=== PATIENT | female | born 1965 | race American Indian/Alaskan Native ===

== ENCOUNTER 2016-08-15 06:13 | Day surgery (SDC) | payer OTHER ==
[2016-08-15] MEDS ORDERED: Midazolam 1 MG/ML 2 ML SDV ONE (06:14)
[2016-08-15] MEDS ORDERED: fentaNYL 100 MCG/2 ML SDV ONE (06:14)
[2016-08-15] MEDS ORDERED: Dextrose 5%-0.45% NaCl 1,000 ML IV SCH (07:00)
[2016-08-15] MEDS ORDERED: fentaNYL 100 MCG/2 ML SDV IV ONE ×3 (07:35→15:06)
[2016-08-15] MEDS ORDERED: Midazolam 1 MG/ML 2 ML SDV IV ONE ×6 (07:37→15:06)
[2016-08-15 09:57] VITALS: BP 117/82
--- NOTE | 2016-08-15 10:02 | OR ---
DATE: 08/15/2016 PROCEDURE: Total colonoscopy. INSTRUMENT USED: PCF-H180AL Olympus video colonoscope. PREMEDICATIONS: Fentanyl 100 mcg intravenous, Versed 4 mg intravenous. Nasal 2 L O2 cannula. The procedure was done under pulse oximetry, BP recording, and cardiac technician. INDICATION: The patient with rectal bleeding, Hemoccult-positive stools. Colonoscopic examination is done for detection of any polypoid lesions and removal, endoscopic hemostasis therapy if needed. DESCRIPTION OF PROCEDURE: Initial rectal exam was unremarkable. Rigid anoscopy was normal. The colonoscope was passed with ease. Diverticula were noted in the distal left colon. The examination was compromised in a few areas due to the presence of large amount of fecal material that had to be aspirated. The scope was passed with ease up to the ileocecal area, photographs were taken of the normal- appearing cecum, identified by landmarks of appendiceal orifice and double- bulged ileocecal folds. No bleeding was noted from any of the visualized areas at the commencement of the examination. No stricture. No vascular ectasia. No large isolated ulcerations seen. No evidence of diffuse inflammatory bowel disease in the form of friability, contact bleeding, or ulcerations. No polyp or tumor mass identified. Probing the proximal sides of folds and flexures, using adequate distention and clearing of the stool material, withdrawal of the scope was made, cecum to rectum time over 6 minutes. No bleeding was noted from any of the visualized areas at the completion of examination. IMPRESSION: Diverticulosis. The patient tolerated the procedure well. [facility] /[id number]
--- NOTE | 2016-08-15 11:04 | LETTER ---
08/15/2016 Senait Scott [facility] [address] [place] [address] RE: STEVEN JUNG : 1965 Dear Sonia. . Steven Jung had colonoscopy examination done this morning and she tolerated the procedure well. I herewith send a copy of the endoscopy note and photographs for your review. The colonoscopy examination was negative for any bleeding area. She has had episodes of vomiting unexplained. She is scheduled for EGD on 08/18/2016. Thank you. Sincerely, [facility] /[id number]
== END 2016-08-15 10:00 | disposition home or self-care (01) ==
LOC: DL.ENDO 06:13
PROVIDERS: ATTEND Internal Medicine Gastroenterology
DX: K57.30 Diverticulosis of large intestine without perforation or abscess without bleeding (principal); I10 Essential (primary) hypertension; E11.9 Type 2 diabetes mellitus without complications; E66.9 Obesity, unspecified; G47.30 Sleep apnea, unspecified; Z90.49 Acquired absence of other specified parts of digestive tract; Z98.890 Other specified postprocedural states; Z91.040 Latex allergy status; Z91.018 Allergy to other foods; F11.20 Opioid dependence, uncomplicated; Z79.82 Long term (current) use of aspirin; Z79.4 Long term (current) use of insulin; Z79.899 Other long term (current) drug therapy; F32.9 Major depressive disorder, single episode, unspecified
CPT/HCPCS: 45378; J2250; J3010; J7042

== ENCOUNTER 2016-08-18 05:33 | Day surgery (SDC) | payer OTHER ==
[2016-08-18] MEDS ORDERED: Sodium Chloride 0.9% 10 ML Syringe FLUSH PRN (06:00)
[2016-08-18] MEDS ORDERED: Dextrose 5%-0.45% NaCl 1,000 ML IV SCH (06:00)
[2016-08-18] MEDS ORDERED: Midazolam 1 MG/ML 2 ML SDV ONE (06:11)
[2016-08-18] MEDS ORDERED: fentaNYL 100 MCG/2 ML SDV ONE (06:11)
[2016-08-18] MEDS ORDERED: fentaNYL 100 MCG/2 ML SDV IV ONE ×3 (06:24→14:30)
[2016-08-18] MEDS ORDERED: Midazolam 1 MG/ML 2 ML SDV IV ONE ×4 (06:25→14:30)
[2016-08-18 09:00] VITALS: BP 131/85
--- NOTE | 2016-08-18 10:10 | OR ---
DATE: 08/18/2016 PROCEDURE: Esophagogastroduodenoscopy and multiple pinch biopsies. INSTRUMENT USED: GIF-H180 Olympus video panendoscope. PREMEDICATIONS: No oral topical anesthesia used. Fentanyl 100 mcg intravenous, Versed 2 mg intravenous. Nasal 2 L O2 cannula. The procedure was done under pulse oximetry, BP recording, and property assessment monitor. INDICATION: The patient with episodes of vomiting, unexplained, and had previous gastric bypass surgery. Esophagogastroduodenoscopy is performed for detection of any active erosive lesions, Pérez esophagus and/or malignancy also under consideration, H. pylori status to be determined, endoscopic hemostasis therapy if needed. DESCRIPTION OF PROCEDURE: The scope was passed with ease. Adequate visualization of the esophagus was made from proximal to distal areas. No upper esophageal lesions identified. No distal esophageal stricture. No uphill or downhill esophageal varices. No Katie-Godinez tear. No evidence of erosive esophagitis by Codington criteria. No esophageal polyp or tumor mass identified. Small gastric stump visualized showed no ulcer, polyp, tumor mass, or vascular ectasia. Gastric fundus examination by retroflexion showed no polypoid lesions. Surgical site showed no bleeding areas. Visualized loops of the bowel, afferent and efferent loops, unremarkable. Multiple pinch biopsies were taken from the distal and proximal gastric mucosa and sent for PyloriTek test for H. pylori; if negative in an hour, the tissue is to be sent for histopathology. No bleeding was noted from any of the visualized areas at the completion of examination. Photographs were taken of the surgical site, gastric fundus, as well as distal esophagus. IMPRESSION: Status post gastric bypass surgery. The patient tolerated the procedure well. [facility] /[id number]
--- NOTE | 2016-08-18 11:49 | LETTER ---
08/18/2016 Senait Scott NP [facility] [address] [place] [address] RE: STEVEN JUNG : 1965 Dear Ms. Scott: Ms. Steven Jung had esophagogastroduodenoscopy done this morning and she tolerated the procedure well. I herewith send a copy of the endoscopy note and photographs for your review. She is put on omeprazole 10 mg p.o. daily, response to be noted. Thank you. Sincerely, [facility] /[id number]
== END 2016-08-18 08:50 | disposition home or self-care (01) ==
LOC: DL.ENDO 05:33
PROVIDERS: ATTEND Internal Medicine Gastroenterology
DX: R11.10 Vomiting, unspecified (principal); I10 Essential (primary) hypertension; E11.9 Type 2 diabetes mellitus without complications; E66.9 Obesity, unspecified; G47.30 Sleep apnea, unspecified; Z90.49 Acquired absence of other specified parts of digestive tract; Z98.890 Other specified postprocedural states; Z79.82 Long term (current) use of aspirin; Z91.040 Latex allergy status; Z91.018 Allergy to other foods; Z79.4 Long term (current) use of insulin; Z79.899 Other long term (current) drug therapy; Z98.84 Bariatric surgery status
CPT/HCPCS: 43239; 87077; J2250; J3010; J7042

== ENCOUNTER 2016-12-27 00:21 | Emergency (ER) | payer OTHER ==
[2016-12-27] MEDS ORDERED: methylPREDNISolone Sodium Succinate 125 MG/2 ML SDV IM ONE (01:08)
[2016-12-27] MEDS ORDERED: Ondansetron 4 MG/2 ML SDV IV ONE (01:08)
[2016-12-27] MEDS ORDERED: HYDROmorphone 1 MG/ML Syringe IVPUSH ONE (01:08)
[2016-12-27] MEDS ORDERED: methylPREDNISolone Sodium Succinate 125 MG/2 ML SDV IVPUSH ONE (01:16)
[2016-12-27 01:30] LABS: CHLORIDE,CL 100 mmol/L (101-111); SODIUM,NA 137 mmol/L (135-145)
--- NOTE | 2016-12-27 01:47 | EDM.PDOC ---
ED HPI GENERAL MEDICAL PROBLEM - General Chief Complaint: General Stated Complaint: FLU Time Seen by Provider: 12/27/16 00:30 Source of Information: Reports: Patient History Limitations: Reports: No Limitations - History of Present Illness INITIAL COMMENTS - FREE TEXT/NARRATIVE: ED with c/o general body aches worse in smaller joints but hips and elbows ache also. Chronic back pain. Emesis x 1 at noon, no nausea at present. Temp tonight. Hx RA. Not on any medications to treat. Onset: Today Location: Reports: Generalized Quality: Reports: Ache Severity: Moderate Associated Symptoms: Reports: Fever/Chills, Nausea/Vomiting. Denies: Loss of Appetite, Shortness of Breath Back Pain Score (Numeric/FACES): 8 - Related Data Allergies Allergy/AdvReac Type Severity Reaction Status Date / Time latex Allergy Rash Uncoded 12/27/16 00:33 onions Allergy Hives Uncoded 12/27/16 00:33 spider bites Allergy Numbness Uncoded 12/27/16 00:33 Home Meds: Home Meds Folic Acid 1 mg PO DAILY 06/01/13 [History] Insulin Detemir [Levemir] 40 units SQ BEDTIME 06/01/13 [History] Lisinopril [Lisinopril] 5 mg PO DAILY 06/01/13 [History] metFORMIN HCl [Metformin HCl] 500 mg PO BID 06/01/13 [History] Aspirin [Halfprin] 81 mg PO DAILY 02/14/14 [History] Calcium Carbonate [Calci-Chew] 500 mg PO BID 02/14/14 [History] Acetaminophen/oxyCODONE [Percocet 325-5 MG] 1 tab PO TID 09/04/15 [History] Cyclobenzaprine [Flexeril] 5 mg PO BID 09/04/15 [History] Morphine Sulfate [Ms Contin] 30 mg PO BID 09/04/15 [History] Gabapentin [Neurontin] 300 mg PO BID 12/27/16 [History] Gabapentin [Neurontin] 600 mg PO DAILY 12/27/16 [History] Past Medical History HEENT History: Reports: Impaired Vision Other HEENT History: wears glasses, droopy L) eye lid, had reconstrucion surg Cardiovascular History: Reports: Heart Murmur Respiratory History: Reports: None Gastrointestinal History: Reports: None Genitourinary History: Reports: None CHRONIC SPECIALIST History: Reports: None, , 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 SEVERE L4-5 LUMBAR SPINAL STENOSIS. 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 T12-L1 THROUGH L5- S1 DEGENERATIVE DISC. 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 GI Surgical History: Reports: Appendectomy, Bariatric Procedure, Colonoscopy Female Surgical History: Reports: Section Neurological Surgical History: Reports: Lumbar Spine, Other (See Below) Other Neurological Surgeries/Procedures: brace on spine Musculoskeletal Surgical History: Reports: Knee Replacement, Other (See Below) Social & Family History - Family History Family Medical History: Noncontributory Cardiac: Reports: NM Endocrine/Metabolic: Reports: Diabetes, Type I Oncologic: Reports: Ovarian, Prostate - Tobacco Use Smoking Status *Q: Former Smoker Years of Tobacco use: 10 Packs/Tins Daily: 1 Used Tobacco, but Quit: Yes Month Tobacco Last Used: august Second Hand Smoke Exposure: No - Caffeine Use Caffeine Use: Reports: None - Alcohol Use Days Per Week of Alcohol Use: 0 - Recreational Drug Use Recreational Drug Use: No ED ROS GENERAL - Review of Systems Review Of Systems: See Below Constitutional: Reports: Fever HEENT: Reports: No Symptoms Respiratory: Reports: No Symptoms Cardiovascular: Reports: No Symptoms Endocrine: Reports: No Symptoms GI/Abdominal: Reports: Vomiting (x1) Musculoskeletal: Reports: Joint Pain (generalized body, greater in small joints. ) Skin: Reports: No Symptoms Neurological: Reports: No Symptoms Psychiatric: Reports: No Symptoms ED EXAM, GENERAL - Physical Exam Exam: See Below Exam Limited By: No Limitations General Appearance: Alert, Mild Distress Eye Exam: Bilateral Eye: EOMI Ears: Normal External Exam, Normal TMs Nose: Normal Inspection Throat/Mouth: Normal Inspection Head: Atraumatic, Normocephalic Neck: Normal Inspection, Lymphadenopathy (L), Lymphadenopathy (R). No: Tender Midline Respiratory/Chest: No Respiratory Distress, Lungs Clear, Normal Breath Sounds Cardiovascular: Normal Peripheral Pulses, Regular Rate, Rhythm GI/Abdominal: Normal Bowel Sounds, Soft Back Exam: Normal Inspection, Full Range of Motion Extremities: Normal Inspection, Normal Range of Motion, Increased Warmth (MIP"s) . No: Joint Swelling, Redness Neurological: Alert, Oriented, Normal Cognition, No Motor/Sensory Deficits Psychiatric: Normal Affect, Normal Mood Skin Exam: Warm, Dry, Intact, Normal Color, No Rash Course - Vital Signs Last Recorded V/S: Last Vital Signs Temp 99 F 12/27/16 01:23 Pulse 110 H 12/27/16 01:23 Resp 18 12/27/16 01:23 BP 86/45 L 12/27/16 01:23 Pulse Ox 90 L 12/27/16 01:23 - Orders/Labs/Meds Orders: Active Orders 24 hr Category Date Time Status CULTURE BLOOD [BC] Stat Lab 12/27/16 01:00 Received CULTURE STREP A CONFIRMATION [] Stat Lab 12/27/16 00:56 Results STREP SCRN A RAPID W CULT CONF [] Stat Lab 12/27/16 01:29 Ordered Labs: Laboratory Tests 12/27/16 12/27/16 12/27/16 Range/Units 00:55 01:00 01:00 WBC 14.0 H (5.0-10.0) 10^3/uL RBC 4.66 (4.2-5.4) 10^6/uL Hgb 12.9 (12.0-16.0) g/dL Hct 39.6 (37.0-47.0) % MCV 85.0 (80-100) fL MCH 27.7 (27.0-34.0) pg MCHC 32.6 L (33.0-35.0) g/dL Plt Count 301 (150-450) 10^3/uL Neut % (Auto) 69.5 (42.2-75.2) % Lymph % (Auto) 20.5 (20.5-50.1) % [place] % (Auto) 6.9 (2-8) % Eos % (Auto) 3.0 (1.0-3.0) % Baso % (Auto) 0.1 (0.0-1.0) % Sodium 137 (135-145) mmol/L Potassium 4.2 (3.6-5.0) mmol/L Chloride 100 L (101-111) mmol/L Carbon Dioxide 26.0 (21.0-31.0) mmol/L Anion Gap 15.2 BUN 12 (7-18) mg/dL Creatinine 0.6 (0.6-1.3) mg/dL Est Cr Clr Drug Dosing 115.93 mL/min Estimated GFR (MDRD) > 60 BUN/Creatinine Ratio 20.00 Glucose 206 H (74-105) mg/dL Lactic Acid (0.5-2.2) mmol/L Calcium 9.4 (8.4-10.2) mg/dl Total Bilirubin 0.3 (0.2-1.0) mg/dL AST 18 (10-42) IU/L ALT 25 (10-60) IU/L Alkaline Phosphatase 91 (42-121) IU/L C-Reactive Protein (0.0-1.3) mg/dL Total Protein 7.7 (6.7-8.2) g/dl Albumin 4.1 (3.2-5.5) g/dl Globulin 3.6 Albumin/Globulin Ratio 1.14 Urine Color Yellow (YELLOW) Urine Appearance Clear (CLEAR) Urine pH 5.5 (5.0-9.0) Ur Specific [place] 1.010 (1.005-1.030) Urine Protein Negative (NEGATIVE) Urine Glucose (UA) Negative (NEGATIVE) Urine Ketones Negative (NEGATIVE) Urine Occult Blood Negative (NEGATIVE) Urine Nitrite Negative (NEGATIVE) Urine Bilirubin Negative (NEGATIVE) Urine Urobilinogen 0.2 (0.2-1.0) mg/dL Ur Leukocyte Esterase Trace H (NEGATIVE) Urine RBC 0-5 /HPF Urine WBC 0-5 (0-5/HPF) /HPF Ur Epithelial Cells Few /HPF Urine Bacteria Few (0-FEW/HPF) /HPF 12/27/16 12/27/16 Range/Units 01:00 01:00 WBC (5.0-10.0) 10^3/uL RBC (4.2-5.4) 10^6/uL Hgb (12.0-16.0) g/dL Hct (37.0-47.0) % MCV (80-100) fL MCH (27.0-34.0) pg MCHC (33.0-35.0) g/dL Plt Count (150-450) 10^3/uL Neut % (Auto) (42.2-75.2) % Lymph % (Auto) (20.5-50.1) % [place] % (Auto) (2-8) % Eos % (Auto) (1.0-3.0) % Baso % (Auto) (0.0-1.0) % Sodium (135-145) mmol/L Potassium (3.6-5.0) mmol/L Chloride (101-111) mmol/L Carbon Dioxide (21.0-31.0) mmol/L Anion Gap BUN (7-18) mg/dL Creatinine (0.6-1.3) mg/dL Est Cr Clr Drug Dosing mL/min Estimated GFR (MDRD) BUN/Creatinine Ratio Glucose (74-105) mg/dL Lactic Acid 1.0 (0.5-2.2) mmol/L Calcium (8.4-10.2) mg/dl Total Bilirubin (0.2-1.0) mg/dL AST (10-42) IU/L ALT (10-60) IU/L Alkaline Phosphatase (42-121) IU/L C-Reactive Protein 3.9 H (0.0-1.3) mg/dL Total Protein (6.7-8.2) g/dl Albumin (3.2-5.5) g/dl Globulin Albumin/Globulin Ratio Urine Color (YELLOW) Urine Appearance (CLEAR) Urine pH (5.0-9.0) Ur Specific [place] (1.005-1.030) Urine Protein (NEGATIVE) Urine Glucose (UA) (NEGATIVE) Urine Ketones (NEGATIVE) Urine Occult Blood (NEGATIVE) Urine Nitrite (NEGATIVE) Urine Bilirubin (NEGATIVE) Urine Urobilinogen (0.2-1.0) mg/dL Ur Leukocyte Esterase (NEGATIVE) Urine RBC /HPF Urine WBC (0-5/HPF) /HPF Ur Epithelial Cells /HPF Urine Bacteria (0-FEW/HPF) /HPF Meds: Medications Discontinued Medications Generic Name Dose Route Start Last Admin Trade Name Ry PRN Reason Stop Dose Admin Hydromorphone HCl 1 mg 12/27/16 01:08 12/27/16 01:20 Dilaudid IVPUSH 12/27/16 01:09 1 mg ONETIME ONE Administration Methylprednisolone Sodium Succinate 125 mg 12/27/16 01:08 12/27/16 01:19 Solu-Medrol IM 12/27/16 01:09 Not Given ONETIME ONE Methylprednisolone Sodium Succinate 125 mg 12/27/16 01:16 12/27/16 01:19 Solu-Medrol IVPUSH 12/27/16 01:17 125 mg ONETIME ONE Administration Ondansetron HCl 4 mg 12/27/16 01:08 12/27/16 01:18 Zofran IV 12/27/16 01:09 4 mg ONETIME ONE Administration Departure - Departure Time of Disposition: 02:00 Disposition: Home, Self-Care 01 Condition: Fair Clinical Impression: Personal history of rheumatoid arthritis Joint pain Qualifiers: Joint pain location: unspecified Qualified Code(s): M25.50 - Pain in unspecified joint - Discharge Information Instructions: Arthritis, [id number] Forms: ED Department Discharge Additional Instructions: Prednisone 10mg two x 5 days, one x 5 days then 1/2 daily for 5 days recheck in clinic in one week , sooner if symptoms worsening - My Orders Last 24 Hours: My Active Orders 12/27/16 00:56 CULTURE STREP A CONFIRMATION [] Stat 12/27/16 01:00 CULTURE BLOOD [BC] Stat 12/27/16 01:29 STREP SCRN A RAPID W CULT CONF [] Stat - Assessment/Plan Last 24 Hours: My Active Orders 12/27/16 00:56 CULTURE STREP A CONFIRMATION [] Stat 12/27/16 01:00 CULTURE BLOOD [BC] Stat 12/27/16 01:29 STREP SCRN A RAPID W CULT CONF [] Stat
[2016-12-27 02:06] VITALS: BP 89/53
== END 2016-12-27 02:11 | disposition home or self-care (01) ==
LOC: DL.ED 00:21
DX: M06.9 Rheumatoid arthritis, unspecified (principal); H54.7 Unspecified visual loss; E11.40 Type 2 diabetes mellitus with diabetic neuropathy, unspecified; Z90.49 Acquired absence of other specified parts of digestive tract; Z98.84 Bariatric surgery status; Z91.018 Allergy to other foods; Z79.899 Other long term (current) drug therapy; Z91.040 Latex allergy status
CPT/HCPCS: 36415; 80053; 81001; 83605; 85025; 86140; 87040; 87081; 87430; 96374; 96375; 99283; J1170; J2405; J2930

== ENCOUNTER 2017-01-28 14:21 | Emergency (ER) | payer OTHER ==
[2017-01-28 15:19] VITALS: BP 133/81
[2017-01-28] MEDS ORDERED: Fluorescein 1 MG Ophth Strip EYELF ONE (15:20)
[2017-01-28] MEDS ORDERED: Tetracaine HCl/PF 0.5% 4 ML Bottle EYELF ONE (15:20)
--- NOTE | 2017-01-28 15:29 | EDM.PDOC ---
ED HPI GENERAL MEDICAL PROBLEM - General Chief Complaint: Eye Problems Stated Complaint: SOMETHING IN EYE Time Seen by Provider: 01/28/17 15:24 Source of Information: Reports: Patient History Limitations: Reports: No Limitations - History of Present Illness INITIAL COMMENTS - FREE TEXT/NARRATIVE: 51 yo female presents with left eye pain since last night, woke her in the night with pain. States that she feels like something is in the eye. Denies itching. Eye is red upon assessment. Contact lens is removed prior to arrival. c/o photophobia occasionally. No other complaints. no visual deficits Onset Date: 01/27/17 Duration: Getting Worse Location: Reports: Face Quality: Reports: Ache, Burning Severity: Mild Improves with: Reports: None Worsens with: Reports: None Left Eye Pain Score (Numeric/FACES): 4 - Related Data Allergies Allergy/AdvReac Type Severity Reaction Status Date / Time latex Allergy Rash Uncoded 01/28/17 15:11 onions Allergy Hives Uncoded 01/28/17 15:11 spider bites Allergy Numbness Uncoded 01/28/17 15:11 Home Meds: Home Meds Folic Acid 1 mg PO DAILY 06/01/13 [History] Insulin Detemir [Levemir] 45 units SQ BEDTIME 06/01/13 [History] Lisinopril [Lisinopril] 5 mg PO DAILY 06/01/13 [History] metFORMIN HCl [Metformin HCl] 1,000 mg PO BID 06/01/13 [History] Aspirin [Halfprin] 81 mg PO DAILY 02/14/14 [History] Calcium Carbonate [Calci-Chew] 600 mg PO DAILY 02/14/14 [History] Cyclobenzaprine [Flexeril] 10 mg PO TID 09/04/15 [History] Morphine Sulfate [Ms Contin] 37.5 mg PO BID 09/04/15 [History] Gabapentin [Neurontin] 300 mg PO BID 12/27/16 [History] Gabapentin [Neurontin] 600 mg PO BEDTIME 12/27/16 [History] atorvaSTATin [Lipitor] 20 mg PO BEDTIME 01/28/17 [History] Past Medical History HEENT History: Reports: Impaired Vision Other HEENT History: wears glasses, droopy L) eye lid, had reconstrucion surg Cardiovascular History: Reports: Heart Murmur Respiratory History: Reports: None Gastrointestinal History: Reports: None Genitourinary History: Reports: None FIXTURE DESIGNER History: Reports: None, , 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 SEVERE L4-5 LUMBAR SPINAL STENOSIS. 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 T12-L1 THROUGH L5- S1 DEGENERATIVE DISC. 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 GI Surgical History: Reports: Appendectomy, Bariatric Procedure, Colonoscopy Female Surgical History: Reports: Section Neurological Surgical History: Reports: Lumbar Spine, Other (See Below) Other Neurological Surgeries/Procedures: brace on spine Musculoskeletal Surgical History: Reports: Knee Replacement, Other (See Below) Social & Family History - Family History Family Medical History: Noncontributory Cardiac: Reports: [place] Endocrine/Metabolic: Reports: Diabetes, Type I Oncologic: Reports: Ovarian, Prostate - Tobacco Use Smoking Status *Q: Former Smoker Years of Tobacco use: 10 Packs/Tins Daily: 1 Used Tobacco, but Quit: Yes Month Tobacco Last Used: unknown Second Hand Smoke Exposure: No - Caffeine Use Caffeine Use: Reports: None - Alcohol Use Days Per Week of Alcohol Use: 0 - Recreational Drug Use Recreational Drug Use: No ED ROS GENERAL - Review of Systems Review Of Systems: ROS reveals no pertinent complaints other than HPI. ED EXAM GENERAL W FULL EYE - Physical Exam Exam: See Below Exam Limited By: No Limitations General Appearance: Alert, WD/WN, No Apparent Distress Eye Exam: Left Eye: Abnormal Pupil (small cloudy round area to inferior pupil), Conjunctival Injection, Bilateral Eye: EOMI, Normal Fundi, PERRL Visual Acuity (R) 20/: 20 Visual Acuity (L) 20/: 25 With Correction: No Eyelids: Left: Other (left eyelashes curled onto conjunctiva), Bilateral: Normal Appearance Conjunctiva & Sclera: Left: Injected Cornea Exam: Left: Cloudy Cornea, Examined with Flourescein Extraocular Movements: Bilateral: Intact Pupils: Normal Accommodation Pupillary Size: Bilateral: 4 mm Pupillary Reaction: Bilateral: Brisk Anterior Chamber: Bilateral: Normal Appearance Respiratory/Chest: No Respiratory Distress, Lungs Clear, Normal Breath Sounds, No Accessory Muscle Use, Chest Non-Tender Cardiovascular: Normal Peripheral Pulses, Regular Rate, Rhythm, No Edema, No Gallop, No JVD, No Murmur, No Rub Neurological: Alert, Oriented, CN II-XII Intact, Normal Cognition, Normal Gait, Normal Reflexes, No Motor/Sensory Deficits ED EYE w/ Add Procedure - Eye Procedure Alcaine Drops Administered: Yes Eye FB Removal: no Removal w/ Cotton Swab, no Removal w/ Needle, no Other Progress: Flourescin drops with positive indicators for corneal abrasion. Course - Vital Signs Last Recorded V/S: Last Vital Signs Temp 98.3 F 01/28/17 15:14 Pulse 75 01/28/17 15:14 Resp 20 01/28/17 15:14 BP 133/81 01/28/17 15:14 Pulse Ox 97 01/28/17 15:14 - Orders/Labs/Meds Meds: Medications Discontinued Medications Generic Name Dose Route Start Last Admin Trade Name Navjotq PRN Reason Stop Dose Admin Ciprofloxacin 2 ml 01/28/17 15:48 Ciloxan 0.3% Ophth Soln EYELF 01/28/17 15:49 ONETIME ONE Fluorescein Sodium 1 mg 01/28/17 15:20 01/28/17 15:25 Ful-Beth EYELF 01/28/17 15:21 1 mg ONETIME ONE Administration Tetracaine HCl 0.5 ml 01/28/17 15:20 01/28/17 15:24 Tetracaine 0.5% Steri-Unit Doris EYELF 01/28/17 15:21 1 drop ASDIRECTED ONE Administration Departure - Departure Time of Disposition: 15:37 Disposition: Home, Self-Care 01 Condition: Good Clinical Impression: Corneal abrasion Qualifiers: Encounter type: initial encounter Laterality: left Qualified Code(s): S05.02XA - Injury of conjunctiva and corneal abrasion without foreign body, left eye, initial encounter - Discharge Information Instructions: Corneal Abrasion Forms: ED Department Discharge Additional Instructions: Make sure to call your ophthamalogist on monday for follow up. Take the drops as prescribed. return for any worsening symptoms.
[2017-01-28] MEDS ORDERED: Ciprofloxacin 0.3% Ophth Soln 2.5 ML Bottle EYELF ONE (15:48)
== END 2017-01-28 16:00 | disposition home or self-care (01) ==
LOC: DL.ED 14:21
DX: S05.02XA Injury of conjunctiva and corneal abrasion without foreign body, left eye, initial encounter (principal); E11.9 Type 2 diabetes mellitus without complications; Z98.84 Bariatric surgery status; Z90.49 Acquired absence of other specified parts of digestive tract; Z98.890 Other specified postprocedural states; Z96.659 Presence of unspecified artificial knee joint; Z87.891 Personal history of nicotine dependence; Z79.4 Long term (current) use of insulin; Z79.82 Long term (current) use of aspirin; Z79.899 Other long term (current) drug therapy; Z91.018 Allergy to other foods; Z91.040 Latex allergy status; X58.XXXA Exposure to other specified factors, initial encounter
CPT/HCPCS: 99283; A9270

== ENCOUNTER 2017-02-13 20:49 | Emergency (ER) | payer OTHER ==
[2017-02-13] MEDS ORDERED: Ibuprofen 600 MG Tab PO ONE (20:50)
[2017-02-13 21:29] VITALS: BP 113/79
[2017-02-13 23:40] LABS: CHLORIDE,CL 101 mmol/L (101-111); SODIUM,NA 140 mmol/L (135-145)
[2017-02-13] MEDS ORDERED: Ibuprofen 600 MG Tab ONE (23:53)
== END 2017-02-14 00:11 | disposition home or self-care (01) ==
LOC: DL.ED 20:49
DX: R25.2 Cramp and spasm (principal)
CPT/HCPCS: 36415; 80053; 85025; 86140; 99283; A9270

== ENCOUNTER 2017-04-16 12:08 | Emergency (ER) | payer OTHER ==
[2017-04-16 12:18] VITALS: BP 114/78
[2017-04-16] MEDS ORDERED: Ketorolac 30 MG/ML SDV IM ONE (13:06)
--- NOTE | 2017-04-16 13:10 | EDM.PDOC ---
Scribed by Pilar Quiñonez 04/16/17 0252 for Verena Vila NP ED HPI GENERAL MEDICAL PROBLEM - General Chief Complaint: Back Pain or Injury Stated Complaint: [id number] BACK PAIN Time Seen by Provider: 04/16/17 12:25 Source of Information: Reports: Patient, RN, RN Notes Reviewed History Limitations: Reports: No Limitations - History of Present Illness INITIAL COMMENTS - FREE TEXT/NARRATIVE: Patient presents with right anterior left leg pain. She has a history of chronic low back pain. She has had 2 back surgeries in 2014 and 2015. She has a brace in spine and more hardware. She had fever and chills last night. No airway symptoms. No nausea, vomiting,diarrhea, chest pain or shortness of breath. Location: Reports: Back Quality: Reports: Ache Severity: Severe Improves with: Reports: None Worsens with: Reports: None Associated Symptoms: Reports: No Other Symptoms Lower Back Pain Score (Numeric/FACES): 9 - Related Data Allergies Allergy/AdvReac Type Severity Reaction Status Date / Time latex Allergy Rash Uncoded 04/16/17 12:14 onions Allergy Hives Uncoded 04/16/17 12:14 spider bites Allergy Numbness Uncoded 04/16/17 12:14 Home Meds: Home Meds Folic Acid 1 mg PO DAILY 06/01/13 [History] Insulin Detemir [Levemir] 45 units SQ BEDTIME 06/01/13 [History] Lisinopril [Lisinopril] 5 mg PO DAILY 06/01/13 [History] metFORMIN HCl [Metformin HCl] 1,000 mg PO BID 06/01/13 [History] Aspirin [Halfprin] 81 mg PO DAILY 02/14/14 [History] Calcium Carbonate [Calci-Chew] 600 mg PO DAILY 02/14/14 [History] Cyclobenzaprine [Flexeril] 10 mg PO TID 09/04/15 [History] Morphine Sulfate [Ms Contin] 37.5 mg PO BID 09/04/15 [History] Gabapentin [Neurontin] 300 mg PO BID 12/27/16 [History] Gabapentin [Neurontin] 600 mg PO BEDTIME 12/27/16 [History] atorvaSTATin [Lipitor] 20 mg PO BEDTIME 01/28/17 [History] Past Medical History HEENT History: Reports: Impaired Vision Other HEENT History: wears glasses, droopy L) eye lid, had reconstrucion surg Cardiovascular History: Reports: Heart Murmur Respiratory History: Reports: None Gastrointestinal History: Reports: None Genitourinary History: Reports: None [employer] 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 SEVERE L4-5 LUMBAR SPINAL STENOSIS. 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 T12-L1 THROUGH L5- S1 DEGENERATIVE DISC. 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 GI Surgical History: Reports: Appendectomy, Bariatric Procedure, Colonoscopy Female Surgical History: Reports: Section, Oophorectomy, Tubal Ligation Other Neurological Surgeries/Procedures: brace on spine Musculoskeletal Surgical History: Reports: Knee Replacement, Other (See Below) Other Musculoskeletal Surgeries/Procedures:: bawck surgery x2 Social & Family History - Family History Family Medical History: Noncontributory Cardiac: Reports: [place] Endocrine/Metabolic: Reports: Diabetes, Type I Oncologic: Reports: Ovarian, Prostate - Tobacco Use Smoking Status *Q: Former Smoker Years of Tobacco use: 10 Packs/Tins Daily: 1 Used Tobacco, but Quit: Yes Month Tobacco Last Used: ? Second Hand Smoke Exposure: No - Caffeine Use Caffeine Use: Reports: Tea - Alcohol Use Days Per Week of Alcohol Use: 0 - Recreational Drug Use Recreational Drug Use: No ED ROS GENERAL - Review of Systems Review Of Systems: ROS reveals no pertinent complaints other than HPI. ED EXAM,LOWER BACK PAIN/INJURY - Physical Exam Exam: See Below Exam Limited By: No Limitations General Appearance: Alert, WD/WN, No Apparent Distress Eye Exam: Bilateral Eye: Normal Inspection Ears: Normal External Exam, Normal Canal, Hearing Grossly Normal, Normal TMs Nose: Normal Inspection, Normal Mucosa, No Blood Throat/Mouth: Normal Inspection, Normal Lips, Normal Teeth, Normal Gums, Normal Oropharynx, Normal Voice, No Airway Compromise Head: Atraumatic, Normocephalic Neck: Normal Inspection, Supple, Non-Tender, Full Range of Motion Respiratory/Chest: No Respiratory Distress, Lungs Clear, Normal Breath Sounds, No Accessory Muscle Use, Chest Non-Tender Cardiovascular: Normal Peripheral Pulses, Regular Rate, Rhythm, No Edema, No Gallop, No JVD, No Murmur, No Rub GI/Abdominal: Normal Bowel Sounds, Soft, Non-Tender, No Organomegaly, No Distention, No Abnormal Bruit, No Mass (Female) Exam: Deferred Rectal (Female) Exam: Deferred Back Exam: Other (back is very tender midline and paraspinal mid back decreased to coccyx.) Extremities: Normal Inspection, Normal Range of Motion, Non-Tender, No Pedal Edema, Normal Capillary Refill Neurological: Alert, Normal Mood/Affect, Normal Dorsiflexion, CN II-XII Intact, Normal Plantar Flexion, Normal Gait, Normal Reflexes, No Motor/Sensory Deficits , Oriented x 3 Psychiatric: Normal Affect, Normal Mood Skin Exam: Warm, Dry, Intact, Normal Color, No Rash Lymphatic: No Adenopathy Course - Vital Signs Last Recorded V/S: Last Vital Signs Temp 97.7 F 04/16/17 12:15 Pulse 100 04/16/17 12:15 Resp 20 04/16/17 12:15 BP 114/78 04/16/17 12:15 Pulse Ox 98 04/16/17 12:15 - Orders/Labs/Meds Orders: Active Orders 24 hr Category Date Time Status Orphenadrine [Norflex] Med 04/16/17 13:15 Ordered 60 mg IM Q12H Medication Orders Orphenadrine Citrate (Norflex) 60 mg IM Q12H ROCKY Labs: Laboratory Tests 04/16/17 Range/Units 12:45 Urine Color Yellow (YELLOW) Urine Appearance Slightly cloudy (CLEAR) Urine pH 6.5 (5.0-9.0) Ur Specific [place] 1.015 (1.005-1.030) Urine Protein Negative (NEGATIVE) Urine Glucose (UA) 500 H (NEGATIVE) Urine Ketones Negative (NEGATIVE) Urine Occult Blood Negative (NEGATIVE) Urine Nitrite Negative (NEGATIVE) Urine Bilirubin Negative (NEGATIVE) Urine Urobilinogen 0.2 (0.2-1.0) mg/dL Ur Leukocyte Esterase Negative (NEGATIVE) Urine RBC 0-5 /HPF Urine WBC 0-5 (0-5/HPF) /HPF Ur Epithelial Cells Rare /HPF Amorphous Sediment Rare (0/HPF) /HPF Urine Bacteria Rare (0-FEW/HPF) /HPF Meds: Medications Generic Name Dose Route Start Last Admin Trade Name Freq PRN Reason Stop Dose Admin Orphenadrine Citrate 60 mg 04/16/17 13:15 Norflex IM Q12H ROCKY Discontinued Medications Generic Name Dose Route Start Last Admin Trade Name Freq PRN Reason Stop Dose Admin Ketorolac Tromethamine 60 mg 04/16/17 13:06 Toradol IM 04/16/17 13:07 ONETIME ONE Departure - Departure Time of Disposition: 13:08 Disposition: Home, Self-Care 01 Condition: Fair Clinical Impression: Chronic back pain Qualifiers: Back pain location: low back pain Back pain laterality: midline Sciatica presence: without sciatica Qualified Code(s): M54.5 - Low back pain; G89.29 - Other chronic pain; G89.29 - Other chronic pain - Discharge Information Instructions: Back Injury Prevention, [id number], Back Pain, Adult, Easy-to- Read Forms: ED Department Discharge Additional Instructions: Follow up with your primary care facility next week if no improvement with back pain. - My Orders Last 24 Hours: My Active Orders 04/16/17 13:15 Orphenadrine [Norflex] 60 mg IM Q12H - Assessment/Plan Last 24 Hours: My Active Orders 04/16/17 13:15 Orphenadrine [Norflex] 60 mg IM Q12H I have read and agree with the documentation that has been completed regarding this visit. By signing this record, I attest that the documentation was completed in my physical presence and is an accurate record of the encounter.
[2017-04-16] MEDS ORDERED: Ketorolac 30 MG/ML SDV ONE (13:15)
== END 2017-04-16 13:25 | disposition home or self-care (01) ==
LOC: DL.ED 12:08
DX: G89.29 Other chronic pain (principal); M54.5 Low back pain; Z79.4 Long term (current) use of insulin; Z79.84 Long term (current) use of oral hypoglycemic drugs; Z91.040 Latex allergy status; Z79.82 Long term (current) use of aspirin; Z79.899 Other long term (current) drug therapy; Z87.891 Personal history of nicotine dependence
CPT/HCPCS: 81001; 96372; 99283; J1885; J2360

== ENCOUNTER 2017-09-10 19:15 | Emergency (ER) | payer OTHER ==
[2017-09-10 20:03] VITALS: BP 108/78
--- NOTE | 2017-09-10 20:48 | EDM.PDOC ---
ED HPI GENERAL MEDICAL PROBLEM - General Chief Complaint: Upper Extremity Injury/Pain Stated Complaint: [id number] ELBOW IS HURT Time Seen by Provider: 09/10/17 21:28 Source of Information: Reports: Patient, RN, RN Notes Reviewed History Limitations: Reports: No Limitations - History of Present Illness INITIAL COMMENTS - FREE TEXT/NARRATIVE: Pt presents to the ER with c/o left elbow pain. She states she bumped the left elbow on 2-3 days ago and continues to have aching and pain in the elbow. Patient denies numbness or tingling, but increased weakness in the hand at times. Onset: Sudden Onset Date: 09/07/17 Left Elbow Pain Score (Numeric/FACES): 7 - Related Data Allergies Allergy/AdvReac Type Severity Reaction Status Date / Time latex Allergy Rash Uncoded 09/10/17 20:03 onions Allergy Hives Uncoded 09/10/17 20:03 spider bites Allergy Numbness Uncoded 09/10/17 20:03 Home Meds: Home Meds Folic Acid 1 mg PO DAILY 06/01/13 [History] Insulin Detemir [Levemir] 45 units SQ BEDTIME 06/01/13 [History] Lisinopril 5 mg PO DAILY 06/01/13 [History] metFORMIN HCl [Metformin HCl] 1,000 mg PO BID 06/01/13 [History] Aspirin [Halfprin] 81 mg PO DAILY 02/14/14 [History] Calcium Carbonate [Calci-Chew] 600 mg PO DAILY 02/14/14 [History] Cyclobenzaprine [Flexeril] 10 mg PO TID 09/04/15 [History] Morphine Sulfate [Ms Contin] 45 mg PO BID 09/04/15 [History] Gabapentin [Neurontin] 300 mg PO BID 12/27/16 [History] atorvaSTATin [Lipitor] 20 mg PO BEDTIME 01/28/17 [History] Saxagliptin [Onglyza] 2.5 mg PO DAILY 09/10/17 [History] Past Medical History HEENT History: Reports: Impaired Vision Other HEENT History: wears glasses, droopy L) eye lid, had reconstrucion surg Cardiovascular History: Reports: Heart Murmur Respiratory History: Reports: None Gastrointestinal History: Reports: None Genitourinary History: Reports: None [employer]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 SEVERE L4-5 LUMBAR SPINAL STENOSIS. 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 T12-L1 THROUGH L5- S1 DEGENERATIVE DISC. 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 GI Surgical History: Reports: Appendectomy, Bariatric Procedure, Colonoscopy Female Surgical History: Reports: Section, Oophorectomy, Tubal Ligation Other Neurological Surgeries/Procedures: brace on spine Musculoskeletal Surgical History: Reports: Knee Replacement, Other (See Below) Other Musculoskeletal Surgeries/Procedures:: bawck surgery x2 Social & Family History - Family History Family Medical History: Noncontributory Cardiac: Reports: [place] Endocrine/Metabolic: Reports: Diabetes, Type I Oncologic: Reports: Ovarian, Prostate - Tobacco Use Smoking Status *Q: Never Smoker Years of Tobacco use: 10 Packs/Tins Daily: 1 Used Tobacco, but Quit: Yes Month/Year Tobacco Last Used: ? Second Hand Smoke Exposure: No - Caffeine Use Caffeine Use: Reports: Tea - Alcohol Use Days Per Week of Alcohol Use: 0 - Recreational Drug Use Recreational Drug Use: No Review of Systems - Review of Systems Review Of Systems: ROS reveals no pertinent complaints other than HPI. ED EXAM, GENERAL - Physical Exam Exam: See Below Exam Limited By: No Limitations General Appearance: Alert, WD/WN, No Apparent Distress Eye Exam: Left Eye: Other (droopy eyelids, upper and lower, erythematous), Bilateral Eye: EOMI Ears: Normal External Exam, Hearing Grossly Normal Nose: Normal Inspection Throat/Mouth: Normal Inspection, Normal Voice, No Airway Compromise Head: Atraumatic, Normocephalic Neck: Normal Inspection, Supple, Non-Tender, Full Range of Motion Respiratory/Chest: No Respiratory Distress, Lungs Clear, Normal Breath Sounds, No Accessory Muscle Use, Chest Non-Tender Cardiovascular: Normal Peripheral Pulses, Regular Rate, Rhythm, No Edema, No Gallop, No JVD, No Murmur, No Rub Peripheral Pulses: 2+: Radial (L), Radial (R) GI/Abdominal: Normal Bowel Sounds, Soft, Non-Tender, No Organomegaly, No Distention, No Abnormal Bruit, No Mass (Female) Exam: Deferred Rectal (Female) Exam: Deferred Back Exam: Normal Inspection, Full Range of Motion Extremities: Normal Inspection, Normal Range of Motion, Non-Tender, No Pedal Edema, Normal Capillary Refill, Arm Pain (left elbow) Neurological: Alert, Oriented, CN II-XII Intact, Normal Cognition, Normal Gait, Normal Reflexes, No Motor/Sensory Deficits Psychiatric: Normal Affect, Normal Mood Skin Exam: Warm, Dry, Intact, Normal Color, No Rash Lymphatic: No Adenopathy Course - Vital Signs Last Recorded V/S: Last Vital Signs Temp 96.8 F 09/10/17 19:59 Pulse 110 H 09/10/17 19:59 Resp 18 09/10/17 19:59 BP 108/78 09/10/17 19:59 Pulse Ox 95 09/10/17 19:59 - Radiology Interpretation Free Text/Narrative:: Left elbow xray: IMPRESSION: Normal left elbow x-rays. Thank you for allowing us to participate in the care of your patient. Dictated and Authenticated by: Jose Chambers DO 09/10/2017 8:38 PM Central Time ([place] & [place]) See rad report Departure - Departure Time of Disposition: 21:31 Disposition: Home, Self-Care 01 Condition: Fair Clinical Impression: Contusion of elbow, left Qualifiers: Encounter type: initial encounter Qualified Code(s): S50.02XA - Contusion of left elbow, initial encounter - Discharge Information Instructions: Elbow Contusion, [id number] Referrals: Madelyn Valdes PA-C [Primary Care Provider] - Forms: ED Department Discharge Additional Instructions: Ice Passive range of motion exercises Tylenol and/or ibuprofen as directed for pain Follow up with your primary care facility
== END 2017-09-10 21:35 | disposition home or self-care (01) ==
LOC: DL.ED 19:15
DX: S50.02XA Contusion of left elbow, initial encounter (principal); E11.40 Type 2 diabetes mellitus with diabetic neuropathy, unspecified; Z91.040 Latex allergy status; Z91.018 Allergy to other foods; Z79.899 Other long term (current) drug therapy; Z79.4 Long term (current) use of insulin; Z79.82 Long term (current) use of aspirin; Z87.891 Personal history of nicotine dependence; W22.8XXA Striking against or struck by other objects, initial encounter
CPT/HCPCS: 73080-LT; 99283

== ENCOUNTER 2017-09-25 20:48 | Emergency (ER) | payer OTHER ==
[2017-09-25 21:20] VITALS: BP 124/69
== END 2017-09-25 22:20 | disposition left against medical advice (07) ==
LOC: DL.ED 20:48
DX: Z53.21 Procedure and treatment not carried out due to patient leaving prior to being seen by health care provider (principal)

== ENCOUNTER 2018-03-07 10:14 | Inpatient (IN) | payer OTHER ==
--- NOTE | 2018-03-07 10:26 | EDM.PDOC ---
ED HPI GENERAL MEDICAL PROBLEM - General Chief Complaint: General Stated Complaint: FLU Time Seen by Provider: 03/07/18 10:23 Source of Information: Reports: Patient, Old Records, RN, RN Notes Reviewed History Limitations: Reports: No Limitations - History of Present Illness INITIAL COMMENTS - FREE TEXT/NARRATIVE: Pt presents to ER from home by POV with c/o waking this morning with fever, chills, generalized body aches, cough, and shortness of breath. She felt well yesterday. Her was was treated for strep throat 2 weeks ago and she was exposed to him. She denies any other known sick contacts. Report decreased appetite, generalized weakness and malaise. Denies headache, stiff or painful neck, abdominal pain, N/V/D/C, or urinary symptoms. No Hx of asthma, COPD, CAD, CHF, or resp. failure. Onset: Today Duration: Constant, Getting Worse Location: Reports: Chest, Generalized Quality: Reports: Ache Severity: Moderate Improves with: Reports: None Worsens with: Reports: None Associated Symptoms: Reports: No Other Symptoms Bilateral Generalized Pain Score (Numeric/FACES): 10 - Related Data Allergies Allergy/AdvReac Type Severity Reaction Status Date / Time latex Allergy Rash Uncoded 03/07/18 13:04 onions Allergy Hives Uncoded 03/07/18 13:04 spider bites Allergy Numbness Uncoded 03/07/18 13:04 Home Meds: Home Meds Folic Acid 1 mg PO DAILY 06/01/13 [History] Insulin Detemir [Levemir] 42 units SQ BEDTIME 06/01/13 [History] Lisinopril 5 mg PO DAILY 06/01/13 [History] Aspirin [Halfprin] 81 mg PO DAILY 02/14/14 [History] Cyclobenzaprine [Flexeril] 10 mg PO TID 09/04/15 [History] Morphine Sulfate [Ms Contin] 30 mg PO BID 09/04/15 [History] atorvaSTATin [Lipitor] 20 mg PO BEDTIME 01/28/17 [History] Saxagliptin [Onglyza] 2.5 mg PO DAILY 09/10/17 [History] Ca Carbonate/Vitamin D3/Vit K [Calcium + D Soft Chewable Tab] 1 tab PO BID 03/07 [History] Carboxymethylcellulose Sodium [Refresh Plus 0.5%] 1 drop EYEBOTH Q2H 03/07/18 [ History] Gabapentin [Neurontin] 300 mg PO WITHBREAKFAST 03/07/18 [History] Gabapentin [Neurontin] 300 mg PO WITHLUNCH 03/07/18 [History] Gabapentin [Neurontin] 600 mg PO BEDTIME 03/07/18 [History] Morphine 15 mg PO TID 03/07/18 [History] metFORMIN HCl [Metformin HCl] 1,000 mg PO BID 03/07/18 [History] Past Medical History HEENT History: Reports: Impaired Vision Other HEENT History: wears glasses, droopy L) eye lid, had reconstrucion surg Cardiovascular History: Reports: Heart Murmur Respiratory History: Reports: None Gastrointestinal History: Reports: None Genitourinary History: Reports: None PRODUCTION SUPPORT SPECIALIST History: Reports: , Other (See Below) Other PRODUCTION SUPPORT SPECIALIST History: tubal Musculoskeletal History: Reports: Back Pain, Chronic Neurological History: Reports: Neuropathy, Diabetic Other Neuro History: 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 SEVERE L4-5 LUMBAR SPINAL STENOSIS. 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 T12-L1 THROUGH L5- S1 DEGENERATIVE DISC. 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 GI Surgical History: Reports: Appendectomy, Bariatric Procedure, Colonoscopy, Other (See Below) Other GI Surgeries/Procedures: gastric bypass Female Surgical History: Reports: Section, Oophorectomy, Tubal Ligation Other Neurological Surgeries/Procedures: brace on spine Musculoskeletal Surgical History: Reports: Knee Replacement, Other (See Below) Other Musculoskeletal Surgeries/Procedures:: back surgery x2 Social & Family History - Family History Family Medical History: Noncontributory Cardiac: Reports: [place] Endocrine/Metabolic: Reports: Diabetes, Type I Oncologic: Reports: Ovarian, Prostate - Caffeine Use Caffeine Use: Reports: Tea - Living Situation & Occupation Living situation: Reports: , with Family ED ROS GENERAL - Review of Systems Review Of Systems: ROS reveals no pertinent complaints other than HPI. ED EXAM, GENERAL - Physical Exam Exam: See Below Exam Limited By: No Limitations General Appearance: Alert, No Apparent Distress, Obese, Other (acutely ill but not toxic appearing) Eye Exam: Bilateral Eye: Normal Inspection Ears: Normal External Exam, Normal Canal, Hearing Grossly Normal, Normal TMs Nose: No Blood, Nasal Drainage (small amount of clear nasal drainage) Throat/Mouth: Normal Inspection, Normal Lips, Normal Teeth, Normal Gums, Normal Oropharynx, Normal Voice, No Airway Compromise Head: Atraumatic, Normocephalic Neck: Normal Inspection, Supple, Non-Tender, Full Range of Motion, Other (No nuchal rigidity). No: Lymphadenopathy (L), Lymphadenopathy (R) Respiratory/Chest: No Respiratory Distress, No Accessory Muscle Use, Chest Non- Tender, Decreased Breath Sounds, Crackles, Rhonchi (mild at B/L bases), Wheezing (mild scattered wheezes). No: Rales, Stridor Cardiovascular: Regular Rate, Rhythm, No Edema, Tachycardia GI/Abdominal: Normal Bowel Sounds, Soft, Non-Tender, No Distention, No Abnormal Bruit (Female) Exam: Deferred Rectal (Female) Exam: Deferred Back Exam: Normal Inspection, Full Range of Motion. No: CVA Tenderness (L), CVA Tenderness (R) Extremities: Normal Inspection, Normal Range of Motion, Non-Tender, Normal Capillary Refill, No Pedal Edema Neurological: Alert, Oriented, CN II-XII Intact, Normal Cognition, Normal Gait, No Motor/Sensory Deficits Psychiatric: Normal Affect, Normal Mood Skin Exam: Warm, Dry, Intact, Normal Color, No Rash Course - Vital Signs Last Recorded V/S: Last Vital Signs Temp 37.7 C 03/07/18 12:40 Pulse 121 H 03/07/18 12:40 Resp 20 03/07/18 12:40 BP 106/57 L 03/07/18 12:40 Pulse Ox 96 03/07/18 12:40 - Orders/Labs/Meds Orders: Active Orders 24 hr Category Date Time Status Peripheral IV Care [RC] . DIRECTED Care 03/07/18 10:44 Active RT Aerosol Therapy [RC] ASDIRECTED Care 03/07/18 10:54 Active CULTURE BLOOD [] Stat Lab 03/07/18 10:46 Received CULTURE BLOOD [] Stat Lab 03/07/18 10:54 Received CULTURE STREP A CONFIRMATION [] Stat Lab 03/07/18 10:52 Results STREP SCRN A RAPID W CULT CONF [] Stat Lab 03/07/18 10:52 Results Sodium Chloride 0.9% [Saline Flush] Med 03/07/18 10:44 Active 10 ml FLUSH ASDIRECTED PRN Blood Culture x2 Reflex Set [OM.PC] Stat Oth 03/07/18 10:43 Ordered Peripheral IV Insertion Adult [OM.PC] Stat Oth 03/07/18 10:42 Ordered Medication Orders Sodium Chloride (Saline Flush) 10 ml FLUSH ASDIRECTED PRN PRN Reason: Keep Vein Open Last Admin: 03/07/18 10:45 Dose: 10 ml Labs: Laboratory Tests 03/07/18 03/07/18 03/07/18 Range/Units 10:46 10:46 10:46 WBC 18.7 H (5.0-10.0) 10^3/uL RBC 4.44 (4.2-5.4) 10^6/uL Hgb 11.0 L D (12.0-16.0) g/dL Hct 35.3 L (37.0-47.0) % MCV 79.5 L D (80-100) fL MCH 24.8 L (27.0-34.0) pg MCHC 31.2 L (33.0-35.0) g/dL Plt Count 322 (150-450) 10^3/uL Neut % (Auto) 92.4 H (42.2-75.2) % Lymph % (Auto) 2.8 L (20.5-50.1) % Smyth % (Auto) 4.5 (2-8) % Eos % (Auto) 0.2 L (1.0-3.0) % Baso % (Auto) 0.1 (0.0-1.0) % Add Manual Diff Yes Neutrophils % (Manual) 72 (42-75) % Band Neutrophils % 20 % Lymphocytes % (Manual) 3 L (20-50) % Monocytes % (Manual) 4 (2-8) % Eosinophils % (Manual) 1 (1-3) % Sodium 135 (135-145) mmol/L Potassium 3.8 (3.6-5.0) mmol/L Chloride 100 L (101-111) mmol/L Carbon Dioxide 25.0 (21.0-31.0) mmol/L Anion Gap 13.8 BUN 12 (7-18) mg/dL Creatinine 0.6 (0.6-1.3) mg/dL Est Cr Clr Drug Dosing 114.62 mL/min Estimated GFR (MDRD) > 60 BUN/Creatinine Ratio 20.00 Glucose 218 H (74-105) mg/dL Lactic Acid 1.1 (0.5-2.2) mmol/L Calcium 8.5 (8.4-10.2) mg/dl Total Bilirubin 0.3 (0.2-1.0) mg/dL AST 19 (10-42) IU/L ALT 18 (10-60) IU/L Alkaline Phosphatase 89 (42-121) IU/L Total Protein 7.0 (6.7-8.2) g/dl Albumin 3.4 (3.2-5.5) g/dl Globulin 3.6 Albumin/Globulin Ratio 0.94 Urine Color (YELLOW) Urine Appearance (CLEAR) Urine pH (5.0-9.0) Ur Specific [place] (1.005-1.030) Urine Protein (NEGATIVE) Urine Glucose (UA) (NEGATIVE) Urine Ketones (NEGATIVE) Urine Occult Blood (NEGATIVE) Urine Nitrite (NEGATIVE) Urine Bilirubin (NEGATIVE) Urine Urobilinogen (0.2-1.0) mg/dL Ur Leukocyte Esterase (NEGATIVE) Urine RBC /HPF Urine WBC (0-5/HPF) /HPF Ur Epithelial Cells /HPF Amorphous Sediment (0/HPF) /HPF Urine Bacteria (0-FEW/HPF) /HPF Urine Mucus /LPF Ketones Negative 03/07/18 Range/Units 12:04 WBC (5.0-10.0) 10^3/uL RBC (4.2-5.4) 10^6/uL Hgb (12.0-16.0) g/dL Hct (37.0-47.0) % MCV (80-100) fL MCH (27.0-34.0) pg MCHC (33.0-35.0) g/dL Plt Count (150-450) 10^3/uL Neut % (Auto) (42.2-75.2) % Lymph % (Auto) (20.5-50.1) % Smyth % (Auto) (2-8) % Eos % (Auto) (1.0-3.0) % Baso % (Auto) (0.0-1.0) % Add Manual Diff Neutrophils % (Manual) (42-75) % Band Neutrophils % % Lymphocytes % (Manual) (20-50) % Monocytes % (Manual) (2-8) % Eosinophils % (Manual) (1-3) % Sodium (135-145) mmol/L Potassium (3.6-5.0) mmol/L Chloride (101-111) mmol/L Carbon Dioxide (21.0-31.0) mmol/L Anion Gap BUN (7-18) mg/dL Creatinine (0.6-1.3) mg/dL Est Cr Clr Drug Dosing mL/min Estimated GFR (MDRD) BUN/Creatinine Ratio Glucose (74-105) mg/dL Lactic Acid (0.5-2.2) mmol/L Calcium (8.4-10.2) mg/dl Total Bilirubin (0.2-1.0) mg/dL AST (10-42) IU/L ALT (10-60) IU/L Alkaline Phosphatase (42-121) IU/L Total Protein (6.7-8.2) g/dl Albumin (3.2-5.5) g/dl Globulin Albumin/Globulin Ratio Urine Color Yellow (YELLOW) Urine Appearance Slightly cloudy (CLEAR) Urine pH 6.5 (5.0-9.0) Ur Specific [place] 1.015 (1.005-1.030) Urine Protein Negative (NEGATIVE) Urine Glucose (UA) 100 H (NEGATIVE) Urine Ketones 15 H (NEGATIVE) Urine Occult Blood Negative (NEGATIVE) Urine Nitrite Negative (NEGATIVE) Urine Bilirubin Negative (NEGATIVE) Urine Urobilinogen 1.0 (0.2-1.0) mg/dL Ur Leukocyte Esterase Small H (NEGATIVE) Urine RBC 0-5 /HPF Urine WBC 0-5 (0-5/HPF) /HPF Ur Epithelial Cells Rare /HPF Amorphous Sediment Few (0/HPF) /HPF Urine Bacteria Few (0-FEW/HPF) /HPF Urine Mucus Rare /LPF Ketones Rapid Strep: negative Influenza A/B: negative Meds: Medications Generic Name Dose Route Start Last Admin Trade Name Freq PRN Reason Stop Dose Admin Sodium Chloride 10 ml 03/07/18 10:44 03/07/18 10:45 Saline Flush FLUSH 10 ml ASDIRECTED PRN Administration Keep Vein Open Discontinued Medications Generic Name Dose Route Start Last Admin Trade Name Freq PRN Reason Stop Dose Admin Acetaminophen 650 mg 03/07/18 10:53 03/07/18 11:00 Tylenol PO 03/07/18 10:54 650 mg NOW ONE Administration Albuterol/Ipratropium 3 ml 03/07/18 10:54 03/07/18 11:03 Duoneb 3.0-0.5 Mg/3 Ml NEB 03/07/18 10:55 3 ml ONETIME ONE Administration Ceftriaxone Sodium 2 gm 03/07/18 11:49 Rocephin IVPUSH 03/07/18 11:50 ONETIME ONE Sodium Chloride 1,000 mls @ 999 mls/hr 03/07/18 10:44 03/07/18 11:00 Normal Saline IV 03/07/18 11:44 999 mls/hr .BOLUS ONE Administration Azithromycin 500 mg/ Sodium 250 mls @ 250 mls/hr 03/07/18 11:18 03/07/18 12: 08 Chloride IV 03/07/18 12:17 250 mls/hr ONETIME ONE Administration Ibuprofen 800 mg 03/07/18 10:53 03/07/18 11:01 Motrin PO 03/07/18 10:54 800 mg ONETIME ONE Administration - Radiology Interpretation Free Text/Narrative:: CXR: patchy atelectasis left mid-lung per Rad. report. Departure - Departure Time of Disposition: 12:00 (admitted to Dr. Erickson) Disposition: Admitted As Inpatient 66 Condition: Serious Clinical Impression: Hypoxia Pneumonia Qualifiers: Pneumonia type: due to unspecified organism Laterality: bilateral Lung location : lower lobe of lung Qualified Code(s): J18.1 - Lobar pneumonia, unspecified organism - Discharge Information *PRESCRIPTION DRUG MONITORING PROGRAM REVIEWED*: No *COPY OF PRESCRIPTION DRUG MONITORING REPORT IN PATIENT BETITO: No - My Orders Last 24 Hours: My Active Orders 03/07/18 10:42 Peripheral IV Insertion Adult [OM.PC] Stat 03/07/18 10:43 Blood Culture x2 Reflex Set [OM.PC] Stat 03/07/18 10:44 Peripheral IV Care [RC] . DIRECTED Sodium Chloride 0.9% [Saline Flush] 10 ml FLUSH ASDIRECTED PRN 03/07/18 10:46 CULTURE BLOOD [BC] Stat 03/07/18 10:52 CULTURE STREP A CONFIRMATION [RM] Stat STREP SCRN A RAPID W CULT CONF [RM] Stat 03/07/18 10:54 RT Aerosol Therapy [RC] ASDIRECTED CULTURE BLOOD [BC] Stat - Assessment/Plan Last 24 Hours: My Active Orders 03/07/18 10:42 Peripheral IV Insertion Adult [OM.PC] Stat 03/07/18 10:43 Blood Culture x2 Reflex Set [OM.PC] Stat 03/07/18 10:44 Peripheral IV Care [RC] . DIRECTED Sodium Chloride 0.9% [Saline Flush] 10 ml FLUSH ASDIRECTED PRN 03/07/18 10:46 CULTURE BLOOD [BC] Stat 03/07/18 10:52 CULTURE STREP A CONFIRMATION [RM] Stat STREP SCRN A RAPID W CULT CONF [RM] Stat 03/07/18 10:54 RT Aerosol Therapy [RC] ASDIRECTED CULTURE BLOOD [BC] Stat
[2018-03-07] MEDS ORDERED: Sodium Chloride 0.9% 1,000 ML IV ONE (10:44)
[2018-03-07] MEDS: Sodium Chloride 0.9% 10 ML Syringe FLUSH PRN ×2 (10:45→15:41)
[2018-03-07] MEDS ORDERED: Ibuprofen 800 MG Tab PO ONE (10:53)
[2018-03-07] MEDS ORDERED: Acetaminophen 325 MG Tab PO ONE (10:53)
[2018-03-07] MEDS ORDERED: Albuterol/Ipratropium 3.0-0.5 MG/3 ML Neb Soln NEB ONE (10:54)
[2018-03-07] MEDS ORDERED: Azithromycin 500 MG in Sodium Chloride 0.9% 250 ML IV ONE (11:18)
[2018-03-07 11:23] LABS: ANION GAP 13.8; CHLORIDE,CL 100 mmol/L (101-111); SODIUM,NA 135 mmol/L (135-145)
[2018-03-07] MEDS ORDERED: cefTRIAXone 2 GM Vial IVPUSH ONE (11:49)
--- NOTE | 2018-03-07 11:58 | CR ---
Clinical history: 52-year-old obese diabetic female cough fever and hypoxia. Interpretation: Gibbus deformity thoracolumbar spine (José rods posteriorly lumbar spine). No paraspinal soft tissue mass and no thoracic fracture, dislocation or infection. External cardiac m onitor leads and oxygen cannula. Normal cardiac silhouette without cephalization of flow, signs of alveolar edema or dependent pleural effusion. *Coarse accentuation of the perihilar lung markings but no focal lobar pneumonia. Patchy atelectasis left midlung. No lobar collapse. No pneumothorax. CONCLUSION: No lobar pneumonia.
[2018-03-07] MEDS ORDERED: 50% Dextrose in Water 50 ML Syringe IVPUSH PRN (14:23)
[2018-03-07] MEDS ORDERED: traZODone 50 MG Tab PO PRN (14:26)
--- NOTE | 2018-03-07 15:07 | PCM.HP ---
H&P History of Present Illness - General Date of Service: 03/07/18 Admit Problem/Dx: Admission Diagnosis/Problem Admission Diagnosis/Problem Community acquired pneumonia Source of Information: Patient History Limitations: Reports: No Limitations - History of Present Illness Initial Comments - Free Text/Narative: 52 yo F with PMH of hypertension, type 2 DM who presents with fever, chills, rigors, non-productive cough of one day duration. The patient suddently developed fever, chills, rigors and non-productive cough when she woke up this morning Also had some shortness of breath. No chest pain, no dysuria, no abdominal pain. In the ED, she was found to be hypoxic to the 80s and was given supplemental oxygen Started on IV antibiotics for community acquired pneumonia and admitted to the medical floor. Onset of Symptoms: Reports: Today, Sudden Associated Symptoms: Reports: Fever/Chills Bilateral Generalized Pain Score (Numeric/FACES): 10 - Related Data Allergies/Adverse Reactions: Allergies Allergy/AdvReac Type Severity Reaction Status Date / Time latex Allergy Rash Uncoded 03/07/18 13:04 onions Allergy Hives Uncoded 03/07/18 13:04 spider bites Allergy Numbness Uncoded 03/07/18 13:04 Home Medications: Home Meds Folic Acid 1 mg PO DAILY 06/01/13 [History] Insulin Detemir [Levemir] 42 units SQ BEDTIME 06/01/13 [History] Lisinopril 5 mg PO DAILY 06/01/13 [History] Aspirin [Halfprin] 81 mg PO DAILY 02/14/14 [History] Cyclobenzaprine [Flexeril] 10 mg PO TID 09/04/15 [History] Morphine Sulfate [Ms Contin] 30 mg PO BID 09/04/15 [History] atorvaSTATin [Lipitor] 20 mg PO BEDTIME 01/28/17 [History] Saxagliptin [Onglyza] 2.5 mg PO DAILY 09/10/17 [History] Ca Carbonate/Vitamin D3/Vit K [Calcium + D Soft Chewable Tab] 1 tab PO BID 03/07 [History] Carboxymethylcellulose Sodium [Refresh Plus 0.5%] 1 drop EYEBOTH Q2H 03/07/18 [ History] Gabapentin [Neurontin] 300 mg PO WITHBREAKFAST 03/07/18 [History] Gabapentin [Neurontin] 300 mg PO WITHLUNCH 03/07/18 [History] Gabapentin [Neurontin] 600 mg PO BEDTIME 03/07/18 [History] Morphine 15 mg PO TID 03/07/18 [History] Sertraline [Zoloft] 50 mg PO BEDTIME 03/07/18 [History] metFORMIN HCl [Metformin HCl] 1,000 mg PO BID 03/07/18 [History] traZODone HCl [Trazodone HCl] 50 mg PO BEDTIME PRN 03/07/18 [History] Past Medical History HEENT History: Reports: Impaired Vision Other HEENT History: wears glasses, droopy L) eye lid, had reconstrucion surg Cardiovascular History: Reports: Heart Murmur Respiratory History: Reports: None Gastrointestinal History: Reports: None Genitourinary History: Reports: None 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 SEVERE L4-5 LUMBAR SPINAL STENOSIS. 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 T12-L1 THROUGH L5-S1 DEGENERATIVE DISC. 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 SEVERE L4-5 LUMBAR SPINAL STENOSIS. 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 T12-L1 THROUGH L5- S1 DEGENERATIVE DISC. 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 GI Surgical History: Reports: Appendectomy, Bariatric Procedure, Colonoscopy, Other (See Below) Other GI Surgeries/Procedures: gastric bypass Female Surgical History: Reports: Section, Oophorectomy, Tubal Ligation Other Neurological Surgeries/Procedures: brace on spine Musculoskeletal Surgical History: Reports: Knee Replacement, Other (See Below) Other Musculoskeletal Surgeries/Procedures:: back surgery x2 Social & Family History - Family History Family Medical History: Noncontributory Cardiac: Reports: [place] Endocrine/Metabolic: Reports: Diabetes, Type I Oncologic: Reports: Ovarian, Prostate - Tobacco Use Smoking Status *Q: Former Smoker Used Tobacco, but Quit: Yes Month/Year Tobacco Last Used: 03/1994 Second Hand Smoke Exposure: Yes - Caffeine Use Caffeine Use: Reports: Tea - Recreational Drug Use Recreational Drug Use: No - Living Situation & Occupation Living situation: Reports: , with Family H&P Review of Systems - Review of Systems: Review Of Systems: See Below General: Reports: Fever, Chills, Malaise, Weakness HEENT: Denies: Sore Throat Pulmonary: Reports: Shortness of Breath Cardiovascular: Denies: Chest Pain Gastrointestinal: Denies: Abdominal Pain Genitourinary: Denies: Dysuria Musculoskeletal: Reports: No Symptoms Skin: Reports: No Symptoms Neurological: Reports: No Symptoms Exam - Exam Exam: See Below - Vital Signs Vital Signs: Last Vital Signs Temp 37.7 C 03/07/18 12:40 Pulse 121 H 03/07/18 12:40 Resp 20 03/07/18 12:40 BP 106/57 L 03/07/18 12:40 Pulse Ox 96 03/07/18 12:40 Weight: 116.573 kg - Exam General: Alert, Oriented HEENT: Conjunctiva Clear Neck: Supple, Trachea Midline Lungs: Crackles (coarse crackles in right lower lung lobe) Cardiovascular: Regular Rate, Regular Rhythm GI/Abdominal Exam: Normal Bowel Sounds, Soft, Non-Tender Extremities: Normal Inspection, Normal Range of Motion - Patient Data Lab Results Last 24 hrs: Laboratory Results - last 24 hr 03/07/18 03/07/18 03/07/18 Range/Units 10:46 10:46 10:46 WBC 18.7 H (5.0-10.0) 10^3/uL RBC 4.44 (4.2-5.4) 10^6/uL Hgb 11.0 L D (12.0-16.0) g/dL Hct 35.3 L (37.0-47.0) % MCV 79.5 L D (80-100) fL MCH 24.8 L (27.0-34.0) pg MCHC 31.2 L (33.0-35.0) g/dL Plt Count 322 (150-450) 10^3/uL Neut % (Auto) 92.4 H (42.2-75.2) % Lymph % (Auto) 2.8 L (20.5-50.1) % [place] % (Auto) 4.5 (2-8) % Eos % (Auto) 0.2 L (1.0-3.0) % Baso % (Auto) 0.1 (0.0-1.0) % Add Manual Diff Yes Neutrophils % (Manual) 72 (42-75) % Band Neutrophils % 20 % Lymphocytes % (Manual) 3 L (20-50) % Monocytes % (Manual) 4 (2-8) % Eosinophils % (Manual) 1 (1-3) % Sodium 135 (135-145) mmol/L Potassium 3.8 (3.6-5.0) mmol/L Chloride 100 L (101-111) mmol/L Carbon Dioxide 25.0 (21.0-31.0) mmol/L Anion Gap 13.8 BUN 12 (7-18) mg/dL Creatinine 0.6 (0.6-1.3) mg/dL Est Cr Clr Drug Dosing 114.62 mL/min Estimated GFR (MDRD) > 60 BUN/Creatinine Ratio 20.00 Glucose 218 H (74-105) mg/dL Lactic Acid 1.1 (0.5-2.2) mmol/L Calcium 8.5 (8.4-10.2) mg/dl Total Bilirubin 0.3 (0.2-1.0) mg/dL AST 19 (10-42) IU/L ALT 18 (10-60) IU/L Alkaline Phosphatase 89 (42-121) IU/L Total Protein 7.0 (6.7-8.2) g/dl Albumin 3.4 (3.2-5.5) g/dl Globulin 3.6 Albumin/Globulin Ratio 0.94 Urine Color (YELLOW) Urine Appearance (CLEAR) Urine pH (5.0-9.0) Ur Specific [place] (1.005-1.030) Urine Protein (NEGATIVE) Urine Glucose (UA) (NEGATIVE) Urine Ketones (NEGATIVE) Urine Occult Blood (NEGATIVE) Urine Nitrite (NEGATIVE) Urine Bilirubin (NEGATIVE) Urine Urobilinogen (0.2-1.0) mg/dL Ur Leukocyte Esterase (NEGATIVE) Urine RBC /HPF Urine WBC (0-5/HPF) /HPF Ur Epithelial Cells /HPF Amorphous Sediment (0/HPF) /HPF Urine Bacteria (0-FEW/HPF) /HPF Urine Mucus /LPF Ketones Negative 03/07/18 Range/Units 12:04 WBC (5.0-10.0) 10^3/uL RBC (4.2-5.4) 10^6/uL Hgb (12.0-16.0) g/dL Hct (37.0-47.0) % MCV (80-100) fL MCH (27.0-34.0) pg MCHC (33.0-35.0) g/dL Plt Count (150-450) 10^3/uL Neut % (Auto) (42.2-75.2) % Lymph % (Auto) (20.5-50.1) % [place] % (Auto) (2-8) % Eos % (Auto) (1.0-3.0) % Baso % (Auto) (0.0-1.0) % Add Manual Diff Neutrophils % (Manual) (42-75) % Band Neutrophils % % Lymphocytes % (Manual) (20-50) % Monocytes % (Manual) (2-8) % Eosinophils % (Manual) (1-3) % Sodium (135-145) mmol/L Potassium (3.6-5.0) mmol/L Chloride (101-111) mmol/L Carbon Dioxide (21.0-31.0) mmol/L Anion Gap BUN (7-18) mg/dL Creatinine (0.6-1.3) mg/dL Est Cr Clr Drug Dosing mL/min Estimated GFR (MDRD) BUN/Creatinine Ratio Glucose (74-105) mg/dL Lactic Acid (0.5-2.2) mmol/L Calcium (8.4-10.2) mg/dl Total Bilirubin (0.2-1.0) mg/dL AST (10-42) IU/L ALT (10-60) IU/L Alkaline Phosphatase (42-121) IU/L Total Protein (6.7-8.2) g/dl Albumin (3.2-5.5) g/dl Globulin Albumin/Globulin Ratio Urine Color Yellow (YELLOW) Urine Appearance Slightly cloudy (CLEAR) Urine pH 6.5 (5.0-9.0) Ur Specific [place] 1.015 (1.005-1.030) Urine Protein Negative (NEGATIVE) Urine Glucose (UA) 100 H (NEGATIVE) Urine Ketones 15 H (NEGATIVE) Urine Occult Blood Negative (NEGATIVE) Urine Nitrite Negative (NEGATIVE) Urine Bilirubin Negative (NEGATIVE) Urine Urobilinogen 1.0 (0.2-1.0) mg/dL Ur Leukocyte Esterase Small H (NEGATIVE) Urine RBC 0-5 /HPF Urine WBC 0-5 (0-5/HPF) /HPF Ur Epithelial Cells Rare /HPF Amorphous Sediment Few (0/HPF) /HPF Urine Bacteria Few (0-FEW/HPF) /HPF Urine Mucus Rare /LPF Ketones Result Diagrams: 03/07/18 10:46 03/07/18 10:46 Brian Results Last 24 hrs: Microbiology 03/07/18 10:52 Group A Streptococcus Rapid Screen - Final Throat NEGATIVE STREP A SCREEN 03/07/18 10:18 Influenza Type A Antigen Screen - Final Nasal, Unspecified NEGATIVE INFLUENZA A VIRUS AG Influenza Type B Antigen Screen - Final NEGATIVE INFLUENZA B VIRUS AG Problem List Initiated/Reviewed/Updated: Yes Orders Last 24hrs: Active Orders 24 hr Category Date Time Status Patient Status [ADT] Routine ADT 03/07/18 14:23 Ordered Ambulate [RC] ASDIRECTED Care 03/07/18 14:23 Ordered Blood Glucose Check, Bedside [RC] QIDACANDBED Care 03/07/18 14:23 Ordered Communication Order [RC] Per Unit Routine Care 03/07/18 14:26 Ordered Communication Order [RC] Per Unit Routine Care 03/07/18 14:26 Ordered Diabetes Education [RC] Click to Edit Care 03/07/18 14:25 Ordered Intake and Output [RC] QSHIFT Care 03/07/18 14:24 Ordered Oxygen Therapy [RC] PRN Care 03/07/18 14:23 Ordered Peripheral IV Care [RC] . DIRECTED Care 03/07/18 10:44 Active RT Aerosol Therapy [RC] ASDIRECTED Care 03/07/18 10:54 Active VTE/DVT Education [RC] PER UNIT ROUTINE Care 03/07/18 14:23 Ordered Vital Signs [RC] Q4H Care 03/07/18 14:23 Ordered Consistent Carbohydrate Diet [DIET] Diet 03/07/18 Lunch Ordered BASIC METABOLIC PANEL,BMP [CHEM] AM Lab 03/08/18 05:11 Ordered CBC WITH AUTO DIFF [HEME] AM Lab 03/08/18 05:11 Ordered CULTURE BLOOD [BC] Stat Lab 03/07/18 10:46 Received CULTURE BLOOD [BC] Stat Lab 03/07/18 10:54 Received CULTURE STREP A CONFIRMATION [RM] Stat Lab 03/07/18 10:52 Results STREP SCRN A RAPID W CULT CONF [RM] Stat Lab 03/07/18 10:52 Results Acetaminophen [Tylenol] Med 03/07/18 14:23 Ordered 650 mg PO Q4H PRN Aspirin [Halfprin] Med 03/08/18 09:00 Ordered 81 mg PO DAILY Azithromycin [Zithromax] Med 03/08/18 09:00 Ordered 500 mg PO DAILY Ca Carbonate/Vitamin D3/Vit K [Calcium + D Soft Med 03/07/18 21:00 Ordered Chewable Tab] 1 tab PO BID Carboxymethylcellulose Sodium Med 03/07/18 14:30 Ordered 1 drop EYEBOTH Q2H Cyclobenzaprine [Flexeril] Med 03/07/18 21:00 Ordered 10 mg PO TID Dextrose 50% in Water Med 03/07/18 14:23 Ordered 50 ml IVPUSH ONETIME PRN Enoxaparin [Lovenox] Med 03/07/18 14:30 Ordered 40 mg SUBCUT DAILY Folic Acid Med 03/08/18 09:00 Ordered 1 mg PO DAILY Gabapentin Med 03/08/18 08:00 Ordered 300 mg PO WITHBREAKFAST Gabapentin Med 03/08/18 12:00 Ordered 300 mg PO WITHLUNCH Gabapentin Med 03/07/18 21:00 Ordered 600 mg PO BEDTIME Ibuprofen [Motrin] Med 03/07/18 14:23 Ordered 400 mg PO Q6H PRN Insulin Aspart [NovoLOG] Med 03/07/18 14:30 Ordered See Protocol SUBCUT ASDIRECTED Insulin Detemir [Levemir] Med 03/07/18 21:00 Ordered 42 unit SUBCUT BEDTIME Oseltamivir [Tamiflu] Med 03/07/18 15:00 Ordered 75 mg PO BID Sertraline [Zoloft] Med 03/07/18 21:00 Ordered 50 mg PO BEDTIME Sodium Chloride 0.9% @ 125 MLS/HR (1000ml) Med 03/07/18 14:30 Ordered Sodium Chloride 0.9% [Normal Saline] 1,000 ml IV ASDIRECTED Sodium Chloride 0.9% [Saline Flush] Med 03/07/18 10:44 Active 10 ml FLUSH ASDIRECTED PRN atorvaSTATin [Lipitor] Med 03/07/18 21:00 Ordered 20 mg PO BEDTIME cefTRIAXone [Rocephin] 1,000 mg Med 03/08/18 09:00 Ordered Sodium Chloride 0.9% [Normal Saline] 100 ml IV DAILY traZODone Med 03/07/18 14:26 Ordered 50 mg PO BEDTIME PRN Blood Culture x2 Reflex Set [OM.PC] Stat Oth 03/07/18 10:43 Ordered Glucose Management Sub Q Reflex [OM.PC] Click To Edit Oth 03/07/18 14:23 Ordered Peripheral IV Insertion Adult [OM.PC] Stat Oth 03/07/18 10:42 Ordered Resuscitation Status Routine Resus Stat 03/07/18 14:23 Ordered Medication Orders Acetaminophen (Tylenol) 650 mg PO Q4H PRN PRN Reason: Pain (Mild 1-3)/fever Artificial Tears (Refresh Celluvisc) 1 each EYEBOTH Q2H [facility] Aspirin (Halfprin) 81 mg PO DAILY [facility] Atorvastatin Calcium (Lipitor) 20 mg PO BEDTIME [facility] Calcium Carbonate (Calcium Carbonate/Vitamin D 1250 Mg-200 Unit) 1 tab PO BID [facility] Cyclobenzaprine HCl (Flexeril) 10 mg PO TID [facility] Dextrose/Water (Dextrose 50% In Water) 50 ml IVPUSH ASDIRECTED PRN PRN Reason: Hypoglycemia Enoxaparin Sodium (Lovenox) 40 mg SUBCUT DAILY [facility] Folic Acid (Folic Acid) 1 mg PO DAILY [facility] Gabapentin (Neurontin) 300 mg PO WITHBREAKFAST [facility] Gabapentin (Neurontin) 300 mg PO WITHLUNCH [facility] Gabapentin (Neurontin) 600 mg PO BEDTIME [facility] Sodium Chloride (Normal Saline) 1,000 mls @ 125 mls/hr IV ASDIRECTED [facility] Ibuprofen (Motrin) 400 mg PO Q6H PRN PRN Reason: Pain (moderate 4-6) Insulin Aspart (Novolog) 0 unit SUBCUT ASDIRECTED [facility]; Protocol Insulin Detemir (Levemir) 42 unit SUBCUT BEDTIME [facility] Sertraline HCl (Zoloft) 50 mg PO BEDTIME [facility] Sodium Chloride (Saline Flush) 10 ml FLUSH ASDIRECTED PRN PRN Reason: Keep Vein Open Last Admin: 03/07/18 10:45 Dose: 10 ml Trazodone HCl (Trazodone) 50 mg PO BEDTIME PRN PRN Reason: Sleep Assessment/Plan Comment:: 52 yo F with PMH of DM, HTN p/w fever, URTI symptoms #Fever #Cough #Sepsis, POA #Hypoxic respiratory failure -leucocytosis with left shift, febrile, hypoxic -CXR is mostly clear -flu screen is negative (however has poor sensitivity) -possible onset of community acquired pneumonia vs Flu/viral pneumonia (sudden onset) -admit to gen medical floor -supportive therapy: O2 to keep sats > 92%, tylenol PRN for fever -tabs tamiflu 75 mg BID -IV ceftriaxone 1g dly, azithromycin 500 mg dly -IV fluid hydration -follow up blood culture x 2 -hold BP meds for now #DM2 #Hyperglycemia -ISS, accuchecks -carb controlled diet -continue home insulin regimen #HTN hold BP meds for now in the setting of acute infection #DVT ppx SC lovenox #Code status FC
[2018-03-07] MEDS: Enoxaparin 40 MG/0.4 ML Syringe SUBCUT SCH (15:21)
[2018-03-07] MEDS: Carboxymethylcellulose Sodium 1% Ophth Gel 0.4 ML UD EYEBOTH SCH ×4 (15:27→20:31)
[2018-03-07] MEDS: Oseltamivir 75 MG Cap PO SCH ×2 (15:41→20:34)
[2018-03-07] MEDS: Sodium Chloride 0.9% 1,000 ML IV SCH ×2 (15:42→23:43)
[2018-03-07] MEDS: Insulin Aspart 100 Units/ML 3 ML Pen SUBCUT SCH (17:26)
[2018-03-07] MEDS: Calcium Carbonate/Vitamin D3 1250 MG-200 Unit Tab PO SCH (20:32)
[2018-03-07] MEDS: Gabapentin 300 MG Cap PO SCH (20:33)
[2018-03-07] MEDS: Cyclobenzaprine 10 MG Tab PO SCH (20:33)
[2018-03-07] MEDS: atorvaSTATin 20 MG Tab PO SCH (20:34)
[2018-03-07] MEDS: Sertraline 50 MG Tab PO SCH (20:34)
[2018-03-07] MEDS: Insulin Detemir 100 Units/ML 3 ML Pen SUBCUT SCH (20:59)
[2018-03-08] MEDS: Carboxymethylcellulose Sodium 1% Ophth Gel 0.4 ML UD EYEBOTH SCH ×11 (02:02→23:05)
[2018-03-08] MEDS: Acetaminophen 325 MG Tab PO PRN ×3 (02:07→12:06)
[2018-03-08 07:08] LABS: ANION GAP 11.9; CHLORIDE,CL 106 mmol/L (101-111); SODIUM,NA 141 mmol/L (135-145)
[2018-03-08] MEDS: Sodium Chloride 0.9% 1,000 ML IV SCH ×2 (07:39→15:52)
[2018-03-08] MEDS: Folic Acid 1 MG Tab PO SCH (08:21)
[2018-03-08] MEDS: Oseltamivir 75 MG Cap PO SCH ×2 (08:22→20:56)
[2018-03-08] MEDS: Cyclobenzaprine 10 MG Tab PO SCH ×3 (08:22→20:56)
[2018-03-08] MEDS: Gabapentin 300 MG Cap PO SCH ×3 (08:22→20:55)
[2018-03-08] MEDS: Calcium Carbonate/Vitamin D3 1250 MG-200 Unit Tab PO SCH ×2 (08:23→20:56)
[2018-03-08] MEDS: Azithromycin 250 MG Tab PO SCH (08:23)
[2018-03-08] MEDS: Aspirin 81 MG Tab.EC PO SCH (08:24)
[2018-03-08] MEDS: Enoxaparin 40 MG/0.4 ML Syringe SUBCUT SCH (08:25)
[2018-03-08] MEDS: cefTRIAXone 1 GM in Sodium Chloride 0.9% 100 ML IV SCH (08:26)
[2018-03-08] MEDS: Insulin Aspart 100 Units/ML 3 ML Pen SUBCUT SCH ×4 (08:52→21:29)
[2018-03-08] MEDS: Ibuprofen 400 MG Tab PO PRN ×2 (09:32→18:09)
[2018-03-08] MEDS: Morphine 15 MG Tab PO SCH ×2 (13:04→20:57)
--- NOTE | 2018-03-08 13:14 | PN ---
DATE: 03/08/2018 SUBJECTIVE: Mrs. Erich Pham is a 52-year-old female with medical history significant for hypertension, hyperlipidemia, type 2 diabetes mellitus, was admitted to the hospital with complaints of fevers, chills, nonproductive cough, and noted to have possible pneumonia. For the last 24 hours, the patient denies any complaints of chest pain. No shortness of breath. No abdominal pain. No nausea. No vomiting. No diarrhea. The patient remains afebrile for now. PHYSICAL EXAMINATION: Vital Signs: Temperature of 98, pulse of 73, blood pressure of 120/76, respiratory rate 16, saturating at 99%. General Appearance: Patient is well oriented to time, place, and person. Follows commands spontaneously. Cardiovascular System: S1, S2 heard with normal intensity. No gallops. Respiratory System: Clear to auscultation bilaterally. No wheeze. No crepitations. Abdomen: Soft. Bowel sounds are positive. Nontender. No rigidity. Extremities: No edema in bilateral lower extremities. LABORATORY DATA: Reviewed. WBC 12.6, hemoglobin 10.1, hematocrit 32.7, platelet count 317. Sodium 141, potassium 3.9, chloride 106, bicarb 27, BUN 7, creatinine 0.5, glucose 168. Microbiology: Blood culture shows no growth so far, and influenza A and B were tested negative. MEDICATIONS: 1. Tylenol 650 every 4 hours as needed for pain and fever. 2. Aspirin 81 mg daily. 3. Lipitor 20 mg at bedtime. 4. Zithromax 500 mg daily. 5. Ceftriaxone 1 g daily. 6. Flexeril 10 mg three times a day. 7. Lovenox 40 mg subcutaneous daily. 8. Neurontin 600 mg at bedtime and 300 mg with twice a day. 9. Ibuprofen 400 mg as needed. 10.NovoLog supplemental scale. 11.Levemir 42 units subcu at bedtime. 12.Tamiflu 75 mg twice a day. 13.Zoloft 50 mg at bedtime. 14.Trazodone 50 mg at bedtime. ASSESSMENT: 1. Pneumonia. 2. Chronic opiate pain medications with continued use. 3. Possible sepsis. 4. Acute hypoxic respiratory failure. 5. Possible pneumonia. 6. Type 2 diabetes mellitus. 7. Hyperlipidemia. 8. Hypertension. PLAN: 1. Pneumonia. The patient was admitted with possible pneumonia with fevers and chills and noted to have leukocytosis. The patient is empirically started on IV antibiotic, ceftriaxone, and Zithromax. Continue the same. So for, cultures remained negative. Her influenza A and B virus remain negative. She is empirically started on Tamiflu, continue the same. 2. Type 2 diabetes mellitus. The patient is noted to be on insulin regimen. Continue the same. Check her fingersticks with each meals. Have her on supplemental scale insulin as needed. 3. Hypertension. Patient's blood pressure was on the lower side at the time of admission, which seems to be improving at this time. 4. Chronic opioid use with continued use. The patient says that she has been on MS Contin as prescribed by [facility]. We will continue the same. We will continue Flexeril. 5. Deep venous thrombosis prophylaxis. We will continue the Lovenox for deep venous thrombosis prophylaxis. [facility] /[id number] MISTI
[2018-03-08] MEDS ORDERED: Sodium Chloride 0.9% 10 ML Syringe FLUSH PRN (19:26)
[2018-03-08] MEDS: atorvaSTATin 20 MG Tab PO SCH (20:55)
[2018-03-08] MEDS: Sertraline 50 MG Tab PO SCH (20:56)
[2018-03-08] MEDS: Morphine 30 MG Tab.ER PO SCH (20:57)
[2018-03-08] MEDS: Insulin Detemir 100 Units/ML 3 ML Pen SUBCUT SCH (21:30)
[2018-03-09] MEDS: Carboxymethylcellulose Sodium 1% Ophth Gel 0.4 ML UD EYEBOTH SCH ×7 (02:20→12:58)
[2018-03-09] MEDS: Ibuprofen 400 MG Tab PO PRN (03:49)
[2018-03-09 07:06] LABS: ANION GAP 9.5; CHLORIDE,CL 109 mmol/L (101-111); SODIUM,NA 142 mmol/L (135-145)
[2018-03-09] MEDS: Insulin Aspart 100 Units/ML 3 ML Pen SUBCUT SCH ×2 (08:07→11:57)
[2018-03-09] MEDS: Oseltamivir 75 MG Cap PO SCH (08:08)
[2018-03-09] MEDS: Morphine 30 MG Tab.ER PO SCH (08:08)
[2018-03-09] MEDS: Cyclobenzaprine 10 MG Tab PO SCH ×2 (08:08→12:59)
[2018-03-09] MEDS: Gabapentin 300 MG Cap PO SCH ×2 (08:08→12:58)
[2018-03-09] MEDS: Azithromycin 250 MG Tab PO SCH (08:08)
[2018-03-09] MEDS: Morphine 15 MG Tab PO SCH ×2 (08:08→12:59)
[2018-03-09] MEDS: Folic Acid 1 MG Tab PO SCH (08:08)
[2018-03-09] MEDS: Calcium Carbonate/Vitamin D3 1250 MG-200 Unit Tab PO SCH (08:08)
[2018-03-09] MEDS: Aspirin 81 MG Tab.EC PO SCH (08:08)
[2018-03-09] MEDS: Enoxaparin 40 MG/0.4 ML Syringe SUBCUT SCH (08:11)
[2018-03-09] MEDS: cefTRIAXone 1 GM in Sodium Chloride 0.9% 100 ML IV SCH (10:04)
[2018-03-09 11:03] VITALS: BP 135/96
--- NOTE | 2018-03-09 13:25 | DISCH ---
ADMITTING DIAGNOSES: 1. Pneumonia. 2. Possible sepsis. 3. Hypoxic respiratory failure. DISCHARGE DIAGNOSES: 1. Pneumonia, resolved with IV antibiotics. Currently, on oral Zithromax. 2. Sepsis, resolved. 3. Hypoxic respiratory failure, resolved. HISTORY OF PRESENTING ILLNESS: Mrs. Erich Carreno is a 52-year-old female with medical history significant for hypertension, type 2 diabetes mellitus, was admitted to the hospital with complaints of having fevers, chills, and nonproductive cough of 1-day duration. The patient was noted to have possible sepsis at the time of admission. She was started on IV antibiotic ceftriaxone and oral Zithromax. She responded well to the treatment. She was also started on Tamiflu, but her cultures remained negative thus far. Her influenza A and B were also tested negative. She responded well to the treatment. She completed 3 day course of IV antibiotics. She was switched to oral Zithromax at the time of discharge. She was discharged home in stable condition. She was advised to follow with her primary care physician next 1 week of time. PHYSICAL EXAMINATION: On the day of discharge: Vital Signs: Temperature of 98.1, pulse of 72, blood pressure 135/96, respiratory rate of 20, saturating at 98%. General Appearance: The patient is well oriented to time, place, and person. Follows commands spontaneously. Cardiovascular System: S1 and S2 heard with normal intensity. No gallops. Respiratory System: Clear to auscultation bilaterally. No wheeze. No crepitations. Abdomen: Soft. Bowel sounds positive. Nontender. No rigidity. Extremities: No edema in bilateral lower extremities. Neurology: No gross focal neurological deficit. DISCHARGE MEDICATIONS: Include: 1. Aspirin 81 mg daily. 2. Zithromax 500 mg daily for next 7 days. 3. Calcium with vitamin D 1 tablet twice a day. 4. Carboxymethylcellulose 1 drop eye, IV every 2 hours as needed. 5. Flexeril 10 mg 3 times a day. 6. Folic acid 1 mg daily. 7. Neurontin 300 mg with breakfast and 600 mg at bedtime, 300 mg with lunch. 8. Levemir 42 units at bedtime. 9. Lisinopril 5 mg daily. 10.Morphine 15 mg oral 3 times daily. 11.MS Contin 30 mg twice a day. 12.Tamiflu 75 mg twice a day for next 2 days. 13.Saxagliptin 2.5 mg daily. 14.Zoloft 50 mg at bedtime. 15.Lipitor 20 mg at bedtime. 16.Metformin 1000 mg twice a day. 17.Trazodone 50 mg at bedtime as needed for sleep. CONDITION ON ADMISSION: Poor. CONDITION ON DISCHARGE: Stable. DISPOSITION: Discharged to home. ACTIVITY: As tolerated. DIET: Cardiac healthy diet with consistent carbohydrate diet. FOLLOWUP: Follow with primary care physician next 1 week of time. I spent over 35 minutes of time in evaluating and treating this patient and making discharge plans. [facility] /[id number]
== END 2018-03-09 13:40 | disposition home or self-care (01) | DRG 871 ==
LOC: DL.ED 10:14 → UNDOADMIN 12:22 → DL.MS 12:22
PROVIDERS: ADMIT Hospitalist; ATTEND Hospitalist
DX: A41.9 Sepsis, unspecified organism (principal); J18.9 Pneumonia, unspecified organism; J96.01 Acute respiratory failure with hypoxia; R65.20 Severe sepsis without septic shock; I10 Essential (primary) hypertension; E11.65 Type 2 diabetes mellitus with hyperglycemia; E78.5 Hyperlipidemia, unspecified; H54.7 Unspecified visual loss; M48.061 Spinal stenosis, lumbar region without neurogenic claudication; E11.40 Type 2 diabetes mellitus with diabetic neuropathy, unspecified; M51.26 Other intervertebral disc displacement, lumbar region; M43.16 Spondylolisthesis, lumbar region; E66.9 Obesity, unspecified; Z68.30 Body mass index [BMI] 30.0-30.9, adult; Z79.4 Long term (current) use of insulin; Z91.040 Latex allergy status; Z79.899 Other long term (current) drug therapy; Z79.82 Long term (current) use of aspirin; Z98.84 Bariatric surgery status; Z87.891 Personal history of nicotine dependence; Z79.891 Long term (current) use of opiate analgesic
CPT/HCPCS: 36415; 71046; 80048; 80053; 81001; 82009; 82962; 83605; 85025; 85027; 87040; 87077; 87081; 87186; 87430; 87804; 94010; 94640; 96360; 99285; A9270-GY; J0456; J0696; J1650; J1815-GY; J7030; J7050; J7620-GY

== ENCOUNTER 2018-10-20 20:21 | Emergency (ER) | payer MEDICARE, OTHER ==
[2018-10-20 20:55] VITALS: BP 149/83
[2018-10-20] MEDS ORDERED: Acetaminophen/HYDROcodone 325-10 MG Tab PO ONE (21:28)
[2018-10-20] MEDS ORDERED: Clindamycin HCl 150 MG Cap PO ONE (21:28)
--- NOTE | 2018-10-20 21:34 | EDM.PDOC ---
ED HPI GENERAL MEDICAL PROBLEM - General Chief Complaint: Lower Extremity Injury/Pain Stated Complaint: SORE ON LT FOOT Time Seen by Provider: 10/20/18 21:29 Source of Information: Reports: Patient History Limitations: Reports: No Limitations - History of Present Illness INITIAL COMMENTS - FREE TEXT/NARRATIVE: picked off blister from left foot 2 days ago, now hurts and swollen Left Feet Pain Score (Numeric/FACES): 8 - Related Data Allergies Allergy/AdvReac Type Severity Reaction Status Date / Time latex Allergy Rash Uncoded 10/20/18 20:39 onions Allergy Hives Uncoded 10/20/18 20:39 spider bites Allergy Numbness Uncoded 10/20/18 20:39 Home Meds: Home Meds Folic Acid 2 mg PO DAILY 06/01/13 [History] Insulin Detemir [Levemir] 48 units SQ BEDTIME 06/01/13 [History] Lisinopril 5 mg PO DAILY 06/01/13 [History] Aspirin [Halfprin] 81 mg PO DAILY 02/14/14 [History] Cyclobenzaprine [Flexeril] 10 mg PO TID 09/04/15 [History] Morphine Sulfate [Ms Contin] 30 mg PO BID 09/04/15 [History] atorvaSTATin [Lipitor] 20 mg PO BEDTIME 01/28/17 [History] Saxagliptin [Onglyza] 2.5 mg PO DAILY 09/10/17 [History] Ca Carbonate/Vitamin D3/Vit K [Calcium + D Soft Chewable Tab] 1 tab PO BID 03/07 [History] Gabapentin [Neurontin] 300 mg PO WITHBREAKFAST 03/07/18 [History] Gabapentin [Neurontin] 300 mg PO WITHLUNCH 03/07/18 [History] Gabapentin [Neurontin] 600 mg PO BEDTIME 03/07/18 [History] Morphine 15 mg PO TID 03/07/18 [History] Sertraline [Zoloft] 50 mg PO QAM 03/07/18 [History] metFORMIN HCl [Metformin HCl] 1,000 mg PO BEDTIME 03/07/18 [History] traZODone HCl [Trazodone HCl] 50 mg PO BEDTIME PRN 03/07/18 [History] metFORMIN [Glucophage] 500 mg PO QAM 10/20/18 [History] Past Medical History HEENT History: Reports: Impaired Vision Other HEENT History: wears glasses, droopy L) eye lid, had reconstrucion surg Cardiovascular History: Reports: Heart Murmur Respiratory History: Reports: None Gastrointestinal History: Reports: None Genitourinary History: Reports: None 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 SEVERE L4-5 LUMBAR SPINAL STENOSIS. 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 T12-L1 THROUGH L5-S1 DEGENERATIVE DISC. 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 SEVERE L4-5 LUMBAR SPINAL STENOSIS. 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 T12-L1 THROUGH L5- S1 DEGENERATIVE DISC. 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 GI Surgical History: Reports: Appendectomy, Bariatric Procedure, Colonoscopy, Other (See Below) Other GI Surgeries/Procedures: gastric bypass Female Surgical History: Reports: Section, Oophorectomy, Tubal Ligation Other Neurological Surgeries/Procedures: brace on spine Musculoskeletal Surgical History: Reports: Knee Replacement, Other (See Below) Other Musculoskeletal Surgeries/Procedures:: back surgery x2 Social & Family History - Family History Family Medical History: Noncontributory Cardiac: Reports: [place] Endocrine/Metabolic: Reports: Diabetes, Type I Oncologic: Reports: Ovarian, Prostate - Tobacco Use Smoking Status *Q: Former Smoker Used Tobacco, but Quit: Yes Month/Year Tobacco Last Used: 27 years ago - Caffeine Use Caffeine Use: Reports: None - Recreational Drug Use Recreational Drug Use: No - Living Situation & Occupation Living situation: Reports: , with Family Review of Systems - Review of Systems Review Of Systems: ROS reveals no pertinent complaints other than HPI. ED EXAM, GENERAL - Physical Exam Exam: See Below Exam Limited By: No Limitations General Appearance: Alert, WD/WN, Mild Distress, Other (discomfort) Ears: Hearing Grossly Normal Throat/Mouth: Normal Voice, No Airway Compromise Head: Atraumatic Neck: Non-Tender, Full Range of Motion Respiratory/Chest: No Respiratory Distress Cardiovascular: Regular Rate, Rhythm GI/Abdominal: Soft, Non-Tender Extremities: Other (left plantar infected wound without drainage, local erythema without lymphangitis, NV wnl, gait limited to discomfort) Neurological: Alert, Oriented, Normal Cognition, No Motor/Sensory Deficits Psychiatric: Tearful Skin Exam: Warm, Dry, Normal Color Lymphatic: No Adenopathy Course - Vital Signs Last Recorded V/S: Last Vital Signs Temp 36.9 C 10/20/18 20:45 Pulse 106 H 10/20/18 20:45 Resp 20 10/20/18 20:45 BP 149/83 H 10/20/18 20:45 Pulse Ox 96 10/20/18 20:45 - Orders/Labs/Meds Meds: Medications Discontinued Medications Generic Name Dose Route Start Last Admin Trade Name Ry PRN Reason Stop Dose Admin Hydrocodone Bitart/Acetaminophen 1 tab 10/20/18 21:28 [place] 325-10 Mg PO 10/20/18 21:29 ONETIME ONE Clindamycin HCl 300 mg 10/20/18 21:28 Cleocin PO 10/20/18 21:29 ONETIME ONE Departure - Departure Time of Disposition: 21:31 Disposition: Home, Self-Care 01 Condition: Fair Clinical Impression: Cellulitis of foot, left - Discharge Information Instructions: Cellulitis, Adult, [id number] Additional Instructions: 1) keep wound clean dry covered 2) do daily dressing change Monday 3) elevate foot as much as possible 4) follow up at clinic rx given; clindamycin 300mg qid x 40
== END 2018-10-20 21:39 | disposition home or self-care (01) ==
LOC: DL.ED 20:21
DX: L03.116 Cellulitis of left lower limb (principal); E11.40 Type 2 diabetes mellitus with diabetic neuropathy, unspecified; Z79.84 Long term (current) use of oral hypoglycemic drugs; Z79.899 Other long term (current) drug therapy; Z87.891 Personal history of nicotine dependence; Z79.4 Long term (current) use of insulin; Z91.040 Latex allergy status; Z91.09 Other allergy status, other than to drugs and biological substances; Z91.018 Allergy to other foods; Z79.82 Long term (current) use of aspirin
CPT/HCPCS: 99283; A9270

== ENCOUNTER 2019-03-26 22:19 | Emergency (ER) | payer MEDICARE, OTHER ==
--- NOTE | 2019-03-27 00:35 | EDM.PDOC ---
ED HPI GENERAL MEDICAL PROBLEM - General Chief Complaint: Upper Extremity Injury/Pain Stated Complaint: L ARM INJURY Time Seen by Provider: 03/27/19 00:00 Source of Information: Reports: Patient, RN, RN Notes Reviewed History Limitations: Reports: No Limitations - History of Present Illness INITIAL COMMENTS - FREE TEXT/NARRATIVE: Patient presents to the ER with complaints of left arm pain specifically around the AC joint. She reports "jerking" her left arm on the closet door at home a few months ago and told her PCP who gave her a muscle relaxant rub. She reports lifting her grand son three hours ago and felt a pop in her left arm. She states the left arm is painful to palpation even after she took her MS Contin and muscle relaxant. Patient is rated as a 6/10 and achy. Denies any numbness and tingling. Left Anterior Elbow Pain Score (Numeric/FACES): 6 - Related Data Allergies Allergy/AdvReac Type Severity Reaction Status Date / Time latex Allergy Rash Uncoded 03/26/19 23:39 onions Allergy Hives Uncoded 03/26/19 23:39 spider bites Allergy Numbness Uncoded 03/26/19 23:39 Home Meds: Home Meds Folic Acid 2 mg PO DAILY 06/01/13 [History] Insulin Detemir [Levemir] 48 units SQ BEDTIME 06/01/13 [History] Lisinopril 5 mg PO DAILY 06/01/13 [History] Aspirin [Halfprin] 81 mg PO DAILY 02/14/14 [History] Cyclobenzaprine [Flexeril] 10 mg PO TID 09/04/15 [History] Morphine Sulfate [Ms Contin] 30 mg PO BID 09/04/15 [History] atorvaSTATin [Lipitor] 20 mg PO BEDTIME 01/28/17 [History] Saxagliptin [Onglyza] 2.5 mg PO DAILY 09/10/17 [History] Ca Carbonate/Vitamin D3/Vit K [Calcium + D Soft Chewable Tab] 1 tab PO BID 03/07 [History] Gabapentin [Neurontin] 300 mg PO WITHBREAKFAST 03/07/18 [History] Gabapentin [Neurontin] 300 mg PO WITHLUNCH 03/07/18 [History] Gabapentin [Neurontin] 600 mg PO BEDTIME 03/07/18 [History] Morphine 15 mg PO TID 03/07/18 [History] Sertraline [Zoloft] 50 mg PO QAM 03/07/18 [History] metFORMIN HCl [Metformin HCl] 1,000 mg PO BEDTIME 03/07/18 [History] traZODone HCl [Trazodone HCl] 50 mg PO BEDTIME PRN 03/07/18 [History] metFORMIN [Glucophage] 500 mg PO QAM 10/20/18 [History] Past Medical History HEENT History: Reports: Impaired Vision Other HEENT History: wears glasses, droopy L) eye lid, had reconstrucion surg Cardiovascular History: Reports: Heart Murmur Respiratory History: Reports: None Gastrointestinal History: Reports: None Genitourinary History: Reports: None 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 SEVERE L4-5 LUMBAR SPINAL STENOSIS. 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 T12-L1 THROUGH L5-S1 DEGENERATIVE DISC. 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 SEVERE L4-5 LUMBAR SPINAL STENOSIS. 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 T12-L1 THROUGH L5- S1 DEGENERATIVE DISC. 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 GI Surgical History: Reports: Appendectomy, Bariatric Procedure, Colonoscopy, Other (See Below) Other GI Surgeries/Procedures: gastric bypass Female Surgical History: Reports: Section, Oophorectomy, Tubal Ligation Other Neurological Surgeries/Procedures: brace on spine Musculoskeletal Surgical History: Reports: Knee Replacement, Other (See Below) Other Musculoskeletal Surgeries/Procedures:: back surgery x2 Social & Family History - Family History Family Medical History: Noncontributory Cardiac: Reports: [place] Endocrine/Metabolic: Reports: Diabetes, Type I Oncologic: Reports: Ovarian, Prostate - Caffeine Use Caffeine Use: Reports: None - Living Situation & Occupation Living situation: Reports: , with Family Review of Systems - Review of Systems Review Of Systems: ROS reveals no pertinent complaints other than HPI. ED EXAM, GENERAL - Physical Exam Exam: See Below Exam Limited By: No Limitations General Appearance: Alert, WD/WN, No Apparent Distress Peripheral Pulses: 4+: Radial (L) Extremities: Normal Inspection (of the left arm), Normal Range of Motion, Normal Capillary Refill (mild pain reported with palpation of the left AC. Good range of motion and strength noted.) Neurological: Alert, Oriented, No Motor/Sensory Deficits Psychiatric: Normal Affect, Normal Mood, Other Skin Exam: Warm, Dry, Intact, Normal Color, No Rash Course - Re-Assessments/Exams Free Text/Narrative Re-Assessment/Exam: 53 year old female presents with complaints of left AC discomfort sequelae from a previous injury. Good ROM and strength noted on Exam. Xray negative for fracture. Discussed findings with patient and plan of treatment and patient was in agreement. Departure - Departure Time of Disposition: 00:41 Disposition: Home, Self-Care 01 Condition: Good Clinical Impression: Left arm pain - Discharge Information *PRESCRIPTION DRUG MONITORING PROGRAM REVIEWED*: Not Applicable *COPY OF PRESCRIPTION DRUG MONITORING REPORT IN PATIENT BETITO: Not Applicable Instructions: Musculoskeletal Pain Forms: ED Department Discharge Additional Instructions: Encouraged to apply heat and continue taking muscle relaxant as prescribed. Follow up with PCP or return to the ER if symptoms worsens.
== END 2019-03-27 00:48 | disposition home or self-care (01) ==
LOC: DL.ED 22:19
DX: M79.602 Pain in left arm (principal); Z98.890 Other specified postprocedural states; Z79.899 Other long term (current) drug therapy; Z79.4 Long term (current) use of insulin; Z91.040 Latex allergy status; Z91.018 Allergy to other foods; Z91.038 Other insect allergy status; Z79.82 Long term (current) use of aspirin
CPT/HCPCS: 73080-LT; 99283-25

== ENCOUNTER 2019-05-26 17:01 | Inpatient (IN) | payer MEDICARE, OTHER ==
[2019-05-26] MEDS ORDERED: Acetaminophen 325 MG Tab ONE (17:16)
[2019-05-26] MEDS ORDERED: Acetaminophen 325 MG Tab PO ONE (17:20)
[2019-05-26] MEDS ORDERED: Sodium Chloride 0.9% 1,000 ML IV ONE (17:30)
[2019-05-26 17:59] LABS: ANION GAP 15.8; CHLORIDE,CL 97 mmol/L (101-111); SODIUM,NA 135 mmol/L (135-145)
[2019-05-26] MEDS ORDERED: cefTRIAXone 1 GM in Sodium Chloride 0.9% 50 ML IV ONE (18:07)
--- NOTE | 2019-05-26 18:49 | EDM.PDOC ---
Scribed by Pilar Quiñonez 05/26/19 0794 for Karl Darnell PA ED HPI GENERAL MEDICAL PROBLEM - General Chief Complaint: Respiratory Problem Stated Complaint: FLU Time Seen by Provider: 05/26/19 17:26 Source of Information: Reports: Patient, RN, RN Notes Reviewed History Limitations: Reports: No Limitations - History of Present Illness INITIAL COMMENTS - FREE TEXT/NARRATIVE: Patient is a 53-year-old female who presents to the ER stating that she felt fine this morning. About 12:30 to 1:00 P.M. she started with body aches, chills and diarrhea. She did take an Aleve about 16:00 hours. She now has chest pain and sore throat. Onset: Today Duration: Getting Worse Location: Reports: Generalized Quality: Reports: Ache Severity: Mild Improves with: Reports: None Worsens with: Reports: None Associated Symptoms: Reports: No Other Symptoms Chest Pain Score (Numeric/FACES): 6 - Related Data Allergies Allergy/AdvReac Type Severity Reaction Status Date / Time latex Allergy Rash Uncoded 05/26/19 17:13 onions Allergy Hives Uncoded 05/26/19 17:13 spider bites Allergy Numbness Uncoded 05/26/19 17:13 Home Meds: Home Meds Folic Acid 2 mg PO DAILY 06/01/13 [History] Insulin Detemir [Levemir] 48 units SQ BEDTIME 06/01/13 [History] Lisinopril 5 mg PO DAILY 06/01/13 [History] Aspirin [Halfprin] 81 mg PO DAILY 02/14/14 [History] Cyclobenzaprine [Flexeril] 10 mg PO TID 09/04/15 [History] Morphine Sulfate [Ms Contin] 30 mg PO BID 09/04/15 [History] atorvaSTATin [Lipitor] 20 mg PO BEDTIME 01/28/17 [History] Saxagliptin [Onglyza] 2.5 mg PO DAILY 09/10/17 [History] Calcium Carb/Vitamin D3/Vit K1 [Calcium + D Soft Chewable Tab] 1 tab PO BID 08/20 [History] Gabapentin [Neurontin] 300 mg PO WITHBREAKFAST 03/07/18 [History] Gabapentin [Neurontin] 300 mg PO WITHLUNCH 03/07/18 [History] Gabapentin [Neurontin] 600 mg PO BEDTIME 03/07/18 [History] Morphine 15 mg PO TID 03/07/18 [History] Sertraline [Zoloft] 50 mg PO QAM 03/07/18 [History] metFORMIN HCl [Metformin HCl] 1,000 mg PO BEDTIME 03/07/18 [History] traZODone HCl [Trazodone HCl] 50 mg PO BEDTIME PRN 03/07/18 [History] metFORMIN [Glucophage] 500 mg PO QAM 10/20/18 [History] Past Medical History HEENT History: Reports: Impaired Vision Other HEENT History: wears glasses, droopy L) eye lid, had reconstrucion surg Cardiovascular History: Reports: Heart Murmur Respiratory History: Reports: None Gastrointestinal History: Reports: None Genitourinary History: Reports: None 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 SEVERE L4-5 LUMBAR SPINAL STENOSIS. 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 T12-L1 THROUGH L5-S1 DEGENERATIVE DISC. 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 SEVERE L4-5 LUMBAR SPINAL STENOSIS. 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 T12-L1 THROUGH L5- S1 DEGENERATIVE DISC. 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 GI Surgical History: Reports: Appendectomy, Bariatric Procedure, Colonoscopy, Other (See Below) Other GI Surgeries/Procedures: gastric bypass Female Surgical History: Reports: Section, Oophorectomy, Tubal Ligation Other Neurological Surgeries/Procedures: brace on spine Musculoskeletal Surgical History: Reports: Knee Replacement, Other (See Below) Other Musculoskeletal Surgeries/Procedures:: back surgery x2 Social & Family History - Family History Family Medical History: Noncontributory Cardiac: Reports: [place] Endocrine/Metabolic: Reports: Diabetes, Type I Oncologic: Reports: Ovarian, Prostate - Caffeine Use Caffeine Use: Reports: None - Living Situation & Occupation Living situation: Reports: , with Family ED ROS GENERAL - Review of Systems Review Of Systems: Comprehensive ROS is negative, except as noted in HPI. ED EXAM, GENERAL - Physical Exam Exam: See Below Exam Limited By: No Limitations General Appearance: Alert, WD/WN, No Apparent Distress Eye Exam: Bilateral Eye: EOMI, Normal Inspection, PERRL Ears: Normal External Exam, Normal Canal, Hearing Grossly Normal, Normal TMs Nose: Normal Inspection, Normal Mucosa, No Blood Throat/Mouth: Other (dry mouth) Head: Atraumatic, Normocephalic Neck: Normal Inspection, Supple, Non-Tender, Full Range of Motion Respiratory/Chest: No Respiratory Distress, Lungs Clear, Normal Breath Sounds, No Accessory Muscle Use, Chest Non-Tender Cardiovascular: Tachycardia GI/Abdominal: Normal Bowel Sounds, Soft, Non-Tender, No Organomegaly, No Distention, No Abnormal Bruit, No Mass (Female) Exam: Deferred Rectal (Female) Exam: Deferred Back Exam: Normal Inspection, Full Range of Motion, NT Extremities: Normal Inspection, Normal Range of Motion, Non-Tender, Normal Capillary Refill, No Pedal Edema Neurological: Alert, Oriented, CN II-XII Intact, Normal Cognition, Normal Gait, Normal Reflexes, No Motor/Sensory Deficits Psychiatric: Normal Affect, Normal Mood Skin Exam: Warm (is increased) Lymphatic: No Adenopathy Course - Vital Signs Last Recorded V/S: Last Vital Signs Temp 39.4 C H 05/26/19 17:10 Pulse 151 H 05/26/19 17:10 Resp 20 05/26/19 17:10 BP 130/75 05/26/19 17:10 Pulse Ox 94 L 05/26/19 17:20 - Orders/Labs/Meds Orders: Active Orders 24 hr Category Date Time Status Admission Diagnosis [ADT] Urgent ADT 05/26/19 18:43 Ordered Admission Status [Patient Status] [ADT] Routine ADT 05/26/19 18:43 Ordered EKG Documentation Completion [RC] URGENT Care 05/26/19 17:25 Active CULTURE BLOOD [BC] Stat Lab 05/26/19 17:20 Ordered CULTURE BLOOD [BC] Stat Lab 05/26/19 17:25 Received CULTURE STREP A CONFIRMATION [RM] Stat Lab 05/26/19 17:26 Results STREP SCRN A RAPID W CULT CONF [RM] Stat Lab 05/26/19 17:26 Received cefTRIAXone [Rocephin] 1 gm Med 05/26/19 18:07 Ordered Sodium Chloride 0.9% [Normal Saline] 50 ml IV ONETIME Blood Culture x2 Reflex Set [OM.PC] Stat Oth 05/26/19 17:20 Ordered Medication Orders Ceftriaxone Sodium 1 gm/ (Sodium Chloride) 50 mls @ 50 mls/hr IV ONETIME ONE Stop: 05/26/19 19:06 Last Admin: 05/26/19 18:37 Dose: 50 mls/hr Labs: Laboratory Tests 05/26/19 05/26/19 05/26/19 Range/Units 17:25 17:25 17:25 WBC 14.8 H (5.0-10.0) 10^3/uL RBC 4.67 (4.2-5.4) 10^6/uL Hgb 10.1 L (12.0-16.0) g/dL Hct 33.2 L (37.0-47.0) % MCV 71.1 L D (80-100) fL MCH 21.6 L (27.0-34.0) pg MCHC 30.4 L (33.0-35.0) g/dL Plt Count 342 (150-450) 10^3/uL Neut % (Auto) 89.7 H (42.2-75.2) % Lymph % (Auto) 4.7 L (20.5-50.1) % [place] % (Auto) 4.5 (2-8) % Eos % (Auto) 1.0 (1.0-3.0) % Baso % (Auto) 0.1 (0.0-1.0) % Sodium 135 (135-145) mmol/L Potassium 3.8 (3.6-5.0) mmol/L Chloride 97 L D (101-111) mmol/L Carbon Dioxide 26.0 (21.0-31.0) mmol/L Anion Gap 15.8 BUN 11 (7-18) mg/dL Creatinine 0.7 (0.6-1.3) mg/dL Est Cr Clr Drug Dosing 97.13 mL/min Estimated GFR (MDRD) > 60 BUN/Creatinine Ratio 15.71 Glucose 202 H (74-105) mg/dL Lactic Acid 3.0 H (0.5-2.2) mmol/L Calcium 8.6 (8.4-10.2) mg/dl Total Bilirubin 0.5 (0.2-1.0) mg/dL AST 25 (10-42) IU/L ALT 27 (10-60) IU/L Alkaline Phosphatase 87 (42-121) IU/L Troponin I < 0.02 (0.00-0.02) ng/ml Total Protein 7.5 (6.7-8.2) g/dl Albumin 4.0 (3.2-5.5) g/dl Globulin 3.5 Albumin/Globulin Ratio 1.14 Meds: Medications Generic Name Dose Route Start Last Admin Trade Name Freq PRN Reason Stop Dose Admin Ceftriaxone Sodium 1 gm/ 50 mls @ 50 mls/hr 05/26/19 18:07 05/26/19 18:37 Sodium Chloride IV 05/26/19 19:06 50 mls/hr ONETIME ONE Administration Discontinued Medications Generic Name Dose Route Start Last Admin Trade Name Freq PRN Reason Stop Dose Admin Acetaminophen Confirm 05/26/19 17:16 05/26/19 17:20 Tylenol Administered 05/26/19 17:17 Not Given Dose 650 mg .ROUTE .STK-MED ONE Acetaminophen 650 mg 05/26/19 17:20 05/26/19 17:20 Tylenol PO 05/26/19 17:21 650 mg NOW ONE Administration Sodium Chloride 1,000 mls @ 999 mls/hr 05/26/19 17:30 05/26/19 17:34 Normal Saline IV 05/26/19 18:30 999 mls/hr .BOLUS ONE Administration Departure - Departure Time of Disposition: 18:46 Disposition: Admitted As Inpatient 66 Condition: Fair Clinical Impression: Pneumonia Qualifiers: Pneumonia type: due to unspecified organism Laterality: unspecified laterality Lung location: unspecified part of lung Qualified Code(s): J18.9 - Pneumonia, unspecified organism - Discharge Information *PRESCRIPTION DRUG MONITORING PROGRAM REVIEWED*: Not Applicable *COPY OF PRESCRIPTION DRUG MONITORING REPORT IN PATIENT BETITO: Not Applicable Forms: ED Department Discharge Care Plan Goals: Discussed the examination, lab and x-ray results with Dr. Byrnes. Dr. Byrnes accepted the patient for continued evaluation and management as an inpatient. Sepsis Event Note - Evaluation Sepsis Screening Result: Possible Sepsis Risk - Focused Exam Vital Signs: Vital Signs Temp Pulse Resp BP Pulse Ox Pulse Ox 05/26/19 17:20 94 L 05/26/19 17:10 39.4 C H 151 H 20 130/75 86 L Date Exam was Performed: 05/26/19 Time Exam was Performed: 18:45 - My Orders Last 24 Hours: My Active Orders 05/26/19 17:20 CULTURE BLOOD [BC] Stat Blood Culture x2 Reflex Set [OM.PC] Stat 05/26/19 17:25 EKG Documentation Completion [RC] URGENT CULTURE BLOOD [BC] Stat 05/26/19 17:26 CULTURE STREP A CONFIRMATION [RM] Stat STREP SCRN A RAPID W CULT CONF [RM] Stat 05/26/19 18:07 cefTRIAXone [Rocephin] 1 gm Sodium Chloride 0.9% [Normal Saline] 50 ml IV ONETIME 05/26/19 18:43 Admission Diagnosis [ADT] Urgent Admission Status [Patient Status] [ADT] Routine - Assessment/Plan Last 24 Hours: My Active Orders 05/26/19 17:20 CULTURE BLOOD [BC] Stat Blood Culture x2 Reflex Set [OM.PC] Stat 05/26/19 17:25 EKG Documentation Completion [RC] URGENT CULTURE BLOOD [BC] Stat 05/26/19 17:26 CULTURE STREP A CONFIRMATION [RM] Stat STREP SCRN A RAPID W CULT CONF [RM] Stat 05/26/19 18:07 cefTRIAXone [Rocephin] 1 gm Sodium Chloride 0.9% [Normal Saline] 50 ml IV ONETIME 05/26/19 18:43 Admission Diagnosis [ADT] Urgent Admission Status [Patient Status] [ADT] Routine I have read and agree with the documentation that has been completed regarding this visit. By signing this record, I attest that the documentation was completed in my physical presence and is an accurate record of the encounter.
[2019-05-26] MEDS ORDERED: Acetaminophen/oxyCODONE 325-5 MG Tab PO PRN (19:30)
[2019-05-26] MEDS ORDERED: Docusate Sodium 100 MG Cap PO PRN (19:30)
[2019-05-26] MEDS ORDERED: Ondansetron 4 MG Tab.DIS PO PRN (19:30)
[2019-05-26] MEDS ORDERED: traZODone 50 MG Tab PO PRN (19:34)
[2019-05-26] MEDS: Azithromycin 500 MG in Sodium Chloride 0.9% 250 ML IV SCH (20:01)
--- NOTE | 2019-05-26 20:22 | HP ---
CHIEF COMPLAINT: Fever, chills, and cough. HISTORY OF PRESENT ILLNESS: The patient is a 53-year-old lady with past medical history of diabetes mellitus, dyslipidemia, chronic low back pain from disk disease of the lumbar spine who was admitted through the emergency room because of pleuritic chest pain and cough, and according to the patient, she was feeling fine this morning and then about lunchtime, she started having this fever, chills and cough with pleuritic chest pain on the left side. She also complained of some sore throat and took some Aleve about 4 o'clock this afternoon, but still was not getting better. She then presented to the ER, and in the emergency room, chest x-ray showed left lower lobe pneumonia and blood tests showed leukocytosis. Because of this, she was then admitted for further evaluation and management. PAST MEDICAL HISTORY: Remarkable for this disk disease of the L spine with lumbar facet arthropathy, lumbar spinal stenosis, and herniated disk and history of low back surgery. She has history of type 2 diabetes mellitus, obesity, and gastric bypass. SOCIAL HISTORY: The patient is . Nonsmoker, nonalcohol drinker. FAMILY HISTORY: Noncontributory. REVIEW OF SYSTEMS: As in HPI. Patient denies any orthopnea, PND, pedal edema, abdominal pain, dysuria. HOME MEDICATIONS: Trazodone, metformin, atorvastatin, Zoloft, sitagliptin, morphine sulfate, lisinopril, Levemir, gabapentin, folic acid, cyclobenzaprine, and aspirin. ALLERGIES: No known drug allergies. PHYSICAL EXAMINATION: General: Very pleasant lady. She is alert and oriented, not in any acute respiratory distress. Vital Signs: Blood pressure is 109/57, pulse of 120, respiration of 19, temperature of 100.3, saturation is 94% on 2 L per nasal cannula. SHEENT: Normocephalic. There are pink palpebral conjunctivae. Sclerae anicteric. No JVD. No lymphadenopathy. Heart: Regular, tachycardic. No rubs. No gallops. Lungs: Remarkable for crackles of the left lung field. No wheezing. Breath sounds equal. Abdomen: Obese, soft, nontender. Bowel sounds positive. Extremities: Negative for any significant pedal edema. No calf tenderness. LABORATORY DATA AND IMAGING: CBC: WBC is 14.8, hemoglobin is 10.1, hematocrit is 33.2, platelets 342. Comp panel; chloride of 97, glucose is 202. The rest of the panel unremarkable. Lactic acid is 3 and troponin is less than 0.02. Chest x-ray showed left lower lobe infiltrate. Blood cultures sent. ADMITTING DIAGNOSES: 1. Left lobe pneumonia. 2. Systemic inflammatory response syndrome, suspected sepsis. 3. Type 2 diabetes mellitus. 4. Disk disease, history of back surgery and chronic low back pain. 5. Dyslipidemia. TREATMENT PLAN: The patient is going to be admitted to acute care, general medicine floor. She will be started on IV antibiotics with Rocephin and azithromycin. She will be on bronchodilators and also will be placed on DVT prophylaxis and she will be resuming her home medication and the rest of the management as necessary. The patient is a full code. [facility] /[id number]
[2019-05-26] MEDS: Insulin Glarg,Human.Rec.Analog 100 UNIT/ML ML SUBCUT SCH (20:59)
[2019-05-26] MEDS: Carboxymethylcellulose Sodium 1% Ophth Gel 0.4 ML UD EYELF PRN (21:03)
[2019-05-26] MEDS: Gabapentin 300 MG Cap PO SCH (21:04)
[2019-05-26] MEDS: Cyclobenzaprine 10 MG Tab PO SCH (21:04)
[2019-05-26] MEDS: atorvaSTATin 20 MG Tab PO SCH (21:04)
[2019-05-26] MEDS: Morphine 30 MG Tab.ER PO SCH (21:05)
[2019-05-26] MEDS: Calcium Carbonate/Vitamin D3 1250 MG-200 Unit Tab PO SCH (21:05)
[2019-05-26] MEDS: Morphine 15 MG Tab PO SCH (21:06)
[2019-05-26] MEDS: Sodium Chloride 0.9% 1,000 ML IV SCH (21:18)
[2019-05-27] MEDS: Albuterol/Ipratropium 3.0-0.5 MG/3 ML Neb Soln NEB SCH ×4 (00:57→17:50)
[2019-05-27] MEDS: Sodium Chloride 0.9% 1,000 ML IV SCH ×2 (05:14→21:36)
[2019-05-27] MEDS: Acetaminophen 325 MG Tab PO PRN ×2 (06:14→18:45)
[2019-05-27 06:45] LABS: ANION GAP 12.1; CHLORIDE,CL 102 mmol/L (101-111); SODIUM,NA 135 mmol/L (135-145)
--- NOTE | 2019-05-27 08:08 | PN ---
DATE: 05/27/2019 SUBJECTIVE: The patient had a good night sleep. So far has not had any problems with chills. She still has some cough, but she denies any chest pain, orthopnea, PND, nor any other complaints. LABORATORY DATA: Lab workup this morning. CBC: WBC is 22.4, hemoglobin is 8.6, hematocrit is 28.6, platelets 329. Basic metabolic panel; glucose is 194. The rest of the panel unremarkable. OBJECTIVE: Vital Signs: Blood pressure is 117/67, pulse of 111, respirations of 20, temperature of 99.1. Heart: Regular, slightly tachycardic. No gallops. No rubs. Lungs: Equal bilaterally with faint crackles on the left lung field, but no wheezing. Abdomen: Obese, soft, nontender. Extremities: Negative for any calf tenderness or any significant pedal edema. PLAN: We will continue with her present management, and I am going to cut down her IV fluids to 60 mL/h. We will recheck a CBC in a.m. Blood cultures are pending. [facility] /[id number]
[2019-05-27] MEDS: Calcium Carbonate/Vitamin D3 1250 MG-200 Unit Tab PO SCH ×2 (08:29→21:41)
[2019-05-27] MEDS: Gabapentin 300 MG Cap PO SCH ×2 (08:29→21:41)
[2019-05-27] MEDS: Aspirin 81 MG Tab.EC PO SCH (08:29)
[2019-05-27] MEDS: Folic Acid 1 MG Tab PO SCH (08:29)
[2019-05-27] MEDS: Sertraline 50 MG Tab PO SCH (08:29)
[2019-05-27] MEDS: Cyclobenzaprine 10 MG Tab PO SCH ×3 (08:30→21:42)
[2019-05-27] MEDS: Enoxaparin 40 MG/0.4 ML Syringe SUBCUT SCH (08:30)
[2019-05-27] MEDS: Lisinopril 5 MG Tab PO SCH (08:33)
[2019-05-27] MEDS: Morphine 15 MG Tab PO SCH ×3 (08:33→21:42)
[2019-05-27] MEDS: Morphine 30 MG Tab.ER PO SCH ×2 (08:34→21:42)
[2019-05-27] MEDS ORDERED: Gabapentin 300 MG Cap PO SCH (12:00)
[2019-05-27] MEDS: Insulin Lispro 100 Units/ML 3 ML Vial SUBCUT SCH ×4 (12:39→21:43)
[2019-05-27] MEDS ORDERED: cefTRIAXone 1 GM in Sodium Chloride 0.9% 50 ML IV SCH (18:30)
[2019-05-27] MEDS: Azithromycin 500 MG in Sodium Chloride 0.9% 250 ML IV SCH (19:40)
[2019-05-27] MEDS: atorvaSTATin 20 MG Tab PO SCH (21:41)
[2019-05-27] MEDS: Insulin Glarg,Human.Rec.Analog 100 UNIT/ML ML SUBCUT SCH (21:44)
[2019-05-27] MEDS: Carboxymethylcellulose Sodium 1% Ophth Gel 0.4 ML UD EYELF PRN (21:57)
[2019-05-28] MEDS: Albuterol/Ipratropium 3.0-0.5 MG/3 ML Neb Soln NEB SCH ×2 (01:54→07:38)
[2019-05-28] MEDS: Acetaminophen 325 MG Tab PO PRN (06:35)
[2019-05-28 07:32] VITALS: BP 118/65
[2019-05-28 07:39] VITALS: PULSE 100
[2019-05-28] MEDS: Calcium Carbonate/Vitamin D3 1250 MG-200 Unit Tab PO SCH (08:59)
[2019-05-28] MEDS: Cyclobenzaprine 10 MG Tab PO SCH (08:59)
[2019-05-28] MEDS: Gabapentin 300 MG Cap PO SCH (09:00)
[2019-05-28] MEDS: Morphine 30 MG Tab.ER PO SCH (09:00)
[2019-05-28] MEDS: Folic Acid 1 MG Tab PO SCH (09:00)
[2019-05-28] MEDS: Morphine 15 MG Tab PO SCH (09:01)
[2019-05-28] MEDS: Sertraline 50 MG Tab PO SCH (09:01)
[2019-05-28] MEDS: Lisinopril 5 MG Tab PO SCH (09:02)
[2019-05-28] MEDS: Aspirin 81 MG Tab.EC PO SCH (09:02)
[2019-05-28] MEDS: Enoxaparin 40 MG/0.4 ML Syringe SUBCUT SCH (09:02)
[2019-05-28] MEDS: Insulin Lispro 100 Units/ML 3 ML Vial SUBCUT SCH (09:03)
--- NOTE | 2019-05-28 10:27 | PN ---
DATE: 05/28/2019 SUBJECTIVE: The patient continues to do well, and she is feeling much better. She is almost back to her baseline, and she denies any fever, chills, chest pain, shortness of breath, nor any other complaints, and she would like to go home today. LABORATORY DATA: Lab workup this morning: CBC; WBC is 15.7, hemoglobin is 8.1, hematocrit is 27.3, platelet is 307. Glucose is 184. Blood cultures; no growth after 1 day/negative. OBJECTIVE: Vital Signs: Blood pressure is 118/65, pulse of 85, respirations 20, saturation is 95% on room air, and temperature is 98.5. Heart: Regular rate and rhythm. Normal S1 and S2. No gallops. No rubs. Lungs: Equal bilaterally. No crackles. No wheezing. Abdomen: Soft and nontender. Extremities: Negative for any pedal edema. No calf tenderness. PLAN: We will discharge the patient home today, and we will resume her home medication, and we will also put her on Augmentin 875 mg b.i.d. for the next 7 days, and we will have her follow up with Adonay Lyn, who is her primary care provider in 7 to 10 days with a recheck of her chest x-ray and recheck CBC. [facility] /[id number] MTDJack
--- NOTE | 2019-05-28 16:57 | DISCH ---
FINAL DIAGNOSES: 1. Left lobe pneumonia. 2. Systemic inflammatory response syndrome. 3. Type 2 diabetes mellitus. 4. Disk disease and history of back surgery and chronic low back pain. 5. Dyslipidemia. 6. Anemia. BRIEF HISTORY OF PRESENT ILLNESS: Please see H and P, pertinent lab, x-ray, and other tests. On admission, see H and P. Blood cultures came back negative. HOSPITAL COURSE: The patient was admitted to General Medicine floor. She was empirically started on IV antibiotics, that is ceftriaxone IV as well as azithromycin IV, and she was also given bronchodilators by nebulization and IV fluids. The patient did well with the above regimen, and she responded well. She was back to her baseline right away, and she was subsequently discharged on oral antibiotics. The patient was also advised that her hemoglobin and hematocrit have dropped, which is most likely dilutional from the IV fluids, but this still needs to be followed up as an outpatient and probably she may need to have further anemia workup and this will be ordered when she sees her primary care provider on followup. CONDITION ON DISCHARGE: Improved. [facility] /[id number]
[2019-05-28] MEDS ORDERED: cefTRIAXone 1 GM in Sodium Chloride 0.9% 50 ML IV SCH (18:00)
[2019-05-28] MEDS ORDERED: Azithromycin 500 MG in Sodium Chloride 0.9% 250 ML IV SCH (19:00)
== END 2019-05-28 10:10 | disposition home or self-care (01) | DRG 194 ==
LOC: DL.ED 17:01 → DL.MS 18:43
PROVIDERS: ADMIT Internal Medicine; ATTEND Internal Medicine
DX: J18.9 Pneumonia, unspecified organism (principal); H54.7 Unspecified visual loss; G89.29 Other chronic pain; M54.9 Dorsalgia, unspecified; E11.40 Type 2 diabetes mellitus with diabetic neuropathy, unspecified; J18.1 Lobar pneumonia, unspecified organism; Z98.84 Bariatric surgery status; Z96.659 Presence of unspecified artificial knee joint; Z91.038 Other insect allergy status; R65.10 Systemic inflammatory response syndrome (SIRS) of non-infectious origin without acute organ dysfunction; E78.5 Hyperlipidemia, unspecified; E11.42 Type 2 diabetes mellitus with diabetic polyneuropathy; M51.36 Other intervertebral disc degeneration, lumbar region; E66.9 Obesity, unspecified; D64.9 Anemia, unspecified; Z91.040 Latex allergy status; Z91.018 Allergy to other foods; Z88.8 Allergy status to other drugs, medicaments and biological substances; Z79.4 Long term (current) use of insulin; Z79.82 Long term (current) use of aspirin; Z79.899 Other long term (current) drug therapy; Z68.38 Body mass index [BMI] 38.0-38.9, adult
CPT/HCPCS: 36415; 71046; 80048; 80053; 82962; 83605; 84484; 85025; 87040; 87081; 87430; 87804; 93005; 94640; 96361; 96365; 99285-25; A9270-GY; J0456; J0696; J1650; J1815; J1815-GY; J7030; J7050; J7620-GY

== ENCOUNTER 2019-06-11 20:10 | Inpatient (IN) | payer MEDICARE, OTHER ==
--- NOTE | 2019-06-11 20:31 | EDM.PDOC ---
ED HPI GENERAL MEDICAL PROBLEM - General Chief Complaint: General Stated Complaint: FLU Time Seen by Provider: 06/11/19 20:22 Source of Information: Reports: Patient History Limitations: Reports: No Limitations - History of Present Illness INITIAL COMMENTS - FREE TEXT/NARRATIVE: This 53 yo female patient reports to the ED with a 1 hour history of increased shortness of breath and generalized body aches. The patient was hospitalized on 05/26/19 with similar symptoms and diagnosed with left lower lobe pneumonia. The patient reports she did finish her antibiotics as prescribed and was feeling better up to 1 hour ago. The patient has not taken any over the counter medications for temporary symptom relief. Onset: Today Onset Date: 06/11/19 Onset Time: 19:15 Duration: Constant Location: Reports: Chest Quality: Reports: Other Severity: Moderate Improves with: Reports: None Worsens with: Reports: None Context: Reports: Other Associated Symptoms: Reports: Shortness of Breath Treatments MODEL BUILDER DISPLAY: Denies: Acetaminophen, NSAIDS, Other Medication(s) - Related Data Allergies Allergy/AdvReac Type Severity Reaction Status Date / Time latex Allergy Rash Uncoded 06/11/19 20:15 onions Allergy Hives Uncoded 06/11/19 20:15 spider bites Allergy Numbness Uncoded 06/11/19 20:15 Home Meds: Home Meds Folic Acid 2 mg PO DAILY 06/01/13 [History] Insulin Detemir [Levemir] 48 units SQ BEDTIME 06/01/13 [History] Lisinopril 10 mg PO DAILY 06/01/13 [History] Aspirin [Halfprin] 81 mg PO DAILY 02/14/14 [History] Cyclobenzaprine [Flexeril] 10 mg PO TID 09/04/15 [History] Morphine Sulfate [Ms Contin] 30 mg PO BID 09/04/15 [History] atorvaSTATin [Lipitor] 20 mg PO BEDTIME 01/28/17 [History] Calcium Carb/Vitamin D3/Vit K1 [Calcium + D Soft Chewable Tab] 1 tab PO BID 08/20 [History] Gabapentin [Neurontin] 300 mg PO WITHBREAKFAST 03/07/18 [History] Gabapentin [Neurontin] 300 mg PO WITHLUNCH 03/07/18 [History] Gabapentin [Neurontin] 600 mg PO BEDTIME 03/07/18 [History] Morphine 15 mg PO TID 03/07/18 [History] Sertraline [Zoloft] 100 mg PO QAM 03/07/18 [History] metFORMIN HCl [Metformin HCl] 1,000 mg PO QAM 03/07/18 [History] traZODone HCl [Trazodone HCl] 50 mg PO BEDTIME PRN 03/07/18 [History] metFORMIN [Glucophage] 500 mg PO BEDTIME 10/20/18 [History] Carboxymethylcellulose Sodium [Refresh Tears 0.5%] 1 drop EYELF QID 05/26/19 [ History] Amoxicillin/Clavulanate K [Augmentin 875-125 MG] 1 tab PO BID 28 Days #14 tablet 05/28/19 [Rx] Past Medical History HEENT History: Reports: Impaired Vision Other HEENT History: wears glasses, droopy L) eye lid, had reconstrucion surg Cardiovascular History: Reports: Heart Murmur Respiratory History: Reports: None Gastrointestinal History: Reports: None Genitourinary History: Reports: None CONNIE CLEANER History: Reports: , Other (See Below) 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 SEVERE L4-5 LUMBAR SPINAL STENOSIS. 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 T12-L1 THROUGH L5-S1 DEGENERATIVE DISC. 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 SEVERE L4-5 LUMBAR SPINAL STENOSIS. 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 T12-L1 THROUGH L5- S1 DEGENERATIVE DISC. 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 GI Surgical History: Reports: Appendectomy, Bariatric Procedure, Colonoscopy, Other (See Below) Other GI Surgeries/Procedures: gastric bypass Female Surgical History: Reports: Section, Oophorectomy, Tubal Ligation Other Neurological Surgeries/Procedures: brace on spine Musculoskeletal Surgical History: Reports: Knee Replacement, Other (See Below) Other Musculoskeletal Surgeries/Procedures:: back surgery x2 Social & Family History - Family History Family Medical History: Noncontributory Cardiac: Reports: [place] Endocrine/Metabolic: Reports: Diabetes, Type I Oncologic: Reports: Ovarian, Prostate - Tobacco Use Smoking Status *Q: Never Smoker Second Hand Smoke Exposure: No - Caffeine Use Caffeine Use: Reports: Tea - Recreational Drug Use Recreational Drug Use: No - Living Situation & Occupation Living situation: Reports: , with Family ED ROS GENERAL - Review of Systems Review Of Systems: Comprehensive ROS is negative, except as noted in HPI. ED EXAM, GENERAL - Physical Exam Exam: See Below Exam Limited By: No Limitations General Appearance: Alert, WD/WN, Moderate Distress, Obese Eye Exam: Bilateral Eye: EOMI, Normal Inspection, PERRL Ears: Normal External Exam, Normal Canal, Hearing Grossly Normal, Normal TMs Nose: Normal Inspection, Normal Mucosa, No Blood Throat/Mouth: Normal Inspection Head: Atraumatic, Normocephalic Neck: Normal Inspection, Supple, Non-Tender, Full Range of Motion Respiratory/Chest: No Respiratory Distress, Lungs Clear, Normal Breath Sounds, No Accessory Muscle Use, Chest Non-Tender Cardiovascular: Normal Peripheral Pulses, Regular Rate, Rhythm, No Edema, No Gallop, No JVD, No Murmur, No Rub GI/Abdominal: Normal Bowel Sounds, Soft, Non-Tender, No Organomegaly, No Distention, No Abnormal Bruit, No Mass (Female) Exam: Deferred Rectal (Female) Exam: Deferred Back Exam: Normal Inspection, Full Range of Motion, NT Extremities: Normal Inspection, Normal Range of Motion, Non-Tender, Normal Capillary Refill, No Pedal Edema Neurological: Alert, Oriented, CN II-XII Intact, Normal Cognition, Normal Gait, Normal Reflexes, No Motor/Sensory Deficits Psychiatric: Normal Affect, Normal Mood Skin Exam: Warm, Dry, Intact, Normal Color, No Rash Lymphatic: No Adenopathy Course - Vital Signs Last Recorded V/S: Last Vital Signs Temp 36.9 C 01/07/20 20:19 Pulse 135 H 06/11/19 20:19 Resp 20 06/11/19 20:19 BP 138/69 06/11/19 20:19 Pulse Ox 95 06/11/19 20:19 - Orders/Labs/Meds Orders: Active Orders 24 hr Category Date Time Status Chest 2V [CR] Urgent Exams 06/11/19 20:25 Taken CULTURE BLOOD [BC] Stat Lab 06/11/19 20:36 Received CULTURE BLOOD [BC] Stat Lab 06/11/19 21:49 Ordered UA RFX LARRY AND CULT IF INDIC [URIN] Urgent Lab 06/11/19 20:24 Ordered Piperacillin/Tazobactam [Zosyn] 3.375 gm Med 06/11/19 21:46 Ordered Sodium Chloride 0.9% [Normal Saline] 100 ml IV ONETIME Sodium Chloride 0.9% [Saline Flush] Med 06/11/19 20:25 Active 10 ml FLUSH ASDIRECTED PRN Vancomycin 1.75 gm Med 06/11/19 21:48 Ordered Sodium Chloride 0.9% [Normal Saline] 500 ml IV ONETIME Saline Lock Insert [OM.PC] Routine Oth 06/11/19 20:25 Ordered Medication Orders Piperacillin Sod/Tazobactam (Sod 3.375 gm/ Sodium Chloride) 100 mls @ 200 mls/ hr IV ONETIME ONE Stop: 06/11/19 22:15 Vancomycin HCl 1.75 gm/ Sodium (Chloride) 500 mls @ 334 mls/hr IV ONETIME ONE Stop: 06/11/19 23:17 Sodium Chloride (Saline Flush) 10 ml FLUSH ASDIRECTED PRN PRN Reason: Keep Vein Open Labs: Laboratory Tests 06/11/19 06/11/19 06/11/19 Range/Units 20:32 20:36 20:36 WBC 18.2 H (5.0-10.0) 10^3/uL RBC 4.50 (4.2-5.4) 10^6/uL Hgb 9.8 L D (12.0-16.0) g/dL Hct 31.9 L (37.0-47.0) % MCV 70.9 L (80-100) fL MCH 21.8 L (27.0-34.0) pg MCHC 30.7 L (33.0-35.0) g/dL Plt Count 450 D (150-450) 10^3/uL Neut % (Auto) 85.4 H (42.2-75.2) % Lymph % (Auto) 6.1 L (20.5-50.1) % [place] % (Auto) 6.4 (2-8) % Eos % (Auto) 2.0 (1.0-3.0) % Baso % (Auto) 0.1 (0.0-1.0) % Sodium 129 L (135-145) mmol/L Potassium 4.0 (3.6-5.0) mmol/L Chloride 92 L (101-111) mmol/L Carbon Dioxide 25.0 (21.0-31.0) mmol/L Anion Gap 16.0 BUN 34 H (7-18) mg/dL Creatinine 1.4 H (0.6-1.3) mg/dL Est Cr Clr Drug Dosing 48.57 mL/min Estimated GFR (MDRD) 39 BUN/Creatinine Ratio 24.28 Glucose 227 H (74-105) mg/dL Lactic Acid 2.7 H* (0.5-2.0) mmol/L Calcium 9.1 (8.4-10.2) mg/dl Total Bilirubin 0.8 (0.2-1.0) mg/dL AST 23 (10-42) IU/L ALT 25 (10-60) IU/L Alkaline Phosphatase 75 (42-121) IU/L Total Protein 7.6 (6.7-8.2) g/dl Albumin 3.9 (3.2-5.5) g/dl Globulin 3.7 Albumin/Globulin Ratio 1.05 Meds: Medications Generic Name Dose Route Start Last Admin Trade Name Freq PRN Reason Stop Dose Admin Piperacillin Sod/Tazobactam 100 mls @ 200 mls/hr 06/11/19 21:46 Sod 3.375 gm/ Sodium Chloride IV 06/11/19 22:15 ONETIME ONE Vancomycin HCl 1.75 gm/ Sodium 500 mls @ 334 mls/hr 06/11/19 21:48 Chloride IV 06/11/19 23:17 ONETIME ONE Sodium Chloride 10 ml 06/11/19 20:25 Saline Flush FLUSH ASDIRECTED PRN Keep Vein Open Departure - Departure Time of Disposition: 21:49 Disposition: Admitted As Inpatient 66 Condition: Fair Clinical Impression: Sepsis Qualifiers: Sepsis type: sepsis due to unspecified organism Sepsis acute organ dysfunction status: unspecified Qualified Code(s): A41.9 - Sepsis, unspecified organism - Discharge Information *PRESCRIPTION DRUG MONITORING PROGRAM REVIEWED*: Not Applicable *COPY OF PRESCRIPTION DRUG MONITORING REPORT IN PATIENT BETITO: Not Applicable Forms: ED Department Discharge Care Plan Goals: Discussed the patient's history, examination, lab and x-ray results with Dr. Davidson. Dr. Davidson accepted the patient for continued evaluation and management as an inpatient at [facility]. Dr. Davidson advised to start the patient on Vancomycin and Zosyn prior to admission. Sepsis Event Note - Evaluation Sepsis Screening Result: No Definite Risk - Focused Exam Vital Signs: Vital Signs Temp Pulse Resp BP Pulse Ox 06/11/19 20:19 36.9 C 135 H 20 138/69 95 Date Exam was Performed: 06/11/19 Time Exam was Performed: 21:49 - My Orders Last 24 Hours: My Active Orders 06/11/19 20:24 UA RFX LARRY AND CULT IF INDIC [URIN] Urgent 06/11/19 20:25 Chest 2V [CR] Urgent Sodium Chloride 0.9% [Saline Flush] 10 ml FLUSH ASDIRECTED PRN Saline Lock Insert [OM.PC] Routine 06/11/19 20:36 CULTURE BLOOD [BC] Stat 06/11/19 21:46 Piperacillin/Tazobactam [Zosyn] 3.375 gm Sodium Chloride 0.9% [Normal Saline] 100 ml IV ONETIME 06/11/19 21:48 Vancomycin 1.75 gm Sodium Chloride 0.9% [Normal Saline] 500 ml IV ONETIME 06/11/19 21:49 CULTURE BLOOD [BC] Stat - Assessment/Plan Last 24 Hours: My Active Orders 06/11/19 20:24 UA RFX LARRY AND CULT IF INDIC [URIN] Urgent 06/11/19 20:25 Chest 2V [CR] Urgent Sodium Chloride 0.9% [Saline Flush] 10 ml FLUSH ASDIRECTED PRN Saline Lock Insert [OM.PC] Routine 06/11/19 20:36 CULTURE BLOOD [BC] Stat 06/11/19 21:46 Piperacillin/Tazobactam [Zosyn] 3.375 gm Sodium Chloride 0.9% [Normal Saline] 100 ml IV ONETIME 06/11/19 21:48 Vancomycin 1.75 gm Sodium Chloride 0.9% [Normal Saline] 500 ml IV ONETIME 06/11/19 21:49 CULTURE BLOOD [BC] Stat
[2019-06-11] MEDS ORDERED: Piperacillin/Tazobactam 3.375 GM in Sodium Chloride 0.9% 100 ML IV ONE (21:46)
[2019-06-11] MEDS ORDERED: Vancomycin 1.75 GM in Sodium Chloride 0.9% 500 ML IV ONE (21:48)
[2019-06-11] MEDS ORDERED: Ondansetron 4 MG/2 ML SDV IVPUSH PRN (21:54)
[2019-06-11] MEDS: Sodium Chloride 0.9% 10 ML Syringe FLUSH PRN (21:56)
[2019-06-11] MEDS ORDERED: Vancomycin 1 GM SDV ONE (22:01)
--- NOTE | 2019-06-11 22:08 | PCM.HP ---
H&P History of Present Illness - General Date of Service: 06/11/19 Admit Problem/Dx: Admission Diagnosis/Problem Admission Diagnosis/Problem Sepsis Source of Information: Patient History Limitations: Reports: Altered Mental Status - History of Present Illness Initial Comments - Free Text/Narative: History limited as patient is drowsy. Patient was recently admitted to the hospital because of pneumonia. Was treated with intravenous antibiotics and subsequently discharged on oral. She has been doing well until yesterday when she began to feel weak. Weakness has been generalized. She started coughing and was expectorating sputum. Also started having chills and rigors. She became cold and had to be covered with blankets. Denies having dysuria or frequency or micturition. No diarrhea and no constipation. Patient continued emergency room today and was noted to have elevated white cell count of 18,000. She is tachycardic with heart rate of 135/ m. Her serum lactic acid is elevated at 2.7. - Related Data Allergies/Adverse Reactions: Allergies Allergy/AdvReac Type Severity Reaction Status Date / Time latex Allergy Rash Uncoded 06/11/19 20:15 onions Allergy Hives Uncoded 06/11/19 20:15 spider bites Allergy Numbness Uncoded 06/11/19 20:15 Home Medications: Home Meds Folic Acid 2 mg PO DAILY 06/01/13 [History] Insulin Detemir [Levemir] 48 units SQ BEDTIME 06/01/13 [History] Lisinopril 10 mg PO DAILY 06/01/13 [History] Aspirin [Halfprin] 81 mg PO DAILY 02/14/14 [History] Cyclobenzaprine [Flexeril] 10 mg PO TID 09/04/15 [History] Morphine Sulfate [Ms Contin] 30 mg PO BID 09/04/15 [History] atorvaSTATin [Lipitor] 20 mg PO BEDTIME 01/28/17 [History] Calcium Carb/Vitamin D3/Vit K1 [Calcium + D Soft Chewable Tab] 1 tab PO BID 08/20 [History] Gabapentin [Neurontin] 300 mg PO WITHBREAKFAST 03/07/18 [History] Gabapentin [Neurontin] 300 mg PO WITHLUNCH 03/07/18 [History] Gabapentin [Neurontin] 600 mg PO BEDTIME 03/07/18 [History] Morphine 15 mg PO TID 03/07/18 [History] Sertraline [Zoloft] 100 mg PO QAM 03/07/18 [History] metFORMIN HCl [Metformin HCl] 1,000 mg PO QAM 03/07/18 [History] traZODone HCl [Trazodone HCl] 50 mg PO BEDTIME PRN 03/07/18 [History] metFORMIN [Glucophage] 500 mg PO BEDTIME 10/20/18 [History] Carboxymethylcellulose Sodium [Refresh Tears 0.5%] 1 drop EYELF QID 05/26/19 [ History] Amoxicillin/Clavulanate K [Augmentin 875-125 MG] 1 tab PO BID 28 Days #14 tablet 05/28/19 [Rx] Past Medical History HEENT History: Reports: Impaired Vision Other HEENT History: wears glasses, droopy L) eye lid, had reconstrucion surg Cardiovascular History: Reports: Heart Murmur Respiratory History: Reports: None Gastrointestinal History: Reports: None Genitourinary History: Reports: None NURSING ASSOCIATE 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 SEVERE L4-5 LUMBAR SPINAL STENOSIS. 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 T12-L1 THROUGH L5-S1 DEGENERATIVE DISC. 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 SEVERE L4-5 LUMBAR SPINAL STENOSIS. 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 T12-L1 THROUGH L5- S1 DEGENERATIVE DISC. 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 GI Surgical History: Reports: Appendectomy, Bariatric Procedure, Colonoscopy, Other (See Below) Other GI Surgeries/Procedures: gastric bypass Female Surgical History: Reports: Section, Oophorectomy, Tubal Ligation Other Neurological Surgeries/Procedures: brace on spine Musculoskeletal Surgical History: Reports: Knee Replacement, Other (See Below) Other Musculoskeletal Surgeries/Procedures:: back surgery x2 Social & Family History - Family History Family Medical History: Noncontributory Cardiac: Reports: GA Endocrine/Metabolic: Reports: Diabetes, Type I Oncologic: Reports: Ovarian, Prostate - Tobacco Use Smoking Status *Q: Never Smoker Second Hand Smoke Exposure: No - Caffeine Use Caffeine Use: Reports: Tea - Recreational Drug Use Recreational Drug Use: No - Living Situation & Occupation Living situation: Reports: , with Family H&P Review of Systems - Review of Systems: Review Of Systems: See Below General: Reports: Fever, Chills, Malaise Pulmonary: Reports: Shortness of Breath, Wheezing, Cough Cardiovascular: Reports: No Symptoms Gastrointestinal: Reports: No Symptoms Genitourinary: Reports: No Symptoms Skin: Reports: No Symptoms Exam - Exam Exam: See Below - Vital Signs Vital Signs: Last Vital Signs Temp 36.9 C 06/11/19 20:19 Pulse 135 H 06/11/19 20:19 Resp 20 06/11/19 20:19 BP 138/69 06/11/19 20:19 Pulse Ox 95 06/11/19 20:19 Weight: 118.66 kg - Exam General: Other (Drowsy) HEENT: Conjunctiva Clear Neck: Supple, Trachea Midline Lungs: Clear to Auscultation Cardiovascular: Regular Rate, Regular Rhythm GI/Abdominal Exam: Normal Bowel Sounds, Soft, Non-Tender, No Organomegaly, No Distention, No Abnormal Bruit, No Mass, Pelvis Stable Skin: Warm, Dry - Patient Data Lab Results Last 24 hrs: Laboratory Results - last 24 hr 06/11/19 06/11/19 06/11/19 Range/Units 20:32 20:36 20:36 WBC 18.2 H (5.0-10.0) 10^3/uL RBC 4.50 (4.2-5.4) 10^6/uL Hgb 9.8 L D (12.0-16.0) g/dL Hct 31.9 L (37.0-47.0) % MCV 70.9 L (80-100) fL MCH 21.8 L (27.0-34.0) pg MCHC 30.7 L (33.0-35.0) g/dL Plt Count 450 D (150-450) 10^3/uL Neut % (Auto) 85.4 H (42.2-75.2) % Lymph % (Auto) 6.1 L (20.5-50.1) % [place] % (Auto) 6.4 (2-8) % Eos % (Auto) 2.0 (1.0-3.0) % Baso % (Auto) 0.1 (0.0-1.0) % Sodium 129 L (135-145) mmol/L Potassium 4.0 (3.6-5.0) mmol/L Chloride 92 L (101-111) mmol/L Carbon Dioxide 25.0 (21.0-31.0) mmol/L Anion Gap 16.0 BUN 34 H (7-18) mg/dL Creatinine 1.4 H (0.6-1.3) mg/dL Est Cr Clr Drug Dosing 48.57 mL/min Estimated GFR (MDRD) 39 BUN/Creatinine Ratio 24.28 Glucose 227 H (74-105) mg/dL Lactic Acid 2.7 H* (0.5-2.0) mmol/L Calcium 9.1 (8.4-10.2) mg/dl Total Bilirubin 0.8 (0.2-1.0) mg/dL AST 23 (10-42) IU/L ALT 25 (10-60) IU/L Alkaline Phosphatase 75 (42-121) IU/L Total Protein 7.6 (6.7-8.2) g/dl Albumin 3.9 (3.2-5.5) g/dl Globulin 3.7 Albumin/Globulin Ratio 1.05 Result Diagrams: 06/11/19 20:36 06/11/19 20:36 Brian Results Last 24 hrs: Microbiology 06/11/19 20:32 Anaerobic Blood Culture - Final Blood 06/11/19 20:26 Influenza Type A Antigen Screen - Final Nasal, Unspecified NEGATIVE INFLUENZA A VIRUS AG REFERENCE RANGE: NEGATIVE Influenza Type B Antigen Screen - Final NEGATIVE INFLUENZA B VIRUS AG REFERENCE RANGE: NEGATIVE Problem List Initiated/Reviewed/Updated: Yes Orders Last 24hrs: Active Orders 24 hr Category Date Time Status Admission Diagnosis [ADT] Stat ADT 06/11/19 21:49 Ordered Admission Diagnosis [ADT] Urgent ADT 06/11/19 21:50 Ordered Admission Status [Patient Status] [ADT] Routine ADT 06/11/19 21:49 Active Admission Status [Patient Status] [ADT] Routine ADT 06/11/19 21:50 Active Patient Status [ADT] Routine ADT 06/11/19 21:54 Ordered Blood Glucose Check, Bedside [RC] QIDACANDBED Care 06/11/19 21:54 Ordered Intake and Output [RC] QSHIFT Care 06/11/19 21:56 Ordered Oxygen Therapy [RC] PRN Care 06/11/19 21:54 Ordered Up ad Mariza [RC] ASDIRECTED Care 06/11/19 21:54 Ordered VTE/DVT Education [RC] PER UNIT ROUTINE Care 06/11/19 21:54 Ordered Vital Signs [RC] Q4H Care 06/11/19 21:54 Ordered Consistent Carbohydrate Diet [DIET] Diet 06/11/19 Dinner Ordered Chest 2V [CR] Urgent Exams 06/11/19 20:25 Taken BASIC METABOLIC PANEL,BMP [CHEM] AM Lab 06/12/19 05:11 Ordered CBC WITH AUTO DIFF [HEME] AM Lab 06/12/19 05:11 Ordered CULTURE BLOOD [BC] Stat Lab 06/11/19 20:32 Results CULTURE BLOOD [BC] Stat Lab 06/11/19 20:36 Received LACTIC ACID [CHEM] Routine Lab 06/12/19 02:00 Ordered UA RFX BRIAN AND CULT IF INDIC [URIN] Urgent Lab 06/11/19 20:24 Ordered Acetaminophen [Tylenol] Med 06/11/19 21:54 Ordered 650 mg PO Q4H PRN Heparin Sodium Med 06/11/19 22:00 Ordered 5,000 units SUBCUT Q8HR Insulin Detemir [Levemir] Med 06/12/19 21:00 Ordered 48 units SQ BEDTIME Insulin Lispro [HumaLOG] Med 06/12/19 09:00 Ordered 1 unit SUBCUT QID Morphine [MS Contin] Med 06/12/19 09:00 Ordered 30 mg PO BID Ondansetron [Zofran] Med 06/11/19 21:54 Ordered 4 mg IVPUSH Q6H PRN Pharmacy to Dose - Vancomycin Med 06/11/19 22:00 Ordered 1 dose .XX ASDIRECTED Piperacillin/Tazobactam [Zosyn] 3.375 gm Med 06/11/19 21:46 Active Sodium Chloride 0.9% [Normal Saline] 100 ml IV ONETIME Piperacillin/Tazobactam [Zosyn] 3.375 gm Med 06/11/19 22:00 Ordered Sodium Chloride 0.9% [Normal Saline] 100 ml IV Q6H Sertraline [Zoloft] Med 06/12/19 09:00 Ordered 100 mg PO QAM Sodium Chloride 0.9% [Normal Saline] 1,000 ml Med 06/11/19 22:00 Ordered IV ASDIRECTED Sodium Chloride 0.9% [Saline Flush] Med 06/11/19 20:25 Active 10 ml FLUSH ASDIRECTED PRN Vancomycin 1.75 gm Med 06/11/19 21:48 Active Sodium Chloride 0.9% [Normal Saline] 500 ml IV ONETIME Saline Lock Insert [OM.PC] Routine Oth 06/11/19 20:25 Ordered Resuscitation Status Routine Resus Stat 06/11/19 21:54 Ordered Medication Orders Acetaminophen (Tylenol) 650 mg PO Q4H PRN PRN Reason: Pain (Mild 1-3)/fever Heparin Sodium (Porcine) (Heparin Sodium) 5,000 units SUBCUT Q8HR [facility] Piperacillin Sod/Tazobactam (Sod 3.375 gm/ Sodium Chloride) 100 mls @ 200 mls/ hr IV ONETIME ONE Stop: 06/11/19 22:15 Last Admin: 06/11/19 21:55 Dose: 200 mls/hr Vancomycin HCl 1.75 gm/ Sodium (Chloride) 500 mls @ 334 mls/hr IV ONETIME ONE Stop: 06/11/19 23:17 Sodium Chloride (Normal Saline) 1,000 mls @ 150 mls/hr IV ASDIRECTED [facility] Piperacillin Sod/Tazobactam (Sod 3.375 gm/ Sodium Chloride) 100 mls @ 200 mls/ hr IV Q6H [facility] Morphine Sulfate (Ms Contin) 30 mg PO BID [facility] Non-Formulary Medication (Insulin Detemir [Levemir]) 48 units SQ BEDTIME [facility] Ondansetron HCl (Zofran) 4 mg IVPUSH Q6H PRN PRN Reason: Nausea/Vomiting Sertraline HCl (Zoloft) 100 mg PO QAM [facility] Sodium Chloride (Saline Flush) 10 ml FLUSH ASDIRECTED PRN PRN Reason: Keep Vein Open Last Admin: 06/11/19 21:56 Dose: 10 ml Vancomycin HCl (Pharmacy To Dose - Vancomycin) 1 dose .XX ASDIRECTED [facility] Assessment/Plan Comment:: #. Sepsis The patient is tachycardic, has leukocytosis and has elevated lactic acid This is on the sepsis is not obvious at this point. He could be due to respiratory tract. However chest x-ray does not show a definite infiltrate #. Possible pneumonia Chest x-ray does not show any new infiltrates She was recently treated for pneumonia. X-ray actually showed improvement but she is still coughing. #. Acute renal failure Serum creatinine is elevated at 1.4 Likely due to sepsis #. Diabetes mellitus type 2 Suboptimal control #. Chronic pain syndrome Patient has had previous back surgery Has been chronically on morphine #. Acute encephalopathy She is drowsy at this point Suspected that this is likely multifactorial including sepsis and probably medications in this case and morphine Plan: Admit patient to medical floor Check lactic acid level Empiric antibiotics intravenous Zosyn Intravenous vancomycin Blood cultures Sputum culture Antimitochondrial: Intravenous fluid with normal saline going at 150 mL an hour
[2019-06-11] MEDS: Heparin Sodium 5,000 Units/ML Vial SUBCUT SCH (22:51)
[2019-06-11] MEDS: Acetaminophen 325 MG Tab PO PRN (22:53)
[2019-06-12] MEDS: Sodium Chloride 0.9% 1,000 ML IV SCH ×3 (00:15→16:48)
[2019-06-12] MEDS: Piperacillin/Tazobactam 3.375 GM in Sodium Chloride 0.9% 100 ML IV SCH ×4 (03:45→21:50)
[2019-06-12] MEDS: Heparin Sodium 5,000 Units/ML Vial SUBCUT SCH ×3 (05:32→21:43)
[2019-06-12 06:45] LABS: ANION GAP 15.3
[2019-06-12] MEDS: Acetaminophen 325 MG Tab PO PRN (08:05)
[2019-06-12] MEDS ORDERED: Insulin Lispro 100 Units/ML 3 ML Vial SUBCUT SCH (09:00)
[2019-06-12] MEDS ORDERED: Morphine 30 MG Tab.ER PO SCH (09:00)
[2019-06-12] MEDS ORDERED: Pneumococcal Polyvalent-23 Vaccine 0.5 ML SDV IM ONE (09:00)
[2019-06-12] MEDS ORDERED: Vancomycin 1.75 GM in Sodium Chloride 0.9% 500 ML IV SCH (10:00)
[2019-06-12] MEDS: Sertraline 50 MG Tab PO SCH (11:07)
--- NOTE | 2019-06-12 11:10 | PCM.PN ---
- General Info Date of Service: 06/12/19 Admission Dx/Problem (Free Text): Admission Diagnosis/Problem Admission Diagnosis/Problem Sepsis, fever, leukocytosis, aubrey Subjective Update: recent pneumonia tx presented with recurrent fever admitted with sepsis fever improved + cough no cp, no sob has moderate chronic back pain that is better with morphine, neurontin, worse with activity had no UO since admission, she feels she can urinate now Functional Status: Reports: Tolerating Diet - Review of Systems General: Reports: Fever Cardiovascular: Denies: Chest Pain, Edema Gastrointestinal: Denies: Abdominal Pain Musculoskeletal: Reports: Back Pain Neurological: Denies: Confusion - Patient Data Vitals - Most Recent: Last Vital Signs Temp 38.2 C H 06/12/19 07:55 Pulse 104 H 06/12/19 07:55 Resp 18 06/12/19 07:55 BP 83/53 L 06/12/19 07:55 Pulse Ox 97 06/12/19 07:55 Weight - Most Recent: 118.66 kg I&O - Last 24 Hours: Intake & Output 06/11/19 06/12/19 06/12/19 22:59 06:59 14:59 Intake Total 600 871 Balance 600 871 Lab Results Last 24 Hours: Laboratory Results - last 24 hr 06/11/19 06/11/19 06/11/19 Range/Units 20:32 20:36 20:36 WBC 18.2 H (5.0-10.0) 10^3/uL RBC 4.50 (4.2-5.4) 10^6/uL Hgb 9.8 L D (12.0-16.0) g/dL Hct 31.9 L (37.0-47.0) % MCV 70.9 L (80-100) fL MCH 21.8 L (27.0-34.0) pg MCHC 30.7 L (33.0-35.0) g/dL Plt Count 450 D (150-450) 10^3/uL Neut % (Auto) 85.4 H (42.2-75.2) % Lymph % (Auto) 6.1 L (20.5-50.1) % [place] % (Auto) 6.4 (2-8) % Eos % (Auto) 2.0 (1.0-3.0) % Baso % (Auto) 0.1 (0.0-1.0) % Sodium 129 L (135-145) mmol/L Potassium 4.0 (3.6-5.0) mmol/L Chloride 92 L (101-111) mmol/L Carbon Dioxide 25.0 (21.0-31.0) mmol/L Anion Gap 16.0 BUN 34 H (7-18) mg/dL Creatinine 1.4 H (0.6-1.3) mg/dL Est Cr Clr Drug Dosing 48.57 mL/min Estimated GFR (MDRD) 39 BUN/Creatinine Ratio 24.28 Glucose 227 H (74-105) mg/dL POC Glucose (70-105) mg/dl Lactic Acid 2.7 H* (0.5-2.0) mmol/L Calcium 9.1 (8.4-10.2) mg/dl Total Bilirubin 0.8 (0.2-1.0) mg/dL AST 23 (10-42) IU/L ALT 25 (10-60) IU/L Alkaline Phosphatase 75 (42-121) IU/L Total Protein 7.6 (6.7-8.2) g/dl Albumin 3.9 (3.2-5.5) g/dl Globulin 3.7 Albumin/Globulin Ratio 1.05 Urine Color (YELLOW) Urine Appearance (CLEAR) Urine pH (5.0-9.0) Ur Specific [place] (1.005-1.030) Urine Protein (NEGATIVE) Urine Glucose (UA) (NEGATIVE) Urine Ketones (NEGATIVE) Urine Occult Blood (NEGATIVE) Urine Nitrite (NEGATIVE) Urine Bilirubin (NEGATIVE) Urine Urobilinogen (0.2-1.0) mg/dL Ur Leukocyte Esterase (NEGATIVE) 06/12/19 06/12/19 06/12/19 Range/Units 02:00 06:00 06:00 WBC 17.5 H (5.0-10.0) 10^3/uL RBC 3.70 L (4.2-5.4) 10^6/uL Hgb 8.0 L D (12.0-16.0) g/dL Hct 26.5 L (37.0-47.0) % MCV 71.6 L (80-100) fL MCH 21.6 L (27.0-34.0) pg MCHC 30.2 L (33.0-35.0) g/dL Plt Count 405 (150-450) 10^3/uL Neut % (Auto) 83.0 H (42.2-75.2) % Lymph % (Auto) 8.7 L (20.5-50.1) % [place] % (Auto) 7.1 (2-8) % Eos % (Auto) 1.0 (1.0-3.0) % Baso % (Auto) 0.2 (0.0-1.0) % Sodium 130 L (135-145) mmol/L Potassium 4.3 (3.6-5.0) mmol/L Chloride 95 L (101-111) mmol/L Carbon Dioxide 24.0 (21.0-31.0) mmol/L Anion Gap 15.3 BUN 37 H (7-18) mg/dL Creatinine 2.0 H (0.6-1.3) mg/dL Est Cr Clr Drug Dosing 34.00 mL/min Estimated GFR (MDRD) 26 BUN/Creatinine Ratio Glucose 214 H (74-105) mg/dL POC Glucose (70-105) mg/dl Lactic Acid 1.1 (0.5-2.0) mmol/L Calcium 8.1 L (8.4-10.2) mg/dl Total Bilirubin (0.2-1.0) mg/dL AST (10-42) IU/L ALT (10-60) IU/L Alkaline Phosphatase (42-121) IU/L Total Protein (6.7-8.2) g/dl Albumin (3.2-5.5) g/dl Globulin Albumin/Globulin Ratio Urine Color (YELLOW) Urine Appearance (CLEAR) Urine pH (5.0-9.0) Ur Specific [place] (1.005-1.030) Urine Protein (NEGATIVE) Urine Glucose (UA) (NEGATIVE) Urine Ketones (NEGATIVE) Urine Occult Blood (NEGATIVE) Urine Nitrite (NEGATIVE) Urine Bilirubin (NEGATIVE) Urine Urobilinogen (0.2-1.0) mg/dL Ur Leukocyte Esterase (NEGATIVE) 06/12/19 06/12/19 Range/Units 07:42 10:19 WBC (5.0-10.0) 10^3/uL RBC (4.2-5.4) 10^6/uL Hgb (12.0-16.0) g/dL Hct (37.0-47.0) % MCV (80-100) fL MCH (27.0-34.0) pg MCHC (33.0-35.0) g/dL Plt Count (150-450) 10^3/uL Neut % (Auto) (42.2-75.2) % Lymph % (Auto) (20.5-50.1) % [place] % (Auto) (2-8) % Eos % (Auto) (1.0-3.0) % Baso % (Auto) (0.0-1.0) % Sodium (135-145) mmol/L Potassium (3.6-5.0) mmol/L Chloride (101-111) mmol/L Carbon Dioxide (21.0-31.0) mmol/L Anion Gap BUN (7-18) mg/dL Creatinine (0.6-1.3) mg/dL Est Cr Clr Drug Dosing mL/min Estimated GFR (MDRD) BUN/Creatinine Ratio Glucose (74-105) mg/dL POC Glucose 193 H (70-105) mg/dl Lactic Acid (0.5-2.0) mmol/L Calcium (8.4-10.2) mg/dl Total Bilirubin (0.2-1.0) mg/dL AST (10-42) IU/L ALT (10-60) IU/L Alkaline Phosphatase (42-121) IU/L Total Protein (6.7-8.2) g/dl Albumin (3.2-5.5) g/dl Globulin Albumin/Globulin Ratio Urine Color Dark yellow (YELLOW) Urine Appearance Slightly cloudy (CLEAR) Urine pH 5.0 (5.0-9.0) Ur Specific [place] 1.025 (1.005-1.030) Urine Protein Negative (NEGATIVE) Urine Glucose (UA) Negative (NEGATIVE) Urine Ketones Trace H (NEGATIVE) Urine Occult Blood Negative (NEGATIVE) Urine Nitrite Negative (NEGATIVE) Urine Bilirubin Small H (NEGATIVE) Urine Urobilinogen 0.2 (0.2-1.0) mg/dL Ur Leukocyte Esterase Negative (NEGATIVE) Brian Results Last 24 Hours: Microbiology 06/11/19 20:32 Anaerobic Blood Culture - Final Blood 06/11/19 20:26 Influenza Type A Antigen Screen - Final Nasal, Unspecified NEGATIVE INFLUENZA A VIRUS AG REFERENCE RANGE: NEGATIVE Influenza Type B Antigen Screen - Final NEGATIVE INFLUENZA B VIRUS AG REFERENCE RANGE: NEGATIVE Med Orders - Current: Current Medications Acetaminophen (Tylenol) 650 mg PO Q4H PRN PRN Reason: Pain (Mild 1-3)/fever Last Admin: 06/12/19 08:05 Dose: 650 mg Heparin Sodium (Porcine) (Heparin Sodium) 5,000 units SUBCUT Q8HR [facility] Last Admin: 06/12/19 05:32 Dose: 5,000 units Sodium Chloride (Normal Saline) 1,000 mls @ 150 mls/hr IV ASDIRECTED [facility] Last Admin: 06/12/19 06:59 Dose: 150 mls/hr Piperacillin Sod/Tazobactam (Sod 3.375 gm/ Sodium Chloride) 100 mls @ 200 mls/ hr IV Q6H [facility] Last Admin: 06/12/19 03:45 Dose: 200 mls/hr Vancomycin HCl 1.75 gm/ Sodium (Chloride) 500 mls @ 333.333 mls/hr IV Q12H [facility] Insulin Glargine (Lantus) 48 unit SUBCUT BEDTIME [facility] Insulin Human Lispro (Humalog) 0 unit SUBCUT QID [facility]; Protocol Morphine Sulfate (Ms Contin) 30 mg PO BID [facility] Last Admin: 06/12/19 08:21 Dose: 30 mg Ondansetron HCl (Zofran) 4 mg IVPUSH Q6H PRN PRN Reason: Nausea/Vomiting Pneumococcal Polyvalent Vaccine (Pneumovax 23) 0.5 ml IM .ONCE ONE Stop: 06/12/19 10:01 Sertraline HCl (Zoloft) 100 mg PO QAM [facility] Sodium Chloride (Saline Flush) 10 ml FLUSH ASDIRECTED PRN PRN Reason: Keep Vein Open Last Admin: 06/11/19 21:56 Dose: 10 ml Vancomycin HCl (Pharmacy To Dose - Vancomycin) 1 dose .XX ASDIRECTED [facility] Discontinued Medications Piperacillin Sod/Tazobactam (Sod 3.375 gm/ Sodium Chloride) 100 mls @ 200 mls/ hr IV ONETIME ONE Stop: 06/11/19 22:15 Last Admin: 06/11/19 21:55 Dose: 200 mls/hr Vancomycin HCl 1.75 gm/ Sodium (Chloride) 500 mls @ 334 mls/hr IV ONETIME ONE Stop: 06/11/19 23:17 Last Admin: 06/11/19 22:45 Dose: 334 mls/hr Insulin Human Lispro (Humalog) 1 unit SUBCUT QID [facility]; Protocol Last Admin: 06/12/19 08:19 Dose: 2 units Vancomycin HCl (Vancomycin) Confirm Administered Dose 2 gm .ROUTE .STK-MED ONE Stop: 06/11/19 22:02 Last Admin: 06/11/19 22:47 Dose: Not Given - Exam General: Alert, Oriented Neck: Supple Lungs: Clear to Auscultation, Normal Respiratory Effort GI/Abdominal Exam: Normal Bowel Sounds, Soft, Non-Tender Extremities: No Pedal Edema Psy/Mental Status: Alert, Normal Affect, Normal Mood Sepsis Event Note - Evaluation Sepsis Screening Result: Severe Sepsis Risk - Focused Exam Vital Signs: Vital Signs Temp Pulse Resp BP BP Pulse Ox 06/12/19 07:55 38.2 C H 104 H 18 83/53 L 97 06/12/19 04:00 37.7 C 106 H 20 103/80 97 Date Exam was Performed: 06/12/19 Time Exam was Performed: 11:05 - Problem List & Annotations (1) AUBREY (acute kidney injury) SNOMED Code(s): 46784634, 04442013 Code(s): N17.9 - ACUTE KIDNEY FAILURE, UNSPECIFIED Status: Acute Current Visit: Yes (2) AUBREY (acute kidney injury) SNOMED Code(s): 69294248, 15914695 Code(s): N17.9 - ACUTE KIDNEY FAILURE, UNSPECIFIED Status: Acute Current Visit: Yes (3) Sepsis SNOMED Code(s): 31860550 Code(s): A41.9 - SEPSIS, UNSPECIFIED ORGANISM Status: Acute Current Visit : Yes Qualifiers: Sepsis type: sepsis due to unspecified organism Sepsis acute organ dysfunction status: unspecified Qualified Code(s): A41.9 - Sepsis, unspecified organism (4) Chronic back pain SNOMED Code(s): 013410950 Code(s): M54.9 - DORSALGIA, UNSPECIFIED; G89.29 - OTHER CHRONIC PAIN Status : Acute Current Visit: No Qualifiers: Back pain location: low back pain Back pain laterality: midline Sciatica presence: without sciatica Qualified Code(s): M54.5 - Low back pain; G89.29 - Other chronic pain; G89.29 - Other chronic pain (5) Pneumonia SNOMED Code(s): 241402704 Code(s): J18.9 - PNEUMONIA, UNSPECIFIED ORGANISM Status: Acute Current Visit: No Qualifiers: Pneumonia type: due to unspecified organism Laterality: unspecified laterality Lung location: unspecified part of lung Qualified Code(s): J18.9 - Pneumonia, unspecified organism - Problem List Review Problem List Initiated/Reviewed/Updated: Yes - Plan Plan:: #. Sepsis The patient is tachycardic, has leukocytosis and has elevated lactic acid This is on the sepsis is not obvious at this point. He could be due to respiratory tract. However chest x-ray does not show a definite infiltrate lactic acid coming down cont IVF #. Possible pneumonia Chest x-ray does not show any new infiltrates She was recently treated for pneumonia. X-ray actually showed improvement but she is still coughing. treat empirically with zosyn stop vanc re: AUBREY #. Acute renal failure Serum creatinine is further elevated Likely due to sepsis cont IVF recheck in AM #. Diabetes mellitus type 2 follow bs #. Chronic pain syndrome Patient has had previous back surgery Has been chronically on morphine, neurontin #. Acute encephalopathy resolved careful with narcotics, neurontin with renal failure d/w dr Davidson
[2019-06-12] MEDS: Insulin Lispro 100 Units/ML 3 ML Vial SUBCUT SCH ×3 (12:50→21:44)
[2019-06-12] MEDS: Gabapentin 100 MG Cap PO SCH ×2 (14:33→21:43)
[2019-06-12] MEDS: Morphine 15 MG Tab.ER PO SCH ×2 (14:36→21:41)
[2019-06-12] MEDS: Morphine 15 MG Tab PO PRN (17:46)
[2019-06-12] MEDS: Insulin Glarg,Human.Rec.Analog 100 Unit/ML SUBCUT SCH (21:46)
[2019-06-13] MEDS: Sodium Chloride 0.9% 1,000 ML IV SCH ×2 (00:43→09:16)
[2019-06-13] MEDS: Acetaminophen 325 MG Tab PO PRN (01:46)
[2019-06-13] MEDS: Morphine 15 MG Tab PO PRN (02:15)
[2019-06-13] MEDS: Piperacillin/Tazobactam 3.375 GM in Sodium Chloride 0.9% 100 ML IV SCH ×4 (04:11→22:49)
[2019-06-13] MEDS: Heparin Sodium 5,000 Units/ML Vial SUBCUT SCH ×3 (07:10→22:09)
[2019-06-13] MEDS: Gabapentin 100 MG Cap PO SCH ×3 (09:11→22:05)
[2019-06-13] MEDS: Morphine 15 MG Tab.ER PO SCH ×3 (09:11→22:04)
[2019-06-13] MEDS: Sertraline 50 MG Tab PO SCH (09:12)
[2019-06-13] MEDS: Insulin Lispro 100 Units/ML 3 ML Vial SUBCUT SCH ×4 (09:13→21:59)
[2019-06-13 09:39] LABS: ANION GAP 12.2; CHLORIDE,CL 101 mmol/L (101-111); SODIUM,NA 134 mmol/L (135-145)
--- NOTE | 2019-06-13 10:35 | PCM.PN ---
- General Info Date of Service: 06/13/19 Subjective Update: recent pneumonia tx presented with recurrent fever admitted with sepsis still fever overnight + cough no cp, no sob has moderate to severe chronic back pain that is better with morphine, neurontin , worse with activity she is more awake, Uo is improved Functional Status: Reports: Tolerating Diet. Denies: Pain Controlled - Review of Systems General: Reports: Fever, Weakness Pulmonary: Reports: Cough. Denies: Shortness of Breath Cardiovascular: Denies: Chest Pain Genitourinary: Denies: Dysuria Neurological: Denies: Confusion Psychiatric: Reports: Other (lethargy resolved) - Patient Data Vitals - Most Recent: Last Vital Signs Temp 36.6 C 06/13/19 07:30 Pulse 86 06/13/19 07:30 Resp 20 06/13/19 07:30 BP 95/59 L 06/13/19 07:30 Pulse Ox 100 06/13/19 07:30 Weight - Most Recent: 118.66 kg I&O - Last 24 Hours: Intake & Output 06/12/19 06/13/19 06/13/19 22:59 06:59 14:59 Intake Total 1110 1550 240 Output Total 1950 Balance 1110 1550 -1710 Lab Results Last 24 Hours: Laboratory Results - last 24 hr 06/12/19 06/12/19 06/12/19 Range/Units 10:19 11:53 16:45 WBC (5.0-10.0) 10^3/uL RBC (4.2-5.4) 10^6/uL Hgb (12.0-16.0) g/dL Hct (37.0-47.0) % MCV (80-100) fL MCH (27.0-34.0) pg MCHC (33.0-35.0) g/dL Plt Count (150-450) 10^3/uL Neut % (Auto) (42.2-75.2) % Lymph % (Auto) (20.5-50.1) % Jones % (Auto) (2-8) % Eos % (Auto) (1.0-3.0) % Baso % (Auto) (0.0-1.0) % Sodium (135-145) mmol/L Potassium (3.6-5.0) mmol/L Chloride (101-111) mmol/L Carbon Dioxide (21.0-31.0) mmol/L Anion Gap BUN (7-18) mg/dL Creatinine (0.6-1.3) mg/dL Est Cr Clr Drug Dosing mL/min Estimated GFR (MDRD) Glucose (74-105) mg/dL POC Glucose 279 H 214 H (70-105) mg/dl Calcium (8.4-10.2) mg/dl Urine Color Dark yellow (YELLOW) Urine Appearance Slightly cloudy (CLEAR) Urine pH 5.0 (5.0-9.0) Ur Specific Otley 1.025 (1.005-1.030) Urine Protein Negative (NEGATIVE) Urine Glucose (UA) Negative (NEGATIVE) Urine Ketones Trace H (NEGATIVE) Urine Occult Blood Negative (NEGATIVE) Urine Nitrite Negative (NEGATIVE) Urine Bilirubin Small H (NEGATIVE) Urine Urobilinogen 0.2 (0.2-1.0) mg/dL Ur Leukocyte Esterase Negative (NEGATIVE) 06/12/19 06/13/19 06/13/19 Range/Units 20:47 07:51 09:08 WBC 11.2 H (5.0-10.0) 10^3/uL RBC 4.00 L (4.2-5.4) 10^6/uL Hgb 8.6 L (12.0-16.0) g/dL Hct 28.7 L (37.0-47.0) % MCV 71.8 L (80-100) fL MCH 21.5 L (27.0-34.0) pg MCHC 30.0 L (33.0-35.0) g/dL Plt Count 399 (150-450) 10^3/uL Neut % (Auto) 73.8 (42.2-75.2) % Lymph % (Auto) 11.5 L (20.5-50.1) % Jones % (Auto) 11.4 H (2-8) % Eos % (Auto) 3.1 H (1.0-3.0) % Baso % (Auto) 0.2 (0.0-1.0) % Sodium (135-145) mmol/L Potassium (3.6-5.0) mmol/L Chloride (101-111) mmol/L Carbon Dioxide (21.0-31.0) mmol/L Anion Gap BUN (7-18) mg/dL Creatinine (0.6-1.3) mg/dL Est Cr Clr Drug Dosing mL/min Estimated GFR (MDRD) Glucose (74-105) mg/dL POC Glucose 206 H 174 H (70-105) mg/dl Calcium (8.4-10.2) mg/dl Urine Color (YELLOW) Urine Appearance (CLEAR) Urine pH (5.0-9.0) Ur Specific Otley (1.005-1.030) Urine Protein (NEGATIVE) Urine Glucose (UA) (NEGATIVE) Urine Ketones (NEGATIVE) Urine Occult Blood (NEGATIVE) Urine Nitrite (NEGATIVE) Urine Bilirubin (NEGATIVE) Urine Urobilinogen (0.2-1.0) mg/dL Ur Leukocyte Esterase (NEGATIVE) 06/13/19 Range/Units 09:08 WBC (5.0-10.0) 10^3/uL RBC (4.2-5.4) 10^6/uL Hgb (12.0-16.0) g/dL Hct (37.0-47.0) % MCV (80-100) fL MCH (27.0-34.0) pg MCHC (33.0-35.0) g/dL Plt Count (150-450) 10^3/uL Neut % (Auto) (42.2-75.2) % Lymph % (Auto) (20.5-50.1) % Jones % (Auto) (2-8) % Eos % (Auto) (1.0-3.0) % Baso % (Auto) (0.0-1.0) % Sodium 134 L (135-145) mmol/L Potassium 4.2 (3.6-5.0) mmol/L Chloride 101 (101-111) mmol/L Carbon Dioxide 25.0 (21.0-31.0) mmol/L Anion Gap 12.2 BUN 18 (7-18) mg/dL Creatinine 0.7 D (0.6-1.3) mg/dL Est Cr Clr Drug Dosing 97.13 mL/min Estimated GFR (MDRD) > 60 Glucose 246 H (74-105) mg/dL POC Glucose (70-105) mg/dl Calcium 8.0 L (8.4-10.2) mg/dl Urine Color (YELLOW) Urine Appearance (CLEAR) Urine pH (5.0-9.0) Ur Specific Otley (1.005-1.030) Urine Protein (NEGATIVE) Urine Glucose (UA) (NEGATIVE) Urine Ketones (NEGATIVE) Urine Occult Blood (NEGATIVE) Urine Nitrite (NEGATIVE) Urine Bilirubin (NEGATIVE) Urine Urobilinogen (0.2-1.0) mg/dL Ur Leukocyte Esterase (NEGATIVE) Brian Results Last 24 Hours: Microbiology 06/11/19 20:32 Aerobic Blood Culture - Preliminary Blood NO GROWTH AFTER 1 DAY Anaerobic Blood Culture - Final 06/11/19 20:36 Aerobic Blood Culture - Preliminary Blood NO GROWTH AFTER 1 DAY Anaerobic Blood Culture - Preliminary NO GROWTH AFTER 1 DAY Med Orders - Current: Current Medications Acetaminophen (Tylenol) 650 mg PO Q4H PRN PRN Reason: Pain (Mild 1-3)/fever Last Admin: 06/13/19 01:46 Dose: 650 mg Gabapentin (Neurontin) 100 mg PO TID [facility] Last Admin: 06/13/19 09:11 Dose: 100 mg Heparin Sodium (Porcine) (Heparin Sodium) 5,000 units SUBCUT Q8HR [facility] Last Admin: 06/13/19 07:10 Dose: 5,000 units Sodium Chloride (Normal Saline) 1,000 mls @ 150 mls/hr IV ASDIRECTED [facility] Last Admin: 06/13/19 09:16 Dose: 150 mls/hr Piperacillin Sod/Tazobactam (Sod 3.375 gm/ Sodium Chloride) 100 mls @ 200 mls/ hr IV Q6H [facility] Last Admin: 06/13/19 09:51 Dose: 200 mls/hr Insulin Glargine (Lantus) 48 unit SUBCUT BEDTIME [facility] Last Admin: 06/12/19 21:46 Dose: 48 units Insulin Human Lispro (Humalog) 0 unit SUBCUT QID [facility]; Protocol Last Admin: 06/13/19 09:13 Dose: 2 units Morphine Sulfate (Morphine) 15 mg PO Q6H PRN PRN Reason: severe back pain Last Admin: 06/13/19 02:15 Dose: 15 mg Morphine Sulfate (Ms Contin) 15 mg PO TID [facility] Last Admin: 06/13/19 09:11 Dose: 15 mg Ondansetron HCl (Zofran) 4 mg IVPUSH Q6H PRN PRN Reason: Nausea/Vomiting Pneumococcal Polyvalent Vaccine (Pneumovax 23) 0.5 ml IM .ONCE ONE Stop: 06/12/19 10:01 Sertraline HCl (Zoloft) 100 mg PO QAM [facility] Last Admin: 06/13/19 09:12 Dose: 100 mg Sodium Chloride (Saline Flush) 10 ml FLUSH ASDIRECTED PRN PRN Reason: Keep Vein Open Last Admin: 06/11/19 21:56 Dose: 10 ml Discontinued Medications Piperacillin Sod/Tazobactam (Sod 3.375 gm/ Sodium Chloride) 100 mls @ 200 mls/ hr IV ONETIME ONE Stop: 06/11/19 22:15 Last Admin: 06/11/19 21:55 Dose: 200 mls/hr Vancomycin HCl 1.75 gm/ Sodium (Chloride) 500 mls @ 334 mls/hr IV ONETIME ONE Stop: 06/11/19 23:17 Last Admin: 06/11/19 22:45 Dose: 334 mls/hr Vancomycin HCl 1.75 gm/ Sodium (Chloride) 500 mls @ 333.333 mls/hr IV Q12H [facility] Last Admin: 06/12/19 11:10 Dose: 333.333 mls/hr Insulin Human Lispro (Humalog) 1 unit SUBCUT QID [facility]; Protocol Last Admin: 06/12/19 08:19 Dose: 2 units Morphine Sulfate (Ms Contin) 30 mg PO BID [facility] Last Admin: 06/12/19 08:21 Dose: 30 mg Vancomycin HCl (Pharmacy To Dose - Vancomycin) 1 dose .XX ASDIRECTED [facility] Vancomycin HCl (Vancomycin) Confirm Administered Dose 2 gm .ROUTE .STK-MED ONE Stop: 06/11/19 22:02 Last Admin: 06/11/19 22:47 Dose: Not Given - Exam General: Alert, Oriented Neck: Supple Lungs: Clear to Auscultation, Normal Respiratory Effort Cardiovascular: Regular Rate, Regular Rhythm GI/Abdominal Exam: Normal Bowel Sounds, Soft, Non-Tender Extremities: No Pedal Edema Sepsis Event Note - Evaluation Sepsis Screening Result: No Definite Risk - Focused Exam Vital Signs: Vital Signs Temp Pulse Resp BP BP Pulse Ox 06/13/19 07:30 36.6 C 86 20 95/59 L 100 06/13/19 04:00 36.5 C 97 18 95 06/13/19 01:30 38.2 C H 120 H 20 100/50 L 88 L Date Exam was Performed: 06/13/19 Time Exam was Performed: 10:36 - Problem List & Annotations (1) AUBREY (acute kidney injury) SNOMED Code(s): 07785224, 76644722 Code(s): N17.9 - ACUTE KIDNEY FAILURE, UNSPECIFIED Status: Acute Current Visit: Yes (2) AUBREY (acute kidney injury) SNOMED Code(s): 79026259, 42330214 Code(s): N17.9 - ACUTE KIDNEY FAILURE, UNSPECIFIED Status: Acute Current Visit: Yes (3) Sepsis SNOMED Code(s): 54131104 Code(s): A41.9 - SEPSIS, UNSPECIFIED ORGANISM Status: Acute Current Visit : Yes Qualifiers: Sepsis type: sepsis due to unspecified organism Sepsis acute organ dysfunction status: unspecified Qualified Code(s): A41.9 - Sepsis, unspecified organism (4) Chronic back pain SNOMED Code(s): 480099381 Code(s): M54.9 - DORSALGIA, UNSPECIFIED; G89.29 - OTHER CHRONIC PAIN Status : Acute Current Visit: No Qualifiers: Back pain location: low back pain Back pain laterality: midline Sciatica presence: without sciatica Qualified Code(s): M54.5 - Low back pain; G89.29 - Other chronic pain (5) Pneumonia SNOMED Code(s): 529836307 Code(s): J18.9 - PNEUMONIA, UNSPECIFIED ORGANISM Status: Acute Current Visit: No Qualifiers: Pneumonia type: due to unspecified organism Laterality: unspecified laterality Lung location: unspecified part of lung Qualified Code(s): J18.9 - Pneumonia, unspecified organism - Problem List Review Problem List Initiated/Reviewed/Updated: Yes - My Orders Last 24 Hours: My Active Orders 06/12/19 11:12 Morphine 15 mg PO Q6H PRN 06/12/19 14:00 Gabapentin [Neurontin] 100 mg PO TID Morphine [MS Contin] 15 mg PO TID - Plan Plan:: #. Sepsis The patient is tachycardic, has leukocytosis and has elevated lactic acid This is on the sepsis is not obvious at this point. He could be due to respiratory tract. However chest x-ray does not show a definite infiltrate lactic acid came down renal fx is better - will stop IVF #. Possible pneumonia Chest x-ray does not show any new infiltrates She was recently treated for pneumonia. X-ray actually showed improvement but she is still coughing. treat empirically with zosyn stop vanc re: AUBREY #. Acute renal failure Serum creatinine is further elevated Likely due to sepsis resolved stop IVF recheck in AM if recurrence or fever is not coming down consider renal u/s , ct check UA, Ucx #. Diabetes mellitus type 2 follow bs #. Chronic pain syndrome Patient has had previous back surgery Has been chronically on morphine, neurontin decreased dose re: lethargy, renal failure #. Acute encephalopathy resolved careful with narcotics, neurontin with renal failure
[2019-06-13] MEDS: Insulin Glarg,Human.Rec.Analog 100 Unit/ML SUBCUT SCH (22:02)
[2019-06-13] MEDS: Sodium Chloride 0.9% 10 ML Syringe FLUSH PRN ×2 (22:47→23:32)
[2019-06-14] MEDS: Acetaminophen 325 MG Tab PO PRN (02:40)
[2019-06-14] MEDS: Piperacillin/Tazobactam 3.375 GM in Sodium Chloride 0.9% 100 ML IV SCH ×2 (04:13→09:55)
[2019-06-14] MEDS: Sodium Chloride 0.9% 10 ML Syringe FLUSH PRN ×3 (04:13→09:54)
[2019-06-14] MEDS: Heparin Sodium 5,000 Units/ML Vial SUBCUT SCH ×2 (05:03→14:10)
[2019-06-14 07:01] LABS: ANION GAP 11.8; CHLORIDE,CL 103 mmol/L (101-111); SODIUM,NA 138 mmol/L (135-145)
[2019-06-14] MEDS: Insulin Lispro 100 Units/ML 3 ML Vial SUBCUT SCH ×2 (08:04→12:27)
[2019-06-14] MEDS: Sertraline 50 MG Tab PO SCH (08:34)
[2019-06-14] MEDS: Gabapentin 100 MG Cap PO SCH ×2 (08:35→14:10)
[2019-06-14] MEDS: Morphine 15 MG Tab.ER PO SCH ×2 (08:35→14:10)
[2019-06-14 11:38] VITALS: BP 141/86; PULSE 80
--- NOTE | 2019-06-14 12:00 | PCM.DCSUM1 ---
Discharge Summary - Hospital Course Free Text/Narrative:: #. Sepsis The patient is tachycardic, has leukocytosis and has elevated lactic acid This is on the sepsis is not obvious at this point. He could be due to respiratory tract. However chest x-ray does not show a definite infiltrate lactic acid came down renal failure resolved #. Possible pneumonia Chest x-ray does not show any new infiltrates She was recently treated for pneumonia. X-ray actually showed improvement but she is still coughing. treated empirically with zosyn finish 5 days augmentin #. Acute renal failure Likely due to sepsis resolved #. Diabetes mellitus type 2 resume metformin with the resolution of AUBREY #. Chronic pain syndrome Patient has had previous back surgery Has been chronically on morphine, decreased dose of neurontin re: lethargy, renal failure #. Acute encephalopathy resolved careful with narcotics, neurontin Diagnosis: Stroke: No - Discharge Data Discharge Date: 06/14/19 Discharge Disposition: Home, Self-Care 01 Condition: Good - Referral to Home Health Primary Care Physician: PCP Unobtainable - Discharge Diagnosis/Problem(s) (1) AUBREY (acute kidney injury) SNOMED Code(s): 04056949, 29125351 ICD Code: N17.9 - ACUTE KIDNEY FAILURE, UNSPECIFIED Status: Acute Current Visit: Yes (2) AUBREY (acute kidney injury) SNOMED Code(s): 38712972, 27226092 ICD Code: N17.9 - ACUTE KIDNEY FAILURE, UNSPECIFIED Status: Acute Current Visit: Yes (3) Sepsis SNOMED Code(s): 82133317 ICD Code: A41.9 - SEPSIS, UNSPECIFIED ORGANISM Status: Acute Current Visit: Yes Qualifiers: Sepsis type: sepsis due to unspecified organism Sepsis acute organ dysfunction status: unspecified Qualified Code(s): A41.9 - Sepsis, unspecified organism (4) Chronic back pain SNOMED Code(s): 817568389 ICD Code: M54.9 - DORSALGIA, UNSPECIFIED; G89.29 - OTHER CHRONIC PAIN Status: Acute Current Visit: No Qualifiers: Back pain location: low back pain Back pain laterality: midline Sciatica presence: without sciatica Qualified Code(s): M54.5 - Low back pain; G89.29 - Other chronic pain (5) Pneumonia SNOMED Code(s): 658710798 ICD Code: J18.9 - PNEUMONIA, UNSPECIFIED ORGANISM Status: Acute Current Visit: No Qualifiers: Pneumonia type: due to unspecified organism Laterality: unspecified laterality Lung location: unspecified part of lung Qualified Code(s): J18.9 - Pneumonia, unspecified organism - Discharge Plan *PRESCRIPTION DRUG MONITORING PROGRAM REVIEWED*: Not Applicable *COPY OF PRESCRIPTION DRUG MONITORING REPORT IN PATIENT BETITO: Not Applicable Prescriptions/Med Rec: Amoxicillin/Potassium Clav [Augmentin 500-125 Tablet] 1 each PO TID #15 tablet Gabapentin [Neurontin] 100 mg PO TID #30 cap Home Medications: Home Meds Folic Acid 2 mg PO DAILY 06/01/13 [History] Insulin Detemir [Levemir] 48 units SQ BEDTIME 06/01/13 [History] Lisinopril 10 mg PO DAILY 06/01/13 [History] Aspirin [Halfprin] 81 mg PO DAILY 02/14/14 [History] Cyclobenzaprine [Flexeril] 10 mg PO TID 09/04/15 [History] Morphine Sulfate [Ms Contin] 30 mg PO BID 09/04/15 [History] atorvaSTATin [Lipitor] 20 mg PO BEDTIME 01/28/17 [History] Calcium Carb/Vitamin D3/Vit K1 [Calcium + D Soft Chewable Tab] 1 tab PO BID 08/20 [History] Morphine 15 mg PO TID 03/07/18 [History] Sertraline [Zoloft] 100 mg PO QAM 03/07/18 [History] metFORMIN HCl [Metformin HCl] 1,000 mg PO QAM 03/07/18 [History] traZODone HCl [Trazodone HCl] 50 mg PO BEDTIME PRN 03/07/18 [History] metFORMIN [Glucophage] 500 mg PO BEDTIME 10/20/18 [History] Carboxymethylcellulose Sodium [Refresh Tears 0.5%] 1 drop EYELF QID 05/26/19 [ History] Amoxicillin/Potassium Clav [Augmentin 500-125 Tablet] 1 each PO TID #15 tablet 06/14/19 [Rx] Gabapentin [Neurontin] 100 mg PO TID #30 cap 06/14/19 [Rx] Patient Handouts: Urosepsis Forms: ED Department Discharge Referrals: PCP,Unobtain [Primary Care Provider] - - Discharge Summary/Plan Comment DC Time >30 min.: No - General Info Date of Service: 06/14/19 Subjective Update: feeling well lethargy resolved moving well Functional Status: Reports: Pain Controlled, Tolerating Diet - Review of Systems General: Denies: Fever, Weakness Pulmonary: Denies: Shortness of Breath Cardiovascular: Denies: Chest Pain Gastrointestinal: Denies: Abdominal Pain Neurological: Denies: Confusion - Patient Data Vitals - Most Recent: Last Vital Signs Temp 36.9 C 06/14/19 11:36 Pulse 80 06/14/19 11:36 Resp 20 06/14/19 11:36 BP 141/86 H 06/14/19 11:36 Pulse Ox 95 06/14/19 11:36 Weight - Most Recent: 118.66 kg I&O - Last 24 hours: Intake & Output 06/13/19 06/14/19 06/14/19 22:59 06:59 14:59 Intake Total 400 197 200 Balance 400 197 200 Lab Results - Last 24 hrs: Laboratory Results - last 24 hr 06/13/19 06/13/19 06/14/19 Range/Units 17:07 21:36 06:20 WBC 7.7 (5.0-10.0) 10^3/uL RBC 3.70 L (4.2-5.4) 10^6/uL Hgb 7.9 L (12.0-16.0) g/dL Hct 26.8 L (37.0-47.0) % MCV 72.4 L (80-100) fL MCH 21.4 L (27.0-34.0) pg MCHC 29.5 L (33.0-35.0) g/dL Plt Count 371 (150-450) 10^3/uL Neut % (Auto) 55.5 (42.2-75.2) % Lymph % (Auto) 24.4 (20.5-50.1) % Osborne % (Auto) 14.3 H (2-8) % Eos % (Auto) 5.5 H (1.0-3.0) % Baso % (Auto) 0.3 (0.0-1.0) % Sodium (135-145) mmol/L Potassium (3.6-5.0) mmol/L Chloride (101-111) mmol/L Carbon Dioxide (21.0-31.0) mmol/L Anion Gap BUN (7-18) mg/dL Creatinine (0.6-1.3) mg/dL Est Cr Clr Drug Dosing mL/min Estimated GFR (MDRD) Glucose (74-105) mg/dL POC Glucose 215 H 168 H (70-105) mg/dl Calcium (8.4-10.2) mg/dl 06/14/19 06/14/19 Range/Units 06:20 07:57 WBC (5.0-10.0) 10^3/uL RBC (4.2-5.4) 10^6/uL Hgb (12.0-16.0) g/dL Hct (37.0-47.0) % MCV (80-100) fL MCH (27.0-34.0) pg MCHC (33.0-35.0) g/dL Plt Count (150-450) 10^3/uL Neut % (Auto) (42.2-75.2) % Lymph % (Auto) (20.5-50.1) % Osborne % (Auto) (2-8) % Eos % (Auto) (1.0-3.0) % Baso % (Auto) (0.0-1.0) % Sodium 138 (135-145) mmol/L Potassium 3.8 (3.6-5.0) mmol/L Chloride 103 (101-111) mmol/L Carbon Dioxide 27.0 (21.0-31.0) mmol/L Anion Gap 11.8 BUN 8 (7-18) mg/dL Creatinine 0.5 L (0.6-1.3) mg/dL Est Cr Clr Drug Dosing 135.99 mL/min Estimated GFR (MDRD) > 60 Glucose 143 H (74-105) mg/dL POC Glucose 142 H (70-105) mg/dl Calcium 8.4 (8.4-10.2) mg/dl LARRY Results - Last 24 hrs: Microbiology 06/11/19 20:32 Aerobic Blood Culture - Preliminary Blood NO GROWTH AFTER 2 DAYS Anaerobic Blood Culture - Final 06/11/19 20:36 Aerobic Blood Culture - Preliminary Blood NO GROWTH AFTER 2 DAYS Anaerobic Blood Culture - Preliminary NO GROWTH AFTER 2 DAYS Med Orders - Current: Current Medications Acetaminophen (Tylenol) 650 mg PO Q4H PRN PRN Reason: Pain (Mild 1-3)/fever Last Admin: 06/14/19 02:40 Dose: 650 mg Gabapentin (Neurontin) 100 mg PO TID [facility] Last Admin: 06/14/19 08:35 Dose: 100 mg Heparin Sodium (Porcine) (Heparin Sodium) 5,000 units SUBCUT Q8HR [facility] Last Admin: 06/14/19 05:03 Dose: 5,000 units Piperacillin Sod/Tazobactam (Sod 3.375 gm/ Sodium Chloride) 100 mls @ 200 mls/ hr IV Q6H [facility] Last Infusion: 06/14/19 10:30 Dose: Infused Insulin Glargine (Lantus) 48 unit SUBCUT BEDTIME [facility] Last Admin: 06/13/19 22:02 Dose: 48 units Insulin Human Lispro (Humalog) 0 unit SUBCUT QID [facility]; Protocol Last Admin: 06/14/19 08:04 Dose: Not Given Morphine Sulfate (Morphine) 15 mg PO Q6H PRN PRN Reason: severe back pain Last Admin: 06/13/19 02:15 Dose: 15 mg Morphine Sulfate (Ms Contin) 15 mg PO TID [facility] Last Admin: 06/14/19 08:35 Dose: 15 mg Ondansetron HCl (Zofran) 4 mg IVPUSH Q6H PRN PRN Reason: Nausea/Vomiting Pneumococcal Polyvalent Vaccine (Pneumovax 23) 0.5 ml IM .ONCE ONE Stop: 06/12/19 10:01 Sertraline HCl (Zoloft) 100 mg PO QAM [facility] Last Admin: 06/14/19 08:34 Dose: 100 mg Sodium Chloride (Saline Flush) 10 ml FLUSH ASDIRECTED PRN PRN Reason: Keep Vein Open Last Admin: 06/14/19 09:54 Dose: 10 ml Discontinued Medications Piperacillin Sod/Tazobactam (Sod 3.375 gm/ Sodium Chloride) 100 mls @ 200 mls/ hr IV ONETIME ONE Stop: 06/11/19 22:15 Last Admin: 06/11/19 21:55 Dose: 200 mls/hr Vancomycin HCl 1.75 gm/ Sodium (Chloride) 500 mls @ 334 mls/hr IV ONETIME ONE Stop: 06/11/19 23:17 Last Admin: 06/11/19 22:45 Dose: 334 mls/hr Sodium Chloride (Normal Saline) 1,000 mls @ 150 mls/hr IV ASDIRECTED [facility] Last Admin: 06/13/19 09:16 Dose: 150 mls/hr Vancomycin HCl 1.75 gm/ Sodium (Chloride) 500 mls @ 333.333 mls/hr IV Q12H [facility] Last Admin: 06/12/19 11:10 Dose: 333.333 mls/hr Insulin Human Lispro (Humalog) 1 unit SUBCUT QID [facility]; Protocol Last Admin: 06/12/19 08:19 Dose: 2 units Morphine Sulfate (Ms Contin) 30 mg PO BID [facility] Last Admin: 06/12/19 08:21 Dose: 30 mg Vancomycin HCl (Pharmacy To Dose - Vancomycin) 1 dose .XX ASDIRECTED [facility] Vancomycin HCl (Vancomycin) Confirm Administered Dose 2 gm .ROUTE .STK-MED ONE Stop: 06/11/19 22:02 Last Admin: 06/11/19 22:47 Dose: Not Given - Exam General: Reports: Alert, Oriented Neck: Reports: Supple Lungs: Reports: Clear to Auscultation, Normal Respiratory Effort Cardiovascular: Reports: Regular Rate, Regular Rhythm GI/Abdominal Exam: Normal Bowel Sounds, Soft, Non-Tender Extremities: No Pedal Edema Skin: Reports: Warm, Dry Neurological: Reports: No New Focal Deficit Psy/Mental Status: Reports: Alert, Normal Affect, Normal Mood
[2019-06-14] MEDS ORDERED: Pneumococcal Polyvalent-23 Vaccine 0.5 ML SDV IM ONE (13:45)
== END 2019-06-14 13:55 | disposition home or self-care (01) | DRG 871 ==
LOC: DL.ED 20:10 → DL.MS 21:49
PROVIDERS: ADMIT Hospitalist; ATTEND Internal Medicine
PROC: 3E0234Z Introduction of Serum, Toxoid and Vaccine into Muscle, Percutaneous Approach (ICD-10-PCS; principal; 2019-06-11)
DX: A41.9 Sepsis, unspecified organism (principal); H54.7 Unspecified visual loss; M54.9 Dorsalgia, unspecified; J18.9 Pneumonia, unspecified organism; E11.40 Type 2 diabetes mellitus with diabetic neuropathy, unspecified; N17.9 Acute kidney failure, unspecified; G93.40 Encephalopathy, unspecified; Z98.84 Bariatric surgery status; Z96.659 Presence of unspecified artificial knee joint; Z91.038 Other insect allergy status; M54.5 Low back pain; G89.29 Other chronic pain; Z79.84 Long term (current) use of oral hypoglycemic drugs; E11.42 Type 2 diabetes mellitus with diabetic polyneuropathy; E66.9 Obesity, unspecified; Z91.040 Latex allergy status; Z91.018 Allergy to other foods; Z88.8 Allergy status to other drugs, medicaments and biological substances; Z79.82 Long term (current) use of aspirin; Z79.4 Long term (current) use of insulin; Z79.899 Other long term (current) drug therapy; Z23 Encounter for immunization; Z68.38 Body mass index [BMI] 38.0-38.9, adult
CPT/HCPCS: 36415; 71046; 80048; 80053; 81003; 82962; 83605; 85025; 87040; 87804; 90732; 99284; 99285-25; A9270-GY; G0009; J1644; J1815; J1815-GY; J2543; J3370; J7030; J7040; J7050

== ENCOUNTER 2019-07-13 17:36 | Emergency (ER) | payer MEDICARE, OTHER ==
[2019-07-13 18:13] VITALS: BP 119/73; PULSE 103
--- NOTE | 2019-07-13 20:37 | EDM.PDOC ---
ED HPI GENERAL MEDICAL PROBLEM - General Chief Complaint: ENT Problem Stated Complaint: BUMP ON EYE CANCER Time Seen by Provider: 07/13/19 20:30 Source of Information: Reports: Patient History Limitations: Reports: No Limitations - History of Present Illness INITIAL COMMENTS - FREE TEXT/NARRATIVE: This 53 yo female patient reports to the ED with a lump on her left upper eyelid. The patient reports she noticed it starting today. The patient reports she currently has no pain in the area and has not noticed any drainage. The patient reports she has a history of cancer in that eye and has a permanent lens in that eye. Onset: Today Duration: Constant Location: Reports: Face (left upper eyelid) Quality: Reports: Other Severity: Mild Improves with: Reports: None Worsens with: Reports: None Context: Reports: Other Associated Symptoms: Reports: No Other Symptoms - Related Data Allergies Allergy/AdvReac Type Severity Reaction Status Date / Time latex Allergy Rash Uncoded 07/13/19 18:12 onions Allergy Hives Uncoded 07/13/19 18:12 spider bites Allergy Numbness Uncoded 07/13/19 18:12 Home Meds: Home Meds Folic Acid 2 mg PO DAILY 06/01/13 [History] Insulin Detemir [Levemir] 56 units SQ BEDTIME 06/01/13 [History] Lisinopril 10 mg PO DAILY 06/01/13 [History] Aspirin [Halfprin] 81 mg PO DAILY 02/14/14 [History] Cyclobenzaprine [Flexeril] 10 mg PO TID 09/04/15 [History] Morphine Sulfate [Ms Contin] 30 mg PO BID 09/04/15 [History] atorvaSTATin [Lipitor] 20 mg PO BEDTIME 01/28/17 [History] Calcium Carb/Vitamin D3/Vit K1 [Calcium + D Soft Chewable Tab] 1 tab PO BID 08/20 [History] Morphine 15 mg PO TID 03/07/18 [History] Sertraline [Zoloft] 100 mg PO QAM 03/07/18 [History] metFORMIN HCl [Metformin HCl] 1,000 mg PO QAM 03/07/18 [History] traZODone HCl [Trazodone HCl] 50 mg PO BEDTIME PRN 03/07/18 [History] metFORMIN [Glucophage] 500 mg PO BEDTIME 10/20/18 [History] Carboxymethylcellulose Sodium [Refresh Tears 0.5%] 1 drop EYELF QID 05/26/19 [ History] Gabapentin [Neurontin] 100 mg PO TID #30 cap 06/14/19 [Rx] Past Medical History HEENT History: Reports: Impaired Vision Other HEENT History: wears glasses, droopy L) eye lid, had reconstrucion surg Cardiovascular History: Reports: Heart Murmur Respiratory History: Reports: None Gastrointestinal History: Reports: None Genitourinary History: Reports: None 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 SEVERE L4-5 LUMBAR SPINAL STENOSIS. 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 T12-L1 THROUGH L5-S1 DEGENERATIVE DISC. 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 SEVERE L4-5 LUMBAR SPINAL STENOSIS. 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 T12-L1 THROUGH L5- S1 DEGENERATIVE DISC. 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 GI Surgical History: Reports: Appendectomy, Bariatric Procedure, Colonoscopy, Other (See Below) Other GI Surgeries/Procedures: gastric bypass Female Surgical History: Reports: Section, Oophorectomy, Tubal Ligation Other Neurological Surgeries/Procedures: brace on spine Musculoskeletal Surgical History: Reports: Knee Replacement, Other (See Below) Other Musculoskeletal Surgeries/Procedures:: back surgery x2 Social & Family History - Family History Family Medical History: Noncontributory Cardiac: Reports: [place] Endocrine/Metabolic: Reports: Diabetes, Type I Oncologic: Reports: Ovarian, Prostate - Tobacco Use Smoking Status *Q: Never Smoker Second Hand Smoke Exposure: No - Caffeine Use Caffeine Use: Reports: Tea - Recreational Drug Use Recreational Drug Use: No - Living Situation & Occupation Living situation: Reports: , with Family ED ROS ENT - Review of Systems Review Of Systems: Comprehensive ROS is negative, except as noted in HPI. ED EXAM, ENT - Physical Exam Exam: See Below Exam Limited By: No Limitations General Appearance: Alert, WD/WN, No Apparent Distress Eye Exam: Left Eye: Other (The patient has mild swelling of the left upper eyelid, no drainage or discharge), Bilateral Eye: EOMI, PERRL Ears: Normal External Exam, Normal Canal, Hearing Grossly Normal, Normal TMs Nose: Normal Inspection, Normal Mucousa, No Blood Mouth/Throat: Normal Inspection, Normal Gums, Normal Lips, Normal Oropharynx, Normal Teeth Head: Atraumatic, Normocephalic Neck: Normal Inspection, Supple, Non-Tender, Full Range of Motion Respiratory/Chest: No Respiratory Distress, Lungs Clear, Normal Breath Sounds, No Accessory Muscle Use, Chest Non-Tender Cardiovascular: Normal Peripheral Pulses, Regular Rate, Rhythm, No Edema, No Gallop, No JVD, No Murmur, No Rub GI/Abdominal: Normal Bowel Sounds, Soft, Non-Tender, No Organomegaly, No Distention, No Abnormal Bruit, No Mass (Female) Exam: Deferred Rectal (Female) Exam: Deferred Back: Normal Inspection, Full Range of Motion Extremities: Normal Inspection, Normal Range of Motion, Non-Tender, No Pedal Edema, Normal Capillary Refill Neurological: Alert, Oriented, CN II-XII Intact, Normal Cognition, Normal Gait, Normal Reflexes, No Motor/Sensory Deficits Psychiatric: Normal Affect, Normal Mood Skin: Warm, Dry, Intact, Normal Color, No Rash Lymphatic: No Adenopathy Course - Vital Signs Last Recorded V/S: Last Vital Signs Temp 36.6 C 07/13/19 18:09 Pulse 103 H 07/13/19 18:09 Resp 16 07/13/19 18:09 BP 119/73 07/13/19 18:09 Pulse Ox 94 L 07/13/19 18:09 Departure - Departure Time of Disposition: 20:35 Disposition: Home, Self-Care 01 Condition: Fair Clinical Impression: Hordeolum externum (stye) Qualifiers: Laterality: left Eyelid: upper Qualified Code(s): H00.014 - Hordeolum externum left upper eyelid - Discharge Information *PRESCRIPTION DRUG MONITORING PROGRAM REVIEWED*: Not Applicable *COPY OF PRESCRIPTION DRUG MONITORING REPORT IN PATIENT BETITO: Not Applicable Instructions: Stye Forms: ED Department Discharge Care Plan Goals: The patient was advised of the examination results during the visit. The patient was encouraged to apply warm packs to the left eye to increase circulation to the area. If the patient has any additional symptoms or concerns , the patient was encouraged to contact her eye doctor, visit her primary care facility or return to the emergency department. Sepsis Event Note - Evaluation Sepsis Screening Result: No Definite Risk - Focused Exam Vital Signs: Vital Signs Temp Pulse Resp BP Pulse Ox 07/13/19 18:09 36.6 C 103 H 16 119/73 94 L Date Exam was Performed: 07/13/19 Time Exam was Performed: 20:37
== END 2019-07-13 20:40 | disposition home or self-care (01) ==
LOC: DL.ED 17:36
DX: H00.014 Hordeolum externum left upper eyelid (principal); E11.40 Type 2 diabetes mellitus with diabetic neuropathy, unspecified; Z79.4 Long term (current) use of insulin; Z91.048 Other nonmedicinal substance allergy status; Z91.038 Other insect allergy status; Z91.040 Latex allergy status
CPT/HCPCS: 99282; 99283

== ENCOUNTER 2019-09-03 17:47 | Inpatient (IN) | payer MEDICARE, OTHER ==
[2019-09-03] MEDS ORDERED: Magnesium Hydroxide 400 MG/5 ML Susp 30 ML Cup PO PRN (17:53)
[2019-09-03] MEDS ORDERED: Ondansetron 4 MG/2 ML SDV IVPUSH PRN (17:53)
[2019-09-03] MEDS ORDERED: Docusate Sodium 100 MG Cap PO PRN (17:53)
--- NOTE | 2019-09-03 18:03 | PCM.HP ---
H&P History of Present Illness - General Date of Service: 09/03/19 Admit Problem/Dx: Admission Diagnosis/Problem Admission Diagnosis/Problem Pneumonia Source of Information: Patient History Limitations: Reports: No Limitations - History of Present Illness Initial Comments - Free Text/Narative: Erich is 53 y/o F with PMH of DM-II, HTN, Obesity, OA, OSAP on CPAP who was sent from clinic for admission o/a of PNA. She presented to the clinic with SOB , fever of 100.3 F which started today. She notes chills. She denies cough, sore throat, rhinorrhea. No sick contact or recent travel. She denies chest pain , nausea, vomiting, diarrhea. No dysuria, frequency. Her respiration was 32. Cxr showed no focal opacity or consolidation. She is saturating @ 95% on RA. She was tested for coronavirus COVID-19. Of note she patient has h/o of hospitalization for PNA. She was hospitalized here in May for pneumonia. Onset of Symptoms: Reports: Today Duration of Symptoms: Reports: Hour(s):, Getting Worse Location: Reports: Generalized Quality: Reports: Ache Severity: Moderate Improves with: Reports: None Worsens with: Reports: None Context: Reports: Activity/Exercise Associated Symptoms: Reports: No Other Symptoms - Related Data Allergies/Adverse Reactions: Allergies Allergy/AdvReac Type Severity Reaction Status Date / Time latex Allergy Rash Uncoded 07/13/19 18:12 onions Allergy Hives Uncoded 07/13/19 18:12 spider bites Allergy Numbness Uncoded 07/13/19 18:12 Home Medications: Home Meds Folic Acid 2 mg PO DAILY 06/01/13 [History] Insulin Detemir [Levemir] 56 units SQ BEDTIME 06/01/13 [History] Lisinopril 10 mg PO DAILY 06/01/13 [History] Aspirin [Halfprin] 81 mg PO DAILY 02/14/14 [History] Cyclobenzaprine [Flexeril] 10 mg PO TID 09/04/15 [History] Morphine Sulfate [Ms Contin] 30 mg PO BID 09/04/15 [History] atorvaSTATin [Lipitor] 20 mg PO BEDTIME 01/28/17 [History] Calcium Carb/Vitamin D3/Vit K1 [Calcium + D Soft Chewable Tab] 1 tab PO BID 08/20 [History] Morphine 15 mg PO TID 03/07/18 [History] Sertraline [Zoloft] 100 mg PO QAM 03/07/18 [History] metFORMIN HCl [Metformin HCl] 1,000 mg PO QAM 03/07/18 [History] traZODone HCl [Trazodone HCl] 50 mg PO BEDTIME PRN 03/07/18 [History] metFORMIN [Glucophage] 500 mg PO BEDTIME 10/20/18 [History] Carboxymethylcellulose Sodium [Refresh Tears 0.5%] 1 drop EYELF QID 05/26/19 [ History] Gabapentin [Neurontin] 100 mg PO TID #30 cap 06/14/19 [Rx] Past Medical History HEENT History: Reports: Impaired Vision Other HEENT History: wears glasses, droopy L) eye lid, had reconstrucion surg Cardiovascular History: Reports: Heart Murmur Respiratory History: Reports: None Gastrointestinal History: Reports: None Genitourinary History: Reports: None 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 SEVERE L4-5 LUMBAR SPINAL STENOSIS. 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 T12-L1 THROUGH L5-S1 DEGENERATIVE DISC. 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 SEVERE L4-5 LUMBAR SPINAL STENOSIS. 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 T12-L1 THROUGH L5- S1 DEGENERATIVE DISC. 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 GI Surgical History: Reports: Appendectomy, Bariatric Procedure, Colonoscopy, Other (See Below) Other GI Surgeries/Procedures: gastric bypass Female Surgical History: Reports: Section, Oophorectomy, Tubal Ligation Other Neurological Surgeries/Procedures: brace on spine Musculoskeletal Surgical History: Reports: Knee Replacement, Other (See Below) Other Musculoskeletal Surgeries/Procedures:: back surgery x2 Social & Family History - Family History Family Medical History: Noncontributory Cardiac: Reports: [place] Endocrine/Metabolic: Reports: Diabetes, Type I Oncologic: Reports: Ovarian, Prostate - Caffeine Use Caffeine Use: Reports: Tea - Living Situation & Occupation Living situation: Reports: , with Family H&P Review of Systems - Review of Systems: Review Of Systems: See Below General: Reports: Fever, Chills, Malaise, Weakness HEENT: Reports: Headaches Pulmonary: Reports: Shortness of Breath Cardiovascular: Reports: No Symptoms Gastrointestinal: Reports: No Symptoms Genitourinary: Reports: No Symptoms Musculoskeletal: Reports: No Symptoms Skin: Reports: No Symptoms Psychiatric: Reports: No Symptoms Neurological: Reports: No Symptoms Hematologic/Lymphatic: Reports: No Symptoms Immunologic: Reports: No Symptoms Exam - Exam Exam: See Below - Exam Quality Assessment: DVT Prophylaxis General: Alert, Oriented, 4 HEENT: PERRLA, Hearing Intact, Mucosa Moist & [place], Nares Patent, Normal Nasal Septum, Posterior Pharynx Clear, Conjunctiva Clear, EOMI, EACs Clear, TMs Clear Neck: Supple, Trachea Midline, 2 Lungs: Clear to Auscultation, Normal Respiratory Effort Cardiovascular: Regular Rate, Regular Rhythm GI/Abdominal Exam: Normal Bowel Sounds, Soft, Non-Tender, No Organomegaly, No Distention, No Abnormal Bruit, No Mass, Pelvis Stable (Female) Exam: Normal External Exam, Normal Speculum Exam, Normal Bimanual Exam Rectal (Female) Exam: Normal Exam, Normal Rectal Tone Back Exam: Normal Inspection, Full Range of Motion, NT Extremities: Normal Inspection, Normal Range of Motion, Non-Tender, No Pedal Edema, Normal Capillary Refill Skin: Warm, Dry, Intact Neurological: Cranial Nerves Intact, Reflexes Equal Bilateral Neuro Extensive - Mental Status: Alert, Oriented x3, Normal Mood/Affect, Normal Cognition Neuro Extensive - Motor, Sensory, Reflexes: CN II-XII Intact, Normal Gait, Normal Reflexes - Problem List (1) PNA (pneumonia) SNOMED Code(s): 256751897 ICD Code: J18.9 - PNEUMONIA, UNSPECIFIED ORGANISM Status: Acute Current Visit: Yes Problem List Initiated/Reviewed/Updated: Yes Orders Last 24hrs: Active Orders 24 hr Category Date Time Status Patient Status [ADT] Routine ADT 09/03/19 17:53 Ordered Ambulate [RC] ASDIRECTED Care 09/03/19 17:53 Ordered Blood Glucose Check, Bedside [RC] QIDACANDBED Care 09/03/19 17:53 Ordered Height and Weight [RC] DAILY Care 09/03/19 17:53 Ordered Intake and Output [RC] QSHIFT Care 09/03/19 17:55 Ordered Notify Provider Vital Signs [RC] ASDIRECTED Care 09/03/19 17:55 Ordered Oxygen Therapy [RC] PRN Care 09/03/19 17:53 Ordered Pulse Oximetry [RC] PRN Care 09/03/19 17:55 Ordered VTE/DVT Education [RC] PER UNIT ROUTINE Care 09/03/19 17:53 Ordered Vital Signs [RC] Q4H Care 09/03/19 17:53 Ordered Respiratory Care Assess and Treatment [CONS] Routine Cons 09/03/19 17:53 Ordered Consistent Carbohydrate Diet [DIET] Diet 09/03/19 Dinner Ordered BASIC METABOLIC PANEL,BMP [CHEM] Routine Lab 09/03/19 17:53 Ordered CBC W/O DIFF,HEMOGRAM [HEME] Routine Lab 09/03/19 17:53 Ordered CRP [C-REACTIVE PROTEIN] [CHEM] Routine Lab 09/03/19 18:00 Ordered CULTURE BLOOD [BC] Stat Lab 09/03/19 17:58 Ordered CULTURE BLOOD [BC] Stat Lab 09/03/19 17:58 Ordered CULTURE SPUTUM + SMEAR [RM] Stat Lab 09/03/19 17:53 Ordered CULTURE URINE [RM] Stat Lab 09/03/19 17:53 Ordered D-DIMER QUANTITATIVE [COAG] Routine Lab 09/03/19 18:00 Ordered GRAM STAIN [RM] Stat Lab 09/03/19 17:53 Ordered HEPATIC FUNCTION PANEL,HFP [CHEM] Routine Lab 09/03/19 17:53 Ordered INR,PT,PROTHROMBIN TIME [COAG] Routine Lab 09/03/19 17:53 Ordered MAGNESIUM [CHEM] Routine Lab 09/03/19 17:53 Ordered PHOSPHORUS [CHEM] Routine Lab 09/03/19 17:53 Ordered PROCALCITONIN [REF] Routine Lab 09/03/19 17:59 Ordered PTT,PARTIAL THROMBOPLSTIN TIME [COAG] Routine Lab 09/03/19 17:53 Ordered TROPONIN I [CHEM] Routine Lab 09/03/19 17:53 Ordered Acetaminophen [Tylenol] Med 09/03/19 17:53 Ordered 650 mg PO Q4H PRN Azithromycin [Zithromax] 500 mg Med 09/03/19 18:15 Ordered Sodium Chloride 0.9% [Normal Saline (AdvBag)] 250 ml IV Q24H Docusate Sodium [Colace] Med 09/03/19 17:53 Ordered 100 mg PO BID PRN Enoxaparin [Lovenox] Med 09/04/19 09:00 Ordered 40 mg SUBCUT DAILY Magnesium Hydroxide [Milk of Magnesia] Med 09/03/19 17:53 Ordered 30 ml PO Q12H PRN Ondansetron [Zofran] Med 09/03/19 17:53 Ordered 4 mg IVPUSH Q6H PRN Sodium Chloride 0.9% @ 125 MLS/HR (1000ml) Med 09/03/19 18:00 Ordered Sodium Chloride 0.9% [Normal Saline] 1,000 ml IV ASDIRECTED cefTRIAXone [Rocephin] 1 gm Med 09/03/19 18:00 Ordered Sodium Chloride 0.9% [Normal Saline] 50 ml IV Q24H Blood Culture x2 Reflex Set [OM.PC] Stat Oth 09/03/19 17:53 Ordered Resuscitation Status Routine Resus Stat 09/03/19 17:53 Ordered Medication Orders Acetaminophen (Tylenol) 650 mg PO Q4H PRN PRN Reason: Pain (Mild 1-3)/fever Docusate Sodium (Colace) 100 mg PO BID PRN PRN Reason: Constipation Enoxaparin Sodium (Lovenox) 40 mg SUBCUT DAILY ROCKY Sodium Chloride (Normal Saline) 1,000 mls @ 125 mls/hr IV ASDIRECTED ROCKY Magnesium Hydroxide (Milk Of Magnesia) 30 ml PO Q12H PRN PRN Reason: Constipation Ondansetron HCl (Zofran) 4 mg IVPUSH Q6H PRN PRN Reason: Nausea/Vomiting Assessment/Plan Comment:: #Community acquired Pneumonia -Admit to medical floor -Blood cx -Sputum for gram stain and cx -CBC, LDH, ferrritin, LFT, D-dimer, PTT, CRP -IV Ceftriaxone and Azithromycin -Follow up on Cornavirus COVID-19 PCR -Contact and droplet isolation -Consider CT chest if no improvement #HTN -BP within acceptable limits -Continue home medication #Type 2 diabetes -Hold Metformin -Insulin Levemir plus lispro -SSI for optimal glycemic control -Carbohydrate consistent diet -Accu-Cheks -Hypoglycemic protocol #Obesity -With reduction measures advised #RAN -On CPAP #Full code
[2019-09-03] MEDS ORDERED: traZODone 50 MG Tab PO PRN (18:28)
[2019-09-03 19:06] LABS: PTT,PARTIAL THROMBOPLSTIN TIME 23.4 SEC (22.0-34.0)
[2019-09-03 19:13] LABS: ANION GAP 14.6 mEq/L (7-13); CHLORIDE,CL 97 mmol/L (98-107); SODIUM,NA 136 mmol/L (136-145)
[2019-09-03] MEDS: Sodium Chloride 0.9% 1,000 ML IV SCH (20:18)
[2019-09-03] MEDS: cefTRIAXone 1 GM in Sodium Chloride 0.9% 50 ML IV SCH (20:18)
[2019-09-03] MEDS: Acetaminophen 325 MG Tab PO PRN (20:22)
[2019-09-03] MEDS: Cyclobenzaprine 10 MG Tab PO SCH (20:23)
[2019-09-03] MEDS: Gabapentin 100 MG Cap PO SCH (20:23)
[2019-09-03] MEDS: atorvaSTATin 20 MG Tab PO SCH (20:23)
[2019-09-03] MEDS: Calcium Carbonate 500 MG Tab.Chew PO SCH (20:24)
[2019-09-03] MEDS: Polyvinyl Alcohol 1.4% Ophth Soln 15 ML Bottle EYELF SCH (20:24)
[2019-09-03] MEDS: Azithromycin 500 MG in Sodium Chloride 0.9% 250 ML IV SCH (20:26)
[2019-09-03] MEDS: Insulin Glarg,Human.Rec.Analog 100 Unit/ML SUBCUT SCH (20:36)
[2019-09-04] MEDS: Acetaminophen 325 MG Tab PO PRN ×2 (04:20→20:36)
[2019-09-04] MEDS: Sodium Chloride 0.9% 1,000 ML IV SCH ×2 (06:44→14:32)
[2019-09-04] MEDS: Lisinopril 5 MG Tab PO SCH (08:21)
[2019-09-04] MEDS: Aspirin 81 MG Tab.EC PO SCH (08:21)
[2019-09-04] MEDS: Gabapentin 100 MG Cap PO SCH ×3 (08:21→20:37)
[2019-09-04] MEDS: Polyvinyl Alcohol 1.4% Ophth Soln 15 ML Bottle EYELF SCH ×4 (08:22→20:45)
[2019-09-04] MEDS: Cyclobenzaprine 10 MG Tab PO SCH ×3 (08:22→20:37)
[2019-09-04] MEDS: Enoxaparin 40 MG/0.4 ML Syringe SUBCUT SCH (08:22)
[2019-09-04] MEDS: Sertraline 50 MG Tab PO SCH (08:22)
[2019-09-04] MEDS: Calcium Carbonate 500 MG Tab.Chew PO SCH ×2 (08:22→20:38)
[2019-09-04] MEDS: Folic Acid 1 MG Tab PO SCH (08:22)
[2019-09-04] MEDS ORDERED: Magnesium Sulfate/D5W 2 GM in Premix Bag 1 BAG IV ONE (10:49)
--- NOTE | 2019-09-04 10:58 | PCM.PN ---
- General Info Date of Service: 09/04/19 Subjective Update: Patient was admitted with pneumonia. We are also ruling out coronavirus 19. Daily, she indicates that she feels better. Still has a cough which is mostly unproductive. No hemoptysis. Her blood pressure was low systolic down in the 70s. Was given intravenous fluid boluses - Review of Systems General: Reports: Weakness Pulmonary: Reports: Cough Cardiovascular: Reports: No Symptoms Gastrointestinal: Reports: No Symptoms - Patient Data Vitals - Most Recent: Last Vital Signs Temp 37.2 C 09/04/19 06:52 Pulse 86 09/04/19 06:52 Resp 20 09/04/19 06:52 BP 127/74 09/04/19 08:21 Pulse Ox 92 L 09/04/19 06:52 Weight - Most Recent: 117.48 kg I&O - Last 24 Hours: Intake & Output 09/03/19 09/04/19 09/04/19 22:59 06:59 14:59 Intake Total 240 1602 200 Output Total 2000 Balance 240 -398 200 Lab Results Last 24 Hours: Laboratory Results - last 24 hr 09/03/19 09/03/19 09/03/19 Range/Units 18:25 18:25 18:25 WBC 22.2 H (5.0-10.0) 10^3/uL RBC 4.30 (4.2-5.4) 10^6/uL Hgb 9.8 L D (12.0-16.0) g/dL Hct 31.8 L (37.0-47.0) % MCV 74.0 L (80-100) fL MCH 22.8 L (27.0-34.0) pg MCHC 30.8 L (33.0-35.0) g/dL Plt Count 287 D (150-450) 10^3/uL PT 10.4 (9.0-12.0) SEC INR 1.1 (0.9-1.2) APTT 23.4 (22.0-34.0) SEC D-Dimer, Quantitative (0-400) ng/mL Sodium 136 (136-145) mmol/L Potassium 3.6 (3.5-5.1) mmol/L Chloride 97 L (98-107) mmol/L Carbon Dioxide 28 (21-32) mmol/L Anion Gap 14.6 H (7-13) mEq/L BUN 11 (7-18) mg/dL Creatinine 0.81 (0.55-1.02) mg/dL Est Cr Clr Drug Dosing TNP Estimated GFR (MDRD) > 60 Glucose 198 H (74-99) mg/dL POC Glucose (70-105) mg/dl Lactic Acid (0.4-2.0) mmol/L Calcium 8.2 L (8.5-10.1) mg/dL Phosphorus 2.9 (2.6-4.7) mg/dL Magnesium 1.1 L (1.8-2.4) mg/dL Total Bilirubin 0.4 (0.2-1.0) mg/dL Direct Bilirubin 0.1 (0.0-0.2) mg/dL Indirect Bilirubin 0.3 AST 20 (15-37) U/L ALT 35 (14-59) U/L Alkaline Phosphatase 80 (46-116) U/L Lactate Dehydrogenase (81-234) U/L Troponin I < 0.017 (0.000-0.056) ng/mL C-Reactive Protein (0.0-0.9) mg/dL Total Protein 6.8 (6.4-8.2) g/dL Albumin 3.6 (3.4-5.0) g/dL Globulin 3.2 Albumin/Globulin Ratio 1.1 Urine Color (YELLOW) Urine Appearance (CLEAR) Urine pH (5.0-9.0) Ur Specific [place] (1.005-1.030) Urine Protein (NEGATIVE) Urine Glucose (UA) (NEGATIVE) Urine Ketones (NEGATIVE) Urine Occult Blood (NEGATIVE) Urine Nitrite (NEGATIVE) Urine Bilirubin (NEGATIVE) Urine Urobilinogen (0.2-1.0) mg/dL Ur Leukocyte Esterase (NEGATIVE) Urine RBC /HPF Urine WBC (0-5/HPF) /HPF Ur Epithelial Cells (NOT SEEN) /HPF Amorphous Sediment (NOT SEEN) /HPF Urine Bacteria (0-FEW/HPF) /HPF Urine Mucus (NOT SEEN) /LPF 09/03/19 09/03/19 09/03/19 Range/Units 18:25 18:25 18:25 WBC (5.0-10.0) 10^3/uL RBC (4.2-5.4) 10^6/uL Hgb (12.0-16.0) g/dL Hct (37.0-47.0) % MCV (80-100) fL MCH (27.0-34.0) pg MCHC (33.0-35.0) g/dL Plt Count (150-450) 10^3/uL PT (9.0-12.0) SEC INR (0.9-1.2) APTT (22.0-34.0) SEC D-Dimer, Quantitative 461 H (0-400) ng/mL Sodium (136-145) mmol/L Potassium (3.5-5.1) mmol/L Chloride (98-107) mmol/L Carbon Dioxide (21-32) mmol/L Anion Gap (7-13) mEq/L BUN (7-18) mg/dL Creatinine (0.55-1.02) mg/dL Est Cr Clr Drug Dosing Estimated GFR (MDRD) Glucose (74-99) mg/dL POC Glucose (70-105) mg/dl Lactic Acid (0.4-2.0) mmol/L Calcium (8.5-10.1) mg/dL Phosphorus (2.6-4.7) mg/dL Magnesium (1.8-2.4) mg/dL Total Bilirubin (0.2-1.0) mg/dL Direct Bilirubin (0.0-0.2) mg/dL Indirect Bilirubin AST (15-37) U/L ALT (14-59) U/L Alkaline Phosphatase (46-116) U/L Lactate Dehydrogenase 226 (81-234) U/L Troponin I (0.000-0.056) ng/mL C-Reactive Protein 2.6 H (0.0-0.9) mg/dL Total Protein (6.4-8.2) g/dL Albumin (3.4-5.0) g/dL Globulin Albumin/Globulin Ratio Urine Color (YELLOW) Urine Appearance (CLEAR) Urine pH (5.0-9.0) Ur Specific [place] (1.005-1.030) Urine Protein (NEGATIVE) Urine Glucose (UA) (NEGATIVE) Urine Ketones (NEGATIVE) Urine Occult Blood (NEGATIVE) Urine Nitrite (NEGATIVE) Urine Bilirubin (NEGATIVE) Urine Urobilinogen (0.2-1.0) mg/dL Ur Leukocyte Esterase (NEGATIVE) Urine RBC /HPF Urine WBC (0-5/HPF) /HPF Ur Epithelial Cells (NOT SEEN) /HPF Amorphous Sediment (NOT SEEN) /HPF Urine Bacteria (0-FEW/HPF) /HPF Urine Mucus (NOT SEEN) /LPF 09/03/19 09/04/19 09/04/19 Range/Units 18:25 03:00 07:19 WBC (5.0-10.0) 10^3/uL RBC (4.2-5.4) 10^6/uL Hgb (12.0-16.0) g/dL Hct (37.0-47.0) % MCV (80-100) fL MCH (27.0-34.0) pg MCHC (33.0-35.0) g/dL Plt Count (150-450) 10^3/uL PT (9.0-12.0) SEC INR (0.9-1.2) APTT (22.0-34.0) SEC D-Dimer, Quantitative (0-400) ng/mL Sodium (136-145) mmol/L Potassium (3.5-5.1) mmol/L Chloride (98-107) mmol/L Carbon Dioxide (21-32) mmol/L Anion Gap (7-13) mEq/L BUN (7-18) mg/dL Creatinine (0.55-1.02) mg/dL Est Cr Clr Drug Dosing Estimated GFR (MDRD) Glucose (74-99) mg/dL POC Glucose 225 H (70-105) mg/dl Lactic Acid 1.8 (0.4-2.0) mmol/L Calcium (8.5-10.1) mg/dL Phosphorus (2.6-4.7) mg/dL Magnesium (1.8-2.4) mg/dL Total Bilirubin (0.2-1.0) mg/dL Direct Bilirubin (0.0-0.2) mg/dL Indirect Bilirubin AST (15-37) U/L ALT (14-59) U/L Alkaline Phosphatase (46-116) U/L Lactate Dehydrogenase (81-234) U/L Troponin I (0.000-0.056) ng/mL C-Reactive Protein (0.0-0.9) mg/dL Total Protein (6.4-8.2) g/dL Albumin (3.4-5.0) g/dL Globulin Albumin/Globulin Ratio Urine Color Yellow (YELLOW) Urine Appearance Slightly cloudy (CLEAR) Urine pH 7.0 (5.0-9.0) Ur Specific [place] 1.010 (1.005-1.030) Urine Protein Negative (NEGATIVE) Urine Glucose (UA) 100 H (NEGATIVE) Urine Ketones Negative (NEGATIVE) Urine Occult Blood Negative (NEGATIVE) Urine Nitrite Negative (NEGATIVE) Urine Bilirubin Negative (NEGATIVE) Urine Urobilinogen 0.2 (0.2-1.0) mg/dL Ur Leukocyte Esterase Moderate H (NEGATIVE) Urine RBC Not seen /HPF Urine WBC 10-20 H (0-5/HPF) /HPF Ur Epithelial Cells Few (NOT SEEN) /HPF Amorphous Sediment Few (NOT SEEN) /HPF Urine Bacteria Rare (0-FEW/HPF) /HPF Urine Mucus Rare (NOT SEEN) /LPF Med Orders - Current: Current Medications Acetaminophen (Tylenol) 650 mg PO Q4H PRN PRN Reason: Pain (Mild 1-3)/fever Last Admin: 09/04/19 04:20 Dose: 650 mg Artificial Tears (Liquitears 1.4% Ophth Soln) 0 ml EYELF QID [facility] Last Admin: 09/04/19 08:22 Dose: 1 drop Aspirin (Halfprin) 81 mg PO DAILY [facility] Last Admin: 09/04/19 08:21 Dose: 81 mg Atorvastatin Calcium (Lipitor) 20 mg PO BEDTIME [facility] Last Admin: 09/03/19 20:23 Dose: 20 mg Calcium Carbonate/Glycine (Tums) 500 mg PO BID [facility] Last Admin: 09/04/19 08:22 Dose: 500 mg Cyclobenzaprine HCl (Flexeril) 10 mg PO TID [facility] Last Admin: 09/04/19 08:22 Dose: 10 mg Docusate Sodium (Colace) 100 mg PO BID PRN PRN Reason: Constipation Enoxaparin Sodium (Lovenox) 40 mg SUBCUT DAILY [facility] Last Admin: 09/04/19 08:22 Dose: 40 mg Folic Acid (Folic Acid) 2 mg PO DAILY [facility] Last Admin: 09/04/19 08:22 Dose: 2 mg Gabapentin (Neurontin) 100 mg PO TID [facility] Last Admin: 09/04/19 08:21 Dose: 100 mg Sodium Chloride (Normal Saline) 1,000 mls @ 125 mls/hr IV ASDIRECTED [facility] Last Admin: 09/04/19 06:44 Dose: 125 mls/hr Azithromycin 500 mg/ Sodium (Chloride) 250 mls @ 250 mls/hr IV Q24H [facility] Last Infusion: 09/03/19 23:00 Dose: Infused Ceftriaxone Sodium 1 gm/ (Sodium Chloride) 50 mls @ 100 mls/hr IV Q24H [facility] Last Infusion: 09/03/19 20:56 Dose: Infused Magnesium Sulfate/Dextrose 2 (gm/ Premix) 200 mls @ 100 mls/hr IV ONETIME ONE Stop: 09/04/19 12:48 Insulin Glargine (Lantus) 56 unit SUBCUT BEDTIME [facility] Last Admin: 09/03/19 20:36 Dose: 56 units Lisinopril (Prinivil) 10 mg PO DAILY [facility] Last Admin: 09/04/19 08:21 Dose: 10 mg Magnesium Hydroxide (Milk Of Magnesia) 30 ml PO Q12H PRN PRN Reason: Constipation Ondansetron HCl (Zofran) 4 mg IVPUSH Q6H PRN PRN Reason: Nausea/Vomiting Sertraline HCl (Zoloft) 100 mg PO QAM [facility] Last Admin: 09/04/19 08:22 Dose: 100 mg Trazodone HCl (Trazodone) 50 mg PO BEDTIME PRN PRN Reason: Sleep - Exam Quality Assessment: Supplemental Oxygen General: Alert, Oriented Neck: Supple Lungs: Decreased Breath Sounds Sepsis Event Note - Evaluation Sepsis Screening Result: No Definite Risk - Focused Exam Vital Signs: Vital Signs Temp Pulse Resp BP BP Pulse Ox Pulse Ox 09/04/19 08:21 127/74 09/04/19 06:52 37.2 C 86 20 127/74 92 L 09/04/19 04:04 91 20 129/72 94 L 09/04/19 03:40 84 20 77/43 L 88 L 09/04/19 03:30 37.0 C 84 20 97/56 L 92 L 09/04/19 00:30 88 L 09/03/19 23:42 37.3 C 84 20 99/60 90 L Date Exam was Performed: 09/04/19 Time Exam was Performed: 10:52 - Problem List Review Problem List Initiated/Reviewed/Updated: Yes - My Orders Last 24 Hours: My Active Orders 09/04/19 10:49 Magnesium Sulfate/D5W [Magnesium Sulfate in D5W 100 Premix] 2 gm Premix Bag 1 bag IV ONETIME 09/05/19 05:11 BASIC METABOLIC PANEL,BMP [CHEM] AM CBC W/O DIFF,HEMOGRAM [HEME] AM 09/05/19 10:50 MAGNESIUM [CHEM] Routine - Plan Plan:: #. Sepsis (present on admission) Likely due to pneumonia Has been hypotensive and has significant leucocytosis IV BOluses given IV antibiotics #Community acquired Pneumonia -Blood cx-Neg -Sputum for gram stain and cx -CBC, LDH, ferrritin, LFT, D-dimer, PTT, CRP -Follow up on Cornavirus COVID-19 PCR -Contact and droplet isolation Continue IV antibiotics #. Hypomagnesemia #. Possible UTI Urinalysis is suggestive #HTN -BP within acceptable limits -Continue home medication #Type 2 diabetes -Hold Metformin -Insulin Levemir plus lispro -SSI for optimal glycemic control -Carbohydrate consistent diet -Accu-Cheks -Hypoglycemic protocol #Obesity -With reduction measures advised #RAN -On CPAP #Full code
[2019-09-04] MEDS: Morphine 15 MG Tab PO SCH ×2 (12:59→21:00)
[2019-09-04] MEDS ORDERED: Gabapentin 100 MG Cap PO SCH (14:00)
[2019-09-04] MEDS: LIRAGLUTIDE SUBCUT SCH (14:31)
[2019-09-04] MEDS: cefTRIAXone 1 GM in Sodium Chloride 0.9% 50 ML IV SCH (17:07)
[2019-09-04] MEDS: Azithromycin 500 MG in Sodium Chloride 0.9% 250 ML IV SCH (18:25)
[2019-09-04] MEDS: Morphine 30 MG Tab.ER PO SCH (20:37)
[2019-09-04] MEDS: atorvaSTATin 20 MG Tab PO SCH (20:37)
[2019-09-04] MEDS: Insulin Glarg,Human.Rec.Analog 100 Unit/ML SUBCUT SCH (20:54)
[2019-09-05] MEDS: Sodium Chloride 0.9% 1,000 ML IV SCH (01:10)
[2019-09-05] MEDS: Morphine 15 MG Tab PO SCH (06:08)
[2019-09-05 07:00] LABS: ANION GAP 12.9 mEq/L (7-13); CHLORIDE,CL 105 mmol/L (98-107); SODIUM,NA 143 mmol/L (136-145)
[2019-09-05 08:20] VITALS: BP 126/57; PULSE 83
[2019-09-05] MEDS: Enoxaparin 40 MG/0.4 ML Syringe SUBCUT SCH (08:20)
[2019-09-05] MEDS: Calcium Carbonate 500 MG Tab.Chew PO SCH (08:21)
[2019-09-05] MEDS: Lisinopril 5 MG Tab PO SCH (08:21)
[2019-09-05] MEDS: Morphine 30 MG Tab.ER PO SCH (08:21)
[2019-09-05] MEDS: Sertraline 50 MG Tab PO SCH (08:21)
[2019-09-05] MEDS: Gabapentin 100 MG Cap PO SCH (08:21)
[2019-09-05] MEDS: Folic Acid 1 MG Tab PO SCH (08:21)
[2019-09-05] MEDS: Cyclobenzaprine 10 MG Tab PO SCH (08:21)
[2019-09-05] MEDS: Acetaminophen 325 MG Tab PO PRN (08:22)
[2019-09-05] MEDS: Polyvinyl Alcohol 1.4% Ophth Soln 15 ML Bottle EYELF SCH (08:22)
[2019-09-05] MEDS: Aspirin 81 MG Tab.EC PO SCH (08:22)
[2019-09-05] MEDS: LIRAGLUTIDE SUBCUT SCH (08:22)
--- NOTE | 2019-09-05 11:48 | PCM.DCSUM1 ---
Discharge Summary - Hospital Course Free Text/Narrative:: The patient presented with cough and shortness of breath. She was thought to be septic secondary to pneumonia. We proceeded to order test to rule out coronavirus 19. Result is pending but patient wants to go home. She is hemodynamically stable and blood cultures also negative. I would transition patient to oral antibiotics. #. Sepsis (present on admission) Likely due to pneumonia #Community acquired Pneumonia -Blood cx-Neg #. Hypomagnesemia #. Possible UTI Urinalysis is suggestive #HTN -BP within acceptable limits -Continue home medication #Type 2 diabetes Restart home medications #Obesity -With reduction measures advised #RAN -On CPAP - Discharge Data Discharge Date: 09/05/19 Discharge Disposition: Home, Self-Care 01 Condition: Good - Referral to Home Health Primary Care Physician: Ange Lanza NP - Patient Summary/Data Consults: Consultations 09/03/19 17:53 Respiratory Care Assess and Treatment [CONS] Routine - Patient Instructions Other/Special Instructions: f/up with PMD in one week - Discharge Plan Prescriptions/Med Rec: Azithromycin 500 mg PO DAILY #6 tablet Cefpodoxime [Vantin] 200 mg PO BID #10 tablet Home Medications: Home Meds Insulin Detemir [Levemir] 56 units SQ BEDTIME 06/01/13 [History] Aspirin [Halfprin] 81 mg PO DAILY 02/14/14 [History] Cyclobenzaprine [Flexeril] 10 mg PO TID 09/04/15 [History] Morphine Sulfate [Ms Contin] 30 mg PO BID 09/04/15 [History] atorvaSTATin [Lipitor] 10 mg PO BEDTIME 01/28/17 [History] Calcium Carb/Vitamin D3/Vit K1 [Calcium + D Soft Chewable Tab] 1 tab PO BID 08/20 [History] Morphine 15 mg PO TID 03/07/18 [History] Sertraline [Zoloft] 100 mg PO QAM 03/07/18 [History] metFORMIN HCl [Metformin HCl] 1,000 mg PO BID 03/07/18 [History] Carboxymethylcellulose Sodium [Refresh Tears 0.5%] 1 drop EYELF QID 05/26/19 [ History] Biotin 1,000 mcg PO DAILY 09/03/19 [History] Gabapentin [Neurontin] 100 mg PO TID 09/03/19 [History] Liraglutide [Victoza] 1.2 mg SQ DAILY 09/03/19 [History] Lisinopril [Zestril] 10 mg PO DAILY 09/03/19 [History] Multivitamin [Multi-Day Vitamins] 1 each PO DAILY 09/03/19 [History] Azithromycin 500 mg PO DAILY #6 tablet 09/05/19 [Rx] Cefpodoxime [Vantin] 200 mg PO BID #10 tablet 09/05/19 [Rx] Patient Handouts: Community-Acquired Pneumonia, Adult, [id number] - Discharge Summary/Plan Comment DC Time >30 min.: No - Review of Systems General: Reports: No Symptoms Pulmonary: Reports: No Symptoms Cardiovascular: Reports: No Symptoms Gastrointestinal: Reports: No Symptoms - Patient Data Vitals - Most Recent: Last Vital Signs Temp 36.3 C 09/05/19 08:00 Pulse 83 09/05/19 08:00 Resp 20 09/05/19 08:00 BP 126/57 L 09/05/19 08:21 Pulse Ox 97 09/05/19 08:00 Weight - Most Recent: 117.48 kg Lab Results - Last 24 hrs: Laboratory Results - last 24 hr 09/03/19 09/03/19 09/04/19 Range/Units 18:25 20:35 12:07 WBC (5.0-10.0) 10^3/uL RBC (4.2-5.4) 10^6/uL Hgb (12.0-16.0) g/dL Hct (37.0-47.0) % MCV (80-100) fL MCH (27.0-34.0) pg MCHC (33.0-35.0) g/dL Plt Count (150-450) 10^3/uL Sodium (136-145) mmol/L Potassium (3.5-5.1) mmol/L Chloride (98-107) mmol/L Carbon Dioxide (21-32) mmol/L Anion Gap (7-13) mEq/L BUN (7-18) mg/dL Creatinine (0.55-1.02) mg/dL Est Cr Clr Drug Dosing mL/min Estimated GFR (MDRD) Glucose (74-99) mg/dL POC Glucose 212 H 280 H (70-105) mg/dl Calcium (8.5-10.1) mg/dL Magnesium (1.8-2.4) mg/dL Procalcitonin 0.14 H (<0.10) ng/mL 09/04/19 09/04/19 09/05/19 Range/Units 17:04 20:40 06:26 WBC 7.9 (5.0-10.0) 10^3/uL RBC 3.97 L (4.2-5.4) 10^6/uL Hgb 9.2 L (12.0-16.0) g/dL Hct 30.2 L (37.0-47.0) % MCV 76.1 L (80-100) fL MCH 23.2 L (27.0-34.0) pg MCHC 30.5 L (33.0-35.0) g/dL Plt Count 265 (150-450) 10^3/uL Sodium (136-145) mmol/L Potassium (3.5-5.1) mmol/L Chloride (98-107) mmol/L Carbon Dioxide (21-32) mmol/L Anion Gap (7-13) mEq/L BUN (7-18) mg/dL Creatinine (0.55-1.02) mg/dL Est Cr Clr Drug Dosing mL/min Estimated GFR (MDRD) Glucose (74-99) mg/dL POC Glucose 234 H 204 H (70-105) mg/dl Calcium (8.5-10.1) mg/dL Magnesium (1.8-2.4) mg/dL Procalcitonin (<0.10) ng/mL 09/05/19 09/05/19 09/05/19 Range/Units 06:26 06:26 08:18 WBC (5.0-10.0) 10^3/uL RBC (4.2-5.4) 10^6/uL Hgb (12.0-16.0) g/dL Hct (37.0-47.0) % MCV (80-100) fL MCH (27.0-34.0) pg MCHC (33.0-35.0) g/dL Plt Count (150-450) 10^3/uL Sodium 143 (136-145) mmol/L Potassium 3.9 (3.5-5.1) mmol/L Chloride 105 (98-107) mmol/L Carbon Dioxide 29 (21-32) mmol/L Anion Gap 12.9 (7-13) mEq/L BUN 8 (7-18) mg/dL Creatinine 0.67 (0.55-1.02) mg/dL Est Cr Clr Drug Dosing 101.48 mL/min Estimated GFR (MDRD) > 60 Glucose 91 (74-99) mg/dL POC Glucose 111 H (70-105) mg/dl Calcium 7.9 L (8.5-10.1) mg/dL Magnesium 1.6 L (1.8-2.4) mg/dL Procalcitonin (<0.10) ng/mL 09/05/19 Range/Units 11:26 WBC (5.0-10.0) 10^3/uL RBC (4.2-5.4) 10^6/uL Hgb (12.0-16.0) g/dL Hct (37.0-47.0) % MCV (80-100) fL MCH (27.0-34.0) pg MCHC (33.0-35.0) g/dL Plt Count (150-450) 10^3/uL Sodium (136-145) mmol/L Potassium (3.5-5.1) mmol/L Chloride (98-107) mmol/L Carbon Dioxide (21-32) mmol/L Anion Gap (7-13) mEq/L BUN (7-18) mg/dL Creatinine (0.55-1.02) mg/dL Est Cr Clr Drug Dosing mL/min Estimated GFR (MDRD) Glucose (74-99) mg/dL POC Glucose 148 H (70-105) mg/dl Calcium (8.5-10.1) mg/dL Magnesium (1.8-2.4) mg/dL Procalcitonin (<0.10) ng/mL LARRY Results - Last 24 hrs: Microbiology 09/03/19 18:30 Aerobic Blood Culture - Preliminary Blood - Venous - Lab Draw NO GROWTH AFTER 1 DAY Anaerobic Blood Culture - Preliminary NO GROWTH AFTER 1 DAY 09/03/19 18:25 Aerobic Blood Culture - Preliminary Blood - Venous NO GROWTH AFTER 1 DAY Anaerobic Blood Culture - Preliminary NO GROWTH AFTER 1 DAY Med Orders - Current: Current Medications Acetaminophen (Tylenol) 650 mg PO Q4H PRN PRN Reason: Pain (Mild 1-3)/fever Last Admin: 09/05/19 08:22 Dose: 650 mg Artificial Tears (Liquitears 1.4% Ophth Soln) 0 ml EYELF QID [facility] Last Admin: 09/05/19 08:22 Dose: 1 drop Aspirin (Halfprin) 81 mg PO DAILY [facility] Last Admin: 09/05/19 08:22 Dose: 81 mg Atorvastatin Calcium (Lipitor) 20 mg PO BEDTIME [facility] Last Admin: 09/04/19 20:37 Dose: 20 mg Calcium Carbonate/Glycine (Tums) 500 mg PO BID [facility] Last Admin: 09/05/19 08:21 Dose: 500 mg Cyclobenzaprine HCl (Flexeril) 10 mg PO TID [facility] Last Admin: 09/05/19 08:21 Dose: 10 mg Docusate Sodium (Colace) 100 mg PO BID PRN PRN Reason: Constipation Enoxaparin Sodium (Lovenox) 40 mg SUBCUT DAILY [facility] Last Admin: 09/05/19 08:20 Dose: 40 mg Folic Acid (Folic Acid) 2 mg PO DAILY [facility] Last Admin: 09/05/19 08:21 Dose: 2 mg Gabapentin (Neurontin) 100 mg PO TID [facility] Last Admin: 09/05/19 08:21 Dose: 100 mg Sodium Chloride (Normal Saline) 1,000 mls @ 125 mls/hr IV ASDIRECTED [facility] Last Infusion: 09/05/19 10:02 Dose: Infused Ceftriaxone Sodium 1 gm/ (Sodium Chloride) 50 mls @ 100 mls/hr IV Q24H [facility] Last Admin: 09/04/19 17:07 Dose: 100 mls/hr Azithromycin 500 mg/ Sodium (Chloride) 250 mls @ 250 mls/hr IV Q24H [facility] Insulin Glargine (Lantus) 56 unit SUBCUT BEDTIME [facility] Last Admin: 09/04/19 20:54 Dose: 56 units Lisinopril (Prinivil) 10 mg PO DAILY [facility] Last Admin: 09/05/19 08:21 Dose: 10 mg Magnesium Hydroxide (Milk Of Magnesia) 30 ml PO Q12H PRN PRN Reason: Constipation Morphine Sulfate (Morphine) 15 mg PO TID@0600,1400,2200 [facility] Last Admin: 09/05/19 06:08 Dose: 15 mg Morphine Sulfate (Ms Contin) 30 mg PO BID [facility] Last Admin: 09/05/19 08:21 Dose: 30 mg Ondansetron HCl (Zofran) 4 mg IVPUSH Q6H PRN PRN Reason: Nausea/Vomiting Liraglutide [Victoza (] Pt's Own Med) 0 each SUBCUT DAILY [facility] Last Admin: 09/05/19 08:22 Dose: 1 each Sertraline HCl (Zoloft) 100 mg PO QAM [facility] Last Admin: 09/05/19 08:21 Dose: 100 mg Trazodone HCl (Trazodone) 50 mg PO BEDTIME PRN PRN Reason: Sleep Discontinued Medications Gabapentin (Neurontin) 100 mg PO TID [facility] Azithromycin 500 mg/ Sodium (Chloride) 250 mls @ 250 mls/hr IV Q24H [facility] Last Admin: 09/04/19 18:25 Dose: 125 mls/hr Magnesium Sulfate/Dextrose 2 (gm/ Premix) 200 mls @ 100 mls/hr IV ONETIME ONE Stop: 09/04/19 12:48 Last Admin: 09/04/19 12:00 Dose: 100 mls/hr - Exam General: Reports: Alert, Oriented, Cooperative Lungs: Reports: Clear to Auscultation, Normal Respiratory Effort Cardiovascular: Reports: Regular Rate, Regular Rhythm GI/Abdominal Exam: Normal Bowel Sounds, Soft, Non-Tender, No Organomegaly, No Distention, No Abnormal Bruit, No Mass, Pelvis Stable
[2019-09-05] MEDS ORDERED: Azithromycin 500 MG in Sodium Chloride 0.9% 250 ML IV SCH (17:00)
== END 2019-09-05 13:55 | disposition home or self-care (01) | DRG 871 ==
LOC: UNDOADMIN 17:47 → DL.MS 17:47
PROVIDERS: ADMIT Student in an Organized Health Care Education/Training Program; ATTEND Hospitalist
PROC: 8E0ZXY6 Isolation (ICD-10-PCS; principal; 2019-09-05)
DX: A41.9 Sepsis, unspecified organism (principal); J18.9 Pneumonia, unspecified organism; N39.0 Urinary tract infection, site not specified; E83.42 Hypomagnesemia; E66.9 Obesity, unspecified; G47.33 Obstructive sleep apnea (adult) (pediatric); E11.42 Type 2 diabetes mellitus with diabetic polyneuropathy; Z91.040 Latex allergy status; Z91.018 Allergy to other foods; Z91.09 Other allergy status, other than to drugs and biological substances; Z79.4 Long term (current) use of insulin; Z79.82 Long term (current) use of aspirin; Z79.899 Other long term (current) drug therapy
CPT/HCPCS: 36415; 80048; 80076; 81001; 82962; 83605; 83615; 83735; 84100; 84145; 84484; 85027; 85379; 85610; 85730; 86140; 87040; 87086; 87088; 87186; A9270-GY; J0456; J0696; J1650; J1815-GY; J3475; J7030; J7050

== ENCOUNTER 2019-10-01 14:39 | Emergency (ER) | payer MEDICARE, OTHER ==
[2019-10-01 14:51] VITALS: BP 164/86; PULSE 126
--- NOTE | 2019-10-01 14:58 | EDM.PDOC ---
ED HPI GENERAL MEDICAL PROBLEM - General Chief Complaint: Skin Complaint Stated Complaint: UNKNOWN Time Seen by Provider: 10/01/19 14:45 Source of Information: Reports: Patient History Limitations: Reports: No Limitations - History of Present Illness INITIAL COMMENTS - FREE TEXT/NARRATIVE: This 53 yo female patient reports to the ED with right knee pain. The patient reports increased pain in her knee since yesterday morning. The patient reports she was seen by Dr. Combs yesterday and started on Amoxicillin. The patient reports she did take the antibiotic yesterday 2 times and this morning once. The patient reports increased pain since yesterday. The patient did not attempt to call her primary care facility for a follow-up examination. The patient was brought to the ED by [facility]. The patient did have a right knee replacement 6 years ago. The patient denies any recent trauma or falls. The patient does not know of any injury to the area and no recent cuts. Onset Date: 09/30/19 Duration: Constant, Getting Worse Location: Reports: Lower Extremity, Right Quality: Reports: Ache, Sharp Severity: Severe Improves with: Reports: None Worsens with: Reports: None Context: Reports: Other Associated Symptoms: Reports: No Other Symptoms right leg Pain Score (Numeric/FACES): 9 - Related Data Allergies Allergy/AdvReac Type Severity Reaction Status Date / Time latex Allergy Rash Uncoded 10/01/19 14:57 onions Allergy Hives Uncoded 10/01/19 14:57 spider bites Allergy Numbness Uncoded 10/01/19 14:57 Home Meds: Home Meds Insulin Detemir [Levemir] 56 units SQ BEDTIME 06/01/13 [History] Aspirin [Halfprin] 81 mg PO DAILY 02/14/14 [History] Cyclobenzaprine [Flexeril] 10 mg PO TID 09/04/15 [History] Morphine Sulfate [Ms Contin] 30 mg PO BID 09/04/15 [History] atorvaSTATin [Lipitor] 10 mg PO BEDTIME 01/28/17 [History] Calcium Carb/Vitamin D3/Vit K1 [Calcium + D Soft Chewable Tab] 1 tab PO BID 08/20 [History] Morphine 15 mg PO TID 03/07/18 [History] Sertraline [Zoloft] 100 mg PO QAM 03/07/18 [History] metFORMIN HCl [Metformin HCl] 1,000 mg PO BID 03/07/18 [History] Carboxymethylcellulose Sodium [Refresh Tears 0.5%] 1 drop EYELF QID 05/26/19 [ History] Biotin 1,000 mcg PO DAILY 09/03/19 [History] Gabapentin [Neurontin] 100 mg PO TID 09/03/19 [History] Liraglutide [Victoza] 1.2 mg SQ DAILY 09/03/19 [History] Multivitamin [Multi-Day Vitamins] 1 each PO DAILY 09/03/19 [History] lisinopriL [Zestril] 10 mg PO DAILY 09/03/19 [History] Past Medical History HEENT History: Reports: Impaired Vision Other HEENT History: wears glasses, droopy L) eye lid, had reconstrucion surg Cardiovascular History: Reports: Heart Murmur Respiratory History: Reports: None Gastrointestinal History: Reports: None Genitourinary History: Reports: None 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 SEVERE L4-5 LUMBAR SPINAL STENOSIS. 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 T12-L1 THROUGH L5-S1 DEGENERATIVE DISC. 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 SEVERE L4-5 LUMBAR SPINAL STENOSIS. 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 T12-L1 THROUGH L5- S1 DEGENERATIVE DISC. 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 GI Surgical History: Reports: Appendectomy, Bariatric Procedure, Colonoscopy, Other (See Below) Other GI Surgeries/Procedures: gastric bypass Female Surgical History: Reports: Section, Oophorectomy, Tubal Ligation Other Neurological Surgeries/Procedures: brace on spine Musculoskeletal Surgical History: Reports: Knee Replacement, Other (See Below) Other Musculoskeletal Surgeries/Procedures:: back surgery x2 Social & Family History - Family History Family Medical History: Noncontributory Cardiac: Reports: [place] Endocrine/Metabolic: Reports: Diabetes, Type I Oncologic: Reports: Ovarian, Prostate - Caffeine Use Caffeine Use: Reports: Tea - Living Situation & Occupation Living situation: Reports: , with Family ED ROS GENERAL - Review of Systems Review Of Systems: Comprehensive ROS is negative, except as noted in HPI. ED EXAM, SKIN/RASH Exam: See Below Exam Limited By: No Limitations General Appearance: Alert, WD/WN, Moderate Distress, Obese Eye Exam: Bilateral Eye: EOMI, Normal Inspection, PERRL Ears: Normal External Exam, Normal Canal, Hearing Grossly Normal, Normal TMs Nose: Normal Inspection, Normal Mucosa, No Blood Throat/Mouth: Normal Inspection, Normal Lips, Normal Teeth, Normal Gums, Normal Oropharynx, Normal Voice, No Airway Compromise Head: Atraumatic, Normocephalic Neck: Normal Inspection, Supple, Non-Tender, Full Range of Motion Respiratory/Chest: No Respiratory Distress, Lungs Clear, Normal Breath Sounds, No Accessory Muscle Use, Chest Non-Tender Cardiovascular: Normal Peripheral Pulses, Regular Rate, Rhythm, No Edema, No Gallop, No JVD, No Murmur, No Rub GI/Abdominal: Normal Bowel Sounds, Soft, Non-Tender, No Organomegaly, No Distention, No Abnormal Bruit, No Mass (Female) Exam: Deferred Rectal (Female) Exam: Deferred Back Exam: Normal Inspection, Full Range of Motion, NT Extremities: Leg Pain (right knee tenderness extending to the right upper calf) , Limited Range of Motion (due to pain in the right knee with any motion), Increased Warmth (lateral right lower extremity), Redness (right lateral lower extremity) Neurological: Alert, Oriented, CN II-XII Intact, Normal Cognition Psychiatric: Normal Affect, Normal Mood Skin: Erythema (Right knee and lateral right lower extremity) Location, Skin: Lower Extremity, Right Characteristics: Erythematous Associated features: Warmth, Tenderness, Swelling Lymphatic: No Adenopathy Course - Vital Signs Last Recorded V/S: Last Vital Signs Temp 38.4 C H 10/01/19 14:48 Pulse 126 H 10/01/19 14:48 Resp 20 10/01/19 14:48 BP 164/86 H 10/01/19 14:48 Pulse Ox 90 L 10/01/19 14:48 - Orders/Labs/Meds Orders: Active Orders 24 hr Category Date Time Status Knee wo Cont Rt [CT] Urgent Exams 10/01/19 17:01 Ordered CULTURE BLOOD [BC] Stat Lab 10/01/19 14:49 Ordered CULTURE BLOOD [BC] Stat Lab 10/01/19 15:42 Ordered CULTURE URINE [RM] Urgent Lab 10/01/19 15:39 Received Piperacillin/Tazobactam [Zosyn] 3.375 gm Med 10/01/19 18:59 Ordered Sodium Chloride 0.9% [Normal Saline] 100 ml IV ONETIME Vancomycin 1.75 gm Med 10/01/19 18:59 Ordered Sodium Chloride 0.9% [Normal Saline] 500 ml IV ONETIME Medication Orders Piperacillin Sod/Tazobactam (Sod 3.375 gm/ Sodium Chloride) 100 mls @ 200 mls/ hr IV ONETIME ONE Stop: 10/01/19 19:28 Vancomycin HCl 1.75 gm/ Sodium (Chloride) 500 mls @ 334 mls/hr IV ONETIME ONE Stop: 10/01/19 20:28 Labs: Laboratory Tests 10/01/19 10/01/19 10/01/19 Range/Units 15:00 15:00 15:00 WBC 18.4 H (5.0-10.0) 10^3/uL RBC 4.63 (4.2-5.4) 10^6/uL Hgb 10.8 L D (12.0-16.0) g/dL Hct 34.3 L (37.0-47.0) % MCV 74.1 L (80-100) fL MCH 23.3 L (27.0-34.0) pg MCHC 31.5 L (33.0-35.0) g/dL Plt Count 275 (150-450) 10^3/uL Neut % (Auto) 84.3 H (42.2-75.2) % Lymph % (Auto) 6.5 L (20.5-50.1) % [place] % (Auto) 9.0 H (2-8) % Eos % (Auto) 0.1 L (1.0-3.0) % Baso % (Auto) 0.1 (0.0-1.0) % Add Manual Diff Yes Neutrophils % (Manual) 76 H (42-75) % Band Neutrophils % 15 % Lymphocytes % (Manual) 4 L (20-50) % Monocytes % (Manual) 5 (2-8) % ESR (0-20) mm/hr D-Dimer, Quantitative (0-400) ng/mL Sodium 130 L D (136-145) mmol/L Potassium 4.1 (3.5-5.1) mmol/L Chloride 92 L D (98-107) mmol/L Carbon Dioxide 28 (21-32) mmol/L Anion Gap 14.1 H (7-13) mEq/L BUN 17 (7-18) mg/dL Creatinine 1.20 H (0.55-1.02) mg/dL Est Cr Clr Drug Dosing 56.66 mL/min Estimated GFR (MDRD) 47 BUN/Creatinine Ratio 14.2 (No establ ref range) Glucose 408 H* (74-99) mg/dL Lactic Acid 2.8 H* (0.4-2.0) mmol/L Calcium 8.6 (8.5-10.1) mg/dL Total Bilirubin 0.5 (0.2-1.0) mg/dL AST 19 (15-37) U/L ALT 34 (14-59) U/L Alkaline Phosphatase 94 (46-116) U/L C-Reactive Protein (0.0-0.9) mg/dL Total Protein 7.4 (6.4-8.2) g/dL Albumin 3.3 L (3.4-5.0) g/dL Globulin 4.1 Albumin/Globulin Ratio 0.80 Urine Color (YELLOW) Urine Appearance (CLEAR) Urine pH (5.0-9.0) Ur Specific [place] (1.005-1.030) Urine Protein (NEGATIVE) Urine Glucose (UA) (NEGATIVE) Urine Ketones (NEGATIVE) Urine Occult Blood (NEGATIVE) Urine Nitrite (NEGATIVE) Urine Bilirubin (NEGATIVE) Urine Urobilinogen (0.2-1.0) mg/dL Ur Leukocyte Esterase (NEGATIVE) Urine RBC /HPF Urine WBC (0-5/HPF) /HPF Ur Epithelial Cells (NOT SEEN) /HPF Amorphous Sediment (NOT SEEN) /HPF Urine Bacteria (0-FEW/HPF) /HPF Urine Mucus (NOT SEEN) /LPF 10/01/19 10/01/19 10/01/19 Range/Units 15:00 15:00 15:00 WBC (5.0-10.0) 10^3/uL RBC (4.2-5.4) 10^6/uL Hgb (12.0-16.0) g/dL Hct (37.0-47.0) % MCV (80-100) fL MCH (27.0-34.0) pg MCHC (33.0-35.0) g/dL Plt Count (150-450) 10^3/uL Neut % (Auto) (42.2-75.2) % Lymph % (Auto) (20.5-50.1) % [place] % (Auto) (2-8) % Eos % (Auto) (1.0-3.0) % Baso % (Auto) (0.0-1.0) % Add Manual Diff Neutrophils % (Manual) (42-75) % Band Neutrophils % % Lymphocytes % (Manual) (20-50) % Monocytes % (Manual) (2-8) % ESR 34 H (0-20) mm/hr D-Dimer, Quantitative 1370 H (0-400) ng/mL Sodium (136-145) mmol/L Potassium (3.5-5.1) mmol/L Chloride (98-107) mmol/L Carbon Dioxide (21-32) mmol/L Anion Gap (7-13) mEq/L BUN (7-18) mg/dL Creatinine (0.55-1.02) mg/dL Est Cr Clr Drug Dosing mL/min Estimated GFR (MDRD) BUN/Creatinine Ratio (No establ ref range) Glucose (74-99) mg/dL Lactic Acid (0.4-2.0) mmol/L Calcium (8.5-10.1) mg/dL Total Bilirubin (0.2-1.0) mg/dL AST (15-37) U/L ALT (14-59) U/L Alkaline Phosphatase (46-116) U/L C-Reactive Protein 34.1 H (0.0-0.9) mg/dL Total Protein (6.4-8.2) g/dL Albumin (3.4-5.0) g/dL Globulin Albumin/Globulin Ratio Urine Color (YELLOW) Urine Appearance (CLEAR) Urine pH (5.0-9.0) Ur Specific [place] (1.005-1.030) Urine Protein (NEGATIVE) Urine Glucose (UA) (NEGATIVE) Urine Ketones (NEGATIVE) Urine Occult Blood (NEGATIVE) Urine Nitrite (NEGATIVE) Urine Bilirubin (NEGATIVE) Urine Urobilinogen (0.2-1.0) mg/dL Ur Leukocyte Esterase (NEGATIVE) Urine RBC /HPF Urine WBC (0-5/HPF) /HPF Ur Epithelial Cells (NOT SEEN) /HPF Amorphous Sediment (NOT SEEN) /HPF Urine Bacteria (0-FEW/HPF) /HPF Urine Mucus (NOT SEEN) /LPF 10/01/19 Range/Units 15:39 WBC (5.0-10.0) 10^3/uL RBC (4.2-5.4) 10^6/uL Hgb (12.0-16.0) g/dL Hct (37.0-47.0) % MCV (80-100) fL MCH (27.0-34.0) pg MCHC (33.0-35.0) g/dL Plt Count (150-450) 10^3/uL Neut % (Auto) (42.2-75.2) % Lymph % (Auto) (20.5-50.1) % [place] % (Auto) (2-8) % Eos % (Auto) (1.0-3.0) % Baso % (Auto) (0.0-1.0) % Add Manual Diff Neutrophils % (Manual) (42-75) % Band Neutrophils % % Lymphocytes % (Manual) (20-50) % Monocytes % (Manual) (2-8) % ESR (0-20) mm/hr D-Dimer, Quantitative (0-400) ng/mL Sodium (136-145) mmol/L Potassium (3.5-5.1) mmol/L Chloride (98-107) mmol/L Carbon Dioxide (21-32) mmol/L Anion Gap (7-13) mEq/L BUN (7-18) mg/dL Creatinine (0.55-1.02) mg/dL Est Cr Clr Drug Dosing mL/min Estimated GFR (MDRD) BUN/Creatinine Ratio (No establ ref range) Glucose (74-99) mg/dL Lactic Acid (0.4-2.0) mmol/L Calcium (8.5-10.1) mg/dL Total Bilirubin (0.2-1.0) mg/dL AST (15-37) U/L ALT (14-59) U/L Alkaline Phosphatase (46-116) U/L C-Reactive Protein (0.0-0.9) mg/dL Total Protein (6.4-8.2) g/dL Albumin (3.4-5.0) g/dL Globulin Albumin/Globulin Ratio Urine Color Light yellow (YELLOW) Urine Appearance Clear (CLEAR) Urine pH 6.5 (5.0-9.0) Ur Specific [place] 1.015 (1.005-1.030) Urine Protein Negative (NEGATIVE) Urine Glucose (UA) 500 H (NEGATIVE) Urine Ketones Negative (NEGATIVE) Urine Occult Blood Moderate H (NEGATIVE) Urine Nitrite Negative (NEGATIVE) Urine Bilirubin Negative (NEGATIVE) Urine Urobilinogen 0.2 (0.2-1.0) mg/dL Ur Leukocyte Esterase Trace H (NEGATIVE) Urine RBC 5-10 H /HPF Urine WBC 5-10 H (0-5/HPF) /HPF Ur Epithelial Cells Occasional (NOT SEEN) /HPF Amorphous Sediment Few (NOT SEEN) /HPF Urine Bacteria Occasional (0-FEW/HPF) /HPF Urine Mucus Rare (NOT SEEN) /LPF Meds: Medications Generic Name Dose Route Start Last Admin Trade Name Freq PRN Reason Stop Dose Admin Piperacillin Sod/Tazobactam 100 mls @ 200 mls/hr 10/01/19 18:59 Sod 3.375 gm/ Sodium Chloride IV 10/01/19 19:28 ONETIME ONE Vancomycin HCl 1.75 gm/ Sodium 500 mls @ 334 mls/hr 10/01/19 18:59 Chloride IV 10/01/19 20:28 ONETIME ONE Discontinued Medications Generic Name Dose Route Start Last Admin Trade Name Freq PRN Reason Stop Dose Admin Sodium Chloride 1,000 mls @ 999 mls/hr 10/01/19 15:43 10/01/19 17:00 Normal Saline IV 10/01/19 16:43 125 mls/hr .BOLUS ONE Infusion Departure - Departure Time of Disposition: 19:02 Disposition: DC/Tfer to [facility] 02 Condition: Serious Clinical Impression: Septic joint of right knee joint Qualifiers: Septic arthritis organism: due to unspecified organism Qualified Code(s): M00.9 - Pyogenic arthritis, unspecified - Discharge Information *PRESCRIPTION DRUG MONITORING PROGRAM REVIEWED*: Not Applicable *COPY OF PRESCRIPTION DRUG MONITORING REPORT IN PATIENT BETITO: Not Applicable Forms: Interfacility Transfer EMTALA Care Plan Goals: Discussed the patient's history, examination, x-ray, ultrasound, CT and lab results with Dr. Benavidez (Hospitalist with [facility] in [place]). Dr. Benavidez accepted the patient for continued evaluation and management. The patient will be transported by [facility]. Sepsis Event Note - Evaluation Sepsis Screening Result: Possible Sepsis Risk - Focused Exam Vital Signs: Vital Signs Temp Pulse Resp BP Pulse Ox 10/01/19 14:48 38.4 C H 126 H 20 164/86 H 90 L Date Exam was Performed: 10/01/19 Time Exam was Performed: 19:02 - My Orders Last 24 Hours: My Active Orders 10/01/19 14:49 CULTURE BLOOD [BC] Stat 10/01/19 15:39 CULTURE URINE [RM] Urgent 10/01/19 15:42 CULTURE BLOOD [BC] Stat 10/01/19 17:01 Knee wo Cont Rt [CT] Urgent 10/01/19 18:59 Piperacillin/Tazobactam [Zosyn] 3.375 gm Sodium Chloride 0.9% [Normal Saline] 100 ml IV ONETIME Vancomycin 1.75 gm Sodium Chloride 0.9% [Normal Saline] 500 ml IV ONETIME - Assessment/Plan Last 24 Hours: My Active Orders 10/01/19 14:49 CULTURE BLOOD [BC] Stat 10/01/19 15:39 CULTURE URINE [RM] Urgent 10/01/19 15:42 CULTURE BLOOD [BC] Stat 10/01/19 17:01 Knee wo Cont Rt [CT] Urgent 10/01/19 18:59 Piperacillin/Tazobactam [Zosyn] 3.375 gm Sodium Chloride 0.9% [Normal Saline] 100 ml IV ONETIME Vancomycin 1.75 gm Sodium Chloride 0.9% [Normal Saline] 500 ml IV ONETIME
--- NOTE | 2019-10-01 15:22 | CR ---
EXAMINATION: Knee 3V Rt SEX: Female AGE: 53 years CLINICAL HISTORY: 53-year-old obese female with right knee pain and swelling. No known trauma but patient has had total right knee replacement (orthopedic surgery). INTERPRETATION: Abnormal. 1. Increased density in the region of the suprapatellar bursal suggesting large effusion this postop patient. 2. Distal femoral and proximal tibial components of the orthopedic prosthesis satisfactorily "seated" in the bony host and anatomically aligned. 3. No sign of inflammatory periostitis or osteomyelitis. 4. No fracture or dislocation right knee. Note: "Bursal effusion" (soft tissue swelling) decidedly larger than on comparison exam 10 December 2013. Prosthesis unchanged.
[2019-10-01 15:34] LABS: ANION GAP 14.1 mEq/L (7-13)
[2019-10-01] MEDS ORDERED: Sodium Chloride 0.9% 1,000 ML IV ONE (15:43)
--- NOTE | 2019-10-01 16:43 | US ---
EXAMINATION: Venous Doppler Lwr Ext Rt SEX: Female AGE: 53 years CLINICAL HISTORY: 53-year-old female with remote history of knee replacement and saphenous vein "stripping". Now right leg pain with abnormally elevated serum D dimer (1270). Rule out DVT. INTERPRETATION: Negative exam. No sign of intraluminal filling defect and normal compressibility deep veins of the right groin, thigh and knee. (Greater saphenous vein surgically absent). Normal augmentation and venous waveforms demonstrated respectively in the peroneal/posterior tibial veins of the right calf which is erythematous and edematous. Cellulitis? Satisfactory augmentation and venous waveforms identified in the popliteal vein behind the knee and proximally in the femoral veins of the right lower extremity. 3 cm lymph node right groin (no abscess). CONCLUSION: No sign of deep vein thrombosis right lower extremity. Possible cellulitis right calf.
[2019-10-01] MEDS ORDERED: Piperacillin/Tazobactam 3.375 GM in Sodium Chloride 0.9% 100 ML IV ONE (18:59)
[2019-10-01] MEDS ORDERED: Vancomycin 1.75 GM in Sodium Chloride 0.9% 500 ML IV ONE (18:59)
== END 2019-10-01 19:15 ==
LOC: DL.ED 14:39
DX: M00.9 Pyogenic arthritis, unspecified (principal); E11.40 Type 2 diabetes mellitus with diabetic neuropathy, unspecified; E66.9 Obesity, unspecified; Z68.37 Body mass index [BMI] 37.0-37.9, adult; Z79.82 Long term (current) use of aspirin; Z79.4 Long term (current) use of insulin; Z79.899 Other long term (current) drug therapy
CPT/HCPCS: 36415; 73562; 73700; 80053; 81001; 83605; 85025; 85379; 85651; 86140; 87040; 87086; 93971; 96361; 96374; 96375; 99285; J2543; J3370; J7030; J7040; J7050; 87077; 87088; 87186; 99284

== ENCOUNTER 2019-10-14 11:26 | Inpatient (IN) | payer MEDICARE, OTHER ==
[2019-10-14] MEDS ORDERED: traZODone 50 MG Tab PO PRN (16:23)
[2019-10-14] MEDS ORDERED: NALOXONE HCL 4 MG NS PRN (16:23)
--- NOTE | 2019-10-14 16:34 | PCM.HP ---
H&P History of Present Illness - General Date of Service: 10/14/19 Admit Problem/Dx: Admission Diagnosis/Problem Admission Diagnosis/Problem Septic arthritis Source of Information: Patient History Limitations: Reports: No Limitations - History of Present Illness Initial Comments - Free Text/Narative: Erich is 53 y/o F with past medical history of chronic low back pain, type 2 diabetes mellitus, hypertension, obesity, sebaceous carcinoma, sleep apnea, spinal degenerative disc disease, hypertension, osteoarthritis status post right arthroplast in 2006 who presented with sepsis due to infection of right prosthetic knee joint. She had Right knee irrigation and debridement, poly exchange on 10/02. Knee aspirate done on 10/02/2019 grew group B strep. Blood cx was positive for group B strept. ID was consulted. Recommended IV Rocephin. She was discharged to swing bed to complete IV antibiotics. At bedside evaluation patient was seen lying comfortably in bed in no distress. He denies fever, chills. No chest pain or shortness of breath. Improves with: Reports: None Worsens with: Reports: None Associated Symptoms: Reports: No Other Symptoms Right Knee Pain Score (Numeric/FACES): 7 - Related Data Allergies/Adverse Reactions: Allergies Allergy/AdvReac Type Severity Reaction Status Date / Time latex Allergy Rash Uncoded 10/14/19 15:50 onions Allergy Hives Uncoded 10/14/19 15:50 spider bites Allergy Numbness Uncoded 10/14/19 15:50 Home Medications: Home Meds Insulin Detemir [Levemir] 56 units SQ BEDTIME 06/01/13 [History] Aspirin [Halfprin] 81 mg PO DAILY 02/14/14 [History] Cyclobenzaprine [Flexeril] 10 mg PO TID 09/04/15 [History] metFORMIN HCl [Metformin HCl] 1,000 mg PO BIDMEALS 03/07/18 [History] Carboxymethylcellulose Sodium [Refresh Tears 0.5%] 2 drop EYELF BEDTIME [History] Biotin 1,000 mcg PO DAILY 09/03/19 [History] Liraglutide [Victoza] 1.2 mg SQ DAILY 09/03/19 [History] Multivitamin [Multi-Day Vitamins] 1 each PO DAILY 09/03/19 [History] Acetaminophen 1,000 mg PO Q8HR 05/11/20 [History] B Complex W-C No.20/Folic Acid [[place] Caps Softgel] 1 mg PO DAILY 10/14/19 [ History] Bumetanide [Bumex] 2 mg PO BIDAC 10/14/19 [History] Calcium Acetate [PhosLo] 667 mg PO TIDMEALS 10/14/19 [History] Calcium Carbonate [Calcium] 1,200 mg PO DAILY 10/14/19 [History] Gabapentin [Neurontin] 100 mg PO TID 10/14/19 [History] Morphine [MS Contin] 30 mg PO BID 10/14/19 [History] Naloxone HCl [Narcan] 4 mg NS ASDIRECTED PRN 10/14/19 [History] Sertraline [Zoloft] 100 mg PO DAILY 10/14/19 [History] atorvaSTATin [Lipitor] 10 mg PO BEDTIME 10/14/19 [History] lisinopriL [Lisinopril] 20 mg PO DAILY 10/14/19 [History] metOLazone [Metolazone] 2.5 mg PO DAILY 10/14/19 [History] traZODone HCl [Trazodone HCl] 50 mg PO BEDTIME PRN 10/14/19 [History] Past Medical History HEENT History: Reports: Impaired Vision Other HEENT History: wears glasses, droopy L) eye lid, had reconstrucion surg Cardiovascular History: Reports: Heart Murmur Respiratory History: Reports: None Gastrointestinal History: Reports: None Genitourinary History: Reports: None [employer]IGH[employer] KEEPER 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 SEVERE L4-5 LUMBAR SPINAL STENOSIS. 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 T12-L1 THROUGH L5-S1 DEGENERATIVE DISC. 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 SEVERE L4-5 LUMBAR SPINAL STENOSIS. 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 T12-L1 THROUGH L5- S1 DEGENERATIVE DISC. 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 GI Surgical History: Reports: Appendectomy, Bariatric Procedure, Colonoscopy, Other (See Below) Other GI Surgeries/Procedures: gastric bypass Female Surgical History: Reports: Section, Oophorectomy, Tubal Ligation Other Neurological Surgeries/Procedures: brace on spine Musculoskeletal Surgical History: Reports: Knee Replacement, Other (See Below) Other Musculoskeletal Surgeries/Procedures:: back surgery x2 Social & Family History - Family History Family Medical History: Noncontributory Cardiac: Reports: CT Endocrine/Metabolic: Reports: Diabetes, Type I Oncologic: Reports: Ovarian, Prostate - Tobacco Use Smoking Status *Q: Former Smoker Years of Tobacco use: 29 Used Tobacco, but Quit: Yes Month/Year Tobacco Last Used: 1990 Second Hand Smoke Exposure: No - Caffeine Use Caffeine Use: Reports: Tea - Recreational Drug Use Recreational Drug Use: No - Living Situation & Occupation Living situation: Reports: , with Family H&P Review of Systems - Review of Systems: Review Of Systems: See Below General: Reports: No Symptoms HEENT: Reports: No Symptoms Pulmonary: Reports: No Symptoms Cardiovascular: Reports: No Symptoms Gastrointestinal: Reports: No Symptoms Genitourinary: Reports: No Symptoms Musculoskeletal: Reports: No Symptoms Skin: Reports: No Symptoms Psychiatric: Reports: No Symptoms Neurological: Reports: No Symptoms Hematologic/Lymphatic: Reports: No Symptoms Immunologic: Reports: No Symptoms Exam - Exam Exam: See Below - Vital Signs Vital Signs: Last Vital Signs Temp 98.2 F 10/14/19 15:14 Pulse 83 10/14/19 15:14 Resp 18 10/14/19 15:14 BP 121/71 10/14/19 15:14 Pulse Ox 98 10/14/19 16:19 Weight: 249 lb 6 oz - Exam Quality Assessment: DVT Prophylaxis General: Alert, Oriented, 4 HEENT: PERRLA, Hearing Intact, Mucosa Moist & [place], Nares Patent, Normal Nasal Septum, Posterior Pharynx Clear, Conjunctiva Clear, EOMI, EACs Clear, TMs Clear Neck: Supple, Trachea Midline, 2 Lungs: Clear to Auscultation, Normal Respiratory Effort Cardiovascular: Regular Rate, Regular Rhythm GI/Abdominal Exam: Normal Bowel Sounds, Soft, Non-Tender, No Organomegaly, No Distention, No Abnormal Bruit, No Mass, Pelvis Stable (Female) Exam: Normal External Exam, Normal Speculum Exam, Normal Bimanual Exam Rectal (Female) Exam: Normal Exam, Normal Rectal Tone Back Exam: Normal Inspection, Full Range of Motion, NT Extremities: Normal Inspection, Normal Range of Motion, Non-Tender, No Pedal Edema, Normal Capillary Refill Skin: Warm, Dry, Intact Neurological: Cranial Nerves Intact, Reflexes Equal Bilateral Neuro Extensive - Mental Status: Alert, Oriented x3, Normal Mood/Affect, Normal Cognition Neuro Extensive - Motor, Sensory, Reflexes: CN II-XII Intact, Normal Gait, Normal Reflexes Psychiatric: Alert, Normal Affect, Normal Mood - Problem List (1) Septic joint of right knee joint SNOMED Code(s): 606806508, [id number] ICD Code: M00.9 - PYOGENIC ARTHRITIS, UNSPECIFIED Status: Acute Current Visit: No Problem List Initiated/Reviewed/Updated: Yes Orders Last 24hrs: Active Orders 24 hr Category Date Time Status Patient Status [ADT] Routine ADT 10/14/19 16:19 Ordered Ambulate [RC] ASDIRECTED Care 10/14/19 16:19 Ordered Communication Order [RC] DAILY Care 10/14/19 16:28 Ordered Intake and Output [RC] QSHIFT Care 10/14/19 16:22 Ordered Notify Provider Vital Signs [RC] ASDIRECTED Care 10/14/19 16:22 Ordered Oxygen Therapy [RC] PRN Care 10/14/19 16:19 Ordered POC Glucose [Blood Glucose Check, Bedside] [RC] BIDAC Care 10/14/19 16:26 Ordered VTE/DVT Education [RC] PER UNIT ROUTINE Care 10/14/19 16:19 Ordered Vital Signs [RC] Q4H Care 10/14/19 16:19 Ordered OT Evaluation and Treatment [CONS] Routine Cons 10/14/19 16:19 Ordered PT Evaluation and Treatment [CONS] Routine Cons 10/14/19 16:19 Ordered Consistent Carbohydrate Diet [DIET] Diet 10/14/19 Dinner Ordered Acetaminophen [Tylenol Extra Strength] Med 10/14/19 22:00 Ordered 1,000 mg PO Q8HR Acetaminophen [Tylenol] Med 10/14/19 16:19 Ordered 650 mg PO Q4H PRN Aspirin [Halfprin] Med 10/15/19 09:00 Ordered 81 mg PO DAILY B Complex W-C No.20/Folic Acid [[place] Caps Softgel] Med 10/15/19 09:00 Ordered 1 mg PO DAILY Biotin [Biotin] Med 10/15/19 09:00 Ordered 1,000 mcg PO DAILY Bumetanide [Bumex] Med 10/15/19 06:00 Ordered 2 mg PO BIDAC Calcium Acetate [PhosLo] Med 10/14/19 17:00 Ordered 667 mg PO TIDMEALS Calcium Carbonate [Calcium] Med 10/15/19 09:00 Ordered 1,200 mg PO DAILY Carboxymethylcellulose Sodium [Refresh Tears 0.5%] Med 10/14/19 21:00 Ordered 2 drop EYELF BEDTIME Cyclobenzaprine [Flexeril] Med 10/14/19 21:00 Ordered 10 mg PO TID Enoxaparin [Lovenox] Med 10/15/19 09:00 Ordered 40 mg SUBCUT DAILY Gabapentin [Neurontin] Med 10/14/19 21:00 Ordered 100 mg PO TID Liraglutide [Victoza] Med 10/15/19 09:00 Ordered 1.2 mg SQ DAILY Morphine [MS Contin] Med 10/14/19 21:00 Ordered 30 mg PO BID Multivitamin [Multi-Day Vitamins] Med 10/15/19 09:00 Ordered 1 each PO DAILY Naloxone HCl [Narcan] Med 10/14/19 16:23 Ordered 4 mg NS ASDIRECTED PRN Nystatin [Nystatin Crm] Med 10/14/19 21:00 Ordered 1 gm TOP BID Sertraline [Zoloft] Med 10/15/19 09:00 Ordered 100 mg PO DAILY atorvaSTATin [Lipitor] Med 10/14/19 21:00 Ordered 10 mg PO BEDTIME lisinopriL [Prinivil] Med 10/15/19 09:00 Ordered 20 mg PO DAILY metFORMIN HCl [Metformin HCl] Med 10/14/19 18:00 Ordered 1,000 mg PO BIDMEALS metOLazone [Zaroxolyn] Med 10/15/19 09:00 Ordered 2.5 mg PO DAILY traZODone Med 10/14/19 16:23 Ordered 50 mg PO BEDTIME PRN Resuscitation Status Routine Resus Stat 10/14/19 16:19 Ordered Medication Orders Acetaminophen (Tylenol) 650 mg PO Q4H PRN PRN Reason: Pain (Mild 1-3)/fever Acetaminophen (Tylenol Extra Strength) 1,000 mg PO Q8HR [facility] Aspirin (Halfprin) 81 mg PO DAILY [facility] Atorvastatin Calcium (Lipitor) 10 mg PO BEDTIME [facility] Enoxaparin Sodium (Lovenox) 40 mg SUBCUT DAILY [facility] Gabapentin (Neurontin) 100 mg PO TID [facility] Lisinopril (Prinivil) 20 mg PO DAILY [facility] Metolazone (Zaroxolyn) 2.5 mg PO DAILY [facility] Morphine Sulfate (Ms Contin) 30 mg PO BID [facility] Non-Formulary Medication (B Complex W-C No.20/Folic Acid [[place] Caps Softgel]) 1 mg PO DAILY [facility] Non-Formulary Medication (Biotin [Biotin]) 1,000 mcg PO DAILY [facility] Non-Formulary Medication (Bumetanide [Bumex]) 2 mg PO BIDAC [facility] Non-Formulary Medication (Calcium Acetate [Phoslo]) 667 mg PO TIDMEALS [facility] Non-Formulary Medication (Calcium Carbonate [Calcium]) 1,200 mg PO DAILY [facility] Non-Formulary Medication (Carboxymethylcellulose Sodium [Refresh Tears 0.5%]) 2 drop EYELF BEDTIME [facility] Non-Formulary Medication (Cyclobenzaprine [Flexeril]) 10 mg PO TID [facility] Non-Formulary Medication (Liraglutide [Victoza]) 1.2 mg SQ DAILY [facility] Non-Formulary Medication (Metformin Hcl [Metformin Hcl]) 1,000 mg PO BIDMEALS [facility] Non-Formulary Medication (Multivitamin [Multi-Day Vitamins]) 1 each PO DAILY [facility] Non-Formulary Medication (Naloxone Hcl [Narcan]) 4 mg NS ASDIRECTED PRN PRN Reason: Other Non-Formulary Medication (Sertraline [Zoloft]) 100 mg PO DAILY [facility] Nystatin (Nystatin Crm) 1 gm TOP BID [facility] Trazodone HCl (Trazodone) 50 mg PO BEDTIME PRN PRN Reason: Sleep Assessment/Plan Comment:: #Right prosthetic knee infection - S/p Right knee irrigation and debridement, poly exchange on 10/02 - Continue IV Rocephin - PT/OT #Chronic Anemia - Stable Hb was - [place] H&H #Type 2 diabetes -Continue home insulin regimen -Continue metformin -Accu-Cheks twice daily -Hypoglycemic protocol #Hypertension -Continue home medication -Monitor BP daily #Hyperlipidemia -Continue home ASA, atorvastatin #Obesity -Weight reduction measures advised #Diabetic nephropathy -Continue home gabapentin #Chronic back pain -Continue home regimen #Mood disorder -Continue home sertraline #Diabetic diet #Full code
[2019-10-14] MEDS: cefTRIAXone 2 GM in Sodium Chloride 0.9% 100 ML IV SCH (16:54)
[2019-10-14] MEDS: metFORMIN 500 MG Tab PO SCH (17:25)
[2019-10-14] MEDS ORDERED: Insulin Regular, Human 100 Units/ML 3 ML Vial IVPUSH ONE (17:43)
[2019-10-14] MEDS ORDERED: Sodium Chloride 0.9% 1,000 ML IV SCH (17:45)
[2019-10-14] MEDS ORDERED: Insulin Glarg,Human.Rec.Analog 100 Unit/ML SUBCUT SCH (21:00)
[2019-10-14] MEDS: Cyclobenzaprine 10 MG Tab PO SCH (22:40)
[2019-10-14] MEDS: atorvaSTATin 10 MG Tab PO SCH (22:40)
[2019-10-14] MEDS: Acetaminophen 500 MG Tab PO SCH (22:40)
[2019-10-14] MEDS: Gabapentin 100 MG Cap PO SCH (22:40)
[2019-10-14] MEDS: Morphine 30 MG Tab.ER PO SCH (22:42)
[2019-10-14] MEDS: Nystatin Crm 15 GM Tube TOP SCH (22:43)
[2019-10-14] MEDS: Insulin Lispro 100 Units/ML 3 ML Vial SUBCUT SCH (22:53)
[2019-10-14] MEDS: Insulin Glarg,Human.Rec.Analog 100 Unit/ML SUBCUT SCH (22:55)
[2019-10-15] MEDS: Acetaminophen 500 MG Tab PO SCH ×3 (05:50→21:09)
[2019-10-15] MEDS: Bumetanide 1 MG Tab PO SCH ×2 (05:50→17:01)
[2019-10-15] MEDS: Morphine 30 MG Tab.ER PO SCH ×2 (08:55→20:24)
[2019-10-15] MEDS: metFORMIN 500 MG Tab PO SCH ×2 (08:57→18:29)
[2019-10-15] MEDS: Cyclobenzaprine 10 MG Tab PO SCH ×3 (08:57→20:24)
[2019-10-15] MEDS: Gabapentin 100 MG Cap PO SCH ×3 (08:57→20:23)
[2019-10-15] MEDS: Sertraline 50 MG Tab PO SCH (08:57)
[2019-10-15] MEDS: Aspirin 81 MG Tab.EC PO SCH (08:58)
[2019-10-15] MEDS: Multivitamins,Therapeutic Tab PO SCH (08:59)
[2019-10-15] MEDS: Lisinopril 20 MG Tab PO SCH (08:59)
[2019-10-15] MEDS: Metolazone 2.5 MG Tab PO SCH (08:59)
[2019-10-15] MEDS: Calcium Carbonate 500 MG Tab.Chew PO SCH (09:00)
[2019-10-15] MEDS ORDERED: Enoxaparin 40 MG/0.4 ML Syringe SUBCUT SCH (09:00)
[2019-10-15] MEDS: Insulin Lispro 100 Units/ML 3 ML Vial SUBCUT SCH (09:05)
[2019-10-15] MEDS: Nystatin Crm 15 GM Tube TOP SCH ×2 (09:07→20:22)
[2019-10-15] MEDS: FOLIC ACID PO SCH (12:21)
[2019-10-15] MEDS: B COMPLEX PO SCH (12:21)
[2019-10-15] MEDS: BIOTIN 10000 MCG PO SCH (12:23)
[2019-10-15] MEDS: LIRAGLUTIDE 18 MG/3 ML SQ SCH (12:26)
[2019-10-15] MEDS: [UNRECOGNIZED DRUG - REMARK] PO SCH ×3 (16:33→17:21)
[2019-10-15] MEDS: cefTRIAXone 2 GM in Sodium Chloride 0.9% 100 ML IV SCH (17:03)
[2019-10-15] MEDS: Insulin Glarg,Human.Rec.Analog 100 Unit/ML SUBCUT SCH (20:23)
[2019-10-15] MEDS: atorvaSTATin 10 MG Tab PO SCH (20:24)
[2019-10-15] MEDS: CARBOXYMETHYLCELLULOSE SODIUM EYELF SCH (20:25)
[2019-10-16] MEDS: Acetaminophen 325 MG Tab PO PRN (03:10)
[2019-10-16] MEDS: Bumetanide 1 MG Tab PO SCH ×2 (05:48→16:19)
[2019-10-16] MEDS: Acetaminophen 500 MG Tab PO SCH ×3 (05:49→21:22)
[2019-10-16] MEDS: [UNRECOGNIZED DRUG - REMARK] PO SCH ×4 (08:22→16:19)
[2019-10-16] MEDS: CARBOXYMETHYLCELLULOSE SODIUM EYELF SCH ×2 (08:23→21:18)
[2019-10-16] MEDS: Lisinopril 20 MG Tab PO SCH (09:08)
[2019-10-16] MEDS: Cyclobenzaprine 10 MG Tab PO SCH ×3 (09:08→21:20)
[2019-10-16] MEDS: Multivitamins,Therapeutic Tab PO SCH (09:08)
[2019-10-16] MEDS: Gabapentin 100 MG Cap PO SCH ×3 (09:08→21:19)
[2019-10-16] MEDS: Metolazone 2.5 MG Tab PO SCH (09:08)
[2019-10-16] MEDS: Morphine 30 MG Tab.ER PO SCH ×2 (09:09→21:20)
[2019-10-16] MEDS: metFORMIN 500 MG Tab PO SCH ×2 (09:09→17:34)
[2019-10-16] MEDS: Sertraline 50 MG Tab PO SCH (09:12)
[2019-10-16] MEDS: Calcium Carbonate 500 MG Tab.Chew PO SCH (09:12)
[2019-10-16] MEDS: Enoxaparin 30 MG/0.3 ML Syringe SUBCUT SCH (09:13)
[2019-10-16] MEDS: FOLIC ACID PO SCH (09:15)
[2019-10-16] MEDS: B COMPLEX PO SCH (09:15)
[2019-10-16] MEDS: BIOTIN 10000 MCG PO SCH (09:16)
[2019-10-16] MEDS: Aspirin 81 MG Tab.EC PO SCH (09:17)
[2019-10-16] MEDS: LIRAGLUTIDE 18 MG/3 ML SQ SCH (09:17)
[2019-10-16] MEDS: Nystatin Crm 15 GM Tube TOP SCH ×2 (09:18→21:22)
[2019-10-16] MEDS: cefTRIAXone 2 GM in Sodium Chloride 0.9% 100 ML IV SCH (16:18)
[2019-10-16] MEDS: atorvaSTATin 10 MG Tab PO SCH (21:19)
[2019-10-16] MEDS: Insulin Glarg,Human.Rec.Analog 100 Unit/ML SUBCUT SCH (21:29)
[2019-10-16] MEDS: Sodium Chloride 0.9% 10 ML Syringe FLUSH PRN (21:55)
[2019-10-17] MEDS: Acetaminophen 500 MG Tab PO SCH ×3 (05:27→21:46)
[2019-10-17] MEDS: Bumetanide 1 MG Tab PO SCH ×2 (05:27→16:34)
[2019-10-17] MEDS: metFORMIN 500 MG Tab PO SCH ×2 (08:53→17:13)
[2019-10-17] MEDS: [UNRECOGNIZED DRUG - REMARK] PO SCH ×3 (08:53→17:14)
[2019-10-17] MEDS: BIOTIN 10000 MCG PO SCH (08:54)
[2019-10-17] MEDS: Aspirin 81 MG Tab.EC PO SCH (08:55)
[2019-10-17] MEDS: FOLIC ACID PO SCH (08:55)
[2019-10-17] MEDS: Cyclobenzaprine 10 MG Tab PO SCH ×3 (08:55→21:15)
[2019-10-17] MEDS: B COMPLEX PO SCH (08:55)
[2019-10-17] MEDS: LIRAGLUTIDE 18 MG/3 ML SQ SCH (08:56)
[2019-10-17] MEDS: Gabapentin 100 MG Cap PO SCH ×3 (08:58→21:16)
[2019-10-17] MEDS: Enoxaparin 30 MG/0.3 ML Syringe SUBCUT SCH (08:58)
[2019-10-17] MEDS: Morphine 30 MG Tab.ER PO SCH ×2 (08:58→21:16)
[2019-10-17] MEDS: Nystatin Crm 15 GM Tube TOP SCH ×2 (08:59→21:21)
[2019-10-17] MEDS: Lisinopril 20 MG Tab PO SCH (09:00)
[2019-10-17] MEDS: Calcium Carbonate 500 MG Tab.Chew PO SCH (09:00)
[2019-10-17] MEDS: Multivitamins,Therapeutic Tab PO SCH (09:00)
[2019-10-17] MEDS: Metolazone 2.5 MG Tab PO SCH (09:01)
[2019-10-17] MEDS: Sertraline 50 MG Tab PO SCH (09:02)
[2019-10-17] MEDS: Acetaminophen 325 MG Tab PO PRN (11:58)
[2019-10-17] MEDS: Sodium Chloride 0.9% 10 ML Syringe FLUSH PRN (16:35)
[2019-10-17] MEDS: cefTRIAXone 2 GM in Sodium Chloride 0.9% 100 ML IV SCH (16:35)
[2019-10-17] MEDS: CARBOXYMETHYLCELLULOSE SODIUM EYELF SCH (21:15)
[2019-10-17] MEDS: atorvaSTATin 10 MG Tab PO SCH (21:15)
[2019-10-17] MEDS: Insulin Glarg,Human.Rec.Analog 100 Unit/ML SUBCUT SCH (21:19)
[2019-10-18] MEDS: Acetaminophen 500 MG Tab PO SCH ×2 (05:42→14:11)
[2019-10-18] MEDS: Bumetanide 1 MG Tab PO SCH (05:43)
[2019-10-18] MEDS: metFORMIN 500 MG Tab PO SCH (07:52)
[2019-10-18] MEDS: [UNRECOGNIZED DRUG - REMARK] PO SCH ×5 (07:52→13:01)
[2019-10-18 08:14] VITALS: BP 104/50; PULSE 81
[2019-10-18] MEDS: FOLIC ACID PO SCH (08:57)
[2019-10-18] MEDS: B COMPLEX PO SCH (08:57)
[2019-10-18] MEDS: BIOTIN 10000 MCG PO SCH (08:57)
[2019-10-18] MEDS: Gabapentin 100 MG Cap PO SCH ×2 (08:58→14:11)
[2019-10-18] MEDS: Sertraline 50 MG Tab PO SCH (08:58)
[2019-10-18] MEDS: Lisinopril 20 MG Tab PO SCH (08:58)
[2019-10-18] MEDS: Multivitamins,Therapeutic Tab PO SCH (08:58)
[2019-10-18] MEDS: Morphine 30 MG Tab.ER PO SCH (08:59)
[2019-10-18] MEDS: Metolazone 2.5 MG Tab PO SCH (08:59)
[2019-10-18] MEDS: Aspirin 81 MG Tab.EC PO SCH (08:59)
[2019-10-18] MEDS: Cyclobenzaprine 10 MG Tab PO SCH ×2 (08:59→14:11)
[2019-10-18] MEDS: Calcium Carbonate 500 MG Tab.Chew PO SCH (09:00)
[2019-10-18] MEDS: Nystatin Crm 15 GM Tube TOP SCH (09:01)
[2019-10-18] MEDS: Enoxaparin 30 MG/0.3 ML Syringe SUBCUT SCH (09:02)
[2019-10-18] MEDS: LIRAGLUTIDE 18 MG/3 ML SQ SCH (09:03)
--- NOTE | 2019-10-18 10:33 | PCM.DCSUM1 ---
Discharge Summary - Hospital Course Free Text/Narrative:: Patient is a 53-year-old female with past medical history significant for chronic low back pain, type 2 diabetes, hypertension, patient's carcinoma, RAN, osteoarthritis status post right otoplasty in 2006, and obesity who was admitted to swing bed to complete antibiotics after undergoing right knee irrigation and debridement for sepsis due to right prosthetic knee joint infection. Patient had an uncomplicated swing bed stay. She is being discharged home to continue antibiotics as outpatient. She will be coming to the facility daily for antibiotic infusion. HPI Initial Comments: Erich is 53 y/o F with past medical history of chronic low back pain, type 2 diabetes mellitus, hypertension, obesity, sebaceous carcinoma, sleep apnea, spinal degenerative disc disease, hypertension, osteoarthritis status post right arthroplast in 2006 who presented with sepsis due to infection of right prosthetic knee joint. She had Right knee irrigation and debridement, poly exchange on 10/02. Knee aspirate done on 10/02/2019 grew group B strep. Blood cx was positive for group B strept. ID was consulted. Recommended IV Rocephin. She was discharged to swing bed to complete IV antibiotics. At bedside evaluation patient was seen lying comfortably in bed in no distress. He denies fever, chills. No chest pain or shortness of breath. Diagnosis: Stroke: No - Discharge Data Discharge Date: 10/18/19 Discharge Disposition: Home, Self-Care 01 Condition: Good - Referral to Home Health Primary Care Physician: Holden BLEVINS Jenks - Patient Summary/Data Consults: Consultations 10/14/19 16:19 OT Evaluation and Treatment [CONS] Routine PT Evaluation and Treatment [CONS] Routine - Discharge Plan *PRESCRIPTION DRUG MONITORING PROGRAM REVIEWED*: No *COPY OF PRESCRIPTION DRUG MONITORING REPORT IN PATIENT BETITO: No Home Medications: Home Meds Insulin Detemir [Levemir] 56 units SQ BEDTIME 06/01/13 [History] Aspirin [Halfprin] 81 mg PO DAILY 02/14/14 [History] Cyclobenzaprine [Flexeril] 10 mg PO TID 09/04/15 [History] metFORMIN HCl [Metformin HCl] 1,000 mg PO BIDMEALS 03/07/18 [History] Carboxymethylcellulose Sodium [Refresh Tears 0.5%] 2 drop EYELF BEDTIME [History] Liraglutide [Victoza] 1.2 mg SQ DAILY 09/03/19 [History] Multivitamin [Multi-Day Vitamins] 1 each PO DAILY 09/03/19 [History] Acetaminophen 1,000 mg PO Q8HR 10/14/19 [History] B Complex W-C No.20/Folic Acid [[place] Caps Softgel] 1 mg PO DAILY 10/14/19 [ History] Bumetanide [Bumex] 2 mg PO BIDAC 10/14/19 [History] Calcium Acetate [PhosLo] 667 mg PO TIDMEALS 10/14/19 [History] Calcium Carbonate [Calcium] 1,200 mg PO DAILY 10/14/19 [History] Gabapentin [Neurontin] 100 mg PO TID 10/14/19 [History] Morphine [MS Contin] 30 mg PO BID 10/14/19 [History] Naloxone HCl [Narcan] 4 mg NS ASDIRECTED PRN 10/14/19 [History] Sertraline [Zoloft] 100 mg PO DAILY 10/14/19 [History] atorvaSTATin [Lipitor] 10 mg PO BEDTIME 10/14/19 [History] lisinopriL [Lisinopril] 20 mg PO DAILY 10/14/19 [History] metOLazone [Metolazone] 2.5 mg PO DAILY 10/14/19 [History] traZODone HCl [Trazodone HCl] 50 mg PO BEDTIME PRN 10/14/19 [History] Biotin 10,000 mcg PO DAILY 10/15/19 [History] Patient Handouts: Weakness, [id number] Referrals: [facility] [Ordering Only Provider] - - Discharge Summary/Plan Comment DC Time >30 min.: No - General Info Date of Service: 10/18/19 Admission Dx/Problem (Free Text: Admission Diagnosis/Problem Admission Diagnosis/Problem Septic arthritis Subjective Update: No acute events overnight. Reports she is doing okay. Knee is not swollen. Gets sore but improves with ambulation and stretching. Denies fevers, chills, chest pain, n/v/d/c, or shortness of breath. - Patient Data Vitals - Most Recent: Last Vital Signs Temp 97 F 10/18/19 08:00 Pulse 81 10/18/19 08:00 Resp 18 10/18/19 08:00 BP 104/50 L 10/18/19 08:58 Pulse Ox 99 10/18/19 08:00 Weight - Most Recent: 249 lb 6 oz I&O - Last 24 hours: Intake & Output 10/17/19 10/18/19 10/18/19 22:59 06:59 14:59 Intake Total 650 500 240 Balance 650 500 240 Lab Results - Last 24 hrs: Laboratory Results - last 24 hr 10/17/19 10/18/19 Range/Units 16:44 08:03 POC Glucose 90 141 H (70-105) mg/dl Med Orders - Current: Current Medications Acetaminophen (Tylenol) 650 mg PO Q4H PRN PRN Reason: Pain (Mild 1-3)/fever Last Admin: 10/17/19 11:58 Dose: 650 mg Acetaminophen (Tylenol Extra Strength) 1,000 mg PO Q8HR [facility] Last Admin: 10/18/19 05:42 Dose: 1,000 mg Aspirin (Halfprin) 81 mg PO DAILY [facility] Last Admin: 10/18/19 08:59 Dose: 81 mg Atorvastatin Calcium (Lipitor) 10 mg PO BEDTIME [facility] Last Admin: 10/17/19 21:15 Dose: 10 mg Bumetanide (Bumex) 2 mg PO BIDAC [facility] Last Admin: 10/18/19 05:43 Dose: 2 mg Calcium Carbonate/Glycine (Tums) 1,250 mg PO DAILY [facility] Last Admin: 10/18/19 09:00 Dose: 1,250 mg Cyclobenzaprine HCl (Flexeril) 10 mg PO TID [facility] Last Admin: 10/18/19 08:59 Dose: 10 mg Enoxaparin Sodium (Lovenox) 30 mg SUBCUT DAILY [facility] Last Admin: 10/18/19 09:02 Dose: Not Given Gabapentin (Neurontin) 100 mg PO TID [facility] Last Admin: 10/18/19 08:58 Dose: 100 mg Ceftriaxone Sodium 2 gm/ (Sodium Chloride) 100 mls @ 200 mls/hr IV Q24H [facility] Last Admin: 10/17/19 16:35 Dose: 200 mls/hr Insulin Glargine (Lantus) 45 unit SUBCUT BEDTIME [facility] Last Admin: 10/17/19 21:19 Dose: 45 units Lisinopril (Prinivil) 20 mg PO DAILY [facility] Last Admin: 10/18/19 08:58 Dose: 20 mg Metformin HCl (Glucophage) 1,000 mg PO BIDMEALS [facility] Last Admin: 10/18/19 07:52 Dose: 1,000 mg Metolazone (Zaroxolyn) 2.5 mg PO DAILY [facility] Last Admin: 10/18/19 08:59 Dose: 2.5 mg Morphine Sulfate (Ms Contin) 30 mg PO BID [facility] Last Admin: 10/18/19 08:59 Dose: 30 mg Multivitamins (Thera) 1 each PO DAILY [facility] Last Admin: 10/18/19 08:58 Dose: 1 each B Complex W-Folic Acid 1 Mg Pt Own Med 1 mg PO DAILY [facility] Last Admin: 10/18/19 08:57 Dose: 1 mg Biotin 10,000 Mcg (Pt Own Med) 10,000 mcg PO DAILY [facility] Last Admin: 10/18/19 08:57 Dose: 10,000 mcg Calcium Acetate [ Phoslo] 667 Mg- Non-Form Med 667 mg PO TIDMEALS [facility] Last Admin: 10/18/19 07:52 Dose: 667 mg Carboxymethylcellulo se Sodium [Refresh Plus ] Pt Own Med* * 2 drop EYELF BEDTIME [facility] Last Admin: 10/17/19 21:15 Dose: 2 drop Liraglutide [Victoza ] 18mg/3ml Pt Own Med 1.2 mg SQ DAILY [facility] Last Admin: 10/18/19 09:03 Dose: 1.2 mg Naloxone Hcl [Narcan ] 4 Mg Pt Own Med* * 4 mg NS ASDIRECTED PRN PRN Reason: Other Nystatin (Nystatin Crm) 0 gm TOP BID [facility] Last Admin: 10/18/19 09:01 Dose: 1 applic Sertraline HCl (Zoloft) 100 mg PO DAILY [facility] Last Admin: 10/18/19 08:58 Dose: 100 mg Sodium Chloride (Saline Flush) 10 ml FLUSH ASDIRECTED PRN PRN Reason: Keep Vein Open Last Admin: 10/17/19 16:35 Dose: 10 ml Trazodone HCl (Trazodone) 50 mg PO BEDTIME PRN PRN Reason: Sleep Discontinued Medications Enoxaparin Sodium (Lovenox) 40 mg SUBCUT DAILY [facility] Last Admin: 10/15/19 09:02 Dose: 40 mg Sodium Chloride (Normal Saline) 1,000 mls @ 100 mls/hr IV ASDIRECTED [facility] Last Infusion: 10/15/19 05:48 Dose: Infused Insulin Glargine (Lantus) 56 unit SUBCUT BEDTIME [facility] Last Admin: 10/15/19 13:54 Dose: Not Given Insulin Human Lispro (Humalog) 0 unit SUBCUT WITHMEALSANDBED [facility]; Protocol Last Admin: 10/15/19 09:05 Dose: Not Given Insulin Human Regular (Humulin R) 10 unit IVPUSH ONETIME ONE Stop: 10/14/19 17:44 Last Admin: 10/14/19 18:09 Dose: 10 units - Exam General: Reports: Alert, Oriented, Cooperative, No Acute Distress HEENT: Reports: Pupils Equal, Mucous Membr. Moist/[place] Neck: Reports: Supple Lungs: Reports: Clear to Auscultation, Normal Respiratory Effort Cardiovascular: Reports: Regular Rate, Regular Rhythm, No Murmurs GI/Abdominal Exam: Normal Bowel Sounds, Soft, Non-Tender, No Distention Extremities: Normal Inspection, Non-Tender, No Pedal Edema Skin: Reports: Warm, Dry, Intact Wound/Incisions: Reports: Healing Well Neurological: Reports: No New Focal Deficit Psy/Mental Status: Reports: Alert, Normal Affect, Normal Mood
[2019-10-18 11:32] LABS: ANION GAP 11.4 mEq/L (7-13)
[2019-10-18] MEDS: Sodium Chloride 0.9% 10 ML Syringe FLUSH PRN (12:45)
[2019-10-18] MEDS: cefTRIAXone 2 GM in Sodium Chloride 0.9% 100 ML IV SCH (13:01)
== END 2019-10-18 14:00 | disposition home or self-care (01) | DRG 559 ==
LOC: EEVIPCON 15:14 → DL.MS 15:14
PROVIDERS: ADMIT Student in an Organized Health Care Education/Training Program; ATTEND Internal Medicine
DX: T84.53XA Infection and inflammatory reaction due to internal right knee prosthesis, initial encounter (principal); A41.9 Sepsis, unspecified organism; M00.9 Pyogenic arthritis, unspecified; D64.9 Anemia, unspecified; I10 Essential (primary) hypertension; E66.9 Obesity, unspecified; E78.5 Hyperlipidemia, unspecified; E11.21 Type 2 diabetes mellitus with diabetic nephropathy; G89.29 Other chronic pain; F39 Unspecified mood [affective] disorder; M54.5 Low back pain; G47.33 Obstructive sleep apnea (adult) (pediatric); Z91.040 Latex allergy status; Z91.018 Allergy to other foods; Z79.4 Long term (current) use of insulin; Z79.899 Other long term (current) drug therapy; Z68.36 Body mass index [BMI] 36.0-36.9, adult
CPT/HCPCS: 36415; 80048; 82962; 97110-GO; 97110-GP; 97116-GP; 97161-GP; 97165-GO; 97530-GO; A9270-GY; J0696; J1650; J1815-GY; J7030; J7050

== ENCOUNTER 2020-04-14 17:00 | Inpatient (IN) | payer MEDICARE, OTHER ==
[2020-04-14 18:06] LABS: CHLORIDE,CL 98 mmol/L (98-107); SODIUM,NA 135 mmol/L (136-145)
[2020-04-14] MEDS ORDERED: Magnesium Sulfate/Water 2 GM/50 ML BAG IV ONE (18:45)
--- NOTE | 2020-04-14 18:48 | EDM.PDOC ---
ED HPI GENERAL MEDICAL PROBLEM - General Chief Complaint: Respiratory Problem Stated Complaint: weak, hard to breathe, chills Time Seen by Provider: 04/14/20 18:20 Source of Information: Reports: Patient, RN, RN Notes Reviewed History Limitations: Reports: No Limitations - History of Present Illness INITIAL COMMENTS - FREE TEXT/NARRATIVE: Patient presents to the ED via personal vehicle with complaints of shortness of breath and headache. She reports these symptom began yesterday and has progressively worsened since that time. She denies fever, shaking chills, chest pain, palpitations, nausea, vomiting, or diarrhea. She does attest to cough and sore throat. She states she has not taken any medications for this problem. She denies use of tobacco, alcohol, or recreational drug use. She states she has not been recently tested for COVID and has no history of COVID infection. 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 - Related Data Allergies Allergy/AdvReac Type Severity Reaction Status Date / Time latex Allergy Rash Uncoded 11/06/19 14:57 onions Allergy Hives Uncoded 11/06/19 14:57 spider bites Allergy Numbness Uncoded 11/06/19 14:57 Home Meds: Home Meds Insulin Detemir [Levemir] 56 units SQ BEDTIME 06/01/13 [History] Aspirin [Halfprin] 81 mg PO DAILY 02/14/14 [History] Cyclobenzaprine [Flexeril] 10 mg PO TID 09/04/15 [History] Carboxymethylcellulose Sodium [Refresh Tears 0.5%] 2 drop EYELF TID 05/26/19 [History] Liraglutide [Victoza] 1.2 mg SQ WITHBREAKFAST 09/03/19 [History] Multivitamin [Multi-Day Vitamins] 1 each PO DAILY 09/03/19 [History] Acetaminophen 1,000 mg PO Q8HR PRN 10/14/19 [History] B Complex W-C No.20/Folic Acid [[place] Caps Softgel] 1 mg PO DAILY 10/14/19 [History] Calcium Carbonate [Calcium] 1,200 mg PO DAILY 10/14/19 [History] Gabapentin [Neurontin] 100 mg PO TID 10/14/19 [History] Morphine [MS Contin] 30 mg PO BID 10/14/19 [History] Naloxone HCl [Narcan] 4 mg NS ASDIRECTED PRN 10/14/19 [History] Sertraline [Zoloft] 100 mg PO DAILY 10/14/19 [History] atorvaSTATin [Lipitor] 10 mg PO BEDTIME 10/14/19 [History] traZODone HCl [Trazodone HCl] 50 mg PO BEDTIME PRN 10/14/19 [History] Biotin 10,000 mcg PO DAILY 10/15/19 [History] Morphine Sulfate 15 mg PO TID PRN 10/31/19 [History] Past Medical History HEENT History: Reports: Impaired Vision Other HEENT History: wears glasses, droopy L) eye lid, had reconstrucion surg Cardiovascular History: Reports: Heart Murmur Respiratory History: Reports: Pneumonia, Recurrent Gastrointestinal History: Reports: None Genitourinary History: Reports: None 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 SEVERE L4-5 LUMBAR SPINAL STENOSIS. 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 T12-L1 THROUGH L5-S1 DEGENERATIVE DISC. 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 SEVERE L4-5 LUMBAR SPINAL STENOSIS. 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 T12-L1 THROUGH L5- S1 DEGENERATIVE DISC. 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 Cardiovascular Surgical History: Reports: None GI Surgical History: Reports: Appendectomy, Bariatric Procedure, Colonoscopy, Other (See Below) Other GI Surgeries/Procedures: gastric bypass Female Surgical History: Reports: Section, Oophorectomy, Tubal Ligation Endocrine Surgical History: Reports: None Other Neurological Surgeries/Procedures: brace on spine Musculoskeletal Surgical History: Reports: Knee Replacement, Other (See Below) Other Musculoskeletal Surgeries/Procedures:: back surgery x2 Oncologic Surgical History: Reports: None Social & Family History - Family History Family Medical History: No Pertinent Family History Cardiac: Reports: [place] Endocrine/Metabolic: Reports: Diabetes, Type I Oncologic: Reports: Ovarian, Prostate - Tobacco Use Tobacco Use Status *Q: Unknown Ever Used Tobacco Second Hand Smoke Exposure: No - Caffeine Use Caffeine Use: Reports: Tea - Recreational Drug Use Recreational Drug Use: No - Living Situation & Occupation Living situation: Reports: , with Family ED ROS GENERAL - Review of Systems Review Of Systems: Comprehensive ROS is negative, except as noted in HPI. ED EXAM, GENERAL - Physical Exam Exam: See Below Exam Limited By: No Limitations General Appearance: Alert, WD/WN, Mild Distress Eye Exam: Bilateral Eye: EOMI, Normal Inspection, PERRL Nose: Normal Inspection, Nasal Drainage. No: Nasal Tenderness, Nasal Swelling Throat/Mouth: Normal Lips, Normal Teeth, Normal Voice, No Airway Compromise, Inflammation (Erythema to posterior oropharynx) Head: Atraumatic, Normocephalic Neck: Normal Inspection, Supple, Non-Tender, Full Range of Motion. No: Lymphadenopathy (L), Lymphadenopathy (R) Respiratory/Chest: Chest Non-Tender, Decreased Breath Sounds, Accessory Muscle Use. No: Crackles, Rales, Rhonchi, Wheezing, Stridor Cardiovascular: Normal Peripheral Pulses, Regular Rate, Rhythm, No Edema, No Gallop, No JVD, No Murmur, No Rub Peripheral Pulses: 2+: Radial (L), Radial (R) GI/Abdominal: Normal Bowel Sounds, Soft, Non-Tender, No Distention, No Mass, Pelvis Stable Back Exam: Normal Inspection, Full Range of Motion Extremities: Normal Inspection, Normal Range of Motion, Non-Tender, No Pedal Edema, Normal Capillary Refill Neurological: Alert, Oriented, CN II-XII Intact, Normal Cognition, Normal Gait, No Motor/Sensory Deficits Skin Exam: Warm, Dry, Intact, Normal Color, No Rash. No: Ecchymosis, Erythema, Mottled, Pallor, Petechiae, Rash Course - Vital Signs Last Recorded V/S: Last Vital Signs Temp 101.1 F H 04/14/20 17:53 Pulse 130 H 04/14/20 17:53 Resp 24 H 04/14/20 17:53 BP 142/76 H 04/14/20 17:53 Pulse Ox 92 L 04/14/20 17:53 - Orders/Labs/Meds Orders: Active Orders 24 hr Category Date Time Status Admission Diagnosis [ADT] Stat ADT 04/14/20 19:47 Ordered Admission Status [Patient Status] [ADT] Routine ADT 04/14/20 19:47 Ordered EKG Documentation Completion [RC] STAT Care 04/14/20 17:36 Active Isolation [COMM] Routine Oth 04/14/20 18:35 Active Labs: Laboratory Tests 04/14/20 04/14/20 04/14/20 Range/Units 17:35 17:35 17:35 WBC 8.3 (5.0-10.0) 10^3/uL RBC 4.80 (4.2-5.4) 10^6/uL Hgb 12.4 D (12.0-16.0) g/dL Hct 38.4 (37.0-47.0) % MCV 80.0 D (80-100) fL MCH 25.8 L (27.0-34.0) pg MCHC 32.3 L (33.0-35.0) g/dL Plt Count 215 D (150-450) 10^3/uL Neut % (Auto) 79.4 H (42.2-75.2) % Lymph % (Auto) 9.6 L (20.5-50.1) % [place] % (Auto) 7.7 (2-8) % Eos % (Auto) 3.1 H (1.0-3.0) % Baso % (Auto) 0.2 (0.0-1.0) % D-Dimer, Quantitative 647 H (0-400) ng/mL Sodium 135 L (136-145) mmol/L Potassium 4.0 (3.5-5.1) mmol/L Chloride 98 (98-107) mmol/L Carbon Dioxide 30 (21-32) mmol/L Anion Gap 11.0 (7-13) mEq/L BUN 8 D (7-18) mg/dL Creatinine 0.76 D (0.55-1.02) mg/dL Est Cr Clr Drug Dosing 73.07 mL/min Estimated GFR (MDRD) > 60 BUN/Creatinine Ratio 10.5 (No establ ref range) Glucose 238 H (74-99) mg/dL Lactic Acid (0.4-2.0) mmol/L Calcium 8.8 (8.5-10.1) mg/dL Phosphorus 2.5 L (2.6-4.7) mg/dL Magnesium 1.4 L (1.8-2.4) mg/dL Total Bilirubin 0.3 (0.2-1.0) mg/dL AST 32 (15-37) U/L ALT 53 (14-59) U/L Alkaline Phosphatase 124 H (46-116) U/L Troponin I < 0.017 (0.000-0.056) ng/mL C-Reactive Protein 1.2 H (0.0-0.9) mg/dL Total Protein 7.4 (6.4-8.2) g/dL Albumin 3.6 (3.4-5.0) g/dL Globulin 3.8 Albumin/Globulin Ratio 0.9 SARS CoV-2 RNA Rapid PEBBLES (NEGATIVE) 04/14/20 04/14/20 Range/Units 17:35 17:41 WBC (5.0-10.0) 10^3/uL RBC (4.2-5.4) 10^6/uL Hgb (12.0-16.0) g/dL Hct (37.0-47.0) % MCV (80-100) fL MCH (27.0-34.0) pg MCHC (33.0-35.0) g/dL Plt Count (150-450) 10^3/uL Neut % (Auto) (42.2-75.2) % Lymph % (Auto) (20.5-50.1) % [place] % (Auto) (2-8) % Eos % (Auto) (1.0-3.0) % Baso % (Auto) (0.0-1.0) % D-Dimer, Quantitative (0-400) ng/mL Sodium (136-145) mmol/L Potassium (3.5-5.1) mmol/L Chloride (98-107) mmol/L Carbon Dioxide (21-32) mmol/L Anion Gap (7-13) mEq/L BUN (7-18) mg/dL Creatinine (0.55-1.02) mg/dL Est Cr Clr Drug Dosing mL/min Estimated GFR (MDRD) BUN/Creatinine Ratio (No establ ref range) Glucose (74-99) mg/dL Lactic Acid 1.4 (0.4-2.0) mmol/L Calcium (8.5-10.1) mg/dL Phosphorus (2.6-4.7) mg/dL Magnesium (1.8-2.4) mg/dL Total Bilirubin (0.2-1.0) mg/dL AST (15-37) U/L ALT (14-59) U/L Alkaline Phosphatase (46-116) U/L Troponin I (0.000-0.056) ng/mL C-Reactive Protein (0.0-0.9) mg/dL Total Protein (6.4-8.2) g/dL Albumin (3.4-5.0) g/dL Globulin Albumin/Globulin Ratio SARS CoV-2 RNA Rapid PEBBLES Positive H (NEGATIVE) Meds: Medications Discontinued Medications Generic Name Dose Route Start Last Admin Trade Name Freq PRN Reason Stop Dose Admin Acetaminophen 650 mg 04/14/20 19:41 04/14/20 19:47 Tylenol PO 04/14/20 19:42 650 mg NOW ONE Administration Dexamethasone 6 mg 04/14/20 19:15 04/14/20 19:38 Decadron IVPUSH 04/14/20 19:16 6 mg ONETIME ONE Administration Magnesium Sulfate 2 gm in 50 mls @ 50 mls/hr 04/14/20 18:45 04/14/20 19:38 Magnesium Sulfate In Water Premix IV 04/14/20 19:44 50 mls/hr ONETIME ONE Administration Ondansetron HCl Confirm 04/14/20 19:46 04/14/20 19:49 Zofran Administered 04/14/20 19:47 Not Given Dose 4 mg .ROUTE .STK-MED ONE Ondansetron HCl 4 mg 04/14/20 19:49 04/14/20 19:50 Zofran IVPUSH 04/14/20 19:50 4 mg ONETIME ONE Administration - Radiology Interpretation Free Text/Narrative:: [facility] [place] [facility] Final Radiology Report Call: [phone] assistance Online chat: [email or web address] Name: STEVEN JOHANSEN Age: 54Years F Date: 04/14/2020 SSN: -- : 1965 Study: CR CHEST 1V FRONTAL Requesting Physician: Daniela Larose Images: 1 Addl Studies: Provided Clinical History: Shortness of breath Contrast: Contrast Medium: Contrast Amount: Contrast Method: CONFIDENTIALITY STATEMENT This report is intended only for use by the referring physician, and only in accordance with law. If you received this in error, call [phone]. Page 1 of 1 PROCEDURE INFORMATION: Exam: XR Chest, 1 View Exam date and time: 04/14/2020 6:23 PM Age: 54 years old Clinical indication: Shortness of breath TECHNIQUE: Imaging protocol: XR of the chest Views: 1 view. COMPARISON: CR Chest 2V 06/11/2019 8:26 PM FINDINGS: Lungs: The lung volumes are low. There is atelectasis and vascular crowding in the lung bases bilaterally. There is chronic scarring at the lateral aspect of the left lung base. Additionally, there is superimposed increased density in this location. Pleural space: There are no pleural effusions. There is no pneumothorax. Heart/Mediastinum: Allowing for technique, the heart size is within normal limits. The mediastinal and hilar contours are unremarkable. The pulmonary vessels are normal. Bones/joints: No acute osseous pathology is identified. IMPRESSION: Increased density at the lateral left lung base. This is nonspecific in the setting of low lung volumes and chronic scarring, but developing pneumonia should be considered. Thank you for allowing us to participate in the care of your patient. Dictated and Authenticated by: Joyce Garcia, - Re-Assessments/Exams Free Text/Narrative Re-Assessment/Exam: 04/14/20 COVID swab positive. Flu swab negative. Patient requiring 2L of O2 via NC to maintain oxygen saturations >94. 04/14/20 19:53 Dr. Blake accepted for observation status. Departure - Departure Time of Disposition: 19:49 Disposition: Refer to Observation Condition: Good Clinical Impression: Pneumonia due to COVID-19 virus - Discharge Information Forms: ED Department Discharge Sepsis Event Note (ED) - Evaluation Sepsis Screening Result: Possible Sepsis Risk - Focused Exam Vital Signs: Vital Signs Temp Pulse Resp BP Pulse Ox 04/14/20 17:53 101.1 F H 130 H 24 H 142/76 H 92 L - My Orders Last 24 Hours: My Active Orders 04/14/20 17:36 EKG Documentation Completion [RC] STAT 04/14/20 18:35 Isolation [COMM] Routine 04/14/20 19:47 Admission Diagnosis [ADT] Stat Admission Status [Patient Status] [ADT] Routine - Assessment/Plan Last 24 Hours: My Active Orders 04/14/20 17:36 EKG Documentation Completion [RC] STAT 04/14/20 18:35 Isolation [COMM] Routine 04/14/20 19:47 Admission Diagnosis [ADT] Stat Admission Status [Patient Status] [ADT] Routine
--- NOTE | 2020-04-14 19:09 | CR ---
PROCEDURE INFORMATION: Exam: XR Chest, 1 View Exam date and time: 04/14/2020 6:23 PM Age: 54 years old Clinical indication: Shortness of breath TECHNIQUE: Imaging protocol: XR of the chest Views: 1 view. COMPARISON: CR Chest 2V 06/11/2019 8:26 PM FINDINGS: Lungs: The lung volumes are low. There is atelectasis and vascular crowding in the lung bases bilaterally. There is chronic scarring at the lateral aspect of the left lung base. Additionally, there is superimposed increased density in this location. Pleural space: There are no pleural effusions. There is no pneumothorax. Heart/Mediastinum: Allowing for technique, the heart size is within normal limits. The mediastinal and hilar contours are unremarkable. The pulmonary vessels are normal. Bones/joints: No acute osseous pathology is identified. IMPRESSION: Increased density at the lateral left lung base. This is nonspecific in the setting of low lung volumes and chronic scarring, but developing pneumonia should be considered.
[2020-04-14] MEDS ORDERED: Dexamethasone 4 MG/ML SDV IVPUSH ONE (19:15)
[2020-04-14] MEDS ORDERED: Acetaminophen 325 MG Tab PO ONE (19:41)
[2020-04-14] MEDS ORDERED: Ondansetron 4 MG/2 ML SDV ONE (19:46)
[2020-04-14] MEDS ORDERED: Ondansetron 4 MG/2 ML SDV IVPUSH ONE (19:49)
[2020-04-14] MEDS ORDERED: Acetaminophen 500 MG Tab PO PRN (20:33)
[2020-04-14] MEDS ORDERED: traZODone 50 MG Tab PO PRN (20:33)
[2020-04-14] MEDS ORDERED: 50% Dextrose in Water 50 ML Syringe IVPUSH PRN (20:35)
[2020-04-14] MEDS ORDERED: Glucagon,Human Recombinant 1 MG Vial IM PRN (20:35)
[2020-04-14] MEDS ORDERED: 50% Dextrose in Water 50 ML Syringe IV PRN (20:35)
[2020-04-14] MEDS ORDERED: Ondansetron 4 MG Tab.DIS PO PRN (20:37)
[2020-04-14] MEDS ORDERED: Docusate Sodium 100 MG Cap PO PRN (20:37)
[2020-04-14] MEDS ORDERED: Sodium Chloride 0.9% 10 ML Syringe FLUSH PRN (20:37)
[2020-04-14] MEDS ORDERED: Azithromycin 500 MG in Sodium Chloride 0.9% 250 ML IV SCH (21:00)
[2020-04-14] MEDS ORDERED: Albuterol 6.7 GM Inhaler INH PRN (21:18)
--- NOTE | 2020-04-14 21:18 | PCM.HP ---
H&P History of Present Illness - General Date of Service: 04/14/20 Admit Problem/Dx: Admission Diagnosis/Problem Admission Diagnosis/Problem Pneumonia Source of Information: Patient - History of Present Illness Initial Comments - Free Text/Narative: 54-year-old lady with a 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 She has a history of acute renal failure when she was septic, briefly requiring dialysis. She has a history of chronic back pain on chronic narcotics. She was developing symptoms of body ache, chills, fever, dry, nonproductive cough. Symptoms started on 13 April. She lives with children and has no similar symptoms. She has no chest pain, no abdominal pain, no urinary symptoms She is feeling short of breath. Oxygen saturation was 92% on room air in the emergency room. She was noted to have fever. - Related Data Allergies/Adverse Reactions: Allergies Allergy/AdvReac Type Severity Reaction Status Date / Time latex Allergy Rash Uncoded 11/06/19 14:57 onions Allergy Hives Uncoded 11/06/19 14:57 spider bites Allergy Numbness Uncoded 11/06/19 14:57 Home Medications: Home Meds Insulin Detemir [Levemir] 56 units SQ BEDTIME 06/01/13 [History] Aspirin [Halfprin] 81 mg PO DAILY 02/14/14 [History] Cyclobenzaprine [Flexeril] 10 mg PO TID 09/04/15 [History] Carboxymethylcellulose Sodium [Refresh Tears 0.5%] 2 drop EYELF TID 05/26/19 [History] Liraglutide [Victoza] 1.2 mg SQ WITHBREAKFAST 09/03/19 [History] Multivitamin [Multi-Day Vitamins] 1 each PO DAILY 09/03/19 [History] Acetaminophen 1,000 mg PO Q8HR PRN 10/14/19 [History] B Complex W-C No.20/Folic Acid [Griffin Caps Softgel] 1 mg PO DAILY 10/14/19 [History] Calcium Carbonate [Calcium] 1,200 mg PO DAILY 10/14/19 [History] Gabapentin [Neurontin] 100 mg PO TID 10/14/19 [History] Morphine [MS Contin] 30 mg PO BID 10/14/19 [History] Naloxone HCl [Narcan] 4 mg NS ASDIRECTED PRN 10/14/19 [History] Sertraline [Zoloft] 100 mg PO DAILY 10/14/19 [History] atorvaSTATin [Lipitor] 10 mg PO BEDTIME 10/14/19 [History] traZODone HCl [Trazodone HCl] 50 mg PO BEDTIME PRN 10/14/19 [History] Biotin 10,000 mcg PO DAILY 10/15/19 [History] Morphine Sulfate 15 mg PO TID PRN 10/31/19 [History] Past Medical History HEENT History: Reports: Impaired Vision Other HEENT History: wears glasses, droopy L) eye lid, had reconstrucion surg Cardiovascular History: Reports: Heart Murmur Respiratory History: Reports: Pneumonia, Recurrent Gastrointestinal History: Reports: None Genitourinary History: Reports: None, Dialysis, Other (See Below) Other Genitourinary History: Pt. reports she had sepsis in October, and her "kidneys shut down". She stated she received about 5 days of dialysis and got her kidneys started up again. 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 SEVERE L4-5 LUMBAR SPINAL STENOSIS. 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 T12-L1 THROUGH L5-S1 DEGENERATIVE DISC. 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 SEVERE L4-5 LUMBAR SPINAL STENOSIS. 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 T12-L1 THROUGH L5- S1 DEGENERATIVE DISC. 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 Cardiovascular Surgical History: Reports: None GI Surgical History: Reports: Appendectomy, Bariatric Procedure, Colonoscopy, Other (See Below) Other GI Surgeries/Procedures: gastric bypass Female Surgical History: Reports: Section, Oophorectomy, Tubal Ligation Endocrine Surgical History: Reports: None Other Neurological Surgeries/Procedures: brace on spine Musculoskeletal Surgical History: Reports: Knee Replacement, Other (See Below) Other Musculoskeletal Surgeries/Procedures:: back surgery x2 Oncologic Surgical History: Reports: None Social & Family History - Family History Family Medical History: No Pertinent Family History Cardiac: Reports: OK Endocrine/Metabolic: Reports: Diabetes, Type I Oncologic: Reports: Ovarian, Prostate - Tobacco Use Tobacco Use Status *Q: Unknown Ever Used Tobacco Second Hand Smoke Exposure: No - Caffeine Use Caffeine Use: Reports: Tea - Recreational Drug Use Recreational Drug Use: No - Living Situation & Occupation Living situation: Reports: , with Family H&P Review of Systems - Review of Systems: Review Of Systems: See Below General: Reports: Fever, Chills Pulmonary: Reports: Shortness of Breath, Cough. Denies: Wheezing, Pleuritic Chest Pain, Sputum, Hemoptysis Cardiovascular: Denies: Chest Pain, Edema Gastrointestinal: Denies: Abdominal Pain Genitourinary: Denies: Dysuria Exam - Exam Exam: See Below - Vital Signs Vital Signs: Last Vital Signs Temp 100.0 F 04/14/20 20:37 Pulse 98 04/14/20 20:37 Resp 20 04/14/20 20:37 BP 142/76 H 04/14/20 17:53 Pulse Ox 95 04/14/20 21:04 Weight: 245 lb - Exam Quality Assessment: Supplemental Oxygen General: Alert, Oriented Neck: Supple Lungs: Clear to Auscultation, Normal Respiratory Effort, Decreased Breath Sounds Cardiovascular: Regular Rate, Regular Rhythm GI/Abdominal Exam: Normal Bowel Sounds, Soft, Non-Tender Extremities: Pedal Edema (trace bilateral), Other (right knee healed incision) - Patient Data Lab Results Last 24 hrs: Laboratory Results - last 24 hr 04/14/20 04/14/20 04/14/20 Range/Units 17:35 17:35 17:35 WBC 8.3 (5.0-10.0) 10^3/uL RBC 4.80 (4.2-5.4) 10^6/uL Hgb 12.4 D (12.0-16.0) g/dL Hct 38.4 (37.0-47.0) % MCV 80.0 D (80-100) fL MCH 25.8 L (27.0-34.0) pg MCHC 32.3 L (33.0-35.0) g/dL Plt Count 215 D (150-450) 10^3/uL Neut % (Auto) 79.4 H (42.2-75.2) % Lymph % (Auto) 9.6 L (20.5-50.1) % [place] % (Auto) 7.7 (2-8) % Eos % (Auto) 3.1 H (1.0-3.0) % Baso % (Auto) 0.2 (0.0-1.0) % D-Dimer, Quantitative 647 H (0-400) ng/mL Sodium 135 L (136-145) mmol/L Potassium 4.0 (3.5-5.1) mmol/L Chloride 98 (98-107) mmol/L Carbon Dioxide 30 (21-32) mmol/L Anion Gap 11.0 (7-13) mEq/L BUN 8 D (7-18) mg/dL Creatinine 0.76 D (0.55-1.02) mg/dL Est Cr Clr Drug Dosing 73.07 mL/min Estimated GFR (MDRD) > 60 BUN/Creatinine Ratio 10.5 (No establ ref range) Glucose 238 H (74-99) mg/dL Lactic Acid (0.4-2.0) mmol/L Calcium 8.8 (8.5-10.1) mg/dL Phosphorus 2.5 L (2.6-4.7) mg/dL Magnesium 1.4 L (1.8-2.4) mg/dL Total Bilirubin 0.3 (0.2-1.0) mg/dL AST 32 (15-37) U/L ALT 53 (14-59) U/L Alkaline Phosphatase 124 H (46-116) U/L Troponin I < 0.017 (0.000-0.056) ng/mL C-Reactive Protein 1.2 H (0.0-0.9) mg/dL Total Protein 7.4 (6.4-8.2) g/dL Albumin 3.6 (3.4-5.0) g/dL Globulin 3.8 Albumin/Globulin Ratio 0.9 SARS CoV-2 RNA Rapid PEBBLES (NEGATIVE) 04/14/20 04/14/20 Range/Units 17:35 17:41 WBC (5.0-10.0) 10^3/uL RBC (4.2-5.4) 10^6/uL Hgb (12.0-16.0) g/dL Hct (37.0-47.0) % MCV (80-100) fL MCH (27.0-34.0) pg MCHC (33.0-35.0) g/dL Plt Count (150-450) 10^3/uL Neut % (Auto) (42.2-75.2) % Lymph % (Auto) (20.5-50.1) % [place] % (Auto) (2-8) % Eos % (Auto) (1.0-3.0) % Baso % (Auto) (0.0-1.0) % D-Dimer, Quantitative (0-400) ng/mL Sodium (136-145) mmol/L Potassium (3.5-5.1) mmol/L Chloride (98-107) mmol/L Carbon Dioxide (21-32) mmol/L Anion Gap (7-13) mEq/L BUN (7-18) mg/dL Creatinine (0.55-1.02) mg/dL Est Cr Clr Drug Dosing mL/min Estimated GFR (MDRD) BUN/Creatinine Ratio (No establ ref range) Glucose (74-99) mg/dL Lactic Acid 1.4 (0.4-2.0) mmol/L Calcium (8.5-10.1) mg/dL Phosphorus (2.6-4.7) mg/dL Magnesium (1.8-2.4) mg/dL Total Bilirubin (0.2-1.0) mg/dL AST (15-37) U/L ALT (14-59) U/L Alkaline Phosphatase (46-116) U/L Troponin I (0.000-0.056) ng/mL C-Reactive Protein (0.0-0.9) mg/dL Total Protein (6.4-8.2) g/dL Albumin (3.4-5.0) g/dL Globulin Albumin/Globulin Ratio SARS CoV-2 RNA Rapid PEBBLES Positive H (NEGATIVE) Result Diagrams: 04/14/20 17:35 04/14/20 17:35 Brian Results Last 24 hrs: Microbiology 04/14/20 17:41 Influenza Type A Antigen Screen - Final Nasal, Unspecified NEGATIVE INFLUENZA A VIRUS AG REFERENCE RANGE: NEGATIVE Influenza Type B Antigen Screen - Final NEGATIVE INFLUENZA B VIRUS AG REFERENCE RANGE: NEGATIVE - Problem List (1) Low back pain SNOMED Code(s): 860649046 ICD Code: M54.5 - LOW BACK PAIN Status: Acute Current Visit: No (2) Pneumonia SNOMED Code(s): 531790510 ICD Code: J18.9 - PNEUMONIA, UNSPECIFIED ORGANISM Status: Acute Current Visit: No Qualifiers: Pneumonia type: due to unspecified organism Laterality: unspecified laterality Lung location: unspecified part of lung Qualified Code(s): J18.9 - Pneumonia, unspecified organism (3) Pneumonia due to COVID-19 virus SNOMED Code(s): 653333613382485882 ICD Code: U07.1 - COVID-19; J12.89 - OTHER VIRAL PNEUMONIA Status: Acute Current Visit: No Problem List Initiated/Reviewed/Updated: Yes Orders Last 24hrs: Active Orders 24 hr Category Date Time Status Admission Diagnosis [ADT] Stat ADT 04/14/20 19:47 Ordered Admission Status [Patient Status] [ADT] Routine ADT 04/14/20 19:47 Active Antiembolic Devices [RC] PER UNIT ROUTINE Care 04/14/20 20:43 Ordered Nurse Communication: Isolation [RC] ASDIRECTED Care 04/14/20 20:49 Ordered Oxygen Therapy [RC] PRN Care 04/14/20 20:37 Ordered Peripheral IV Care [RC] . DIRECTED Care 04/14/20 20:44 Ordered Up With Assistance [RC] ASDIRECTED Care 04/14/20 20:37 Ordered VTE/DVT Education [RC] PER UNIT ROUTINE Care 04/14/20 20:37 Ordered Verify Patient Consent Obtain [RC] ASDIRECTED Care 04/14/20 20:47 Ordered Vital Signs [RC] Q4H Care 04/14/20 20:37 Ordered Regular Diet [DIET] Diet 04/14/20 Breakfast Ordered ABO/RH TYPE [BBK] Routine Lab 04/14/20 20:47 Ordered BASIC METABOLIC PANEL,BMP [CHEM] AM Lab 04/15/20 05:11 Ordered BASIC METABOLIC PANEL,BMP [CHEM] AM Lab 04/16/20 05:11 Ordered BASIC METABOLIC PANEL,BMP [CHEM] AM Lab 04/17/20 05:11 Ordered BASIC METABOLIC PANEL,BMP [CHEM] AM Lab 04/18/20 05:11 Ordered BASIC METABOLIC PANEL,BMP [CHEM] AM Lab 04/19/20 05:11 Ordered C-REACTIVE PROTEIN [CHEM] AM Lab 04/15/20 05:11 Ordered C-REACTIVE PROTEIN [CHEM] AM Lab 04/16/20 05:11 Ordered C-REACTIVE PROTEIN [CHEM] AM Lab 04/17/20 05:11 Ordered C-REACTIVE PROTEIN [CHEM] AM Lab 04/18/20 05:11 Ordered C-REACTIVE PROTEIN [CHEM] AM Lab 04/19/20 05:11 Ordered CBC WITH AUTO DIFF [HEME] AM Lab 04/15/20 05:11 Ordered CBC WITH AUTO DIFF [HEME] AM Lab 04/16/20 05:11 Ordered CBC WITH AUTO DIFF [HEME] AM Lab 04/17/20 05:11 Ordered CBC WITH AUTO DIFF [HEME] AM Lab 04/18/20 05:11 Ordered CBC WITH AUTO DIFF [HEME] AM Lab 04/19/20 05:11 Ordered CULTURE BLOOD [BC] Stat Lab 04/14/20 20:50 Ordered CULTURE SPUTUM + SMEAR [RM] Routine Lab 04/14/20 20:50 Ordered D-DIMER QUANTITATIVE [COAG] AM Lab 04/15/20 05:11 Ordered D-DIMER QUANTITATIVE [COAG] AM Lab 04/16/20 05:11 Ordered D-DIMER QUANTITATIVE [COAG] AM Lab 04/17/20 05:11 Ordered D-DIMER QUANTITATIVE [COAG] AM Lab 04/18/20 05:11 Ordered D-DIMER QUANTITATIVE [COAG] AM Lab 04/19/20 05:11 Ordered FERRITIN [CHEM] AM Lab 04/15/20 05:11 Ordered FERRITIN [CHEM] AM Lab 04/16/20 05:11 Ordered FERRITIN [CHEM] AM Lab 04/17/20 05:11 Ordered FERRITIN [CHEM] AM Lab 04/18/20 05:11 Ordered FERRITIN [CHEM] AM Lab 04/19/20 05:11 Ordered FRESH FROZEN PLASMA [BBK] Routine Lab 04/14/20 20:47 Ordered HEPATIC FUNCTION PANEL,HFP [CHEM] AM Lab 04/15/20 05:11 Ordered HEPATIC FUNCTION PANEL,[facility] [CHEM] AM Lab 04/16/20 05:11 Ordered HEPATIC FUNCTION PANEL,[facility] [CHEM] AM Lab 04/17/20 05:11 Ordered HEPATIC FUNCTION PANEL,[facility] [CHEM] AM Lab 04/18/20 05:11 Ordered HEPATIC FUNCTION PANEL,[facility] [CHEM] AM Lab 04/19/20 05:11 Ordered PROCALCITONIN [REF] AM Lab 04/15/20 05:11 Ordered PROCALCITONIN [REF] AM Lab 04/16/20 05:11 Ordered PROCALCITONIN [REF] AM Lab 04/17/20 05:11 Ordered PROCALCITONIN [REF] AM Lab 04/18/20 05:11 Ordered PROCALCITONIN [REF] AM Lab 04/19/20 05:11 Ordered Acetaminophen [Tylenol Extra Strength] Med 04/14/20 20:33 Ordered 1,000 mg PO Q8HR PRN Aspirin [Halfprin] Med 04/15/20 09:00 Ordered 81 mg PO DAILY Azithromycin [Zithromax] 500 mg Med 04/14/20 21:00 Ordered Sodium Chloride 0.9% [Normal Saline (AdvBag)] 250 ml IV Q24H Cyclobenzaprine [Flexeril] Med 04/14/20 21:00 Ordered 10 mg PO TID Dextrose 50% in Water Med 04/14/20 20:35 Ordered 25 ml IVPUSH Q1H PRN Dextrose 50% in Water Med 04/14/20 20:35 Ordered 50 ml IV ASDIRECTED PRN Docusate Sodium [Colace] Med 04/14/20 20:37 Ordered 100 mg PO BID PRN Enoxaparin [Lovenox] Med 04/14/20 21:00 Ordered 40 mg SUBCUT BID Gabapentin [Neurontin] Med 04/14/20 21:00 Ordered 100 mg PO TID Glucagon,Human Recombinant [GlucaGen] Med 04/14/20 20:35 Ordered 1 mg IM ASDIRECTED PRN Insulin Glarg,Human.Rec.Analog [LantUS] Med 04/14/20 21:00 Ordered 50 unit SUBCUT BEDTIME Insulin Lispro [HumaLOG] Med 04/14/20 21:00 Ordered See Protocol SUBCUT ACBED Morphine Med 04/14/20 20:33 Ordered 15 mg PO TID PRN Morphine [MS Contin] Med 04/14/20 21:00 Ordered 30 mg PO BID Multivitamin [Multi-Day Vitamins] Med 04/15/20 09:00 Ordered 1 each PO DAILY Ondansetron [Zofran ODT] Med 04/14/20 20:37 Ordered 4 mg PO Q6H PRN Remdesivir (Eua) [Remdesivir (EUA)] 100 mg Med 04/15/20 09:00 Ordered Sodium Chloride 0.9% [Normal Saline] 230 ml IV Q24H Sertraline [Zoloft] Med 04/15/20 09:00 Ordered 100 mg PO DAILY Sodium Chloride 0.9% [Saline Flush] Med 04/14/20 20:37 Ordered 10 ml FLUSH ASDIRECTED PRN cefTRIAXone [Rocephin] 1 gm Med 04/14/20 21:00 Ordered Sodium Chloride 0.9% [Normal Saline] 50 ml IV Q24H dexAMETHasone Med 04/15/20 09:00 Ordered 6 mg PO DAILY traZODone Med 04/14/20 20:33 Ordered 50 mg PO BEDTIME PRN Antiembolic Hose [OM.PC] Per Unit Routine Oth 04/14/20 20:37 Ordered Isolation [COMM] Routine Oth 04/14/20 18:35 Active Isolation [COMM] Stat Oth 04/14/20 20:48 Ordered Peripheral IV Insertion Adult [OM.PC] Routine Oth 04/14/20 20:37 Ordered Saline Lock Insert [OM.PC] Routine Oth 04/14/20 20:37 Ordered Transfuse Fresh Frozen Plasma [COMM] Routine Oth 04/14/20 20:47 Ordered Resuscitation Status Routine Resus Stat 04/14/20 20:37 Ordered Medication Orders Acetaminophen (Tylenol Extra Strength) 1,000 mg PO Q8HR PRN PRN Reason: Pain Aspirin (Halfprin) 81 mg PO DAILY [facility] Cyclobenzaprine HCl (Flexeril) 10 mg PO TID [facility] Dexamethasone (Dexamethasone) 6 mg PO DAILY [facility] Stop: 04/24/20 09:01 Dextrose/Water (Dextrose 50% In Water) 25 ml IVPUSH Q1H PRN PRN Reason: blood sugar <70 Dextrose/Water (Dextrose 50% In Water) 50 ml IV ASDIRECTED PRN PRN Reason: Hypoglycemia Docusate Sodium (Colace) 100 mg PO BID PRN PRN Reason: Constipation Enoxaparin Sodium (Lovenox) 40 mg SUBCUT BID [facility] Gabapentin (Neurontin) 100 mg PO TID [facility] Glucagon (Glucagen) 1 mg IM ASDIRECTED PRN PRN Reason: Hypoglycemia Remdesivir 100 mg/ Sodium (Chloride) 230 mls @ 230 mls/hr IV Q24H [facility] Stop: 04/18/20 09:01 Ceftriaxone Sodium 1 gm/ (Sodium Chloride) 50 mls @ 100 mls/hr IV Q24H [facility] Azithromycin 500 mg/ Sodium (Chloride) 250 mls @ 250 mls/hr IV Q24H [facility] Insulin Glargine (Lantus) 50 unit SUBCUT BEDTIME [facility] Insulin Human Lispro (Humalog) 0 unit SUBCUT QIDACANDBED [facility]; Protocol Morphine Sulfate (Morphine) 15 mg PO TID PRN PRN Reason: Pain Morphine Sulfate (Ms Contin) 30 mg PO BID [facility] Multivitamins (Thera) 1 each PO DAILY [facility] Ondansetron HCl (Zofran Odt) 4 mg PO Q6H PRN PRN Reason: nausea, able to take PO Sertraline HCl (Zoloft) 100 mg PO DAILY [facility] Sodium Chloride (Saline Flush) 10 ml FLUSH ASDIRECTED PRN PRN Reason: Keep Vein Open Trazodone HCl (Trazodone) 50 mg PO BEDTIME PRN PRN Reason: Sleep Assessment/Plan Comment:: Acute hypoxemic respiratory failure Oxygen saturation was 92% on room air in the emergency room at rest Supplement oxygen as needed 54-year-old lady with a 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 She has a history of acute renal failure when she was septic, briefly requiring dialysis. She has a history of chronic back pain on chronic narcotics. She was developing symptoms of body ache, chills, fever, dry, nonproductive cough. Symptoms started on 13 April. She lives with children and has no similar symptoms. She has no chest pain, no abdominal pain, no urinary symptoms She is feeling short of breath. Oxygen saturation was 92% on room air in the emergency room. She was noted to have fever. Acute hypoxemic respiratory failure Oxygen saturation was 92% on room air in the emergency room at rest Supplement oxygen as needed Covid 19 pneumonia with sepsis POA (tachy, fever, left LL infiltrate symptoms started on 13 April Positive covid 19 screen on 14 April GI and pulmonary symptoms associated with hypoxemia 92% on RA 04/14 in ER LFT, Renal fx. Is good treat with Remdesivir 04/14- Dexamethasone 04/14- Plasma 04/15 evaluate for concurrent bacterial infections Follow pro-calcitonin levels Check sputum and blood cx In the meantime start azithro and rocephin since the Pneumonia on CXR is not typical covid Ddimer is high - DVT prophylaxis SQ Lovenox bid Hyponatremia Mild Well monitor Hypomagnesemia, hypophosphatemia Well replace and recheck Diabetes Continue Lantus at night Use supplemental insulin and hypoglycemia treatment as needed Dyslipidemia Hold statin while on Remdesivir Chronic pain Continue Neurontin, Flexeril Continue long-acting and short-acting morphine Continue Zoloft Trazodone for sleep
--- NOTE | 2020-04-14 21:25 | PCM.SN.2 ---
- Free Text/Narrative Note: I have discussed with the patient the use of plasma and Remdesivir. we discussed the risks benefits and alternatives of plasma transfusion. I spoke with patient and provided information about Remdesevir treatment as being under emergency use authorization (EUA) and not fully FDA approved or reviewed. I discussed potential side effects including liver abnormalities. Also discussed other potential treatment options that are currently not FDA approved to treat COVID-19. Patient gives permission for Remdesevir.
[2020-04-14] MEDS: Enoxaparin 40 MG/0.4 ML Syringe SUBCUT SCH (22:26)
[2020-04-14] MEDS: Insulin Glarg,Human.Rec.Analog 100 Unit/ML SUBCUT SCH (22:26)
[2020-04-14] MEDS: Insulin Lispro 100 Units/ML 3 ML Vial SUBCUT SCH (22:27)
[2020-04-14] MEDS: Morphine 15 MG Tab PO PRN (22:29)
[2020-04-14] MEDS: Morphine 30 MG Tab.ER PO SCH (22:30)
[2020-04-14] MEDS: Gabapentin 100 MG Cap PO SCH (22:31)
[2020-04-14] MEDS: Cyclobenzaprine 10 MG Tab PO SCH (22:31)
[2020-04-14] MEDS: cefTRIAXone 1 GM in Sodium Chloride 0.9% 50 ML IV SCH (23:39)
[2020-04-15 06:56] LABS: ANION GAP 10.7 mEq/L (7-13); CHLORIDE,CL 102 mmol/L (98-107); SODIUM,NA 138 mmol/L (136-145)
[2020-04-15] MEDS: Sertraline 50 MG Tab PO SCH (08:49)
[2020-04-15] MEDS: Cyclobenzaprine 10 MG Tab PO SCH ×3 (08:49→20:36)
[2020-04-15] MEDS: Dexamethasone 2 MG Tab PO SCH (08:49)
[2020-04-15] MEDS: Multivitamins,Therapeutic Tab PO SCH (08:49)
[2020-04-15] MEDS: Gabapentin 100 MG Cap PO SCH ×3 (08:50→20:37)
[2020-04-15] MEDS: Aspirin 81 MG Tab.EC PO SCH (08:50)
[2020-04-15] MEDS: Enoxaparin 40 MG/0.4 ML Syringe SUBCUT SCH ×2 (08:50→20:37)
[2020-04-15] MEDS: Formoterol/Mometasone 200-5 MCG 8.8 GM Inhaler IH SCH ×2 (08:51→17:50)
[2020-04-15] MEDS: Morphine 30 MG Tab.ER PO SCH ×2 (08:52→20:36)
[2020-04-15] MEDS: Insulin Lispro 100 Units/ML 3 ML Vial SUBCUT SCH ×4 (09:07→20:38)
--- NOTE | 2020-04-15 12:53 | PCM.PN ---
- General Info Date of Service: 04/15/20 Admission Dx/Problem (Free Text): Admission Diagnosis/Problem Admission Diagnosis/Problem Pneumonia Subjective Update: feeling better, less shortness of breath. Still on oxygen. Symptoms started prior to admission. No associated chest pain. Has dry cough. - Patient Data Vitals - Most Recent: Last Vital Signs Temp 97.3 F 04/15/20 12:39 Pulse 77 04/15/20 12:39 Resp 20 04/15/20 12:39 BP 131/86 04/15/20 12:39 Pulse Ox 96 04/15/20 12:39 Weight - Most Recent: 245 lb I&O - Last 24 Hours: Intake & Output 04/14/20 04/15/20 04/15/20 22:59 06:59 14:59 Intake Total 200 Balance 200 Lab Results Last 24 Hours: Laboratory Results - last 24 hr 04/14/20 04/14/20 04/14/20 Range/Units 17:35 17:35 17:35 WBC 8.3 (5.0-10.0) 10^3/uL RBC 4.80 (4.2-5.4) 10^6/uL Hgb 12.4 D (12.0-16.0) g/dL Hct 38.4 (37.0-47.0) % MCV 80.0 D (80-100) fL MCH 25.8 L (27.0-34.0) pg MCHC 32.3 L (33.0-35.0) g/dL Plt Count 215 D (150-450) 10^3/uL Neut % (Auto) 79.4 H (42.2-75.2) % Lymph % (Auto) 9.6 L (20.5-50.1) % Barber % (Auto) 7.7 (2-8) % Eos % (Auto) 3.1 H (1.0-3.0) % Baso % (Auto) 0.2 (0.0-1.0) % D-Dimer, Quantitative 647 H (0-400) ng/mL Sodium 135 L (136-145) mmol/L Potassium 4.0 (3.5-5.1) mmol/L Chloride 98 (98-107) mmol/L Carbon Dioxide 30 (21-32) mmol/L Anion Gap 11.0 (7-13) mEq/L BUN 8 D (7-18) mg/dL Creatinine 0.76 D (0.55-1.02) mg/dL Est Cr Clr Drug Dosing 73.07 mL/min Estimated GFR (MDRD) > 60 BUN/Creatinine Ratio 10.5 (No establ ref range) Glucose 238 H (74-99) mg/dL POC Glucose (70-105) mg/dl Lactic Acid (0.4-2.0) mmol/L Calcium 8.8 (8.5-10.1) mg/dL Phosphorus 2.5 L (2.6-4.7) mg/dL Magnesium 1.4 L (1.8-2.4) mg/dL Ferritin (8-252) mg/mL Total Bilirubin 0.3 (0.2-1.0) mg/dL Direct Bilirubin (0.0-0.2) mg/dL Indirect Bilirubin AST 32 (15-37) U/L ALT 53 (14-59) U/L Alkaline Phosphatase 124 H (46-116) U/L Troponin I < 0.017 (0.000-0.056) ng/mL C-Reactive Protein 1.2 H (0.0-0.9) mg/dL Total Protein 7.4 (6.4-8.2) g/dL Albumin 3.6 (3.4-5.0) g/dL Globulin 3.8 Albumin/Globulin Ratio 0.9 SARS CoV-2 RNA Rapid PEBBLES (NEGATIVE) Blood Type 04/14/20 04/14/20 04/14/20 Range/Units 17:35 17:35 17:41 WBC (5.0-10.0) 10^3/uL RBC (4.2-5.4) 10^6/uL Hgb (12.0-16.0) g/dL Hct (37.0-47.0) % MCV (80-100) fL MCH (27.0-34.0) pg MCHC (33.0-35.0) g/dL Plt Count (150-450) 10^3/uL Neut % (Auto) (42.2-75.2) % Lymph % (Auto) (20.5-50.1) % Barber % (Auto) (2-8) % Eos % (Auto) (1.0-3.0) % Baso % (Auto) (0.0-1.0) % D-Dimer, Quantitative (0-400) ng/mL Sodium (136-145) mmol/L Potassium (3.5-5.1) mmol/L Chloride (98-107) mmol/L Carbon Dioxide (21-32) mmol/L Anion Gap (7-13) mEq/L BUN (7-18) mg/dL Creatinine (0.55-1.02) mg/dL Est Cr Clr Drug Dosing mL/min Estimated GFR (MDRD) BUN/Creatinine Ratio (No establ ref range) Glucose (74-99) mg/dL POC Glucose (70-105) mg/dl Lactic Acid 1.4 (0.4-2.0) mmol/L Calcium (8.5-10.1) mg/dL Phosphorus (2.6-4.7) mg/dL Magnesium (1.8-2.4) mg/dL Ferritin (8-252) mg/mL Total Bilirubin (0.2-1.0) mg/dL Direct Bilirubin (0.0-0.2) mg/dL Indirect Bilirubin AST (15-37) U/L ALT (14-59) U/L Alkaline Phosphatase (46-116) U/L Troponin I (0.000-0.056) ng/mL C-Reactive Protein (0.0-0.9) mg/dL Total Protein (6.4-8.2) g/dL Albumin (3.4-5.0) g/dL Globulin Albumin/Globulin Ratio SARS CoV-2 RNA Rapid PEBBLES Positive H (NEGATIVE) Blood Type A POSITIVE 04/14/20 04/15/20 04/15/20 Range/Units 22:18 05:55 05:55 WBC 6.3 (5.0-10.0) 10^3/uL RBC 4.41 (4.2-5.4) 10^6/uL Hgb 11.2 L (12.0-16.0) g/dL Hct 35.9 L (37.0-47.0) % MCV 81.4 (80-100) fL MCH 25.4 L (27.0-34.0) pg MCHC 31.2 L (33.0-35.0) g/dL Plt Count 199 (150-450) 10^3/uL Neut % (Auto) 87.7 H (42.2-75.2) % Lymph % (Auto) 7.3 L (20.5-50.1) % Barber % (Auto) 4.8 (2-8) % Eos % (Auto) 0.0 L (1.0-3.0) % Baso % (Auto) 0.2 (0.0-1.0) % D-Dimer, Quantitative 191 (0-400) ng/mL Sodium (136-145) mmol/L Potassium (3.5-5.1) mmol/L Chloride (98-107) mmol/L Carbon Dioxide (21-32) mmol/L Anion Gap (7-13) mEq/L BUN (7-18) mg/dL Creatinine (0.55-1.02) mg/dL Est Cr Clr Drug Dosing mL/min Estimated GFR (MDRD) BUN/Creatinine Ratio (No establ ref range) Glucose (74-99) mg/dL POC Glucose 267 H (70-105) mg/dl Lactic Acid (0.4-2.0) mmol/L Calcium (8.5-10.1) mg/dL Phosphorus (2.6-4.7) mg/dL Magnesium (1.8-2.4) mg/dL Ferritin (8-252) mg/mL Total Bilirubin (0.2-1.0) mg/dL Direct Bilirubin (0.0-0.2) mg/dL Indirect Bilirubin AST (15-37) U/L ALT (14-59) U/L Alkaline Phosphatase (46-116) U/L Troponin I (0.000-0.056) ng/mL C-Reactive Protein (0.0-0.9) mg/dL Total Protein (6.4-8.2) g/dL Albumin (3.4-5.0) g/dL Globulin Albumin/Globulin Ratio SARS CoV-2 RNA Rapid PEBBLES (NEGATIVE) Blood Type 04/15/20 04/15/20 04/15/20 Range/Units 05:55 05:55 08:46 WBC (5.0-10.0) 10^3/uL RBC (4.2-5.4) 10^6/uL Hgb (12.0-16.0) g/dL Hct (37.0-47.0) % MCV (80-100) fL MCH (27.0-34.0) pg MCHC (33.0-35.0) g/dL Plt Count (150-450) 10^3/uL Neut % (Auto) (42.2-75.2) % Lymph % (Auto) (20.5-50.1) % Barber % (Auto) (2-8) % Eos % (Auto) (1.0-3.0) % Baso % (Auto) (0.0-1.0) % D-Dimer, Quantitative (0-400) ng/mL Sodium 138 (136-145) mmol/L Potassium 4.7 (3.5-5.1) mmol/L Chloride 102 (98-107) mmol/L Carbon Dioxide 30 (21-32) mmol/L Anion Gap 10.7 (7-13) mEq/L BUN 13 (7-18) mg/dL Creatinine 0.81 (0.55-1.02) mg/dL Est Cr Clr Drug Dosing 68.56 mL/min Estimated GFR (MDRD) > 60 BUN/Creatinine Ratio (No establ ref range) Glucose 359 H (74-99) mg/dL POC Glucose 383 H (70-105) mg/dl Lactic Acid (0.4-2.0) mmol/L Calcium 8.4 L (8.5-10.1) mg/dL Phosphorus (2.6-4.7) mg/dL Magnesium (1.8-2.4) mg/dL Ferritin 20 (8-252) mg/mL Total Bilirubin 0.3 (0.2-1.0) mg/dL Direct Bilirubin 0.1 (0.0-0.2) mg/dL Indirect Bilirubin 0.2 AST 33 (15-37) U/L ALT 52 (14-59) U/L Alkaline Phosphatase 101 (46-116) U/L Troponin I (0.000-0.056) ng/mL C-Reactive Protein 1.9 H (0.0-0.9) mg/dL Total Protein 6.5 (6.4-8.2) g/dL Albumin 2.9 L (3.4-5.0) g/dL Globulin 3.6 Albumin/Globulin Ratio 0.81 SARS CoV-2 RNA Rapid PEBBLES (NEGATIVE) Blood Type 04/15/20 Range/Units 12:35 WBC (5.0-10.0) 10^3/uL RBC (4.2-5.4) 10^6/uL Hgb (12.0-16.0) g/dL Hct (37.0-47.0) % MCV (80-100) fL MCH (27.0-34.0) pg MCHC (33.0-35.0) g/dL Plt Count (150-450) 10^3/uL Neut % (Auto) (42.2-75.2) % Lymph % (Auto) (20.5-50.1) % Barber % (Auto) (2-8) % Eos % (Auto) (1.0-3.0) % Baso % (Auto) (0.0-1.0) % D-Dimer, Quantitative (0-400) ng/mL Sodium (136-145) mmol/L Potassium (3.5-5.1) mmol/L Chloride (98-107) mmol/L Carbon Dioxide (21-32) mmol/L Anion Gap (7-13) mEq/L BUN (7-18) mg/dL Creatinine (0.55-1.02) mg/dL Est Cr Clr Drug Dosing mL/min Estimated GFR (MDRD) BUN/Creatinine Ratio (No establ ref range) Glucose (74-99) mg/dL POC Glucose 334 H (70-105) mg/dl Lactic Acid (0.4-2.0) mmol/L Calcium (8.5-10.1) mg/dL Phosphorus (2.6-4.7) mg/dL Magnesium (1.8-2.4) mg/dL Ferritin (8-252) mg/mL Total Bilirubin (0.2-1.0) mg/dL Direct Bilirubin (0.0-0.2) mg/dL Indirect Bilirubin AST (15-37) U/L ALT (14-59) U/L Alkaline Phosphatase (46-116) U/L Troponin I (0.000-0.056) ng/mL C-Reactive Protein (0.0-0.9) mg/dL Total Protein (6.4-8.2) g/dL Albumin (3.4-5.0) g/dL Globulin Albumin/Globulin Ratio SARS CoV-2 RNA Rapid PEBBLES (NEGATIVE) Blood Type Brian Results Last 24 Hours: Microbiology 04/14/20 17:41 Influenza Type A Antigen Screen - Final Nasal, Unspecified NEGATIVE INFLUENZA A VIRUS AG REFERENCE RANGE: NEGATIVE Influenza Type B Antigen Screen - Final NEGATIVE INFLUENZA B VIRUS AG REFERENCE RANGE: NEGATIVE Med Orders - Current: Current Medications Acetaminophen (Tylenol Extra Strength) 1,000 mg PO Q8HR PRN PRN Reason: Pain Last Admin: 04/14/20 22:31 Dose: 1,000 mg Documented by: Albuterol (Proventil Hfa) 0 gm INH Q4HR PRN PRN Reason: Wheezing Aspirin (Halfprin) 81 mg PO DAILY [facility] Last Admin: 04/15/20 08:50 Dose: 81 mg Documented by: Cyclobenzaprine HCl (Flexeril) 10 mg PO TID [facility] Last Admin: 04/15/20 08:49 Dose: 10 mg Documented by: Dexamethasone (Dexamethasone) 6 mg PO DAILY [facility] Stop: 04/24/20 09:01 Last Admin: 04/15/20 08:49 Dose: 6 mg Documented by: Dextrose/Water (Dextrose 50% In Water) 25 ml IVPUSH Q1H PRN PRN Reason: blood sugar <70 Dextrose/Water (Dextrose 50% In Water) 50 ml IV ASDIRECTED PRN PRN Reason: Hypoglycemia Docusate Sodium (Colace) 100 mg PO BID PRN PRN Reason: Constipation Enoxaparin Sodium (Lovenox) 40 mg SUBCUT BID [facility] Last Admin: 04/15/20 08:50 Dose: 40 mg Documented by: Gabapentin (Neurontin) 100 mg PO TID [facility] Last Admin: 04/15/20 08:50 Dose: 100 mg Documented by: Glucagon (Glucagen) 1 mg IM ASDIRECTED PRN PRN Reason: Hypoglycemia Ceftriaxone Sodium 1 gm/ (Sodium Chloride) 50 mls @ 100 mls/hr IV Q24H [facility] Last Admin: 04/14/20 23:39 Dose: 100 mls/hr Documented by: Remdesivir 100 mg/ Sodium (Chloride) 230 mls @ 230 mls/hr IV Q24H [facility] Stop: 04/18/20 16:59 Azithromycin 500 mg/ Sodium (Chloride) 250 mls @ 250 mls/hr IV Q24H [facility] Insulin Glargine (Lantus) 50 unit SUBCUT BEDTIME [facility] Last Admin: 04/14/20 22:26 Dose: 50 units Documented by: Insulin Human Lispro (Humalog) 0 unit SUBCUT QIDACANDBED [facility]; Protocol Last Admin: 04/15/20 12:49 Dose: 4 units Documented by: Mometasone Furoate/Formoterol Fumar (Dulera 200-5 Mcg) 2 puff IH BIDRT [facility] Last Admin: 04/15/20 08:51 Dose: Not Given Documented by: Morphine Sulfate (Morphine) 15 mg PO TID PRN PRN Reason: Pain Last Admin: 04/14/20 22:29 Dose: 15 mg Documented by: Morphine Sulfate (Ms Contin) 30 mg PO BID [facility] Last Admin: 04/15/20 08:52 Dose: 30 mg Documented by: Multivitamins (Thera) 1 each PO DAILY [facility] Last Admin: 04/15/20 08:49 Dose: 1 each Documented by: Ondansetron HCl (Zofran Odt) 4 mg PO Q6H PRN PRN Reason: nausea, able to take PO Sertraline HCl (Zoloft) 100 mg PO DAILY [facility] Last Admin: 04/15/20 08:49 Dose: 100 mg Documented by: Sodium Chloride (Saline Flush) 10 ml FLUSH ASDIRECTED PRN PRN Reason: Keep Vein Open Trazodone HCl (Trazodone) 50 mg PO BEDTIME PRN PRN Reason: Sleep Last Admin: 04/14/20 22:31 Dose: 50 mg Documented by: Discontinued Medications Acetaminophen (Tylenol) 650 mg PO NOW ONE Stop: 04/14/20 19:42 Last Admin: 04/14/20 19:47 Dose: 650 mg Documented by: Dexamethasone (Decadron) 6 mg IVPUSH ONETIME ONE Stop: 04/14/20 19:16 Last Admin: 04/14/20 19:38 Dose: 6 mg Documented by: Magnesium Sulfate (Magnesium Sulfate In Water Premix) 2 gm in 50 mls @ 50 mls/hr IV ONETIME ONE Stop: 04/14/20 19:44 Last Admin: 04/14/20 19:38 Dose: 50 mls/hr Documented by: Remdesivir 200 mg/ Sodium (Chloride) 210 mls @ 210 mls/hr IV ONETIME ONE Stop: 04/14/20 20:49 Last Admin: 04/14/20 22:20 Dose: 210 mls/hr Documented by: Remdesivir 100 mg/ Sodium (Chloride) 230 mls @ 230 mls/hr IV Q24H [facility] Stop: 04/18/20 09:01 Azithromycin 500 mg/ Sodium (Chloride) 250 mls @ 250 mls/hr IV Q24H [facility] Last Admin: 04/14/20 23:38 Dose: 250 mls/hr Documented by: Ondansetron HCl (Zofran) Confirm Administered Dose 4 mg .ROUTE .STK-MED ONE Stop: 04/14/20 19:47 Last Admin: 04/14/20 19:49 Dose: Not Given Documented by: Ondansetron HCl (Zofran) 4 mg IVPUSH ONETIME ONE Stop: 04/14/20 19:50 Last Admin: 04/14/20 19:50 Dose: 4 mg Documented by: - Exam Quality Assessment: Supplemental Oxygen General: Alert, Oriented Neck: Supple Lungs: Normal Respiratory Effort, Rhonchi (bilateral) Cardiovascular: Regular Rate, Regular Rhythm Extremities: No Pedal Edema Psy/Mental Status: Alert, Normal Affect, Normal Mood Sepsis Event Note - Evaluation Sepsis Screening Result: No Definite Risk - Focused Exam Vital Signs: Vital Signs Temp Pulse Resp BP Pulse Ox 04/15/20 12:39 97.3 F 77 20 131/86 96 04/15/20 08:43 97 F 71 20 132/72 97 04/15/20 04:00 97.3 F 90 20 95 - Problem List & Annotations (1) Low back pain SNOMED Code(s): 854542413 Code(s): M54.5 - LOW BACK PAIN Status: Acute Current Visit: No (2) Pneumonia SNOMED Code(s): 500247653 Code(s): J18.9 - PNEUMONIA, UNSPECIFIED ORGANISM Status: Acute Current Visit: No Qualifiers: Pneumonia type: due to unspecified organism Laterality: unspecified laterality Lung location: unspecified part of lung Qualified Code(s): J18.9 - Pneumonia, unspecified organism (3) Pneumonia due to COVID-19 virus SNOMED Code(s): 457529309511108185 Code(s): U07.1 - COVID-19; J12.89 - OTHER VIRAL PNEUMONIA Status: Acute Current Visit: No - Problem List Review Problem List Initiated/Reviewed/Updated: Yes - My Orders Last 24 Hours: My Active Orders 04/14/20 17:35 ABO/RH TYPE [BBK] Routine CULTURE BLOOD [BC] Stat FRESH FROZEN PLASMA [BBK] Routine 04/14/20 20:33 Acetaminophen [Tylenol Extra Strength] 1,000 mg PO Q8HR PRN Morphine 15 mg PO TID PRN traZODone 50 mg PO BEDTIME PRN 04/14/20 20:35 Dextrose 50% in Water 25 ml IVPUSH Q1H PRN Dextrose 50% in Water 50 ml IV ASDIRECTED PRN Glucagon,Human Recombinant [GlucaGen] 1 mg IM ASDIRECTED PRN 04/14/20 20:37 Oxygen Therapy [RC] PRN Up With Assistance [RC] ASDIRECTED VTE/DVT Education [RC] PER UNIT ROUTINE Vital Signs [RC] 00,04,08,12,16,20 Docusate Sodium [Colace] 100 mg PO BID PRN Ondansetron [Zofran ODT] 4 mg PO Q6H PRN Sodium Chloride 0.9% [Saline Flush] 10 ml FLUSH ASDIRECTED PRN Antiembolic Hose [OM.PC] Per Unit Routine Peripheral IV Insertion Adult [OM.PC] Routine Saline Lock Insert [OM.PC] Routine Resuscitation Status Routine 04/14/20 20:43 Antiembolic Devices [RC] PER UNIT ROUTINE 04/14/20 20:44 Peripheral IV Care [RC] 09,04/14/20 20:47 Verify Patient Consent Obtain [RC] ASDIRECTED Transfuse Fresh Frozen Plasma [COMM] Routine 04/14/20 20:48 Isolation [COMM] Stat 04/14/20 20:50 CULTURE SPUTUM + SMEAR [RM] Routine 04/14/20 21:00 Cyclobenzaprine [Flexeril] 10 mg PO TID Enoxaparin [Lovenox] 40 mg SUBCUT BID Gabapentin [Neurontin] 100 mg PO TID Insulin Glarg,Human.Rec.Analog [LantUS] 50 unit SUBCUT BEDTIME Insulin Lispro [HumaLOG] See Protocol SUBCUT QIDACANDBED Morphine [MS Contin] 30 mg PO BID cefTRIAXone [Rocephin] 1 gm Sodium Chloride 0.9% [Normal Saline] 50 ml IV Q24H 04/14/20 21:18 RT Post Treatment Assessment [RC] Click to Edit RT Pre-Treatment Assessment [RC] Click to Edit Albuterol [Proventil HFA] 0 gm INH Q4HR PRN 04/14/20 21:23 Admission Status [Patient Status] [ADT] Routine 04/15/20 05:44 Blood Glucose Check, Bedside [RC] QIDACANDBED 04/15/20 05:55 PROCALCITONIN [REF] AM 04/15/20 07:00 Mometasone/Formoterol [Dulera 200-5 MCG] 2 puff IH BIDRT 04/15/20 09:00 Aspirin [Halfprin] 81 mg PO DAILY Multivitamins,Therapeutic [Thera] 1 each PO DAILY Sertraline [Zoloft] 100 mg PO DAILY dexAMETHasone 6 mg PO DAILY 04/15/20 16:00 Remdesivir (Eua) [Remdesivir (EUA)] 100 mg Sodium Chloride 0.9% [Normal Saline] 230 ml IV Q24H 04/15/20 21:00 Azithromycin [Zithromax] 500 mg Sodium Chloride 0.9% [Normal Saline (AdvBag)] 250 ml IV Q24H 04/16/20 05:11 BASIC METABOLIC PANEL,BMP [CHEM] AM C-REACTIVE PROTEIN [CHEM] AM CBC WITH AUTO DIFF [HEME] AM D-DIMER QUANTITATIVE [COAG] AM FERRITIN [CHEM] AM HEPATIC FUNCTION PANEL,HFP [CHEM] AM PROCALCITONIN [REF] AM 04/17/20 05:11 BASIC METABOLIC PANEL,BMP [CHEM] AM C-REACTIVE PROTEIN [CHEM] AM CBC WITH AUTO DIFF [HEME] AM D-DIMER QUANTITATIVE [COAG] AM FERRITIN [CHEM] AM HEPATIC FUNCTION PANEL,HFP [CHEM] AM PROCALCITONIN [REF] AM 04/18/20 05:11 BASIC METABOLIC PANEL,BMP [CHEM] AM C-REACTIVE PROTEIN [CHEM] AM CBC WITH AUTO DIFF [HEME] AM D-DIMER QUANTITATIVE [COAG] AM FERRITIN [CHEM] AM HEPATIC FUNCTION PANEL,HFP [CHEM] AM PROCALCITONIN [REF] AM 04/19/20 05:11 BASIC METABOLIC PANEL,BMP [CHEM] AM C-REACTIVE PROTEIN [CHEM] AM CBC WITH AUTO DIFF [HEME] AM D-DIMER QUANTITATIVE [COAG] AM FERRITIN [CHEM] AM HEPATIC FUNCTION PANEL,HFP [CHEM] AM PROCALCITONIN [REF] AM - Plan Plan:: Acute hypoxemic respiratory failure Oxygen saturation was 92% on room air in the emergency room at rest Supplement oxygen as needed 54-year-old lady with a history of 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 She has a history of acute renal failure when she was septic, briefly requiring dialysis. She has a history of chronic back pain on chronic narcotics. She was developing symptoms of body ache, chills, fever, dry, nonproductive cough. Symptoms started on 13 April. She lives with children and has no similar symptoms. She has no chest pain, no abdominal pain, no urinary symptoms She is feeling short of breath. Oxygen saturation was 92% on room air in the emergency room. She was noted to have fever. Acute hypoxemic respiratory failure Oxygen saturation was 92% on room air in the emergency room at rest Supplement oxygen as needed Covid 19 pneumonia with sepsis POA (tachy, fever, left LL infiltrate symptoms started on 13 April Positive covid 19 screen on 14 April associated with hypoxemia 92% on RA 04/14 in ER LFT, Renal fx. Is good treat with Remdesivir 04/14- Dexamethasone 04/14- Plasma 04/15 evaluate for concurrent bacterial infections Follow pro-calcitonin levels Check sputum and blood cx In the meantime start azithro and rocephin since the Pneumonia on CXR is not typical for covid Ddimer was high on admission - improved- DVT prophylaxis SQ Lovenox bid Hyponatremia Mild Well monitor Hypomagnesemia, hypophosphatemia replaced Well recheck Diabetes Continue Lantus at night Use supplemental insulin and hypoglycemia treatment as needed Dyslipidemia Hold statin while on Remdesivir Chronic pain Continue Neurontin, Flexeril Continue long-acting and short-acting morphine Continue Zoloft Trazodone for sleep
[2020-04-15] MEDS: Morphine 15 MG Tab PO PRN (14:21)
[2020-04-15] MEDS: Insulin Glarg,Human.Rec.Analog 100 Unit/ML SUBCUT SCH (20:37)
[2020-04-15] MEDS ORDERED: Azithromycin 500 MG in Sodium Chloride 0.9% 250 ML IV SCH (21:00)
[2020-04-15] MEDS: cefTRIAXone 1 GM in Sodium Chloride 0.9% 50 ML IV SCH (21:43)
[2020-04-16 07:18] LABS: ANION GAP 8.9 mEq/L (7-13); CHLORIDE,CL 101 mmol/L (98-107); SODIUM,NA 136 mmol/L (136-145)
[2020-04-16] MEDS: Formoterol/Mometasone 200-5 MCG 8.8 GM Inhaler IH SCH ×2 (09:22→17:24)
[2020-04-16] MEDS: Sertraline 50 MG Tab PO SCH (09:24)
[2020-04-16] MEDS: Morphine 30 MG Tab.ER PO SCH ×2 (09:24→22:20)
[2020-04-16] MEDS: Enoxaparin 40 MG/0.4 ML Syringe SUBCUT SCH ×2 (09:24→22:21)
[2020-04-16] MEDS: Multivitamins,Therapeutic Tab PO SCH (09:26)
[2020-04-16] MEDS: Aspirin 81 MG Tab.EC PO SCH (09:26)
[2020-04-16] MEDS: Cyclobenzaprine 10 MG Tab PO SCH ×3 (09:26→22:20)
[2020-04-16] MEDS: Gabapentin 100 MG Cap PO SCH ×3 (09:26→22:20)
[2020-04-16] MEDS: Dexamethasone 2 MG Tab PO SCH (09:27)
[2020-04-16] MEDS: Insulin Lispro 100 Units/ML 3 ML Vial SUBCUT SCH ×4 (09:27→22:24)
--- NOTE | 2020-04-16 13:31 | PCM.PN ---
- General Info Date of Service: 04/16/20 Admission Dx/Problem (Free Text): Admission Diagnosis/Problem Admission Diagnosis/Problem Pneumonia Subjective Update: feeling better, less shortness of breath. she is off oxygen, able to move around in the room well Symptoms started prior to admission. No associated chest pain. Has dry cough.no sputum associated with this. No fever Functional Status: Reports: Pain Controlled, Tolerating Diet - Review of Systems General: Reports: Weakness (improving). Denies: Fever Pulmonary: Denies: Shortness of Breath Cardiovascular: Denies: Chest Pain, Edema Genitourinary: Denies: Dysuria - Patient Data Vitals - Most Recent: Last Vital Signs Temp 98.0 F 04/16/20 11:35 Pulse 69 04/16/20 11:35 Resp 18 04/16/20 11:35 BP 125/78 04/16/20 11:35 Pulse Ox 95 04/16/20 11:35 Weight - Most Recent: 245 lb I&O - Last 24 Hours: Intake & Output 04/15/20 04/16/20 04/16/20 22:59 06:59 14:59 Intake Total 1230 Balance 1230 Lab Results Last 24 Hours: Laboratory Results - last 24 hr 04/15/20 04/15/20 04/15/20 Range/Units 05:55 17:21 20:32 WBC (5.0-10.0) 10^3/uL RBC (4.2-5.4) 10^6/uL Hgb (12.0-16.0) g/dL Hct (37.0-47.0) % MCV (80-100) fL MCH (27.0-34.0) pg MCHC (33.0-35.0) g/dL Plt Count (150-450) 10^3/uL Neut % (Auto) (42.2-75.2) % Lymph % (Auto) (20.5-50.1) % Lamb % (Auto) (2-8) % Eos % (Auto) (1.0-3.0) % Baso % (Auto) (0.0-1.0) % D-Dimer, Quantitative (0-400) ng/mL Sodium (136-145) mmol/L Potassium (3.5-5.1) mmol/L Chloride (98-107) mmol/L Carbon Dioxide (21-32) mmol/L Anion Gap (7-13) mEq/L BUN (7-18) mg/dL Creatinine (0.55-1.02) mg/dL Est Cr Clr Drug Dosing mL/min Estimated GFR (MDRD) Glucose (74-99) mg/dL POC Glucose 395 H 389 H (70-105) mg/dl Calcium (8.5-10.1) mg/dL Phosphorus (2.6-4.7) mg/dL Magnesium (1.8-2.4) mg/dL Ferritin (8-252) mg/mL Total Bilirubin (0.2-1.0) mg/dL Direct Bilirubin (0.0-0.2) mg/dL Indirect Bilirubin AST (15-37) U/L ALT (14-59) U/L Alkaline Phosphatase (46-116) U/L C-Reactive Protein (0.0-0.9) mg/dL Total Protein (6.4-8.2) g/dL Albumin (3.4-5.0) g/dL Globulin Albumin/Globulin Ratio Procalcitonin <0.05 (<0.10) ng/mL 04/16/20 04/16/20 04/16/20 Range/Units 05:50 05:50 05:50 WBC 4.8 L (5.0-10.0) 10^3/uL RBC 4.29 (4.2-5.4) 10^6/uL Hgb 11.0 L (12.0-16.0) g/dL Hct 34.9 L (37.0-47.0) % MCV 81.4 (80-100) fL MCH 25.6 L (27.0-34.0) pg MCHC 31.5 L (33.0-35.0) g/dL Plt Count 213 (150-450) 10^3/uL Neut % (Auto) 55.0 (42.2-75.2) % Lymph % (Auto) 28.8 (20.5-50.1) % Lamb % (Auto) 15.8 H (2-8) % Eos % (Auto) 0.2 L (1.0-3.0) % Baso % (Auto) 0.2 (0.0-1.0) % D-Dimer, Quantitative 126 (0-400) ng/mL Sodium 136 (136-145) mmol/L Potassium 3.9 (3.5-5.1) mmol/L Chloride 101 (98-107) mmol/L Carbon Dioxide 30 (21-32) mmol/L Anion Gap 8.9 (7-13) mEq/L BUN 15 (7-18) mg/dL Creatinine 0.71 (0.55-1.02) mg/dL Est Cr Clr Drug Dosing 78.22 mL/min Estimated GFR (MDRD) > 60 Glucose 278 H (74-99) mg/dL POC Glucose (70-105) mg/dl Calcium 8.4 L (8.5-10.1) mg/dL Phosphorus 3.8 (2.6-4.7) mg/dL Magnesium 1.9 (1.8-2.4) mg/dL Ferritin (8-252) mg/mL Total Bilirubin 0.2 (0.2-1.0) mg/dL Direct Bilirubin 0.1 (0.0-0.2) mg/dL Indirect Bilirubin 0.1 AST 26 (15-37) U/L ALT 51 (14-59) U/L Alkaline Phosphatase 92 (46-116) U/L C-Reactive Protein 2.4 H (0.0-0.9) mg/dL Total Protein 6.2 L (6.4-8.2) g/dL Albumin 2.8 L (3.4-5.0) g/dL Globulin 3.4 Albumin/Globulin Ratio 0.82 Procalcitonin (<0.10) ng/mL 04/16/20 04/16/20 04/16/20 Range/Units 05:50 08:21 11:32 WBC (5.0-10.0) 10^3/uL RBC (4.2-5.4) 10^6/uL Hgb (12.0-16.0) g/dL Hct (37.0-47.0) % MCV (80-100) fL MCH (27.0-34.0) pg MCHC (33.0-35.0) g/dL Plt Count (150-450) 10^3/uL Neut % (Auto) (42.2-75.2) % Lymph % (Auto) (20.5-50.1) % Lamb % (Auto) (2-8) % Eos % (Auto) (1.0-3.0) % Baso % (Auto) (0.0-1.0) % D-Dimer, Quantitative (0-400) ng/mL Sodium (136-145) mmol/L Potassium (3.5-5.1) mmol/L Chloride (98-107) mmol/L Carbon Dioxide (21-32) mmol/L Anion Gap (7-13) mEq/L BUN (7-18) mg/dL Creatinine (0.55-1.02) mg/dL Est Cr Clr Drug Dosing mL/min Estimated GFR (MDRD) Glucose (74-99) mg/dL POC Glucose 234 H 248 H (70-105) mg/dl Calcium (8.5-10.1) mg/dL Phosphorus (2.6-4.7) mg/dL Magnesium (1.8-2.4) mg/dL Ferritin 32 (8-252) mg/mL Total Bilirubin (0.2-1.0) mg/dL Direct Bilirubin (0.0-0.2) mg/dL Indirect Bilirubin AST (15-37) U/L ALT (14-59) U/L Alkaline Phosphatase (46-116) U/L C-Reactive Protein (0.0-0.9) mg/dL Total Protein (6.4-8.2) g/dL Albumin (3.4-5.0) g/dL Globulin Albumin/Globulin Ratio Procalcitonin (<0.10) ng/mL Brian Results Last 24 Hours: Microbiology 04/14/20 17:35 Aerobic Blood Culture - Preliminary Blood - Venous - Iv Start NO GROWTH AFTER 1 DAY Anaerobic Blood Culture - Preliminary NO GROWTH AFTER 1 DAY Med Orders - Current: Current Medications Acetaminophen (Tylenol Extra Strength) 1,000 mg PO Q8HR PRN PRN Reason: Pain Last Admin: 04/14/20 22:31 Dose: 1,000 mg Documented by: Albuterol (Proventil Hfa) 0 gm INH Q4HR PRN PRN Reason: Wheezing Aspirin (Halfprin) 81 mg PO DAILY [facility] Last Admin: 04/16/20 09:26 Dose: 81 mg Documented by: Cyclobenzaprine HCl (Flexeril) 10 mg PO TID [facility] Last Admin: 04/16/20 13:11 Dose: 10 mg Documented by: Dexamethasone (Dexamethasone) 6 mg PO DAILY [facility] Stop: 04/24/20 09:01 Last Admin: 04/16/20 09:27 Dose: 6 mg Documented by: Dextrose/Water (Dextrose 50% In Water) 25 ml IVPUSH Q1H PRN PRN Reason: blood sugar <70 Dextrose/Water (Dextrose 50% In Water) 50 ml IV ASDIRECTED PRN PRN Reason: Hypoglycemia Docusate Sodium (Colace) 100 mg PO BID PRN PRN Reason: Constipation Enoxaparin Sodium (Lovenox) 40 mg SUBCUT BID [facility] Last Admin: 04/16/20 09:24 Dose: 40 mg Documented by: Gabapentin (Neurontin) 100 mg PO TID [facility] Last Admin: 04/16/20 13:11 Dose: 100 mg Documented by: Glucagon (Glucagen) 1 mg IM ASDIRECTED PRN PRN Reason: Hypoglycemia Ceftriaxone Sodium 1 gm/ (Sodium Chloride) 50 mls @ 100 mls/hr IV Q24H [facility] Last Admin: 04/15/20 21:43 Dose: 100 mls/hr Documented by: Remdesivir 100 mg/ Sodium (Chloride) 230 mls @ 230 mls/hr IV Q24H [facility] Stop: 04/18/20 16:59 Last Infusion: 04/15/20 17:15 Dose: Infused Documented by: Azithromycin 500 mg/ Sodium (Chloride) 250 mls @ 250 mls/hr IV Q24H [facility] Last Admin: 04/15/20 21:58 Dose: 250 mls/hr Documented by: Insulin Glargine (Lantus) 50 unit SUBCUT BEDTIME [facility] Last Admin: 04/15/20 20:37 Dose: 50 units Documented by: Insulin Human Lispro (Humalog) 0 unit SUBCUT QIDACANDBED [facility]; Protocol Last Admin: 04/16/20 13:08 Dose: 2 units Documented by: Mometasone Furoate/Formoterol Fumar (Dulera 200-5 Mcg) 2 puff IH BIDRT [facility] Last Admin: 04/16/20 09:22 Dose: Not Given Documented by: Morphine Sulfate (Morphine) 15 mg PO TID PRN PRN Reason: Pain Last Admin: 04/15/20 14:21 Dose: 15 mg Documented by: Morphine Sulfate (Ms Contin) 30 mg PO BID [facility] Last Admin: 04/16/20 09:24 Dose: 30 mg Documented by: Multivitamins (Thera) 1 each PO DAILY [facility] Last Admin: 04/16/20 09:26 Dose: 1 each Documented by: Ondansetron HCl (Zofran Odt) 4 mg PO Q6H PRN PRN Reason: nausea, able to take PO Sertraline HCl (Zoloft) 100 mg PO DAILY [facility] Last Admin: 04/16/20 09:24 Dose: 100 mg Documented by: Sodium Chloride (Saline Flush) 10 ml FLUSH ASDIRECTED PRN PRN Reason: Keep Vein Open Last Admin: 04/15/20 17:22 Dose: 30 ml Documented by: Trazodone HCl (Trazodone) 50 mg PO BEDTIME PRN PRN Reason: Sleep Last Admin: 04/14/20 22:31 Dose: 50 mg Documented by: Discontinued Medications Acetaminophen (Tylenol) 650 mg PO NOW ONE Stop: 04/14/20 19:42 Last Admin: 04/14/20 19:47 Dose: 650 mg Documented by: Dexamethasone (Decadron) 6 mg IVPUSH ONETIME ONE Stop: 04/14/20 19:16 Last Admin: 04/14/20 19:38 Dose: 6 mg Documented by: Magnesium Sulfate (Magnesium Sulfate In Water Premix) 2 gm in 50 mls @ 50 mls/hr IV ONETIME ONE Stop: 04/14/20 19:44 Last Admin: 04/14/20 19:38 Dose: 50 mls/hr Documented by: Remdesivir 200 mg/ Sodium (Chloride) 210 mls @ 210 mls/hr IV ONETIME ONE Stop: 04/14/20 20:49 Last Admin: 04/14/20 22:20 Dose: 210 mls/hr Documented by: Remdesivir 100 mg/ Sodium (Chloride) 230 mls @ 230 mls/hr IV Q24H [facility] Stop: 04/18/20 09:01 Azithromycin 500 mg/ Sodium (Chloride) 250 mls @ 250 mls/hr IV Q24H [facility] Last Admin: 04/14/20 23:38 Dose: 250 mls/hr Documented by: Ondansetron HCl (Zofran) Confirm Administered Dose 4 mg .ROUTE .STK-MED ONE Stop: 04/14/20 19:47 Last Admin: 04/14/20 19:49 Dose: Not Given Documented by: Ondansetron HCl (Zofran) 4 mg IVPUSH ONETIME ONE Stop: 04/14/20 19:50 Last Admin: 04/14/20 19:50 Dose: 4 mg Documented by: - Exam Quality Assessment: No: Supplemental Oxygen General: Alert, Oriented Neck: Supple Lungs: Normal Respiratory Effort, Rhonchi Cardiovascular: Regular Rate, Regular Rhythm GI/Abdominal Exam: Normal Bowel Sounds, Soft, Non-Tender Extremities: No Pedal Edema Psy/Mental Status: Alert, Normal Affect, Normal Mood Sepsis Event Note - Evaluation Sepsis Screening Result: No Definite Risk - Focused Exam Vital Signs: Vital Signs Temp Pulse Resp BP Pulse Ox 04/16/20 11:35 98.0 F 69 18 125/78 95 04/16/20 09:18 98.7 F 88 18 132/74 95 - Problem List & Annotations (1) Low back pain SNOMED Code(s): 676937379 Code(s): M54.5 - LOW BACK PAIN Status: Acute Current Visit: No (2) Pneumonia SNOMED Code(s): 333578766 Code(s): J18.9 - PNEUMONIA, UNSPECIFIED ORGANISM Status: Acute Current Visit: No Qualifiers: Pneumonia type: due to unspecified organism Laterality: unspecified laterality Lung location: unspecified part of lung Qualified Code(s): J18.9 - Pneumonia, unspecified organism (3) Pneumonia due to COVID-19 virus SNOMED Code(s): 240141355041252073 Code(s): U07.1 - COVID-19; J12.89 - OTHER VIRAL PNEUMONIA Status: Acute Current Visit: No - Problem List Review Problem List Initiated/Reviewed/Updated: Yes - My Orders Last 24 Hours: My Active Orders 04/15/20 16:00 Remdesivir (Eua) [Remdesivir (EUA)] 100 mg Sodium Chloride 0.9% [Normal Saline] 230 ml IV Q24H 04/15/20 21:00 Azithromycin [Zithromax] 500 mg Sodium Chloride 0.9% [Normal Saline (AdvBag)] 250 ml IV Q24H 04/16/20 05:50 PROCALCITONIN [REF] AM 04/17/20 05:11 BASIC METABOLIC PANEL,BMP [CHEM] AM C-REACTIVE PROTEIN [CHEM] AM CBC WITH AUTO DIFF [HEME] AM D-DIMER QUANTITATIVE [COAG] AM FERRITIN [CHEM] AM HEPATIC FUNCTION PANEL,HFP [CHEM] AM PROCALCITONIN [REF] AM 04/18/20 05:11 BASIC METABOLIC PANEL,BMP [CHEM] AM C-REACTIVE PROTEIN [CHEM] AM CBC WITH AUTO DIFF [HEME] AM D-DIMER QUANTITATIVE [COAG] AM FERRITIN [CHEM] AM HEPATIC FUNCTION PANEL,HFP [CHEM] AM PROCALCITONIN [REF] AM 04/19/20 05:11 BASIC METABOLIC PANEL,BMP [CHEM] AM C-REACTIVE PROTEIN [CHEM] AM CBC WITH AUTO DIFF [HEME] AM D-DIMER QUANTITATIVE [COAG] AM FERRITIN [CHEM] AM HEPATIC FUNCTION PANEL,HFP [CHEM] AM PROCALCITONIN [REF] AM - Plan Plan:: Acute hypoxemic respiratory failure Oxygen saturation was 92% on room air in the emergency room at rest Supplement oxygen as needed 54-year-old lady with a 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 She has a history of acute renal failure when she was septic, briefly requiring dialysis. She has a history of chronic back pain on chronic narcotics. She was developing symptoms of body ache, chills, fever, dry, nonproductive cough. Symptoms started on 13 April. She lives with children and has no similar symptoms. She has no chest pain, no abdominal pain, no urinary symptoms She is feeling short of breath. Oxygen saturation was 92% on room air in the emergency room. She was noted to have fever. Acute hypoxemic respiratory failure Oxygen saturation was 92% on room air in the emergency room at rest Supplement oxygen as needed Covid 19 pneumonia with sepsis POA (tachy, fever, left LL infiltrate symptoms started on 13 April Positive covid 19 screen on 14 April associated with hypoxemia 92% on RA 04/14 in ER LFT, Renal fx. Is good treat with Remdesivir 04/14- Dexamethasone 04/14- Plasma 04/15 evaluate for concurrent bacterial infections low pro-calcitonin levels pending sputum and blood cx will stop azithro and rocephin Ddimer was high on admission - improved- DVT prophylaxis SQ Lovenox bid Hyponatremia resolved Well monitor Hypomagnesemia, hypophosphatemia replaced Diabetes Continue Lantus at night Use supplemental insulin and hypoglycemia treatment as needed Dyslipidemia Hold statin while on Remdesivir Chronic pain Continue Neurontin, Flexeril Continue long-acting and short-acting morphine Continue Zoloft Trazodone for sleep
[2020-04-16] MEDS: Insulin Glarg,Human.Rec.Analog 100 Unit/ML SUBCUT SCH (22:25)
[2020-04-17 07:07] LABS: ANION GAP 10.5 mEq/L (7-13); CHLORIDE,CL 102 mmol/L (98-107); SODIUM,NA 139 mmol/L (136-145)
[2020-04-17] MEDS: Cyclobenzaprine 10 MG Tab PO SCH (09:17)
[2020-04-17] MEDS: Sertraline 50 MG Tab PO SCH (09:17)
[2020-04-17] MEDS: Morphine 30 MG Tab.ER PO SCH (09:18)
[2020-04-17] MEDS: Dexamethasone 2 MG Tab PO SCH (09:18)
[2020-04-17] MEDS: Aspirin 81 MG Tab.EC PO SCH (09:18)
[2020-04-17] MEDS: Enoxaparin 40 MG/0.4 ML Syringe SUBCUT SCH (09:19)
[2020-04-17] MEDS: Gabapentin 100 MG Cap PO SCH (09:19)
[2020-04-17] MEDS: Insulin Lispro 100 Units/ML 3 ML Vial SUBCUT SCH ×2 (09:19→12:40)
[2020-04-17] MEDS: Multivitamins,Therapeutic Tab PO SCH (09:19)
[2020-04-17] MEDS: Formoterol/Mometasone 200-5 MCG 8.8 GM Inhaler IH SCH (09:20)
[2020-04-17 09:27] VITALS: BP 141/93; PULSE 74
--- NOTE | 2020-04-17 10:38 | PCM.DCSUM1 ---
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 She has a history of acute renal failure when she was septic, briefly requiring dialysis. She has a history of chronic back pain on chronic narcotics. She was developing symptoms of body ache, chills, fever, dry, nonproductive cough. Symptoms started on 13 April. She lives with children and has no similar symptoms. She has no chest pain, no abdominal pain, no urinary symptoms She was feeling short of breath. Oxygen saturation was 92% on room air in the emergency room. She was noted to have fever. Acute hypoxemic respiratory failure resolved Covid 19 pneumonia with sepsis POA (tachy, fever, left LL infiltrate symptoms started on 13 April Positive covid 19 screen on 14 April associated with hypoxemia 92% on RA 04/14 in ER LFT, Renal fx. Is good treated with Remdesivir 04/14-03/17 Dexamethasone 04/14- finish as out pt Plasma 04/16 evaluation for concurrent bacterial infections low pro-calcitonin levels pending sputum and blood cx no Abx for now Ddimer was high on admission - improved- DVT prophylaxis with ASA Hyponatremia resolved Diabetes Continue Lantus at night Dyslipidemia resume statin Chronic pain Continue Neurontin, Flexeril Continue long-acting and short-acting morphine Continue Zoloft Trazodone for sleep Diagnosis: Stroke: No - Discharge Data Discharge Date: 04/17/20 Discharge Disposition: Home, Self-Care 01 Condition: Fair - Referral to Home Health Primary Care Physician: Lux Morales NP - Discharge Diagnosis/Problem(s) (1) Low back pain SNOMED Code(s): 385426011 ICD Code: M54.5 - LOW BACK PAIN Status: Acute Current Visit: No (2) Pneumonia SNOMED Code(s): 459258171 ICD Code: J18.9 - PNEUMONIA, UNSPECIFIED ORGANISM Status: Acute Current Visit: No Qualifiers: Pneumonia type: due to unspecified organism Laterality: unspecified laterality Lung location: unspecified part of lung Qualified Code(s): J18.9 - Pneumonia, unspecified organism (3) Pneumonia due to COVID-19 virus SNOMED Code(s): 233116723850801345 ICD Code: U07.1 - COVID-19; J12.89 - OTHER VIRAL PNEUMONIA Status: Acute Current Visit: No - Patient Instructions Diet: Heart Healthy Diet, Diabetic Diet Activity: As Tolerated - Discharge Plan *PRESCRIPTION DRUG MONITORING PROGRAM REVIEWED*: Not Applicable *COPY OF PRESCRIPTION DRUG MONITORING REPORT IN PATIENT BETITO: Not Applicable Prescriptions/Med Rec: dexAMETHasone [Dexamethasone] 6 mg PO DAILY #15 tablet Mometasone/Formoterol [Dulera 200-5 MCG] 2 puff IH BIDRT #1 inhaler Albuterol [Proventil HFA] 2 puff INH Q4HR PRN #1 inhaler PRN Reason: Wheezing Home Medications: Home Meds Insulin Detemir [Levemir] 56 units SQ BEDTIME 06/01/13 [History] Aspirin [Halfprin] 81 mg PO DAILY 02/14/14 [History] Cyclobenzaprine [Flexeril] 10 mg PO TID 09/04/15 [History] Carboxymethylcellulose Sodium [Refresh Tears 0.5%] 2 drop EYELF TID 05/26/19 [History] Liraglutide [Victoza] 1.2 mg SQ WITHBREAKFAST 09/03/19 [History] Multivitamin [Multi-Day Vitamins] 1 each PO DAILY 09/03/19 [History] Acetaminophen 1,000 mg PO Q8HR PRN 10/14/19 [History] B Complex W-C No.20/Folic Acid [[place] Caps Softgel] 1 mg PO DAILY 10/14/19 [Hist ory] Calcium Carbonate [Calcium] 1,200 mg PO DAILY 10/14/19 [History] Gabapentin [Neurontin] 100 mg PO TID 10/14/19 [History] Morphine [MS Contin] 30 mg PO BID 10/14/19 [History] Naloxone HCl [Narcan] 4 mg NS ASDIRECTED PRN 10/14/19 [History] Sertraline [Zoloft] 100 mg PO DAILY 10/14/19 [History] atorvaSTATin [Lipitor] 10 mg PO BEDTIME 10/14/19 [History] traZODone HCl [Trazodone HCl] 50 mg PO BEDTIME PRN 10/14/19 [History] Biotin 10,000 mcg PO DAILY 10/15/19 [History] Morphine Sulfate 15 mg PO TID PRN 10/31/19 [History] Albuterol [Proventil HFA] 2 puff INH Q4HR PRN #1 inhaler 04/17/20 [Rx] Mometasone/Formoterol [Dulera 200-5 MCG] 2 puff IH BIDRT #1 inhaler 04/17/20 [Rx] dexAMETHasone [Dexamethasone] 6 mg PO DAILY #15 tablet 04/17/20 [Rx] Oxygen Therapy Mode: Room Air Patient Handouts: Albuterol inhalation powder, COVID-19 Frequently Asked Questions, COVID-19: How to Protect Yourself and Others - CDC, Formoterol; Mometasone metered dose inhaler, Infection Prevention in the Home, Dexamethasone tablets, Prevent the Spread of COVID-19 if You Are Sick - [facility] Referrals: Lux Morales, TOUR DIRECTOR [Primary Care Provider] - - Discharge Summary/Plan Comment DC Time >30 min.: No - General Info Date of Service: 04/17/20 Admission Dx/Problem (Free Text: Admission Diagnosis/Problem Admission Diagnosis/Problem Pneumonia Subjective Update: feeling better, no shortness of breath. she is off oxygen, able to move around in the room well Symptoms started prior to admission. No associated chest pain. Has dry cough.no sputum associated with this. No fever Functional Status: Reports: Tolerating Diet - Review of Systems General: Denies: Fever, Weakness Pulmonary: Denies: Shortness of Breath Cardiovascular: Denies: Chest Pain Gastrointestinal: Denies: Abdominal Pain Neurological: Denies: Confusion - Patient Data Vitals - Most Recent: Last Vital Signs Temp 98.3 F 04/17/20 09:26 Pulse 74 04/17/20 09:26 Resp 16 04/17/20 09:26 BP 141/93 H 04/17/20 09:26 Pulse Ox 98 04/17/20 09:26 Weight - Most Recent: 245 lb I&O - Last 24 hours: Intake & Output 04/16/20 04/17/20 04/17/20 22:59 06:59 14:59 Intake Total 303 0 Balance 303 0 Lab Results - Last 24 hrs: Laboratory Results - last 24 hr 04/16/20 04/16/20 04/16/20 Range/Units 05:50 11:32 16:45 WBC (5.0-10.0) 10^3/uL RBC (4.2-5.4) 10^6/uL Hgb (12.0-16.0) g/dL Hct (37.0-47.0) % MCV (80-100) fL MCH (27.0-34.0) pg MCHC (33.0-35.0) g/dL Plt Count (150-450) 10^3/uL Neut % (Auto) (42.2-75.2) % Lymph % (Auto) (20.5-50.1) % [place] % (Auto) (2-8) % Eos % (Auto) (1.0-3.0) % Baso % (Auto) (0.0-1.0) % D-Dimer, Quantitative (0-400) ng/mL Sodium (136-145) mmol/L Potassium (3.5-5.1) mmol/L Chloride (98-107) mmol/L Carbon Dioxide (21-32) mmol/L Anion Gap (7-13) mEq/L BUN (7-18) mg/dL Creatinine (0.55-1.02) mg/dL Est Cr Clr Drug Dosing mL/min Estimated GFR (MDRD) Glucose (74-99) mg/dL POC Glucose 248 H 376 H (70-105) mg/dl Calcium (8.5-10.1) mg/dL Ferritin (8-252) mg/mL Total Bilirubin (0.2-1.0) mg/dL Direct Bilirubin (0.0-0.2) mg/dL Indirect Bilirubin AST (15-37) U/L ALT (14-59) U/L Alkaline Phosphatase (46-116) U/L C-Reactive Protein (0.0-0.9) mg/dL Total Protein (6.4-8.2) g/dL Albumin (3.4-5.0) g/dL Globulin Albumin/Globulin Ratio Procalcitonin <0.05 (<0.10) ng/mL 04/16/20 04/17/20 04/17/20 Range/Units 22:10 05:50 05:50 WBC 5.3 (5.0-10.0) 10^3/uL RBC 4.47 (4.2-5.4) 10^6/uL Hgb 11.4 L (12.0-16.0) g/dL Hct 36.1 L (37.0-47.0) % MCV 80.8 (80-100) fL MCH 25.5 L (27.0-34.0) pg MCHC 31.6 L (33.0-35.0) g/dL Plt Count 204 (150-450) 10^3/uL Neut % (Auto) 41.5 L (42.2-75.2) % Lymph % (Auto) 46.5 (20.5-50.1) % [place] % (Auto) 11.6 H (2-8) % Eos % (Auto) 0.2 L (1.0-3.0) % Baso % (Auto) 0.2 (0.0-1.0) % D-Dimer, Quantitative 146 (0-400) ng/mL Sodium (136-145) mmol/L Potassium (3.5-5.1) mmol/L Chloride (98-107) mmol/L Carbon Dioxide (21-32) mmol/L Anion Gap (7-13) mEq/L BUN (7-18) mg/dL Creatinine (0.55-1.02) mg/dL Est Cr Clr Drug Dosing mL/min Estimated GFR (MDRD) Glucose (74-99) mg/dL POC Glucose 362 H (70-105) mg/dl Calcium (8.5-10.1) mg/dL Ferritin (8-252) mg/mL Total Bilirubin (0.2-1.0) mg/dL Direct Bilirubin (0.0-0.2) mg/dL Indirect Bilirubin AST (15-37) U/L ALT (14-59) U/L Alkaline Phosphatase (46-116) U/L C-Reactive Protein (0.0-0.9) mg/dL Total Protein (6.4-8.2) g/dL Albumin (3.4-5.0) g/dL Globulin Albumin/Globulin Ratio Procalcitonin (<0.10) ng/mL 04/17/20 04/17/20 04/17/20 Range/Units 05:50 05:50 09:15 WBC (5.0-10.0) 10^3/uL RBC (4.2-5.4) 10^6/uL Hgb (12.0-16.0) g/dL Hct (37.0-47.0) % MCV (80-100) fL MCH (27.0-34.0) pg MCHC (33.0-35.0) g/dL Plt Count (150-450) 10^3/uL Neut % (Auto) (42.2-75.2) % Lymph % (Auto) (20.5-50.1) % [place] % (Auto) (2-8) % Eos % (Auto) (1.0-3.0) % Baso % (Auto) (0.0-1.0) % D-Dimer, Quantitative (0-400) ng/mL Sodium 139 (136-145) mmol/L Potassium 3.5 (3.5-5.1) mmol/L Chloride 102 (98-107) mmol/L Carbon Dioxide 30 (21-32) mmol/L Anion Gap 10.5 (7-13) mEq/L BUN 10 (7-18) mg/dL Creatinine 0.64 (0.55-1.02) mg/dL Est Cr Clr Drug Dosing 86.77 mL/min Estimated GFR (MDRD) > 60 Glucose 206 H (74-99) mg/dL POC Glucose 169 H (70-105) mg/dl Calcium 8.5 (8.5-10.1) mg/dL Ferritin 35 (8-252) mg/mL Total Bilirubin 0.3 (0.2-1.0) mg/dL Direct Bilirubin 0.1 (0.0-0.2) mg/dL Indirect Bilirubin 0.2 AST 15 (15-37) U/L ALT 54 (14-59) U/L Alkaline Phosphatase 91 (46-116) U/L C-Reactive Protein 1.6 H (0.0-0.9) mg/dL Total Protein 6.4 (6.4-8.2) g/dL Albumin 2.9 L (3.4-5.0) g/dL Globulin 3.5 Albumin/Globulin Ratio 0.83 Procalcitonin (<0.10) ng/mL LARRY Results - Last 24 hrs: Microbiology 04/14/20 17:35 Aerobic Blood Culture - Preliminary Blood - Venous - Iv Start NO GROWTH AFTER 2 DAYS Anaerobic Blood Culture - Preliminary NO GROWTH AFTER 2 DAYS Med Orders - Current: Current Medications Acetaminophen (Tylenol Extra Strength) 1,000 mg PO Q8HR PRN PRN Reason: Pain Last Admin: 04/14/20 22:31 Dose: 1,000 mg Documented by: Albuterol (Proventil Hfa) 0 gm INH Q4HR PRN PRN Reason: Wheezing Aspirin (Halfprin) 81 mg PO DAILY [facility] Last Admin: 04/17/20 09:18 Dose: 81 mg Documented by: Cyclobenzaprine HCl (Flexeril) 10 mg PO TID [facility] Last Admin: 04/17/20 09:17 Dose: 10 mg Documented by: Dexamethasone (Dexamethasone) 6 mg PO DAILY [facility] Stop: 04/24/20 09:01 Last Admin: 04/17/20 09:18 Dose: 6 mg Documented by: Dextrose/Water (Dextrose 50% In Water) 25 ml IVPUSH Q1H PRN PRN Reason: blood sugar <70 Dextrose/Water (Dextrose 50% In Water) 50 ml IV ASDIRECTED PRN PRN Reason: Hypoglycemia Docusate Sodium (Colace) 100 mg PO BID PRN PRN Reason: Constipation Enoxaparin Sodium (Lovenox) 40 mg SUBCUT BID [facility] Last Admin: 04/17/20 09:19 Dose: 40 mg Documented by: Gabapentin (Neurontin) 100 mg PO TID [facility] Last Admin: 04/17/20 09:19 Dose: 100 mg Documented by: Glucagon (Glucagen) 1 mg IM ASDIRECTED PRN PRN Reason: Hypoglycemia Remdesivir 100 mg/ Sodium (Chloride) 230 mls @ 230 mls/hr IV Q24H [facility] Stop: 04/18/20 16:59 Last Admin: 04/16/20 16:35 Dose: 230 mls/hr Documented by: Insulin Glargine (Lantus) 50 unit SUBCUT BEDTIME [facility] Last Admin: 04/16/20 22:25 Dose: 50 units Documented by: Insulin Human Lispro (Humalog) 0 unit SUBCUT QIDACANDBED [facility]; Protocol Last Admin: 04/17/20 09:19 Dose: 1 units Documented by: Mometasone Furoate/Formoterol Fumar (Dulera 200-5 Mcg) 2 puff IH BIDRT [facility] Last Admin: 04/17/20 09:20 Dose: Not Given Documented by: Morphine Sulfate (Morphine) 15 mg PO TID PRN PRN Reason: Pain Last Admin: 04/15/20 14:21 Dose: 15 mg Documented by: Morphine Sulfate (Ms Contin) 30 mg PO BID [facility] Last Admin: 04/17/20 09:18 Dose: 30 mg Documented by: Multivitamins (Thera) 1 each PO DAILY [facility] Last Admin: 04/17/20 09:19 Dose: 1 each Documented by: Ondansetron HCl (Zofran Odt) 4 mg PO Q6H PRN PRN Reason: nausea, able to take PO Sertraline HCl (Zoloft) 100 mg PO DAILY [facility] Last Admin: 04/17/20 09:17 Dose: 100 mg Documented by: Sodium Chloride (Saline Flush) 10 ml FLUSH ASDIRECTED PRN PRN Reason: Keep Vein Open Last Admin: 04/15/20 17:22 Dose: 30 ml Documented by: Trazodone HCl (Trazodone) 50 mg PO BEDTIME PRN PRN Reason: Sleep Last Admin: 04/14/20 22:31 Dose: 50 mg Documented by: Discontinued Medications Acetaminophen (Tylenol) 650 mg PO NOW ONE Stop: 04/14/20 19:42 Last Admin: 04/14/20 19:47 Dose: 650 mg Documented by: Dexamethasone (Decadron) 6 mg IVPUSH ONETIME ONE Stop: 04/14/20 19:16 Last Admin: 04/14/20 19:38 Dose: 6 mg Documented by: Magnesium Sulfate (Magnesium Sulfate In Water Premix) 2 gm in 50 mls @ 50 mls/hr IV ONETIME ONE Stop: 04/14/20 19:44 Last Admin: 04/14/20 19:38 Dose: 50 mls/hr Documented by: Remdesivir 200 mg/ Sodium (Chloride) 210 mls @ 210 mls/hr IV ONETIME ONE Stop: 04/14/20 20:49 Last Admin: 04/14/20 22:20 Dose: 210 mls/hr Documented by: Remdesivir 100 mg/ Sodium (Chloride) 230 mls @ 230 mls/hr IV Q24H ROCKY Stop: 04/18/20 09:01 Ceftriaxone Sodium 1 gm/ (Sodium Chloride) 50 mls @ 100 mls/hr IV Q24H [facility] Last Admin: 04/15/20 21:43 Dose: 100 mls/hr Documented by: Azithromycin 500 mg/ Sodium (Chloride) 250 mls @ 250 mls/hr IV Q24H [facility] Last Admin: 04/14/20 23:38 Dose: 250 mls/hr Documented by: Azithromycin 500 mg/ Sodium (Chloride) 250 mls @ 250 mls/hr IV Q24H [place] Last Admin: 04/15/20 21:58 Dose: 250 mls/hr Documented by: Ondansetron HCl (Zofran) Confirm Administered Dose 4 mg .ROUTE .STK-MED ONE Stop: 04/14/20 19:47 Last Admin: 04/14/20 19:49 Dose: Not Given Documented by: Ondansetron HCl (Zofran) 4 mg IVPUSH ONETIME ONE Stop: 04/14/20 19:50 Last Admin: 04/14/20 19:50 Dose: 4 mg Documented by: - Exam Quality Assessment: Denies: Supplemental Oxygen General: Reports: Alert, Oriented Neck: Reports: Supple Lungs: Reports: Clear to Auscultation, Normal Respiratory Effort. Denies: Wheezing Cardiovascular: Reports: Regular Rate, Regular Rhythm Extremities: No Pedal Edema
== END 2020-04-17 11:55 | disposition home or self-care (01) | DRG 871 ==
LOC: DL.ED 17:00 → DL.MS 19:47 → DL.ED 19:55 → OBSVTOIN 21:23
PROVIDERS: ADMIT Internal Medicine; ATTEND Internal Medicine
PROC: XW033E5 Introduction of Remdesivir Anti-infective into Peripheral Vein, Percutaneous Approach, New Technology Group 5 (ICD-10-PCS; principal; 2020-04-14)
PROC: XW13325 Transfusion of Convalescent Plasma (Nonautologous) into Peripheral Vein, Percutaneous Approach, New Technology Group 5 (ICD-10-PCS; 2020-04-14)
PROC: 8E0ZXY6 Isolation (ICD-10-PCS; 2020-04-14)
DX: A41.89 Other specified sepsis (principal); U07.1 COVID-19; J96.00 Acute respiratory failure, unspecified whether with hypoxia or hypercapnia; J12.9 Viral pneumonia, unspecified; N17.9 Acute kidney failure, unspecified; E87.1 Hypo-osmolality and hyponatremia; M17.11 Unilateral primary osteoarthritis, right knee; M54.5 Low back pain; J12.89 Other viral pneumonia; E83.42 Hypomagnesemia; E83.39 Other disorders of phosphorus metabolism; F11.90 Opioid use, unspecified, uncomplicated; R79.89 Other specified abnormal findings of blood chemistry; E66.9 Obesity, unspecified; E11.9 Type 2 diabetes mellitus without complications; E78.5 Hyperlipidemia, unspecified; H54.7 Unspecified visual loss; G89.29 Other chronic pain; Z86.79 Personal history of other diseases of the circulatory system; Z87.09 Personal history of other diseases of the respiratory system; Z87.448 Personal history of other diseases of urinary system; Z86.69 Personal history of other diseases of the nervous system and sense organs; Z86.59 Personal history of other mental and behavioral disorders; Z87.39 Personal history of other diseases of the musculoskeletal system and connective tissue; Z99.81 Dependence on supplemental oxygen; M54.9 Dorsalgia, unspecified; Z79.01 Long term (current) use of anticoagulants; Z68.30 Body mass index [BMI] 30.0-30.9, adult; E11.40 Type 2 diabetes mellitus with diabetic neuropathy, unspecified; F32.9 Major depressive disorder, single episode, unspecified; Z79.84 Long term (current) use of oral hypoglycemic drugs; Z91.038 Other insect allergy status; Z91.040 Latex allergy status; Z91.018 Allergy to other foods; Z79.82 Long term (current) use of aspirin; Z79.4 Long term (current) use of insulin; Z79.899 Other long term (current) drug therapy
CPT/HCPCS: 36415; 71045; 80053; 83605; 83735; 84100; 84484; 85025; 85379; 86140; 86900; 86901; 87040; 87804 ×2; 93005; 96374; 96375; 99285; A9270; J1100; J2405; J3475; U0002; 36430; 80048; 80076; 82728; 82962; 84145; 99284; J0456; J0696; J1650; J1815-GY; J7050; J8540; P9017

== ENCOUNTER 2020-09-08 21:28 | Emergency (ER) | payer MEDICARE, OTHER ==
[2020-09-08 21:43] VITALS: BP 128/86; PULSE 90
--- NOTE | 2020-09-08 22:43 | EDM.PDOC ---
ED HPI GENERAL MEDICAL PROBLEM - General Chief Complaint: Abdominal Pain Stated Complaint: NOT FEELING WELL, FATIGUE Time Seen by Provider: 09/08/20 22:30 Source of Information: Reports: Patient, Usp Records, RN History Limitations: Reports: Altered Mental Status - History of Present Illness INITIAL COMMENTS - FREE TEXT/NARRATIVE: Patient is a 54-year-old female who presents to ER with her with complaint of fatigue, nausea, vomiting, and diarrhea since last evening. Patient denies fever or chills. Patient states she recently had some lumps removed from the left side of her neck, will be starting chemo and radiation. Patient states she did have COVID-19 in April, states she has not had her vaccinations. Denies any chest pains or shortness of breath. Onset: Gradual Onset Date: 09/07/20 Abdominal Pain Score (Numeric/FACES): 5 - Related Data Allergies Allergy/AdvReac Type Severity Reaction Status Date / Time latex Allergy Rash Uncoded 11/06/19 14:57 onions Allergy Hives Uncoded 11/06/19 14:57 spider bites Allergy Numbness Uncoded 11/06/19 14:57 Home Meds: Home Meds Insulin Detemir [Levemir] 56 units SQ BEDTIME 06/01/13 [History] Aspirin [Halfprin] 81 mg PO DAILY 02/14/14 [History] Cyclobenzaprine [Flexeril] 10 mg PO TID 09/04/15 [History] Carboxymethylcellulose Sodium [Refresh Tears 0.5%] 2 drop EYELF TID 05/26/19 [History] Liraglutide [Victoza] 1.2 mg SQ WITHBREAKFAST 09/03/19 [History] Multivitamin [Multi-Day Vitamins] 1 each PO DAILY 09/03/19 [History] Acetaminophen 1,000 mg PO Q8HR PRN 10/14/19 [History] B Complex W-C No.20/Folic Acid [Pierce Caps Softgel] 1 mg PO DAILY 10/14/19 [History] Calcium Carbonate [Calcium] 1,200 mg PO DAILY 10/14/19 [History] Gabapentin [Neurontin] 100 mg PO TID 10/14/19 [History] Morphine [MS Contin] 30 mg PO BID 10/14/19 [History] Naloxone HCl [Narcan] 4 mg NS ASDIRECTED PRN 10/14/19 [History] Sertraline [Zoloft] 100 mg PO DAILY 10/14/19 [History] atorvaSTATin [Lipitor] 10 mg PO BEDTIME 10/14/19 [History] traZODone HCl [Trazodone HCl] 50 mg PO BEDTIME PRN 10/14/19 [History] Biotin 10,000 mcg PO DAILY 10/15/19 [History] Morphine Sulfate 15 mg PO TID PRN 10/31/19 [History] Albuterol [Proventil HFA] 2 puff INH Q4HR PRN #1 inhaler 04/17/20 [Rx] Mometasone/Formoterol [Dulera 200-5 MCG] 2 puff IH BIDRT #1 inhaler 04/17/20 [Rx] dexAMETHasone [Dexamethasone] 6 mg PO DAILY #15 tablet 04/17/20 [Rx] Past Medical History HEENT History: Reports: Impaired Vision Other HEENT History: wears glasses, droopy L) eye lid, had reconstrucion surg Cardiovascular History: Reports: Heart Murmur Respiratory History: Reports: Pneumonia, Recurrent Gastrointestinal History: Reports: None Genitourinary History: Reports: None, Dialysis, Other (See Below) Other Genitourinary History: Pt. reports she had sepsis in October, and her "kidneys shut down". She stated she received about 5 days of dialysis and got her kidneys started up again. CCNA History: Reports: , Other (See Below) Other CCNA History: 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 SEVERE L4-5 LUMBAR SPINAL STENOSIS. 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 T12-L1 THROUGH L5-S1 DEGENERATIVE DISC. 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 SEVERE L4-5 LUMBAR SPINAL STENOSIS. 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 T12-L1 THROUGH L5- S1 DEGENERATIVE DISC. 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 Cardiovascular Surgical History: Reports: None GI Surgical History: Reports: Appendectomy, Bariatric Procedure, Colonoscopy, Other (See Below) Other GI Surgeries/Procedures: gastric bypass Female Surgical History: Reports: Section, Oophorectomy, Tubal Ligation Other Female Surgeries/Procedures: right salpingo-oopherectomy Endocrine Surgical History: Reports: None Neurological Surgical History: Reports: Other (See Below) Other Neurological Surgeries/Procedures: brace on spine Musculoskeletal Surgical History: Reports: Knee Replacement, Other (See Below) Other Musculoskeletal Surgeries/Procedures:: back surgery x2 Oncologic Surgical History: Reports: None Social & Family History - Family History Family Medical History: No Pertinent Family History Cardiac: Reports: [place] Endocrine/Metabolic: Reports: Diabetes, Type I Oncologic: Reports: Ovarian, Prostate - Tobacco Use Tobacco Use Status *Q: Never Tobacco User Second Hand Smoke Exposure: No - Caffeine Use Caffeine Use: Reports: Tea - Recreational Drug Use Recreational Drug Use: Yes Recreational Drug Type: Reports: Marijuana/Hashish - Living Situation & Occupation Living situation: Reports: , with Family ED ROS GENERAL - Review of Systems Review Of Systems: Comprehensive ROS is negative, except as noted in HPI. ED EXAM, GI/ABD - Physical Exam Exam: See Below Exam Limited By: Altered Mental Status General Appearance: No Apparent Distress, Lethargic Eyes: Right: Normal Appearance, EOMI, Left: Abnormal EOM (Left eye blindness) Ears: Normal External Exam, Hearing Grossly Normal Nose: Normal Inspection Throat/Mouth: Normal Inspection, Normal Voice, No Airway Compromise, Other (dry mucous membranes) Head: Atraumatic, Normocephalic Neck: Normal Inspection, Supple, Non-Tender, Full Range of Motion, Other (recent tumor removal from the left side of the neck (August)) Respiratory/Chest: No Respiratory Distress, Lungs Clear, Normal Breath Sounds, No Accessory Muscle Use, Chest Non-Tender, Decreased Breath Sounds Cardiovascular: Normal Peripheral Pulses, Regular Rate, Rhythm, No Edema, No Gallop, No JVD, No Murmur, No Rub GI/Abdominal Exam: Normal Bowel Sounds, Soft, Non-Tender, No Organomegaly, No Distention, No Abnormal Bruit, No Mass, Pelvis Stable (Female) Exam: Deferred Rectal (Female) Exam: Deferred Back Exam: Normal Inspection, Full Range of Motion, NT Extremities: Normal Inspection, Normal Range of Motion, Non-Tender, Normal Capillary Refill, No Pedal Edema Neurological: Inattentive, Slow to Respond Psychiatric: Normal Affect, Normal Mood Skin Exam: Warm, Dry, Intact, Normal Color, No Rash Lymphatic: No Adenopathy Course - Vital Signs Last Recorded V/S: Last Vital Signs Temp 97.7 F 09/08/20 21:39 Pulse 90 09/08/20 21:39 Resp 21 H 09/08/20 21:39 BP 128/86 09/08/20 21:39 Pulse Ox 100 09/08/20 21:39 - Orders/Labs/Meds Labs: Laboratory Tests 09/08/20 09/08/20 09/08/20 Range/Units 22:29 22:29 23:40 WBC 10.0 (5.0-10.0) 10^3/uL RBC 5.13 (4.2-5.4) 10^6/uL Hgb 13.3 D (12.0-16.0) g/dL Hct 41.9 (37.0-47.0) % MCV 81.7 (80-100) fL MCH 25.9 L (27.0-34.0) pg MCHC 31.7 L (33.0-35.0) g/dL Plt Count 285 D (150-450) 10^3/uL Neut % (Auto) 69.8 (42.2-75.2) % Lymph % (Auto) 19.4 L (20.5-50.1) % [place] % (Auto) 8.9 H (2-8) % Eos % (Auto) 1.7 (1.0-3.0) % Baso % (Auto) 0.2 (0.0-1.0) % Sodium 139 (136-145) mmol/L Potassium 4.0 (3.5-5.1) mmol/L Chloride 101 (98-107) mmol/L Carbon Dioxide 27 (21-32) mmol/L Anion Gap 15.0 H (7-13) mEq/L BUN 7 (7-18) mg/dL Creatinine 0.73 (0.55-1.02) mg/dL Est Cr Clr Drug Dosing 92.07 mL/min Estimated GFR (MDRD) > 60 BUN/Creatinine Ratio 9.6 (No establ ref range) Glucose 232 H (70-99) mg/dL Calcium 8.8 (8.5-10.1) mg/dL Total Bilirubin 0.3 (0.2-1.0) mg/dL AST 19 (15-37) U/L ALT 59 (14-59) U/L Alkaline Phosphatase 133 H (46-116) U/L C-Reactive Protein 1.2 H (0.0-0.9) mg/dL Total Protein 7.4 (6.4-8.2) g/dL Albumin 3.3 L (3.4-5.0) g/dL Globulin 4.1 Albumin/Globulin Ratio 0.80 Urine Color (YELLOW) Urine Appearance (CLEAR) Urine pH (5.0-9.0) Ur Specific [place] (1.005-1.030) Urine Protein (NEGATIVE) Urine Glucose (UA) (NEGATIVE) Urine Ketones (NEGATIVE) Urine Occult Blood (NEGATIVE) Urine Nitrite (NEGATIVE) Urine Bilirubin (NEGATIVE) Urine Urobilinogen (0.2-1.0) mg/dL Ur Leukocyte Esterase (NEGATIVE) Urine Opiates Screen (NEGATIVE) Ur Oxycodone Screen (NEGATIVE) Urine Methadone Screen (NEGATIVE) Ur Barbiturates Screen (NEGATIVE) U Tricyclic Antidepress (NEGATIVE) Ur Phencyclidine Scrn (NEGATIVE) Ur Amphetamine Screen (NEGATIVE) U Methamphetamines Scrn (NEGATIVE) Urine MDMA Screen (NEGATIVE) U Benzodiazepines Scrn (NEGATIVE) Urine Cocaine Screen (NEGATIVE) U Marijuana (THC) Screen (NEGATIVE) Influenza Type A RNA Negative (NEGATIVE) Influenza Type B RNA Negative (NEGATIVE) SARS-CoV-2 RNA (PEBBLES) Negative (NEGATIVE) 09/09/20 09/09/20 Range/Units 00:00 00:00 WBC (5.0-10.0) 10^3/uL RBC (4.2-5.4) 10^6/uL Hgb (12.0-16.0) g/dL Hct (37.0-47.0) % MCV (80-100) fL MCH (27.0-34.0) pg MCHC (33.0-35.0) g/dL Plt Count (150-450) 10^3/uL Neut % (Auto) (42.2-75.2) % Lymph % (Auto) (20.5-50.1) % [place] % (Auto) (2-8) % Eos % (Auto) (1.0-3.0) % Baso % (Auto) (0.0-1.0) % Sodium (136-145) mmol/L Potassium (3.5-5.1) mmol/L Chloride (98-107) mmol/L Carbon Dioxide (21-32) mmol/L Anion Gap (7-13) mEq/L BUN (7-18) mg/dL Creatinine (0.55-1.02) mg/dL Est Cr Clr Drug Dosing mL/min Estimated GFR (MDRD) BUN/Creatinine Ratio (No establ ref range) Glucose (70-99) mg/dL Calcium (8.5-10.1) mg/dL Total Bilirubin (0.2-1.0) mg/dL AST (15-37) U/L ALT (14-59) U/L Alkaline Phosphatase (46-116) U/L C-Reactive Protein (0.0-0.9) mg/dL Total Protein (6.4-8.2) g/dL Albumin (3.4-5.0) g/dL Globulin Albumin/Globulin Ratio Urine Color Yellow (YELLOW) Urine Appearance Clear (CLEAR) Urine pH 5.0 (5.0-9.0) Ur Specific [place] <= 1.005 (1.005-1.030) Urine Protein Negative (NEGATIVE) Urine Glucose (UA) Negative (NEGATIVE) Urine Ketones Negative (NEGATIVE) Urine Occult Blood Negative (NEGATIVE) Urine Nitrite Negative (NEGATIVE) Urine Bilirubin Negative (NEGATIVE) Urine Urobilinogen 0.2 (0.2-1.0) mg/dL Ur Leukocyte Esterase Negative (NEGATIVE) Urine Opiates Screen Negative (NEGATIVE) Ur Oxycodone Screen Negative (NEGATIVE) Urine Methadone Screen Negative (NEGATIVE) Ur Barbiturates Screen Negative (NEGATIVE) U Tricyclic Antidepress Negative (NEGATIVE) Ur Phencyclidine Scrn Negative (NEGATIVE) Ur Amphetamine Screen Negative (NEGATIVE) U Methamphetamines Scrn Negative (NEGATIVE) Urine MDMA Screen Negative (NEGATIVE) U Benzodiazepines Scrn Negative (NEGATIVE) Urine Cocaine Screen Negative (NEGATIVE) U Marijuana (THC) Screen Positive H (NEGATIVE) Influenza Type A RNA (NEGATIVE) Influenza Type B RNA (NEGATIVE) SARS-CoV-2 RNA (PEBBLES) (NEGATIVE) Meds: Medications Discontinued Medications Generic Name Dose Route Start Last Admin Trade Name Freq PRN Reason Stop Dose Admin Sodium Chloride 1,000 mls @ 999 mls/hr 09/08/20 23:09 09/08/20 23:10 Normal Saline IV 09/09/20 00:09 999 mls/hr .BOLUS ONE Administration Departure - Departure Time of Disposition: 00:28 Disposition: Home, Self-Care 01 Condition: Fair Clinical Impression: Gastroenteritis - Discharge Information Instructions: Food Choices to Help Relieve Diarrhea, Adult, Nausea and Vomiting, Adult, [id number], Diarrhea, Adult, [id number] Forms: ED Department Discharge Additional Instructions: Drink plenty of fluids May use Imodium as directed for diarrhea Follow-up with your primary care provider Return to the ER with any worsening of symptoms Sepsis Event Note (ED) - Evaluation Sepsis Screening Result: No Definite Risk - Focused Exam Vital Signs: Vital Signs Temp Pulse Resp BP Pulse Ox 09/08/20 21:39 97.7 F 90 21 H 128/86 100
[2020-09-08 22:52] LABS: CHLORIDE,CL 101 mmol/L (98-107); SODIUM,NA 139 mmol/L (136-145)
[2020-09-08] MEDS ORDERED: Sodium Chloride 0.9% 1,000 ML IV ONE (23:09)
[2020-09-09 00:20] LABS: CORONAVIRUS COVID-19 NAA NEGATIVE (NEGATIVE)
== END 2020-09-09 00:35 | disposition home or self-care (01) ==
LOC: DL.ED 21:28
DX: K52.9 Noninfective gastroenteritis and colitis, unspecified (principal); E11.40 Type 2 diabetes mellitus with diabetic neuropathy, unspecified; E66.9 Obesity, unspecified; Z79.82 Long term (current) use of aspirin; Z91.018 Allergy to other foods; Z91.040 Latex allergy status; Z86.16 Personal history of COVID-19; Z90.49 Acquired absence of other specified parts of digestive tract; Z91.09 Other allergy status, other than to drugs and biological substances; Z79.4 Long term (current) use of insulin; Z20.822 Contact with and (suspected) exposure to COVID-19; Z79.899 Other long term (current) drug therapy; Z68.36 Body mass index [BMI] 36.0-36.9, adult
CPT/HCPCS: 0240U; 36415; 80053; 80305; 81003; 85025; 86140; 99283; 99284; J7030

== ENCOUNTER 2020-09-09 21:13 | Observation (INO) | payer MEDICARE, OTHER ==
[2020-09-09 23:19] LABS: ANION GAP 14.6 mEq/L (7-13); CHLORIDE,CL 103 mmol/L (98-107); SODIUM,NA 142 mmol/L (136-145)
--- NOTE | 2020-09-09 23:30 | CT ---
PROCEDURE INFORMATION: Exam: CT Head Without Contrast Exam date and time: 09/09/2020 10:57 PM Age: 54 years old Clinical indication: Other: Lethargic; Additional info: Lethargy TECHNIQUE: Imaging protocol: Computed tomography of the head without contrast. Radiation optimization: All CT scans at this facility use at least one of these dose optimization techniques: automated exposure control; mA and/or kV adjustment per patient size (includes targeted exams where dose is matched to clinical indication); or iterative reconstruction. COMPARISON: No relevant prior studies available. FINDINGS: Brain: No acute infarct or hemorrhage. Cerebral ventricles: No ventriculomegaly. Bones/joints: Unremarkable. No acute fracture. Paranasal sinuses: Paranasal sinuses are clear. No air-fluid level. Mastoid air cells: Visualized mastoid air cells are clear. Soft tissues: Unremarkable. Other findings: Study mildly limited by motion. IMPRESSION: 1. No acute infarct or hemorrhage. 2. Study mildly limited by motion.
[2020-09-10] MEDS ORDERED: Acetaminophen 325 MG Tab PO PRN (00:16)
[2020-09-10] MEDS ORDERED: Ondansetron 4 MG/2 ML SDV IVPUSH PRN (00:16)
[2020-09-10] MEDS ORDERED: Docusate Sodium 100 MG Cap PO PRN (00:16)
[2020-09-10] MEDS ORDERED: Ketorolac 30 MG/ML SDV IM PRN (00:25)
[2020-09-10] MEDS ORDERED: Albuterol 6.7 GM Inhaler INH PRN (00:27)
[2020-09-10] MEDS ORDERED: Sodium Chloride 0.9% 1,000 ML IV SCH (00:30)
--- NOTE | 2020-09-10 00:33 | PCM.HP ---
H&P History of Present Illness - General Date of Service: 09/10/20 Admit Problem/Dx: Admission Diagnosis/Problem Admission Diagnosis/Problem Altered mental status Source of Information: Patient, Other (ER provider) - History of Present Illness Initial Comments - Free Text/Narative: pt is 54 y/o w came twice over the past 24 hrs. complaining of nausea. bodyache and fatigue. Pt reports that she has been out of her Mophine for few days. She was noted to be lethargic and observation was requested. 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 complicated by AUBREY and HD as per notes. H/o left eye surgery X 2 for cancer as per pt. Sebaceous Carcinoma Left neck. recent surgery about a month ago. Appendectomy and C section, Bariatric procedure . Chronic back pain on chronic narcotic pain medications. Onset of Symptoms: Reports: Gradual Duration of Symptoms: Reports: Day(s): (2) lower back and abd. pain Pain Score (Numeric/FACES): 8 - Related Data Allergies/Adverse Reactions: Allergies Allergy/AdvReac Type Severity Reaction Status Date / Time latex Allergy Rash Uncoded 09/09/20 22:27 onions Allergy Hives Uncoded 09/09/20 22:27 spider bites Allergy Numbness Uncoded 09/09/20 22:27 Home Medications: Home Meds Insulin Detemir [Levemir] 42 units SQ BEDTIME 06/01/13 [History] Aspirin [Halfprin] 81 mg PO DAILY 02/14/14 [History] Cyclobenzaprine [Flexeril] 10 mg PO TID 09/04/15 [History] Carboxymethylcellulose Sodium [Refresh Tears 0.5%] 2 drop EYELF TID 05/26/19 [History] Multivitamin [Multi-Day Vitamins] 1 each PO DAILY 09/03/19 [History] Gabapentin [Neurontin] 100 mg PO TID 10/14/19 [History] Morphine [MS Contin] 30 mg PO BID 10/14/19 [History] Sertraline [Zoloft] 100 mg PO DAILY 10/14/19 [History] atorvaSTATin [Lipitor] 10 mg PO BEDTIME 10/14/19 [History] Morphine Sulfate 15 mg PO TID PRN 10/31/19 [History] Albuterol [Proventil HFA] 2 puff INH Q4HR PRN #1 inhaler 04/17/20 [Rx] Past Medical History HEENT History: Reports: Impaired Vision Other HEENT History: wears glasses, droopy L) eye lid, had reconstrucion surg Cardiovascular History: Reports: Heart Murmur Respiratory History: Reports: Pneumonia, Recurrent Gastrointestinal History: Reports: None Genitourinary History: Reports: None, Dialysis, Other (See Below) Other Genitourinary History: Pt. reports she had sepsis in October, and her "kidneys shut down". She stated she received about 5 days of dialysis and got her kidneys started up again. PREPARING BOX TENDER 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 SEVERE L4-5 LUMBAR SPINAL STENOSIS. 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 T12-L1 THROUGH L5-S1 DEGENERATIVE DISC. 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 SEVERE L4-5 LUMBAR SPINAL STENOSIS. 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 T12-L1 THROUGH L5- S1 DEGENERATIVE DISC. 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 Cardiovascular Surgical History: Reports: None GI Surgical History: Reports: Appendectomy, Bariatric Procedure, Colonoscopy, Other (See Below) Other GI Surgeries/Procedures: gastric bypass Female Surgical History: Reports: Section, Oophorectomy, Tubal Ligation Other Female Surgeries/Procedures: right salpingo-oopherectomy Endocrine Surgical History: Reports: None Neurological Surgical History: Reports: Other (See Below) Other Neurological Surgeries/Procedures: brace on spine Musculoskeletal Surgical History: Reports: Knee Replacement, Other (See Below) Other Musculoskeletal Surgeries/Procedures:: back surgery x2 Oncologic Surgical History: Reports: None Social & Family History - Family History Family Medical History: No Pertinent Family History Cardiac: Reports: NC Endocrine/Metabolic: Reports: Diabetes, Type I Oncologic: Reports: Ovarian, Prostate - Tobacco Use Tobacco Use Status *Q: Unknown Ever Used Tobacco - Caffeine Use Caffeine Use: Reports: None - Alcohol Use Days Per Week of Alcohol Use: 7 Number of Drinks Per Day: 7 Total Drinks Per Week: 49 - Recreational Drug Use Recreational Drug Use: No - Living Situation & Occupation Living situation: Reports: , with Family H&P Review of Systems - Review of Systems: Review Of Systems: See Below General: Reports: Chills. Denies: Fever Pulmonary: Denies: Shortness of Breath Cardiovascular: Denies: Chest Pain Gastrointestinal: Reports: Abdominal Pain, Diarrhea, Nausea Genitourinary: Denies: Retention Musculoskeletal: Reports: Back Pain Skin: Denies: Cyanosis Psychiatric: Denies: Confusion Neurological: Denies: Confusion Exam - Exam Exam: See Below - Vital Signs Vital Signs: Last Vital Signs Temp 98.7 F 09/09/20 22:20 Pulse 95 09/10/20 00:05 Resp 16 09/10/20 00:05 BP 134/84 09/10/20 00:05 Pulse Ox 95 09/10/20 00:05 Weight: 240 lb - Exam Quality Assessment: No: Supplemental Oxygen General: Oriented, Cooperative, Other (sleepy) HEENT: EOMI Neck: Supple Lungs: Clear to Auscultation, Normal Respiratory Effort Cardiovascular: Regular Rate, Regular Rhythm GI/Abdominal Exam: Soft, Non-Tender Extremities: Normal Inspection. No: Pedal Edema Neurological: Cranial Nerves Intact Neuro Extensive - Mental Status: Alert, Oriented x3, Other (but drawzy) Neuro Extensive - Motor, Sensory, Reflexes: CN II-XII Intact Psychiatric: Alert, Normal Affect - Patient Data Lab Results Last 24 hrs: Laboratory Results - last 24 hr 09/09/20 09/09/20 09/09/20 Range/Units 22:57 22:57 22:57 WBC 10.5 H (5.0-10.0) 10^3/uL RBC 5.25 (4.2-5.4) 10^6/uL Hgb 13.6 (12.0-16.0) g/dL Hct 42.8 (37.0-47.0) % MCV 81.5 (80-100) fL MCH 25.9 L (27.0-34.0) pg MCHC 31.8 L (33.0-35.0) g/dL Plt Count 295 (150-450) 10^3/uL Neut % (Auto) 62.3 (42.2-75.2) % Lymph % (Auto) 25.0 (20.5-50.1) % [place] % (Auto) 10.3 H (2-8) % Eos % (Auto) 2.2 (1.0-3.0) % Baso % (Auto) 0.2 (0.0-1.0) % PT 10.2 (9.0-12.0) SEC INR 1.0 (0.9-1.2) Sodium 142 (136-145) mmol/L Potassium 3.6 (3.5-5.1) mmol/L Chloride 103 (98-107) mmol/L Carbon Dioxide 28 (21-32) mmol/L Anion Gap 14.6 H (7-13) mEq/L BUN 8 (7-18) mg/dL Creatinine 0.75 (0.55-1.02) mg/dL Est Cr Clr Drug Dosing 89.61 mL/min Estimated GFR (MDRD) > 60 BUN/Creatinine Ratio 10.7 (No establ ref range) Glucose 223 H (70-99) mg/dL POC Glucose (70-105) mg/dl Calcium 8.6 (8.5-10.1) mg/dL Total Bilirubin 0.3 (0.2-1.0) mg/dL AST 16 (15-37) U/L ALT 52 (14-59) U/L Alkaline Phosphatase 127 H (46-116) U/L Total Protein 7.2 (6.4-8.2) g/dL Albumin 3.2 L (3.4-5.0) g/dL Globulin 4.0 Albumin/Globulin Ratio 0.80 Ethyl Alcohol < 3 (0) mg/dL 09/09/20 Range/Units 23:05 WBC (5.0-10.0) 10^3/uL RBC (4.2-5.4) 10^6/uL Hgb (12.0-16.0) g/dL Hct (37.0-47.0) % MCV (80-100) fL MCH (27.0-34.0) pg MCHC (33.0-35.0) g/dL Plt Count (150-450) 10^3/uL Neut % (Auto) (42.2-75.2) % Lymph % (Auto) (20.5-50.1) % [place] % (Auto) (2-8) % Eos % (Auto) (1.0-3.0) % Baso % (Auto) (0.0-1.0) % PT (9.0-12.0) SEC INR (0.9-1.2) Sodium (136-145) mmol/L Potassium (3.5-5.1) mmol/L Chloride (98-107) mmol/L Carbon Dioxide (21-32) mmol/L Anion Gap (7-13) mEq/L BUN (7-18) mg/dL Creatinine (0.55-1.02) mg/dL Est Cr Clr Drug Dosing mL/min Estimated GFR (MDRD) BUN/Creatinine Ratio (No establ ref range) Glucose (70-99) mg/dL POC Glucose 215 H (70-105) mg/dl Calcium (8.5-10.1) mg/dL Total Bilirubin (0.2-1.0) mg/dL AST (15-37) U/L ALT (14-59) U/L Alkaline Phosphatase (46-116) U/L Total Protein (6.4-8.2) g/dL Albumin (3.4-5.0) g/dL Globulin Albumin/Globulin Ratio Ethyl Alcohol (0) mg/dL Result Diagrams: 09/09/20 22:57 09/09/20 22:57 Problem List Initiated/Reviewed/Updated: Yes Orders Last 24hrs: Active Orders 24 hr Category Date Time Status Admission Diagnosis [ADT] Stat ADT 09/09/20 23:57 Ordered Admission Status [Patient Status] [ADT] Routine ADT 09/09/20 23:57 Active Blood Glucose Check, Bedside [RC] [facility] 09/10/20 00:16 Ordered Cardiac Monitoring [RC] CONTINUOUS Care 09/10/20 00:20 Ordered Oxygen Therapy [RC] PRN Care 09/10/20 00:17 Ordered Pulse Oximetry [RC] CONTINUOUS Care 09/10/20 00:17 Ordered RT Post Treatment Assessment [RC] Click to Edit Care 09/10/20 00:28 Ordered RT Pre-Treatment Assessment [RC] Click to Edit Care 09/10/20 00:28 Ordered Up With Assistance [RC] ASDIRECTED Care 09/10/20 00:16 Ordered VTE/DVT Education [RC] PER UNIT ROUTINE Care 09/10/20 00:17 Ordered Vital Signs [RC] Q4H Care 09/10/20 00:17 Ordered Consistent Carbohydrate Diet [DIET] Diet 09/10/20 Breakfast Ordered CORONAVIRUS COVID-19 PEBBLES [MOLEC] Stat Lab 09/09/20 23:45 Received DRUG SCREEN URINE BIORAD [URCHEM] Stat Lab 09/09/20 22:47 Ordered Acetaminophen [TylenoL] Med 09/10/20 00:16 Ordered 650 mg PO Q4H PRN Albuterol [Proventil HFA] Med 09/10/20 00:27 Ordered 2 puff INH Q4HR PRN Aspirin [Halfprin] Med 09/10/20 09:00 Ordered 81 mg PO DAILY Carboxymethylcellulose Sodium [Refresh Tears 0.5%] Med 09/10/20 09:00 Ordered 2 drop EYELF TID Cyclobenzaprine [Flexeril] Med 09/10/20 09:00 Ordered 10 mg PO TID Docusate Sodium [Colace] Med 09/10/20 00:16 Ordered 100 mg PO BID PRN Docusate Sodium/Sennosides [Senna Plus] Med 09/10/20 00:25 Ordered 1 tab PO BEDTIME PRN Enoxaparin [Lovenox] Med 09/10/20 09:00 Ordered 40 mg SUBCUT DAILY Insulin Detemir Med 09/10/20 21:00 Ordered 42 units SQ BEDTIME Ketorolac [Toradol] Med 09/10/20 00:25 Ordered 30 mg IM Q6H PRN Multivitamin [Multi-Day Vitamins] Med 09/10/20 09:00 Ordered 1 each PO DAILY Ondansetron [Zofran] Med 09/10/20 00:16 Ordered 4 mg IVPUSH Q4H PRN Sertraline [Zoloft] Med 09/10/20 09:00 Ordered 100 mg PO DAILY Sodium Chloride 0.9% @ 125 MLS/HR (1000ml) Med 09/10/20 00:30 Ordered Sodium Chloride 0.9% [Normal Saline] 1,000 ml IV ASDIRECTED atorvaSTATin [Lipitor] Med 09/10/20 21:00 Ordered 10 mg PO BEDTIME Resuscitation Status Routine Resus Stat 09/10/20 00:16 Ordered Medication Orders Acetaminophen (Acetaminophen 325 Mg Tab) 650 mg PO Q4H PRN PRN Reason: Pain (Mild 1-3)/fever Albuterol (Albuterol 6.7 Gm Inhaler) gm INH Q4HR PRN PRN Reason: Wheezing Aspirin (Aspirin 81 Mg Tab.Ec) 81 mg PO DAILY ROCKY Atorvastatin Calcium (Atorvastatin 10 Mg Tab) 10 mg PO BEDTIME ROCKY Docusate Sodium (Docusate Sodium 100 Mg Cap) 100 mg PO BID PRN PRN Reason: Constipation Enoxaparin Sodium (Enoxaparin 40 Mg/0.4 Ml Syringe) 40 mg SUBCUT DAILY [facility] Sodium Chloride (Normal Saline) 1,000 mls @ 125 mls/hr IV ASDIRECTED ROCKY Ketorolac Tromethamine (Ketorolac 30 Mg/Ml Sdv) 30 mg IM Q6H PRN PRN Reason: Pain (moderate 4-6) Non-Formulary Medication (Cyclobenzaprine [Flexeril]) 10 mg PO TID ROCKY Non-Formulary Medication (Carboxymethylcellulose Sodium [Refresh Tears 0.5%]) 2 drop EYELF TID ROCKY Non-Formulary Medication (Multivitamin [Multi-Day Vitamins]) 1 each PO DAILY [facility] Non-Formulary Medication (Sertraline [Zoloft]) 100 mg PO DAILY [facility] Non-Formulary Medication (Insulin Detemir) 42 units SQ BEDTIME [place] Ondansetron HCl (Ondansetron 4 Mg/2 Ml Sdv) 4 mg IVPUSH Q4H PRN PRN Reason: Nausea/Vomiting Senna/Docusate Sodium (Docusate Sodium/Sennosides 50-8.6 Mg Tab) 1 tab PO BEDTIME PRN PRN Reason: Constipation Assessment/Plan Comment:: Drug withdrawal Altered mental status DM Obesity observation. Hold gabapentin for now IVF Tele Continue home medications DVT prophylaxis
[2020-09-10] MEDS ORDERED: 50% Dextrose in Water 50 ML Syringe IV PRN (01:00)
[2020-09-10] MEDS ORDERED: Glucagon,Human Recombinant 1 MG Vial IM PRN (01:00)
--- NOTE | 2020-09-10 02:22 | EDM.PDOC ---
ED HPI GENERAL MEDICAL PROBLEM - General Chief Complaint: General Stated Complaint: WITHDRAWALS Time Seen by Provider: 09/09/20 23:00 Source of Information: Reports: Patient, Other (ER provider) - History of Present Illness INITIAL COMMENTS - FREE TEXT/NARRATIVE: Patient is a 54-year-old female who presents to ER with complaint of withdrawal from morphine. Patient states she takes morphine on a daily basis and has been out of her medication since Monday, has called her regular provider to have it refilled, and it has not been refilled yet. Patient was seen last evening in the ER for GI symptoms, diarrhea, vomiting. Upon arrival to the ER, patient lays down on the bed and becomes very lethargic, cannot finish sentences needs to be shaken awake to finish sentences. When discussed with the he states she has not had vomiting today, continues to have some diarrhea. When asked if the patient could possibly be taking more gabapentin to make up for the morphine she has not gotten, is doubtful about this. states the patient has recently gotten a medical marijuana card and has been taking some sort of marijuana capsules. states the patient has had intermittent episodes of lethargy like this over the past week. Onset: Gradual Duration: Day(s): (4) lower back and abd. pain Pain Score (Numeric/FACES): 6 - Related Data Allergies Allergy/AdvReac Type Severity Reaction Status Date / Time latex Allergy Rash Uncoded 09/09/20 22:27 onions Allergy Hives Uncoded 09/09/20 22:27 spider bites Allergy Numbness Uncoded 09/09/20 22:27 Home Meds: Home Meds Insulin Detemir [Levemir] 42 units SQ BEDTIME 06/01/13 [History] Aspirin [Halfprin] 81 mg PO DAILY 02/14/14 [History] Cyclobenzaprine [Flexeril] 10 mg PO TID 09/04/15 [History] Carboxymethylcellulose Sodium [Refresh Tears 0.5%] 2 drop EYELF TID 05/26/19 [History] Multivitamin [Multi-Day Vitamins] 1 each PO DAILY 09/03/19 [History] Gabapentin [Neurontin] 100 mg PO TID 10/14/19 [History] Morphine [MS Contin] 30 mg PO BID 10/14/19 [History] Sertraline [Zoloft] 100 mg PO DAILY 10/14/19 [History] atorvaSTATin [Lipitor] 10 mg PO BEDTIME 10/14/19 [History] Morphine Sulfate 15 mg PO TID PRN 10/31/19 [History] Albuterol [Proventil HFA] 2 puff INH Q4HR PRN #1 inhaler 04/17/20 [Rx] Past Medical History HEENT History: Reports: Impaired Vision Other HEENT History: wears glasses, droopy L) eye lid, had reconstrucion surg Cardiovascular History: Reports: Heart Murmur Respiratory History: Reports: Pneumonia, Recurrent Gastrointestinal History: Reports: None Genitourinary History: Reports: None, Dialysis, Other (See Below) Other Genitourinary History: Pt. reports she had sepsis in October, and her "kidneys shut down". She stated she received about 5 days of dialysis and got her kidneys started up again. ACID MAKER History: Reports: , Other (See Below) Other ACID MAKER History: 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 SEVERE L4-5 LUMBAR SPINAL STENOSIS. 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 T12-L1 THROUGH L5-S1 DEGENERATIVE DISC. 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 SEVERE L4-5 LUMBAR SPINAL STENOSIS. 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 T12-L1 THROUGH L5- S1 DEGENERATIVE DISC. 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 Cardiovascular Surgical History: Reports: None GI Surgical History: Reports: Appendectomy, Bariatric Procedure, Colonoscopy, Other (See Below) Other GI Surgeries/Procedures: gastric bypass Female Surgical History: Reports: Section, Oophorectomy, Tubal Ligation Other Female Surgeries/Procedures: right salpingo-oopherectomy Endocrine Surgical History: Reports: None Neurological Surgical History: Reports: Other (See Below) Other Neurological Surgeries/Procedures: brace on spine Musculoskeletal Surgical History: Reports: Knee Replacement, Other (See Below) Other Musculoskeletal Surgeries/Procedures:: back surgery x2 Oncologic Surgical History: Reports: None Social & Family History - Family History Family Medical History: No Pertinent Family History Cardiac: Reports: MS Endocrine/Metabolic: Reports: Diabetes, Type I Oncologic: Reports: Ovarian, Prostate - Tobacco Use Tobacco Use Status *Q: Unknown Ever Used Tobacco Second Hand Smoke Exposure: No - Caffeine Use Caffeine Use: Reports: None - Alcohol Use Days Per Week of Alcohol Use: 7 Number of Drinks Per Day: 7 Total Drinks Per Week: 49 - Recreational Drug Use Recreational Drug Use: No - Living Situation & Occupation Living situation: Reports: , with Family ED ROS GENERAL - Review of Systems Review Of Systems: Comprehensive ROS is negative, except as noted in HPI. 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) Ears: Normal External Exam, Hearing Grossly Normal Nose: Normal Inspection Throat/Mouth: Normal Inspection, Normal Voice, No Airway Compromise Head Exam: Atraumatic, Normocephalic Neck: Normal Inspection, Supple, Non-Tender, Full Range of Motion Respiratory/Chest: No Respiratory Distress, Lungs Clear, Normal Breath Sounds, No Accessory Muscle Use, Chest Non-Tender Cardiovascular: Normal Peripheral Pulses, Regular Rate, Rhythm, No Edema, No Gallop, No JVD, No Murmur, No Rub GI/Abdominal: Normal Bowel Sounds, Soft, Non-Tender (Female) Exam: Deferred Rectal (Female) Exam: Deferred Neuro Exam (Abbreviated): Slow to Respond Back Exam: Normal Inspection, Decreased Range of Motion Extremities: Normal Inspection, Limited Range of Motion Psychiatric: Normal Affect, Normal Mood Skin Exam: Warm, Dry, Intact, Normal Color, No Rash Course - Vital Signs Last Recorded V/S: Last Vital Signs Temp 98.7 F 09/10/20 00:17 Pulse 80 09/10/20 00:17 Resp 16 09/10/20 00:17 BP 134/88 09/10/20 00:17 Pulse Ox 97 09/10/20 00:17 - Orders/Labs/Meds Orders: Active Orders 24 hr Category Date Time Status DRUG SCREEN URINE BIORAD [URCHEM] Stat Lab 09/09/20 22:47 Ordered Medication Orders Acetaminophen (Acetaminophen 325 Mg Tab) 650 mg PO Q4H PRN PRN Reason: Pain (Mild 1-3)/fever Albuterol (Albuterol 6.7 Gm Inhaler) 0 gm INH Q4HR PRN PRN Reason: Wheezing Artificial Tears (Polyvinyl Alcohol 1.4% Ophth Soln 15 Ml Bottle) 0 ml EYELF TID [facility] Aspirin (Aspirin 81 Mg Tab.Ec) 81 mg PO DAILY [facility] Atorvastatin Calcium (Atorvastatin 10 Mg Tab) 10 mg PO BEDTIME [facility] Cyclobenzaprine HCl (Cyclobenzaprine 10 Mg Tab) 10 mg PO TID [facility] Dextrose/Water (50% Dextrose In Water 50 Ml Syringe) 50 ml IV Q15M PRN PRN Reason: Hypoglycemia Docusate Sodium (Docusate Sodium 100 Mg Cap) 100 mg PO BID PRN PRN Reason: Constipation Enoxaparin Sodium (Enoxaparin 40 Mg/0.4 Ml Syringe) 40 mg SUBCUT DAILY [facility] Glucagon (Glucagon,Human Recombinant 1 Mg Vial) 1 mg IM Q15M PRN PRN Reason: Hypoglycemia Sodium Chloride (Normal Saline) 1,000 mls @ 125 mls/hr IV ASDIRECTED [facility] Last Admin: 09/10/20 01:11 Dose: 125 mls/hr Documented by: AURELIANO Insulin Glargine (Insulin Glarg,Human.Rec.Analog 100 Unit/Ml) 42 unit SUBCUT BEDTIME [facility] Insulin Human Lispro (Insulin Lispro 100 Units/Ml 3 Ml Vial) 0 unit SUBCUT WITHMEALSANDBED [facility]; Protocol Ketorolac Tromethamine (Ketorolac 30 Mg/Ml Sdv) 30 mg IM Q6H PRN PRN Reason: Pain (moderate 4-6) Multivitamins (Multivitamins,Therapeutic Tab) 1 each PO DAILY [facility] Ondansetron HCl (Ondansetron 4 Mg/2 Ml Sdv) 4 mg IVPUSH Q4H PRN PRN Reason: Nausea/Vomiting Senna/Docusate Sodium (Docusate Sodium/Sennosides 50-8.6 Mg Tab) 1 tab PO BEDTIME PRN PRN Reason: Constipation Sertraline HCl (Sertraline 50 Mg Tab) 100 mg PO DAILY [facility] Labs: Laboratory Tests 09/09/20 09/09/20 09/09/20 Range/Units 22:57 22:57 22:57 WBC 10.5 H (5.0-10.0) 10^3/uL RBC 5.25 (4.2-5.4) 10^6/uL Hgb 13.6 (12.0-16.0) g/dL Hct 42.8 (37.0-47.0) % MCV 81.5 (80-100) fL MCH 25.9 L (27.0-34.0) pg MCHC 31.8 L (33.0-35.0) g/dL Plt Count 295 (150-450) 10^3/uL Neut % (Auto) 62.3 (42.2-75.2) % Lymph % (Auto) 25.0 (20.5-50.1) % Henry % (Auto) 10.3 H (2-8) % Eos % (Auto) 2.2 (1.0-3.0) % Baso % (Auto) 0.2 (0.0-1.0) % PT 10.2 (9.0-12.0) SEC INR 1.0 (0.9-1.2) Sodium 142 (136-145) mmol/L Potassium 3.6 (3.5-5.1) mmol/L Chloride 103 (98-107) mmol/L Carbon Dioxide 28 (21-32) mmol/L Anion Gap 14.6 H (7-13) mEq/L BUN 8 (7-18) mg/dL Creatinine 0.75 (0.55-1.02) mg/dL Est Cr Clr Drug Dosing 89.61 mL/min Estimated GFR (MDRD) > 60 BUN/Creatinine Ratio 10.7 (No establ ref range) Glucose 223 H (70-99) mg/dL POC Glucose (70-105) mg/dl Calcium 8.6 (8.5-10.1) mg/dL Total Bilirubin 0.3 (0.2-1.0) mg/dL AST 16 (15-37) U/L ALT 52 (14-59) U/L Alkaline Phosphatase 127 H (46-116) U/L Total Protein 7.2 (6.4-8.2) g/dL Albumin 3.2 L (3.4-5.0) g/dL Globulin 4.0 Albumin/Globulin Ratio 0.80 Ethyl Alcohol < 3 (0) mg/dL SARS-CoV-2 RNA (PEBBLES) (NEGATIVE) 09/09/20 09/09/20 Range/Units 23:05 23:45 WBC (5.0-10.0) 10^3/uL RBC (4.2-5.4) 10^6/uL Hgb (12.0-16.0) g/dL Hct (37.0-47.0) % MCV (80-100) fL MCH (27.0-34.0) pg MCHC (33.0-35.0) g/dL Plt Count (150-450) 10^3/uL Neut % (Auto) (42.2-75.2) % Lymph % (Auto) (20.5-50.1) % Henry % (Auto) (2-8) % Eos % (Auto) (1.0-3.0) % Baso % (Auto) (0.0-1.0) % PT (9.0-12.0) SEC INR (0.9-1.2) Sodium (136-145) mmol/L Potassium (3.5-5.1) mmol/L Chloride (98-107) mmol/L Carbon Dioxide (21-32) mmol/L Anion Gap (7-13) mEq/L BUN (7-18) mg/dL Creatinine (0.55-1.02) mg/dL Est Cr Clr Drug Dosing mL/min Estimated GFR (MDRD) BUN/Creatinine Ratio (No establ ref range) Glucose (70-99) mg/dL POC Glucose 215 H (70-105) mg/dl Calcium (8.5-10.1) mg/dL Total Bilirubin (0.2-1.0) mg/dL AST (15-37) U/L ALT (14-59) U/L Alkaline Phosphatase (46-116) U/L Total Protein (6.4-8.2) g/dL Albumin (3.4-5.0) g/dL Globulin Albumin/Globulin Ratio Ethyl Alcohol (0) mg/dL SARS-CoV-2 RNA (PEBBLES) Negative (NEGATIVE) Meds: Medications Generic Name Dose Route Start Last Admin Trade Name Freq PRN Reason Stop Dose Admin Acetaminophen 650 mg 09/10/20 00:16 Acetaminophen 325 Mg Tab PO Q4H PRN Pain (Mild 1-3)/fever Albuterol 0 gm 09/10/20 00:27 Albuterol 6.7 Gm Inhaler INH Q4HR PRN Wheezing Artificial Tears 0 ml 09/10/20 09:00 Polyvinyl Alcohol 1.4% Ophth Soln 15 Ml Bottle EYELF TID [facility] Aspirin 81 mg 09/10/20 09:00 Aspirin 81 Mg Tab.Ec PO DAILY [facility] Atorvastatin Calcium 10 mg 09/10/20 21:00 Atorvastatin 10 Mg Tab PO BEDTIME [facility] Cyclobenzaprine HCl 10 mg 09/10/20 09:00 Cyclobenzaprine 10 Mg Tab PO TID [facility] Dextrose/Water 50 ml 09/10/20 01:00 50% Dextrose In Water 50 Ml Syringe IV Q15M PRN Hypoglycemia Docusate Sodium 100 mg 09/10/20 00:16 Docusate Sodium 100 Mg Cap PO BID PRN Constipation Enoxaparin Sodium 40 mg 09/10/20 09:00 Enoxaparin 40 Mg/0.4 Ml Syringe SUBCUT DAILY [facility] Glucagon 1 mg 09/10/20 01:00 Glucagon,Human Recombinant 1 Mg Vial IM Q15M PRN Hypoglycemia Sodium Chloride 1,000 mls @ 125 mls/hr 09/10/20 00:30 09/10/20 01:11 Normal Saline IV 125 mls/hr ASDIRECTED [facility] Administration Insulin Glargine 42 unit 09/10/20 21:00 Insulin Glarg,Human.Rec.Analog 100 Unit/Ml SUBCUT BEDTIME [facility] Insulin Human Lispro 0 unit 09/10/20 08:00 Insulin Lispro 100 Units/Ml 3 Ml Vial SUBCUT WITHMEALSANDBED [facility] Protocol Ketorolac Tromethamine 30 mg 09/10/20 00:25 Ketorolac 30 Mg/Ml Sdv IM Q6H PRN Pain (moderate 4-6) Multivitamins 1 each 09/10/20 09:00 Multivitamins,Therapeutic Tab PO DAILY [facility] Ondansetron HCl 4 mg 04/08/21 00:16 Ondansetron 4 Mg/2 Ml Sdv IVPUSH Q4H PRN Nausea/Vomiting Senna/Docusate Sodium 1 tab 09/10/20 00:25 Docusate Sodium/Sennosides 50-8.6 Mg Tab PO BEDTIME PRN Constipation Sertraline HCl 100 mg 09/10/20 09:00 Sertraline 50 Mg Tab PO DAILY [facility] - Radiology Interpretation Free Text/Narrative:: Head CT wo contrast: PROCEDURE INFORMATION: Exam: CT Head Without Contrast Exam date and time: 09/09/2020 10:57 PM Age: 54 years old Clinical indication: Other: Lethargic; Additional info: Lethargy TECHNIQUE: Imaging protocol: Computed tomography of the head without contrast. Radiation optimization: All CT scans at this facility use at least one of these dose optimization techniques: automated exposure control; mA and/or kV adjustment per patient size (includes targeted exams where dose is matched to clinical indication); or iterative reconstruction. COMPARISON: No relevant prior studies available. FINDINGS: Brain: No acute infarct or hemorrhage. Cerebral ventricles: No ventriculomegaly. Bones/joints: Unremarkable. No acute fracture. Paranasal sinuses: Paranasal sinuses are clear. No air-fluid level. Mastoid air cells: Visualized mastoid air cells are clear. Soft tissues: Unremarkable. Other findings: Study mildly limited by motion. IMPRESSION: 1. No acute infarct or hemorrhage. 2. Study mildly limited by motion. Thank you for allowing us to participate in the care of your patient. Dictated and Authenticated by: Jose Baer DO 09/09/2020 11:30 PM Central Time ([place] & [place]) See rad report - Re-Assessments/Exams Free Text/Narrative Re-Assessment/Exam: 09/10/20 02:21 Discussed patient case with Dr. JOHNSON who agreed to accept the patient for observation admission. Departure - Departure Time of Disposition: 00:03 Disposition: Refer to Observation Condition: Fair Clinical Impression: Altered mental status Qualifiers: Altered mental status type: somnolence Qualified Code(s): R40.0 - Somnolence - Discharge Information *PRESCRIPTION DRUG MONITORING PROGRAM REVIEWED*: No *COPY OF PRESCRIPTION DRUG MONITORING REPORT IN PATIENT BETITO: No Sepsis Event Note (ED) - Evaluation Sepsis Screening Result: No Definite Risk - Focused Exam Vital Signs: Vital Signs Temp Pulse Resp BP Pulse Ox 09/09/20 23:28 84 18 131/78 97 09/09/20 22:20 98.7 F 97 20 131/88 97 - My Orders Last 24 Hours: My Active Orders 09/09/20 22:47 DRUG SCREEN URINE BIORAD [URCHEM] Stat - Assessment/Plan Last 24 Hours: My Active Orders 09/09/20 22:47 DRUG SCREEN URINE BIORAD [URCHEM] Stat
[2020-09-10] MEDS ORDERED: Enoxaparin 40 MG/0.4 ML Syringe SUBCUT SCH (09:00)
[2020-09-10] MEDS ORDERED: Sertraline 50 MG Tab PO SCH (09:00)
[2020-09-10] MEDS ORDERED: Polyvinyl Alcohol 1.4% Ophth Soln 15 ML Bottle EYELF SCH (09:00)
[2020-09-10] MEDS ORDERED: Cyclobenzaprine 10 MG Tab PO SCH (09:00)
[2020-09-10] MEDS ORDERED: Aspirin 81 MG Tab.EC PO SCH (09:00)
[2020-09-10] MEDS ORDERED: Multivitamins,Therapeutic Tab PO SCH (09:00)
[2020-09-10] MEDS: Insulin Lispro 100 Units/ML 3 ML Vial SUBCUT SCH ×2 (09:11→12:16)
[2020-09-10 10:04] VITALS: BP 110/74; PULSE 82
--- NOTE | 2020-09-10 10:31 | PCM.DCSUM1 ---
Discharge Summary - Hospital Course Free Text/Narrative:: pt is 54 y/o w came twice over the past 24 hrs. complaining of nausea, body ache and fatigue. Pt reports that she has been out of her Morphine for few days. She was noted to be lethargic and observation was requested. Pt reports that she started to take medical marijuana recently. She denies over taking her Neurontin Because her lethargy CT brain was obtained and showed no acute findings. Drug withdrawal: pain under contract through her pain management clinic. I called Dr Divya Ovalle [phone] for further advice and left voicemail. Awaiting reply. Symptoms improved. According to the pharamcy note that MS contin was decreased from 30 mg BID to 15 mg BID. Altered mental status: pt states that this could be related to the medical marijuana which she started recently. Pt is now is back to her baseline mental status. DM: Follow up wit PCP. 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 complicated by AUBREY and HD as per notes. H/o left eye surgery X 2 for cancer as per pt. Sebaceous Carcinoma Left neck. recent surgery about a month ago. Appendectomy and C section, Bariatric procedure . Chronic back pain on chronic narcotic pain medications. - Discharge Data Discharge Date: 09/10/20 (]) Discharge Disposition: Home, Self-Care 01 Condition: Good - Referral to Home Health Primary Care Physician: PCP Unobtainable - Patient Instructions Diet: Diabetic Diet Activity: As Tolerated - Discharge Plan *PRESCRIPTION DRUG MONITORING PROGRAM REVIEWED*: Yes *COPY OF PRESCRIPTION DRUG MONITORING REPORT IN PATIENT BETITO: Yes Home Medications: Home Meds Insulin Detemir [Levemir] 42 units SQ BEDTIME 06/01/13 [History] Aspirin [Halfprin] 81 mg PO DAILY 02/14/14 [History] Cyclobenzaprine [Flexeril] 10 mg PO TID PRN 09/04/15 [History] Carboxymethylcellulose Sodium [Refresh Tears 0.5%] 2 drop EYELF Q4H PRN 05/26/19 [History] Multivitamin [Multi-Day Vitamins] 1 each PO DAILY 09/03/19 [History] Sertraline [Zoloft] 100 mg PO DAILY 10/14/19 [History] atorvaSTATin [Lipitor] 10 mg PO BEDTIME 10/14/19 [History] Morphine Sulfate 15 mg PO TID PRN 10/31/19 [History] Albuterol [Proventil HFA] 2 puff INH Q4HR PRN #1 inhaler 04/17/20 [Rx] Acetaminophen [Tylenol] 650 mg PO Q4H PRN tablet 09/10/20 [Rx] Bumetanide 0.5 mg PO DAILY 09/10/20 [History] Gabapentin [Neurontin] 300 mg PO TID 09/10/20 [History] Insulin Lispro [HumaLOG] 0 unit SUBCUT WITHMEALSANDBED vial 09/10/20 [Rx] Morphine Sulfate [Morphine Sulfate ER] 15 mg PO Q12H 09/10/20 [History] Oxygen Therapy Mode: Room Air Referrals: PCP,Unobtain [Primary Care Provider] - - Discharge Summary/Plan Comment DC Time >30 min.: Yes (exam, counselling, DC planning ) - General Info Functional Status: Reports: Pain Controlled, Tolerating Diet - Review of Systems General: Denies: Fever Pulmonary: Denies: Shortness of Breath Cardiovascular: Denies: Chest Pain Gastrointestinal: Denies: Abdominal Pain Musculoskeletal: Denies: Neck Pain, Back Pain Neurological: Denies: Confusion Psychiatric: Denies: Confusion - Patient Data Vitals - Most Recent: Last Vital Signs Temp 96.9 F 09/10/20 08:00 Pulse 82 09/10/20 08:00 Resp 18 09/10/20 08:00 BP 110/74 09/10/20 08:00 Pulse Ox 99 09/10/20 08:00 Weight - Most Recent: 236 lb 12.8 oz I&O - Last 24 hours: Intake & Output 09/09/20 09/10/20 09/10/20 22:59 06:59 14:59 Intake Total 425 Balance 425 Lab Results - Last 24 hrs: Laboratory Results - last 24 hr 09/09/20 09/09/20 09/09/20 Range/Units 22:57 22:57 22:57 WBC 10.5 H (5.0-10.0) 10^3/uL RBC 5.25 (4.2-5.4) 10^6/uL Hgb 13.6 (12.0-16.0) g/dL Hct 42.8 (37.0-47.0) % MCV 81.5 (80-100) fL MCH 25.9 L (27.0-34.0) pg MCHC 31.8 L (33.0-35.0) g/dL Plt Count 295 (150-450) 10^3/uL Neut % (Auto) 62.3 (42.2-75.2) % Lymph % (Auto) 25.0 (20.5-50.1) % Powell % (Auto) 10.3 H (2-8) % Eos % (Auto) 2.2 (1.0-3.0) % Baso % (Auto) 0.2 (0.0-1.0) % PT 10.2 (9.0-12.0) SEC INR 1.0 (0.9-1.2) Sodium 142 (136-145) mmol/L Potassium 3.6 (3.5-5.1) mmol/L Chloride 103 (98-107) mmol/L Carbon Dioxide 28 (21-32) mmol/L Anion Gap 14.6 H (7-13) mEq/L BUN 8 (7-18) mg/dL Creatinine 0.75 (0.55-1.02) mg/dL Est Cr Clr Drug Dosing 89.61 mL/min Estimated GFR (MDRD) > 60 BUN/Creatinine Ratio 10.7 (No establ ref range) Glucose 223 H (70-99) mg/dL POC Glucose (70-105) mg/dl Calcium 8.6 (8.5-10.1) mg/dL Total Bilirubin 0.3 (0.2-1.0) mg/dL AST 16 (15-37) U/L ALT 52 (14-59) U/L Alkaline Phosphatase 127 H (46-116) U/L Total Protein 7.2 (6.4-8.2) g/dL Albumin 3.2 L (3.4-5.0) g/dL Globulin 4.0 Albumin/Globulin Ratio 0.80 Urine Opiates Screen (NEGATIVE) Ur Oxycodone Screen (NEGATIVE) Urine Methadone Screen (NEGATIVE) Ur Barbiturates Screen (NEGATIVE) U Tricyclic Antidepress (NEGATIVE) Ur Phencyclidine Scrn (NEGATIVE) Ur Amphetamine Screen (NEGATIVE) U Methamphetamines Scrn (NEGATIVE) Urine MDMA Screen (NEGATIVE) U Benzodiazepines Scrn (NEGATIVE) Urine Cocaine Screen (NEGATIVE) U Marijuana (THC) Screen (NEGATIVE) Ethyl Alcohol < 3 (0) mg/dL SARS-CoV-2 RNA (PEBBLES) (NEGATIVE) 09/09/20 09/09/20 09/10/20 Range/Units 23:05 23:45 07:49 WBC (5.0-10.0) 10^3/uL RBC (4.2-5.4) 10^6/uL Hgb (12.0-16.0) g/dL Hct (37.0-47.0) % MCV (80-100) fL MCH (27.0-34.0) pg MCHC (33.0-35.0) g/dL Plt Count (150-450) 10^3/uL Neut % (Auto) (42.2-75.2) % Lymph % (Auto) (20.5-50.1) % Powell % (Auto) (2-8) % Eos % (Auto) (1.0-3.0) % Baso % (Auto) (0.0-1.0) % PT (9.0-12.0) SEC INR (0.9-1.2) Sodium (136-145) mmol/L Potassium (3.5-5.1) mmol/L Chloride (98-107) mmol/L Carbon Dioxide (21-32) mmol/L Anion Gap (7-13) mEq/L BUN (7-18) mg/dL Creatinine (0.55-1.02) mg/dL Est Cr Clr Drug Dosing mL/min Estimated GFR (MDRD) BUN/Creatinine Ratio (No establ ref range) Glucose (70-99) mg/dL POC Glucose 215 H 241 H (70-105) mg/dl Calcium (8.5-10.1) mg/dL Total Bilirubin (0.2-1.0) mg/dL AST (15-37) U/L ALT (14-59) U/L Alkaline Phosphatase (46-116) U/L Total Protein (6.4-8.2) g/dL Albumin (3.4-5.0) g/dL Globulin Albumin/Globulin Ratio Urine Opiates Screen (NEGATIVE) Ur Oxycodone Screen (NEGATIVE) Urine Methadone Screen (NEGATIVE) Ur Barbiturates Screen (NEGATIVE) U Tricyclic Antidepress (NEGATIVE) Ur Phencyclidine Scrn (NEGATIVE) Ur Amphetamine Screen (NEGATIVE) U Methamphetamines Scrn (NEGATIVE) Urine MDMA Screen (NEGATIVE) U Benzodiazepines Scrn (NEGATIVE) Urine Cocaine Screen (NEGATIVE) U Marijuana (THC) Screen (NEGATIVE) Ethyl Alcohol (0) mg/dL SARS-CoV-2 RNA (PEBBLES) Negative (NEGATIVE) 09/10/20 Range/Units 08:25 WBC (5.0-10.0) 10^3/uL RBC (4.2-5.4) 10^6/uL Hgb (12.0-16.0) g/dL Hct (37.0-47.0) % MCV (80-100) fL MCH (27.0-34.0) pg MCHC (33.0-35.0) g/dL Plt Count (150-450) 10^3/uL Neut % (Auto) (42.2-75.2) % Lymph % (Auto) (20.5-50.1) % Powell % (Auto) (2-8) % Eos % (Auto) (1.0-3.0) % Baso % (Auto) (0.0-1.0) % PT (9.0-12.0) SEC INR (0.9-1.2) Sodium (136-145) mmol/L Potassium (3.5-5.1) mmol/L Chloride (98-107) mmol/L Carbon Dioxide (21-32) mmol/L Anion Gap (7-13) mEq/L BUN (7-18) mg/dL Creatinine (0.55-1.02) mg/dL Est Cr Clr Drug Dosing mL/min Estimated GFR (MDRD) BUN/Creatinine Ratio (No establ ref range) Glucose (70-99) mg/dL POC Glucose (70-105) mg/dl Calcium (8.5-10.1) mg/dL Total Bilirubin (0.2-1.0) mg/dL AST (15-37) U/L ALT (14-59) U/L Alkaline Phosphatase (46-116) U/L Total Protein (6.4-8.2) g/dL Albumin (3.4-5.0) g/dL Globulin Albumin/Globulin Ratio Urine Opiates Screen Negative (NEGATIVE) Ur Oxycodone Screen Negative (NEGATIVE) Urine Methadone Screen Negative (NEGATIVE) Ur Barbiturates Screen Negative (NEGATIVE) U Tricyclic Antidepress Positive H (NEGATIVE) Ur Phencyclidine Scrn Negative (NEGATIVE) Ur Amphetamine Screen Negative (NEGATIVE) U Methamphetamines Scrn Negative (NEGATIVE) Urine MDMA Screen Negative (NEGATIVE) U Benzodiazepines Scrn Negative (NEGATIVE) Urine Cocaine Screen Negative (NEGATIVE) U Marijuana (THC) Screen Positive H (NEGATIVE) Ethyl Alcohol (0) mg/dL SARS-CoV-2 RNA (PEBBLES) (NEGATIVE) Med Orders - Current: Current Medications Acetaminophen (Acetaminophen 325 Mg Tab) 650 mg PO Q4H PRN PRN Reason: Pain (Mild 1-3)/fever Albuterol (Albuterol 6.7 Gm Inhaler) 0 gm INH Q4HR PRN PRN Reason: Wheezing Artificial Tears (Polyvinyl Alcohol 1.4% Ophth Soln 15 Ml Bottle) 0 ml EYELF TID [facility] Last Admin: 09/10/20 09:17 Dose: 2 drop Documented by: Aspirin (Aspirin 81 Mg Tab.Ec) 81 mg PO DAILY [facility] Last Admin: 09/10/20 08:44 Dose: 81 mg Documented by: Atorvastatin Calcium (Atorvastatin 10 Mg Tab) 10 mg PO BEDTIME [facility] Cyclobenzaprine HCl (Cyclobenzaprine 10 Mg Tab) 10 mg PO TID [facility] Last Admin: 09/10/20 08:44 Dose: 10 mg Documented by: Dextrose/Water (50% Dextrose In Water 50 Ml Syringe) 50 ml IV Q15M PRN PRN Reason: Hypoglycemia Docusate Sodium (Docusate Sodium 100 Mg Cap) 100 mg PO BID PRN PRN Reason: Constipation Enoxaparin Sodium (Enoxaparin 40 Mg/0.4 Ml Syringe) 40 mg SUBCUT DAILY [facility] Last Admin: 09/10/20 08:46 Dose: 40 mg Documented by: Glucagon (Glucagon,Human Recombinant 1 Mg Vial) 1 mg IM Q15M PRN PRN Reason: Hypoglycemia Sodium Chloride (Normal Saline) 1,000 mls @ 125 mls/hr IV ASDIRECTED [facility] Last Admin: 09/10/20 01:11 Dose: 125 mls/hr Documented by: Insulin Glargine (Insulin Glarg,Human.Rec.Analog 100 Unit/Ml) 42 unit SUBCUT BEDTIME [facility] Insulin Human Lispro (Insulin Lispro 100 Units/Ml 3 Ml Vial) 0 unit SUBCUT WITHMEALSANDBED [facility]; Protocol Last Admin: 09/10/20 09:11 Dose: 2 units Documented by: Ketorolac Tromethamine (Ketorolac 30 Mg/Ml Sdv) 30 mg IM Q6H PRN PRN Reason: Pain (moderate 4-6) Multivitamins (Multivitamins,Therapeutic Tab) 1 each PO DAILY [facility] Last Admin: 09/10/20 08:44 Dose: 1 each Documented by: Ondansetron HCl (Ondansetron 4 Mg/2 Ml Sdv) 4 mg IVPUSH Q4H PRN PRN Reason: Nausea/Vomiting Senna/Docusate Sodium (Docusate Sodium/Sennosides 50-8.6 Mg Tab) 1 tab PO BEDTIME PRN PRN Reason: Constipation Sertraline HCl (Sertraline 50 Mg Tab) 100 mg PO DAILY [facility] Last Admin: 09/10/20 08:44 Dose: 100 mg Documented by: - Exam Quality Assessment: Denies: Supplemental Oxygen General: Reports: Alert, Oriented Lungs: Reports: Clear to Auscultation, Normal Respiratory Effort Cardiovascular: Reports: Regular Rhythm GI/Abdominal Exam: Soft, Non-Tender Rectal (Female) Exam: Deferred Extremities: Normal Range of Motion Neurological: Reports: No New Focal Deficit Psy/Mental Status: Reports: Alert, Normal Affect
[2020-09-10] MEDS ORDERED: atorvaSTATin 10 MG Tab PO SCH (21:00)
[2020-09-10] MEDS ORDERED: Insulin Glarg,Human.Rec.Analog 100 Unit/ML SUBCUT SCH (21:00)
== END 2020-09-10 12:22 | disposition home or self-care (01) ==
LOC: DL.ED 21:13 → DL.MS 23:57
PROVIDERS: ADMIT Internal Medicine; ATTEND Internal Medicine
DX: R41.82 Altered mental status, unspecified (principal); R53.83 Other fatigue; F11.23 Opioid dependence with withdrawal; E11.9 Type 2 diabetes mellitus without complications; E66.9 Obesity, unspecified; Z68.35 Body mass index [BMI] 35.0-35.9, adult; Z20.822 Contact with and (suspected) exposure to COVID-19; Z91.040 Latex allergy status; Z91.018 Allergy to other foods; Z91.038 Other insect allergy status; Z79.4 Long term (current) use of insulin; Z87.39 Personal history of other diseases of the musculoskeletal system and connective tissue; Z98.84 Bariatric surgery status; Z98.890 Other specified postprocedural states
CPT/HCPCS: 0240U; 36415; 70450; 80053; 80305-QW; 80307; 81003; 82962; 85025; 85610; 86140; 96372; 99283; 99284; 99285-25; A9270-GY; G0378; J1650; J1815-GY; J7030; U0002

== ENCOUNTER 2020-09-20 14:04 | Emergency (ER) | payer MEDICARE, OTHER ==
[2020-09-20 14:19] VITALS: BP 134/95; PULSE 84
--- NOTE | 2020-09-20 14:43 | EDM.PDOC ---
<ClaudioMonroe - Last Filed: 09/20/20 14:37> ED HPI GENERAL MEDICAL PROBLEM - General Chief Complaint: General Stated Complaint: LEFT LOWER JAW PURPLE BALL Time Seen by Provider: 09/20/20 14:38 Source of Information: Reports: Patient History Limitations: Reports: No Limitations - History of Present Illness INITIAL COMMENTS - FREE TEXT/NARRATIVE: Veena is a 54 year old female with a significant past medical history of cancer who presents to the emergency room with calixto nand swelling of her jaw. Jaw pain has been present since Monday, on Monday she had 3 teeth removed in preparation for her chemotherapy which she begins next week. She rates her pain at a 6/10, se describes it as throbbing with associated bruising. She has been able to eat and drink without issues, she denies fevers, SOB, or neck swelling. She does have an occasional associated headache. She was given hydrocodone for the pain following the procedure, she does have 2 tablets left. 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(s) Left Face/Facial Pain Score (Numeric/FACES): 5 - Related Data Allergies Allergy/AdvReac Type Severity Reaction Status Date / Time latex Allergy Rash Uncoded 09/20/20 14:26 onions Allergy Hives Uncoded 09/20/20 14:26 spider bites Allergy Numbness Uncoded 09/20/20 14:26 Home Meds: Home Meds Insulin Detemir [Levemir] 42 units SQ BEDTIME 06/01/13 [History] Aspirin [Halfprin] 81 mg PO DAILY 02/14/14 [History] Cyclobenzaprine [Flexeril] 10 mg PO TID PRN 09/04/15 [History] Carboxymethylcellulose Sodium [Refresh Tears 0.5%] 2 drop EYELF Q4H PRN 05/26/19 [History] Multivitamin [Multi-Day Vitamins] 1 each PO DAILY 09/03/19 [History] Sertraline [Zoloft] 100 mg PO DAILY 10/14/19 [History] atorvaSTATin [Lipitor] 10 mg PO BEDTIME 10/14/19 [History] Morphine Sulfate 15 mg PO TID PRN 10/31/19 [History] Albuterol [Proventil HFA] 2 puff INH Q4HR PRN #1 inhaler 04/17/20 [Rx] Acetaminophen [Tylenol] 650 mg PO Q4H PRN tablet 09/10/20 [Rx] Bumetanide 0.5 mg PO DAILY 09/10/20 [History] Gabapentin [Neurontin] 300 mg PO TID 09/10/20 [History] Insulin Lispro [HumaLOG] 0 unit SUBCUT WITHMEALSANDBED vial 09/10/20 [Rx] Morphine Sulfate [Morphine Sulfate ER] 15 mg PO Q12H 09/10/20 [History] Potassium Chloride 10 meq PO DAILY 09/10/20 [History] Past Medical History HEENT History: Reports: Impaired Vision Other HEENT History: wears glasses, droopy L) eye lid, had reconstrucion surg Cardiovascular History: Reports: Heart Murmur Respiratory History: Reports: Pneumonia, Recurrent Gastrointestinal History: Reports: None Genitourinary History: Reports: None, Dialysis, Other (See Below) Other Genitourinary History: Pt. reports she had sepsis in October, and her "kidneys shut down". She stated she received about 5 days of dialysis and got her kidneys started up again. 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 SEVERE L4-5 LUMBAR SPINAL STENOSIS. 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 T12-L1 THROUGH L5-S1 DEGENERATIVE DISC. 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 SEVERE L4-5 LUMBAR SPINAL STENOSIS. 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 T12-L1 THROUGH L5- S1 DEGENERATIVE DISC. 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 Cardiovascular Surgical History: Reports: None GI Surgical History: Reports: Appendectomy, Bariatric Procedure, Colonoscopy, Other (See Below) Other GI Surgeries/Procedures: gastric bypass Female Surgical History: Reports: Section, Oophorectomy, Tubal Ligation Other Female Surgeries/Procedures: right salpingo-oopherectomy Endocrine Surgical History: Reports: None Neurological Surgical History: Reports: Other (See Below) Other Neurological Surgeries/Procedures: brace on spine Musculoskeletal Surgical History: Reports: Knee Replacement, Other (See Below) Other Musculoskeletal Surgeries/Procedures:: back surgery x2 Oncologic Surgical History: Reports: None Social & Family History - Family History Family Medical History: No Pertinent Family History Cardiac: Reports: GA Endocrine/Metabolic: Reports: Diabetes, Type I Oncologic: Reports: Ovarian, Prostate - Tobacco Use Tobacco Use Status *Q: Never Tobacco User Second Hand Smoke Exposure: No - Caffeine Use Caffeine Use: Reports: None - Recreational Drug Use Recreational Drug Use: No - Living Situation & Occupation Living situation: Reports: , with Family ED ROS GENERAL - Review of Systems Review Of Systems: Comprehensive ROS is negative, except as noted in HPI. ED EXAM, GENERAL - Physical Exam Exam: See Below Exam Limited By: No Limitations General Appearance: Alert, No Apparent Distress Eye Exam: Bilateral Eye: EOMI Ears: Normal External Exam Nose: Normal Inspection Throat/Mouth: Normal Inspection, Other (Area where teeth pulled visible, no purulent drainage evident, minimal erythema ) Head: Facial Swelling, Facial Tenderness, Other (Echymosis on left side of jaw, postoperative surgical scars from cancer surgery evident, no purulence or erythema) Neck: Normal Inspection Respiratory/Chest: No Respiratory Distress, Lungs Clear, Normal Breath Sounds Cardiovascular: Regular Rate, Rhythm Departure - Departure Time of Disposition: 14:44 Disposition: Home, Self-Care 01 Clinical Impression: Jaw pain - Discharge Information *PRESCRIPTION DRUG MONITORING PROGRAM REVIEWED*: Not Applicable *COPY OF PRESCRIPTION DRUG MONITORING REPORT IN PATIENT BETITO: Not Applicable Forms: ED Department Discharge Additional Instructions: Pain is secondary to recent tooth extractions, pain and ecchymosis appears normal given procedure. Can continue current cares, use ice packs as needed for swelling. Return criteria discussed. Sepsis Event Note (ED) - Evaluation Sepsis Screening Result: No Definite Risk <Karl Darnell - Last Filed: 09/20/20 14:56> ED EXAM, GENERAL - Physical Exam Throat/Mouth: Other Course - Vital Signs Last Recorded V/S: Last Vital Signs Temp 36.5 C 09/20/20 14:18 Pulse 84 09/20/20 14:18 Resp 18 09/20/20 14:18 BP 134/95 H 09/20/20 14:18 Pulse Ox 94 L 09/20/20 14:18 - Re-Assessments/Exams Free Text/Narrative Re-Assessment/Exam: 09/20/20 14:55 I have examined the patient. I have discussed findings and treatment plan with the Dr. Snyder. I agree with the assessment and plan in the following residents note. Sepsis Event Note (ED) - Focused Exam Vital Signs: Vital Signs Temp Pulse Resp BP Pulse Ox 09/20/20 14:18 36.5 C 84 18 134/95 H 94 L
== END 2020-09-20 14:57 | disposition home or self-care (01) ==
LOC: DL.ED 14:04
DX: R68.84 Jaw pain (principal); E11.40 Type 2 diabetes mellitus with diabetic neuropathy, unspecified; Z79.82 Long term (current) use of aspirin; Z79.4 Long term (current) use of insulin; Z79.899 Other long term (current) drug therapy; Z91.040 Latex allergy status; Z91.018 Allergy to other foods; Z91.048 Other nonmedicinal substance allergy status
CPT/HCPCS: 99282; 99283

== ENCOUNTER 2020-09-28 21:12 | Emergency (ER) | payer MEDICARE, OTHER ==
[2020-09-28 21:45] VITALS: BP 134/88; PULSE 108
--- NOTE | 2020-09-28 22:13 | EDM.PDOC ---
ED HPI GENERAL MEDICAL PROBLEM - General Chief Complaint: Skin Complaint Stated Complaint: CHEMO PORT POSSIBLE INFECTION Time Seen by Provider: 09/28/20 21:45 Source of Information: Reports: Patient History Limitations: Reports: No Limitations - History of Present Illness INITIAL COMMENTS - FREE TEXT/NARRATIVE: ED with concern area around port red and may be infected. New port for chemo. Was to start this week but delayed until next week, Dressing starting to come loose at top and is taped in place. - Related Data Allergies Allergy/AdvReac Type Severity Reaction Status Date / Time latex Allergy Rash Uncoded 09/28/20 21:48 onions Allergy Hives Uncoded 09/28/20 21:48 spider bites Allergy Numbness Uncoded 09/28/20 21:48 Home Meds: Home Meds Insulin Detemir [Levemir] 42 units SQ BEDTIME 06/01/13 [History] Aspirin [Halfprin] 81 mg PO DAILY 02/14/14 [History] Cyclobenzaprine [Flexeril] 10 mg PO TID PRN 09/04/15 [History] Carboxymethylcellulose Sodium [Refresh Tears 0.5%] 2 drop EYELF Q4H PRN 05/26/19 [History] Multivitamin [Multi-Day Vitamins] 1 each PO DAILY 09/03/19 [History] Sertraline [Zoloft] 100 mg PO DAILY 10/14/19 [History] atorvaSTATin [Lipitor] 10 mg PO BEDTIME 10/14/19 [History] Morphine Sulfate 15 mg PO TID PRN 10/31/19 [History] Albuterol [Proventil HFA] 2 puff INH Q4HR PRN #1 inhaler 04/17/20 [Rx] Acetaminophen [Tylenol] 650 mg PO Q4H PRN tablet 09/10/20 [Rx] Bumetanide 0.5 mg PO DAILY 09/10/20 [History] Gabapentin [Neurontin] 300 mg PO TID 09/10/20 [History] Insulin Lispro [HumaLOG] 0 unit SUBCUT WITHMEALSANDBED vial 09/10/20 [Rx] Morphine Sulfate [Morphine Sulfate ER] 15 mg PO Q12H 09/10/20 [History] Potassium Chloride 10 meq PO DAILY 09/10/20 [History] Past Medical History HEENT History: Reports: Impaired Vision Other HEENT History: wears glasses, droopy L) eye lid, had reconstrucion surg Cardiovascular History: Reports: Heart Murmur Respiratory History: Reports: Pneumonia, Recurrent Gastrointestinal History: Reports: None Genitourinary History: Reports: None, Dialysis, Other (See Below) Other Genitourinary History: Pt. reports she had sepsis in October, and her "kidneys shut down". She stated she received about 5 days of dialysis and got her kidneys started up again. 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 SEVERE L4-5 LUMBAR SPINAL STENOSIS. 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 T12-L1 THROUGH L5-S1 DEGENERATIVE DISC. 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 SEVERE L4-5 LUMBAR SPINAL STENOSIS. 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 T12-L1 THROUGH L5- S1 DEGENERATIVE DISC. 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 Cardiovascular Surgical History: Reports: None GI Surgical History: Reports: Appendectomy, Bariatric Procedure, Colonoscopy, Other (See Below) Other GI Surgeries/Procedures: gastric bypass Female Surgical History: Reports: Section, Oophorectomy, Tubal Ligation Other Female Surgeries/Procedures: right salpingo-oopherectomy Endocrine Surgical History: Reports: None Neurological Surgical History: Reports: Other (See Below) Other Neurological Surgeries/Procedures: brace on spine Musculoskeletal Surgical History: Reports: Knee Replacement, Other (See Below) Other Musculoskeletal Surgeries/Procedures:: back surgery x2 Oncologic Surgical History: Reports: None Social & Family History - Family History Family Medical History: No Pertinent Family History Cardiac: Reports: [place] Endocrine/Metabolic: Reports: Diabetes, Type I Oncologic: Reports: Ovarian, Prostate - Tobacco Use Tobacco Use Status *Q: Former Tobacco User Used Tobacco, but Quit: Yes Month/Year Tobacco Last Used: unknown Second Hand Smoke Exposure: No - Caffeine Use Caffeine Use: Reports: Soda - Recreational Drug Use Recreational Drug Use: No - Living Situation & Occupation Living situation: Reports: , with Family ED ROS GENERAL - Review of Systems Review Of Systems: Comprehensive ROS is negative, except as noted in HPI. ED EXAM, SKIN/RASH Exam: See Below Exam Limited By: No Limitations General Appearance: Alert, No Apparent Distress Eye Exam: Bilateral Eye: EOMI Ears: Normal External Exam Throat/Mouth: Normal Inspection, Normal Voice Head: Atraumatic, Normocephalic Neck: Full Range of Motion Respiratory/Chest: No Respiratory Distress, Normal Breath Sounds Cardiovascular: Regular Rate, Rhythm Skin: Other (large tegaderm dressing over portacath site lose at top edge, mild excoration at lower edge. no redness or erythema) Course - Vital Signs Last Recorded V/S: Last Vital Signs Temp 97.8 F 09/28/20 21:44 Pulse 108 H 09/28/20 21:44 Resp 16 09/28/20 21:44 BP 134/88 09/28/20 21:44 Pulse Ox 98 09/28/20 21:44 - Re-Assessments/Exams Free Text/Narrative Re-Assessment/Exam: 09/29/20 00:37 Tegaderm dressing replaced by RN. Patient instructed to follow p with PCP. Departure - Departure Time of Disposition: 22:11 Disposition: Home, Self-Care 01 Condition: Good Clinical Impression: Dressing change - Discharge Information *PRESCRIPTION DRUG MONITORING PROGRAM REVIEWED*: No *COPY OF PRESCRIPTION DRUG MONITORING REPORT IN PATIENT BETITO: No Instructions: Incision Care, Adult, [id number] Forms: ED Department Discharge Additional Instructions: follow up with primary care as scheduled clinic follow up for dressing changes monitor for increased redness or irritation, if noted follow up with primary care provider Sepsis Event Note (ED) - Evaluation Sepsis Screening Result: No Definite Risk - Focused Exam Vital Signs: Vital Signs Temp Pulse Resp BP Pulse Ox 09/28/20 21:44 97.8 F 108 H 16 134/88 98
== END 2020-09-28 22:25 | disposition home or self-care (01) ==
LOC: DL.ED 21:12
DX: Z48.01 Encounter for change or removal of surgical wound dressing (principal); E11.40 Type 2 diabetes mellitus with diabetic neuropathy, unspecified; E66.9 Obesity, unspecified; Z68.37 Body mass index [BMI] 37.0-37.9, adult; Z91.040 Latex allergy status; Z91.018 Allergy to other foods; Z79.82 Long term (current) use of aspirin; Z79.4 Long term (current) use of insulin; Z79.899 Other long term (current) drug therapy; Z87.891 Personal history of nicotine dependence
CPT/HCPCS: 99282

== ENCOUNTER 2020-12-30 21:12 | Inpatient (IN) | payer MEDICARE, OTHER ==
[2020-12-30 23:15] LABS: CHLORIDE,CL 98 mmol/L (98-107); SODIUM,NA 137 mmol/L (136-145)
--- NOTE | 2020-12-30 23:35 | EDM.PDOC ---
ED HPI GENERAL MEDICAL PROBLEM - General Chief Complaint: Respiratory Problem Stated Complaint: STOMACH PAIN Time Seen by Provider: 12/30/20 22:45 Source of Information: Reports: Patient, RN History Limitations: Reports: No Limitations - History of Present Illness INITIAL COMMENTS - FREE TEXT/NARRATIVE: ED via w/c with spouse with c/o lower abdominal pain. No vomiting or diarrhea. Denies burning with urination or increased frequency. 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 Had chills today. Primary oncologist in [facility], Referred to [facility] for eye tumors, waiting for appointment to be set up for surgica consult. Hsopitalized 2 weeks ago for "blood infection" had sores from radiation that were infected. Treatments LUMBER LOADER: Reports: Acetaminophen - Related Data Allergies Allergy/AdvReac Type Severity Reaction Status Date / Time latex Allergy Rash Uncoded 12/30/20 22:40 onions Allergy Hives Uncoded 12/30/20 22:40 spider bites Allergy Numbness Uncoded 12/30/20 22:40 Home Meds: Home Meds Insulin Detemir [Levemir] 42 units SQ BEDTIME 06/01/13 [History] Aspirin [Halfprin] 81 mg PO DAILY 02/14/14 [History] Cyclobenzaprine [Flexeril] 10 mg PO TID PRN 09/04/15 [History] Carboxymethylcellulose Sodium [Refresh Tears 0.5%] 2 drop EYELF Q4H PRN 05/26/19 [History] Multivitamin [Multi-Day Vitamins] 1 each PO DAILY 09/03/19 [History] Sertraline [Zoloft] 100 mg PO DAILY 10/14/19 [History] atorvaSTATin [Lipitor] 10 mg PO BEDTIME 10/14/19 [History] Morphine Sulfate 15 mg PO TID PRN 10/31/19 [History] Albuterol [Proventil HFA] 2 puff INH Q4HR PRN #1 inhaler 04/17/20 [Rx] Acetaminophen [Tylenol] 650 mg PO Q4H PRN tablet 09/10/20 [Rx] Bumetanide 0.5 mg PO DAILY 09/10/20 [History] Gabapentin [Neurontin] 300 mg PO TID 09/10/20 [History] Potassium Chloride 10 meq PO DAILY 09/10/20 [History] Past Medical History HEENT History: Reports: Impaired Vision Other HEENT History: wears glasses, droopy L) eye lid, had reconstrucion surg Cardiovascular History: Reports: Heart Murmur Respiratory History: Reports: Pneumonia, Recurrent Gastrointestinal History: Reports: None Genitourinary History: Reports: None, Dialysis, Other (See Below) Other Genitourinary History: Pt. reports she had sepsis in October, and her "kidneys shut down". She stated she received about 5 days of dialysis and got her kidneys started up again. 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 SEVERE L4-5 LUMBAR SPINAL STENOSIS. 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 T12-L1 THROUGH L5-S1 DEGENERATIVE DISC. 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 SEVERE L4-5 LUMBAR SPINAL STENOSIS. 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 T12-L1 THROUGH L5- S1 DEGENERATIVE DISC. 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 Cardiovascular Surgical History: Reports: None GI Surgical History: Reports: Appendectomy, Bariatric Procedure, Colonoscopy, Other (See Below) Other GI Surgeries/Procedures: gastric bypass Female Surgical History: Reports: Section, Oophorectomy, Tubal Ligation Other Female Surgeries/Procedures: right salpingo-oopherectomy Endocrine Surgical History: Reports: None Neurological Surgical History: Reports: Other (See Below) Other Neurological Surgeries/Procedures: brace on spine Musculoskeletal Surgical History: Reports: Knee Replacement, Other (See Below) Other Musculoskeletal Surgeries/Procedures:: back surgery x2 Oncologic Surgical History: Reports: None Social & Family History - Family History Family Medical History: No Pertinent Family History Cardiac: Reports: [place] Endocrine/Metabolic: Reports: Diabetes, Type I Oncologic: Reports: Ovarian, Prostate - Tobacco Use Tobacco Use Status *Q: Never Tobacco User Second Hand Smoke Exposure: No - Caffeine Use Caffeine Use: Reports: Soda - Recreational Drug Use Recreational Drug Use: No - Living Situation & Occupation Living situation: Reports: , with Family ED ROS GENERAL - Review of Systems Review Of Systems: Comprehensive ROS is negative, except as noted in HPI. ED EXAM, GENERAL - Physical Exam Exam: See Below Exam Limited By: No Limitations General Appearance: Alert, WD/WN, Mild Distress Eye Exam: Right Eye: EOMI (left deviated outward slight), Left Eye: Other (scant cloudy mater on lids, upper lid tented deformity) Ears: Normal External Exam Nose: Normal Inspection Throat/Mouth: Normal Inspection Head: Atraumatic, Normocephalic Neck: Normal Inspection Respiratory/Chest: No Respiratory Distress, Decreased Breath Sounds Cardiovascular: Normal Peripheral Pulses, Regular Rate, Rhythm GI/Abdominal: Normal Bowel Sounds, Soft, Distended. No: Guarding, Rigid Neurological: Alert, Oriented, Normal Cognition Course - Vital Signs Last Recorded V/S: Last Vital Signs Temp 97.0 F 12/31/20 04:41 Pulse 90 12/31/20 04:41 Resp 16 12/31/20 04:41 BP 119/78 12/31/20 04:41 Pulse Ox 100 12/31/20 04:41 - Orders/Labs/Meds Orders: Active Orders 24 hr Category Date Time Status CULTURE BLOOD [BC] Stat Lab 12/30/20 22:47 Received CULTURE BLOOD [BC] Stat Lab 12/30/20 22:47 Received Blood Culture x2 Reflex Set [OM.PC] Stat Oth 12/30/20 22:33 Ordered Labs: Laboratory Tests 12/30/20 12/30/20 12/30/20 Range/Units 22:47 22:47 22:47 WBC 29.7 H* (5.0-10.0) 10^3/uL RBC 4.48 (4.2-5.4) 10^6/uL Hgb 13.3 (12.0-16.0) g/dL Hct 40.4 (37.0-47.0) % MCV 90.2 D (80-100) fL MCH 29.7 (27.0-34.0) pg MCHC 32.9 L (33.0-35.0) g/dL Plt Count 309 (150-450) 10^3/uL Neut % (Auto) 91.1 H (42.2-75.2) % Lymph % (Auto) 1.6 L (20.5-50.1) % [place] % (Auto) 7.1 (2-8) % Eos % (Auto) 0.1 L (1.0-3.0) % Baso % (Auto) 0.1 (0.0-1.0) % Add Manual Diff Yes Neutrophils % (Manual) 91 H (42-75) % Band Neutrophils % 3 % Lymphocytes % (Manual) 3 L (20-50) % Monocytes % (Manual) 3 (2-8) % Sodium 137 (136-145) mmol/L Potassium 4.0 (3.5-5.1) mmol/L Chloride 98 (98-107) mmol/L Carbon Dioxide 29 (21-32) mmol/L Anion Gap 14.0 H (7-13) mEq/L BUN 10 (7-18) mg/dL Creatinine 0.87 (0.55-1.02) mg/dL Est Cr Clr Drug Dosing 76.36 mL/min Estimated GFR (MDRD) > 60 BUN/Creatinine Ratio 11.5 (No establ ref range) Glucose 108 H (70-99) mg/dL Lactic Acid 1.1 (0.4-2.0) mmol/L Calcium 8.5 (8.5-10.1) mg/dL Total Bilirubin 0.5 (0.2-1.0) mg/dL AST 22 (15-37) U/L ALT 33 (14-59) U/L Alkaline Phosphatase 95 (46-116) U/L Total Protein 7.3 (6.4-8.2) g/dL Albumin 3.1 L (3.4-5.0) g/dL Globulin 4.2 Albumin/Globulin Ratio 0.74 Amylase 21 L (25-115) U/L Lipase 48 L (73-393) U/L Urine Color (YELLOW) Urine Appearance (CLEAR) Urine pH (5.0-9.0) Ur Specific [place] (1.005-1.030) Urine Protein (NEGATIVE) Urine Glucose (UA) (NEGATIVE) Urine Ketones (NEGATIVE) Urine Occult Blood (NEGATIVE) Urine Nitrite (NEGATIVE) Urine Bilirubin (NEGATIVE) Urine Urobilinogen (0.2-1.0) mg/dL Ur Leukocyte Esterase (NEGATIVE) Influenza Type A RNA (NEGATIVE) Influenza Type B RNA (NEGATIVE) SARS-CoV-2 RNA (PEBBLES) (NEGATIVE) 12/30/20 12/30/20 Range/Units 23:14 23:47 WBC (5.0-10.0) 10^3/uL RBC (4.2-5.4) 10^6/uL Hgb (12.0-16.0) g/dL Hct (37.0-47.0) % MCV (80-100) fL MCH (27.0-34.0) pg MCHC (33.0-35.0) g/dL Plt Count (150-450) 10^3/uL Neut % (Auto) (42.2-75.2) % Lymph % (Auto) (20.5-50.1) % [place] % (Auto) (2-8) % Eos % (Auto) (1.0-3.0) % Baso % (Auto) (0.0-1.0) % Add Manual Diff Neutrophils % (Manual) (42-75) % Band Neutrophils % % Lymphocytes % (Manual) (20-50) % Monocytes % (Manual) (2-8) % Sodium (136-145) mmol/L Potassium (3.5-5.1) mmol/L Chloride (98-107) mmol/L Carbon Dioxide (21-32) mmol/L Anion Gap (7-13) mEq/L BUN (7-18) mg/dL Creatinine (0.55-1.02) mg/dL Est Cr Clr Drug Dosing mL/min Estimated GFR (MDRD) BUN/Creatinine Ratio (No establ ref range) Glucose (70-99) mg/dL Lactic Acid (0.4-2.0) mmol/L Calcium (8.5-10.1) mg/dL Total Bilirubin (0.2-1.0) mg/dL AST (15-37) U/L ALT (14-59) U/L Alkaline Phosphatase (46-116) U/L Total Protein (6.4-8.2) g/dL Albumin (3.4-5.0) g/dL Globulin Albumin/Globulin Ratio Amylase (25-115) U/L Lipase (73-393) U/L Urine Color Yellow (YELLOW) Urine Appearance Clear (CLEAR) Urine pH 7.0 (5.0-9.0) Ur Specific [place] 1.015 (1.005-1.030) Urine Protein Negative (NEGATIVE) Urine Glucose (UA) Negative (NEGATIVE) Urine Ketones Negative (NEGATIVE) Urine Occult Blood Negative (NEGATIVE) Urine Nitrite Negative (NEGATIVE) Urine Bilirubin Negative (NEGATIVE) Urine Urobilinogen 2.0 H (0.2-1.0) mg/dL Ur Leukocyte Esterase Negative (NEGATIVE) Influenza Type A RNA Negative (NEGATIVE) Influenza Type B RNA Negative (NEGATIVE) SARS-CoV-2 RNA (PEBBLES) Negative (NEGATIVE) Meds: Medications Discontinued Medications Generic Name Dose Route Start Last Admin Trade Name Ry PRN Reason Stop Dose Admin Acetaminophen 650 mg 12/30/20 23:51 12/30/20 23:56 Acetaminophen 325 Mg Tab PO 12/30/20 23:52 650 mg NOW ONE Administration Sodium Chloride 1,000 mls @ 999 mls/hr 12/30/20 23:51 12/30/20 23:59 Normal Saline IV 12/31/20 00:51 999 mls/hr .BOLUS ONE Administration Ceftriaxone Sodium 1 gm/ 50 mls @ 100 mls/hr 12/30/20 23:55 12/31/20 00:00 Sodium Chloride IV 12/31/20 00:24 100 mls/hr ONETIME ONE Administration Sodium Chloride 1,000 mls @ 999 mls/hr 12/31/20 03:35 12/31/20 03:39 Normal Saline IV 12/31/20 04:35 999 mls/hr .BOLUS ONE Administration Iopamidol 100 ml 12/30/20 23:50 Iopamidol 612 Mg/Ml 100 Ml Bottle IVPUSH 12/30/20 23:51 ONETIME ONE - Re-Assessments/Exams Free Text/Narrative Re-Assessment/Exam: 12/31/20 01:10 Sats 89% on RA. Reports feeling some better now fever improved. 12/31/20 01:[address] Gomez request TC neuro surgery . Consult Dr Mccarthy regarding comment on CT report broken spinal fixation diandra and pedicle screw. Stated No urgency. Patient to follow with Neurosurgeon. 12/31/20 02:47 Sleeping soundly, Awaiting results of CT neck and chest. Departure - Departure Time of Disposition: 04:35 Disposition: Admitted As Inpatient 66 Condition: Fair Clinical Impression: Pneumonia Qualifiers: Pneumonia type: due to unspecified organism Laterality: right Lung location: lower lobe of lung Qualified Code(s): J18.9 - Pneumonia, unspecified organism Sepsis Qualifiers: Sepsis type: sepsis due to unspecified organism Sepsis acute organ dysfunction status: unspecified Qualified Code(s): A41.9 - Sepsis, unspecified organism Primary cancer of eye Qualifiers: Laterality: left Qualified Code(s): C69.92 - Malignant neoplasm of unspecified site of left eye - Discharge Information Sepsis Event Note (ED) - Evaluation Sepsis Screening Result: Possible Sepsis Risk - Focused Exam Vital Signs: Vital Signs Temp Pulse Resp BP Pulse Ox 12/31/20 03:22 97.5 F 96 18 90/61 97 12/31/20 02:17 97.8 F 102 H 20 94/57 L 95 12/31/20 01:06 100.5 F 117 H 20 90/53 L 97 12/30/20 23:47 100.2 F 124 H 21 H 101/71 97 12/30/20 22:29 100.3 F 134 H 23 H 109/64 95 - My Orders Last 24 Hours: My Active Orders 12/30/20 22:33 Blood Culture x2 Reflex Set [OM.PC] Stat 12/30/20 22:47 CULTURE BLOOD [BC] Stat CULTURE BLOOD [BC] Stat - Assessment/Plan Last 24 Hours: My Active Orders 12/30/20 22:33 Blood Culture x2 Reflex Set [OM.PC] Stat 12/30/20 22:47 CULTURE BLOOD [BC] Stat CULTURE BLOOD [BC] Stat
[2020-12-30] MEDS ORDERED: Iopamidol 612 MG/ML 100 ML Bottle IVPUSH ONE (23:50)
[2020-12-30] MEDS ORDERED: Acetaminophen 325 MG Tab PO ONE (23:51)
[2020-12-30] MEDS ORDERED: Sodium Chloride 0.9% 1,000 ML IV ONE (23:51)
[2020-12-30] MEDS ORDERED: cefTRIAXone 1 GM in Sodium Chloride 0.9% 50 ML IV ONE (23:55)
[2020-12-31 00:17] LABS: CORONAVIRUS COVID-19 NAA NEGATIVE (NEGATIVE)
--- NOTE | 2020-12-31 00:46 | CR ---
PROCEDURE INFORMATION: Exam: XR Chest Exam date and time: 12/30/2020 11:23 PM Age: 55 years old Clinical indication: Cough and fever; Additional info: Fever cough abd pain TECHNIQUE: Imaging protocol: XR of the chest. Views: 1 view. Total images: 1 COMPARISON: CR Chest 1V Frontal 04/14/2020 6:23 PM FINDINGS: Tubes, catheters and devices: Right jugular port with catheter tip in the proximal SVC. Surgical clips in the left lower neck. Lungs: Normal pulmonary expansion. No definite infiltrates. There is mild linear stranding in the left base and medial right base which is similar to comparison exam 04/14/2020 which would favor chronic scarring and subsegmental atelectasis. Mild prominence of the central pulmonary vasculature bilaterally which is similar to prior exam, possibly chronic pulmonary arterial hypertension. Pleural spaces: No pleural effusion. No pneumothorax. Heart/Mediastinum: Heart size normal. No tracheal/mediastinal shift. Vasculature: Mild aortic ectasia/tortuosity. Bones/joints: No acute osseous abnormalities are identified. IMPRESSION: 1. No definite infiltrates are identified. Linear stranding in the lung bases, left greater than right, is unchanged from 04/14/2020 which would favor chronic scarring or subsegmental atelectasis. 2. Central pulmonary vascular prominence, possibly chronic pulmonary arterial hypertension.
--- NOTE | 2020-12-31 00:55 | CT ---
PROCEDURE INFORMATION: Exam: CT Abdomen And Pelvis With Contrast Exam date and time: 12/30/2020 11:54 PM Age: 55 years old Clinical indication: Abdominal pain; Additional info: Lower abdominal pain [id number] [id number] TECHNIQUE: Imaging protocol: Computed tomography of the abdomen and pelvis with contrast. Total images: 337 Radiation optimization: All CT scans at this facility use at least one of these dose optimization techniques: automated exposure control; mA and/or kV adjustment per patient size (includes targeted exams where dose is matched to clinical indication); or iterative reconstruction. Contrast material: ISOVUE; Contrast volume: 75 ml; Contrast route: INTRAVENOUS (IV); COMPARISON: CT ABDOMEN/PELVIS 02/12/2013 10:23 PM FINDINGS: Lungs: Alveolar opacities in the medial right lung base consistent with pneumonia. No evidence of cavitation/abscess. Heart: Heart size normal. Mediastinal space: Small hiatal hernia. Liver: Normal contour. No mass lesions. No intrahepatic biliary ductal dilatation. Question mild generalized fatty infiltration of the liver. Gallbladder and bile ducts: Normal. No calcified stones. No ductal dilation. Pancreas: Mild pancreatic atrophy without acute abnormality. No pancreatic ductal dilatation. Spleen: Normal. No splenomegaly. Adrenal glands: Normal. No adrenal mass. Kidneys and ureters: No acute abnormalities. No hydronephrosis or hydroureter. No urinary tract stones are identified. Stomach and bowel: Prior gastric bypass without evidence of associated complication. The small bowel is nondilated with no gross abnormality. There is a moderate amount of stool distributed throughout the colon suggesting constipation. Appendix: The appendix is not identified. No secondary signs of appendicitis. Intraperitoneal space: No free fluid or air. Vasculature: Mild calcific atherosclerosis. Lymph nodes: No adenopathy. Urinary bladder: Unremarkable as visualized. Reproductive: Unremarkable as visualized. Bones/joints: L1-S1 fusion with L3-L5 laminectomy. The right S1 pedicle screw is broken in the right-sided spinal fixation diandra is broken at the level of the L3 pedicle. The left spinal fixation diandra is broken at the L3-L4 level. Solid bony union L1-L2 with advanced disc degenerative changes T11-T12, T12-L1, and L5-S1. Soft tissues: Small fatty umbilical hernia . No evidence of associated bowel herniation or strangulation. IMPRESSION: 1. Alveolar opacities in the medial right lower lobe consistent with pneumonia. 2. Moderate stool throughout the colon. 3. Lumbar laminectomy and fusion as detailed above with hardware breakage involving the right S1 pedicle screw and bilateral spinal fixation rods as detailed above. 4. Additional non-emergent findings detailed above.
[2020-12-31] MEDS ORDERED: Sodium Chloride 0.9% 1,000 ML IV ONE (03:35)
--- NOTE | 2020-12-31 04:21 | CT ---
PROCEDURE INFORMATION: Exam: CT Neck Without Contrast Exam date and time: 12/31/2020 1:58 AM Age: 55 years old Clinical indication: Other: Pnuemonia; Additional info: Pneumonia, cancer/radiation HX TECHNIQUE: Imaging protocol: Computed tomography images of the neck without contrast. Radiation optimization: All CT scans at this facility use at least one of these dose optimization techniques: automated exposure control; mA and/or kV adjustment per patient size (includes targeted exams where dose is matched to clinical indication); or iterative reconstruction. COMPARISON: CR Chest 1V Frontal 12/30/2020 11:23 PM FINDINGS: Paranasal sinuses: Air-fluid levels are present in both maxillary sinuses. Mild mucosal thickening in the ethmoid air cells. Nasopharynx: Unremarkable. Oropharynx: Unremarkable. No significant tonsillar enlargement. Hypopharynx: Unremarkable. Larynx: Unremarkable. Normal epiglottis. Retropharyngeal space: Unremarkable. Submandibular/Parotid glands: Left parotid and submandibular glands have been removed. Thyroid: Normal. No enlarged or calcified nodules. Lymph nodes: Unremarkable. No lymphadenopathy. Trachea: Visualized trachea is unremarkable. Lungs: Unremarkable as visualized. Bones/joints: Unremarkable. No acute fracture. Soft tissues: Unremarkable. No significant soft tissue swelling. Other findings: Right MediPort in good position. IMPRESSION: Bilateral maxillary sinusitis.
--- NOTE | 2020-12-31 04:22 | CT ---
PROCEDURE INFORMATION: Exam: CT Chest Without Contrast; Diagnostic Exam date and time: 12/31/2020 1:58 AM Age: 55 years old Clinical indication: Other: Pneumonia, cancer/radiation HX TECHNIQUE: Imaging protocol: Diagnostic computed tomography of the chest without contrast. Radiation optimization: All CT scans at this facility use at least one of these dose optimization techniques: automated exposure control; mA and/or kV adjustment per patient size (includes targeted exams where dose is matched to clinical indication); or iterative reconstruction. COMPARISON: CR Chest 1V Frontal 12/30/2020 11:23 PM FINDINGS: Tubes, catheters and devices: Right MediPort in good position. Lungs: There is patchy consolidation in the right lower lobe. Pleural spaces: Unremarkable. No pneumothorax. No pleural effusion. Heart: Unremarkable. No cardiomegaly. No pericardial effusion. Mediastinal space: Small hiatal hernia. Aorta: Unremarkable. No aortic aneurysm. Lymph nodes: Unremarkable. No enlarged lymph nodes. Liver: There is focal fatty infiltration along the falciform ligament. Stomach and bowel: There are changes of prior gastric surgery. Bones/joints: Unremarkable. No acute fracture. Soft tissues: Unremarkable. IMPRESSION: 1. Right lower lobe pneumonia. 2. Small hiatal hernia.
[2020-12-31] MEDS ORDERED: Ondansetron 4 MG/2 ML SDV IVPUSH PRN (06:38)
[2020-12-31] MEDS ORDERED: Glucagon,Human Recombinant 1 MG Vial IM PRN (06:42)
[2020-12-31] MEDS ORDERED: 50% Dextrose in Water 50 ML Syringe IVPUSH PRN (06:42)
--- NOTE | 2020-12-31 06:51 | PCM.HP ---
H&P History of Present Illness - General Date of Service: 12/31/20 Admit Problem/Dx: Admission Diagnosis/Problem Admission Diagnosis/Problem Pneumonia - History of Present Illness Initial Comments - Free Text/Narative: The patient is a 55-year-old female who presents with chief plaint of rigors. She states that she stated started feeling unwell approximately 11 AM on December 30, 2020. She states that she was exhibiting fever as well. She denies nausea, vomiting, cough, wheeze, abdominal pain, diarrhea, myalgia, chest pain, dyspnea, lightheadedness, dizziness, or any other constitutional complaints. She pre sents for further evaluation - Related Data Allergies/Adverse Reactions: Allergies Allergy/AdvReac Type Severity Reaction Status Date / Time latex Allergy Rash Uncoded 12/30/20 22:40 onions Allergy Hives Uncoded 12/30/20 22:40 spider bites Allergy Numbness Uncoded 12/30/20 22:40 Home Medications: Home Meds Insulin Detemir [Levemir] 42 units SQ BEDTIME 06/01/13 [History] Aspirin [Halfprin] 81 mg PO DAILY 02/14/14 [History] Cyclobenzaprine [Flexeril] 10 mg PO TID PRN 09/04/15 [History] Carboxymethylcellulose Sodium [Refresh Tears 0.5%] 2 drop EYELF Q4H PRN 05/26/19 [History] Multivitamin [Multi-Day Vitamins] 1 each PO DAILY 09/03/19 [History] Sertraline [Zoloft] 100 mg PO DAILY 10/14/19 [History] atorvaSTATin [Lipitor] 10 mg PO BEDTIME 10/14/19 [History] Morphine Sulfate 15 mg PO TID PRN 10/31/19 [History] Albuterol [Proventil HFA] 2 puff INH Q4HR PRN #1 inhaler 04/17/20 [Rx] Acetaminophen [Tylenol] 650 mg PO Q4H PRN tablet 09/10/20 [Rx] Bumetanide 0.5 mg PO DAILY 09/10/20 [History] Gabapentin [Neurontin] 300 mg PO TID 09/10/20 [History] Potassium Chloride 10 meq PO DAILY 09/10/20 [History] Past Medical History HEENT History: Reports: Impaired Vision Other HEENT History: wears glasses, droopy L) eye lid, had reconstrucion surg Cardiovascular History: Reports: Heart Murmur Respiratory History: Reports: Pneumonia, Recurrent Gastrointestinal History: Reports: None Genitourinary History: Reports: None, Dialysis, Other (See Below) Other Genitourinary History: Pt. reports she had sepsis in October, and her "kidneys shut down". She stated she received about 5 days of dialysis and got her kidneys started up again. [employer]ER 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 SEVERE L4-5 LUMBAR SPINAL STENOSIS. 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 T12-L1 THROUGH L5-S1 DEGENERATIVE DISC. 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 SEVERE L4-5 LUMBAR SPINAL STENOSIS. 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 T12-L1 THROUGH L5- S1 DEGENERATIVE DISC. 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 Cardiovascular Surgical History: Reports: None GI Surgical History: Reports: Appendectomy, Bariatric Procedure, Colonoscopy, Other (See Below) Other GI Surgeries/Procedures: gastric bypass Female Surgical History: Reports: Section, Oophorectomy, Tubal Ligation Other Female Surgeries/Procedures: right salpingo-oopherectomy Endocrine Surgical History: Reports: None Neurological Surgical History: Reports: Other (See Below) Other Neurological Surgeries/Procedures: brace on spine Musculoskeletal Surgical History: Reports: Knee Replacement, Other (See Below) Other Musculoskeletal Surgeries/Procedures:: back surgery x2 Oncologic Surgical History: Reports: None Social & Family History - Family History Family Medical History: No Pertinent Family History Cardiac: Reports: [place] Endocrine/Metabolic: Reports: Diabetes, Type I Oncologic: Reports: Ovarian, Prostate - Tobacco Use Tobacco Use Status *Q: Former Tobacco User Used Tobacco, but Quit: Yes Month/Year Tobacco Last Used: 1990 Second Hand Smoke Exposure: No - Caffeine Use Caffeine Use: Reports: Tea - Recreational Drug Use Recreational Drug Use: No - Living Situation & Occupation Living situation: Reports: , with Family H&P Review of Systems - Review of Systems: Review Of Systems: See Below General: Reports: Fever, Chills HEENT: Reports: No Symptoms Pulmonary: Reports: No Symptoms Cardiovascular: Reports: No Symptoms Gastrointestinal: Reports: No Symptoms Genitourinary: Reports: No Symptoms Musculoskeletal: Reports: No Symptoms Skin: Reports: No Symptoms Psychiatric: Reports: No Symptoms Neurological: Reports: No Symptoms Hematologic/Lymphatic: Reports: No Symptoms Immunologic: Reports: No Symptoms Exam - Exam Exam: See Below - Vital Signs Vital Signs: Last Vital Signs Temp 97.0 F 12/31/20 04:41 Pulse 90 12/31/20 04:41 Resp 16 12/31/20 04:41 BP 119/78 12/31/20 04:41 Pulse Ox 100 12/31/20 06:38 Weight: 219 lb - Exam General: Alert, Oriented, 4 HEENT: Other (There is opacification of the left iris/pupil) Neck: Supple, Trachea Midline, 2 Lungs: Clear to Auscultation, Normal Respiratory Effort Cardiovascular: Regular Rate, Regular Rhythm GI/Abdominal Exam: Normal Bowel Sounds, Soft, Non-Tender, No Organomegaly, No Distention, No Abnormal Bruit, No Mass, Pelvis Stable Back Exam: Normal Inspection, Full Range of Motion, NT Extremities: Pedal Edema Peripheral Pulses: 2+: Carotid (L), Carotid (R), Brachial (L), Brachial (R), Radial (L), Radial (R), Femoral (L), Femoral (R), Popliteal (L), Popliteal (R), Posterior Tibial (L), Posterior Tibial (R), Dorsalis Pedis (L), Dorsalis Pedis ( R) Skin: Warm, Dry, Intact Neurological: Cranial Nerves Intact, Reflexes Equal Bilateral Neuro Extensive - Mental Status: Alert, Oriented x3, Normal Mood/Affect, Normal Cognition Neuro Extensive - Motor, Sensory, Reflexes: CN II-XII Intact, Normal Gait, Normal Reflexes DTR: 2+: Bicep (L), Bicep (R), Tricep (L), Tricep (R), Patella (L), Patella (R), Achilles (L), Achilles (R) Psychiatric: Alert, Normal Affect, Normal Mood - Patient Data Lab Results Last 24 hrs: Laboratory Results - last 24 hr 12/30/20 12/30/20 12/30/20 Range/Units 22:47 22:47 22:47 WBC 29.7 H* (5.0-10.0) 10^3/uL RBC 4.48 (4.2-5.4) 10^6/uL Hgb 13.3 (12.0-16.0) g/dL Hct 40.4 (37.0-47.0) % MCV 90.2 D (80-100) fL MCH 29.7 (27.0-34.0) pg MCHC 32.9 L (33.0-35.0) g/dL Plt Count 309 (150-450) 10^3/uL Neut % (Auto) 91.1 H (42.2-75.2) % Lymph % (Auto) 1.6 L (20.5-50.1) % [place] % (Auto) 7.1 (2-8) % Eos % (Auto) 0.1 L (1.0-3.0) % Baso % (Auto) 0.1 (0.0-1.0) % Add Manual Diff Yes Neutrophils % (Manual) 91 H (42-75) % Band Neutrophils % 3 % Lymphocytes % (Manual) 3 L (20-50) % Monocytes % (Manual) 3 (2-8) % Sodium 137 (136-145) mmol/L Potassium 4.0 (3.5-5.1) mmol/L Chloride 98 (98-107) mmol/L Carbon Dioxide 29 (21-32) mmol/L Anion Gap 14.0 H (7-13) mEq/L BUN 10 (7-18) mg/dL Creatinine 0.87 (0.55-1.02) mg/dL Est Cr Clr Drug Dosing 76.36 mL/min Estimated GFR (MDRD) > 60 BUN/Creatinine Ratio 11.5 (No establ ref range) Glucose 108 H (70-99) mg/dL Lactic Acid 1.1 (0.4-2.0) mmol/L Calcium 8.5 (8.5-10.1) mg/dL Total Bilirubin 0.5 (0.2-1.0) mg/dL AST 22 (15-37) U/L ALT 33 (14-59) U/L Alkaline Phosphatase 95 (46-116) U/L Total Protein 7.3 (6.4-8.2) g/dL Albumin 3.1 L (3.4-5.0) g/dL Globulin 4.2 Albumin/Globulin Ratio 0.74 Amylase 21 L (25-115) U/L Lipase 48 L (73-393) U/L Urine Color (YELLOW) Urine Appearance (CLEAR) Urine pH (5.0-9.0) Ur Specific [place] (1.005-1.030) Urine Protein (NEGATIVE) Urine Glucose (UA) (NEGATIVE) Urine Ketones (NEGATIVE) Urine Occult Blood (NEGATIVE) Urine Nitrite (NEGATIVE) Urine Bilirubin (NEGATIVE) Urine Urobilinogen (0.2-1.0) mg/dL Ur Leukocyte Esterase (NEGATIVE) Influenza Type A RNA (NEGATIVE) Influenza Type B RNA (NEGATIVE) SARS-CoV-2 RNA (PEBBLES) (NEGATIVE) 12/30/20 12/30/20 Range/Units 23:14 23:47 WBC (5.0-10.0) 10^3/uL RBC (4.2-5.4) 10^6/uL Hgb (12.0-16.0) g/dL Hct (37.0-47.0) % MCV (80-100) fL MCH (27.0-34.0) pg MCHC (33.0-35.0) g/dL Plt Count (150-450) 10^3/uL Neut % (Auto) (42.2-75.2) % Lymph % (Auto) (20.5-50.1) % [place] % (Auto) (2-8) % Eos % (Auto) (1.0-3.0) % Baso % (Auto) (0.0-1.0) % Add Manual Diff Neutrophils % (Manual) (42-75) % Band Neutrophils % % Lymphocytes % (Manual) (20-50) % Monocytes % (Manual) (2-8) % Sodium (136-145) mmol/L Potassium (3.5-5.1) mmol/L Chloride (98-107) mmol/L Carbon Dioxide (21-32) mmol/L Anion Gap (7-13) mEq/L BUN (7-18) mg/dL Creatinine (0.55-1.02) mg/dL Est Cr Clr Drug Dosing mL/min Estimated GFR (MDRD) BUN/Creatinine Ratio (No establ ref range) Glucose (70-99) mg/dL Lactic Acid (0.4-2.0) mmol/L Calcium (8.5-10.1) mg/dL Total Bilirubin (0.2-1.0) mg/dL AST (15-37) U/L ALT (14-59) U/L Alkaline Phosphatase (46-116) U/L Total Protein (6.4-8.2) g/dL Albumin (3.4-5.0) g/dL Globulin Albumin/Globulin Ratio Amylase (25-115) U/L Lipase (73-393) U/L Urine Color Yellow (YELLOW) Urine Appearance Clear (CLEAR) Urine pH 7.0 (5.0-9.0) Ur Specific [place] 1.015 (1.005-1.030) Urine Protein Negative (NEGATIVE) Urine Glucose (UA) Negative (NEGATIVE) Urine Ketones Negative (NEGATIVE) Urine Occult Blood Negative (NEGATIVE) Urine Nitrite Negative (NEGATIVE) Urine Bilirubin Negative (NEGATIVE) Urine Urobilinogen 2.0 H (0.2-1.0) mg/dL Ur Leukocyte Esterase Negative (NEGATIVE) Influenza Type A RNA Negative (NEGATIVE) Influenza Type B RNA Negative (NEGATIVE) SARS-CoV-2 RNA (PEBBLES) Negative (NEGATIVE) Result Diagrams: 12/30/20 22:47 12/30/20 22:47 Problem List Initiated/Reviewed/Updated: Yes Orders Last 24hrs: Active Orders 24 hr Category Date Time Status Admission Diagnosis [ADT] Stat ADT 12/31/20 04:31 Ordered Admission Status [Patient Status] [ADT] Routine ADT 12/31/20 04:31 Active Blood Glucose Check, [facility]side [[facility] 12/31/20 06:38 Ordered CPAP Adult [RT BiPAP/CPAP] [RC] ASDIRECTED Care 12/31/20 06:43 Ordered Communication Order [RC] 08,20 Care 12/31/20 06:43 Ordered Oxygen Therapy [RC] PRN Care 12/31/20 06:38 Ordered Peripheral IV Care [RC] . DIRECTED Care 12/31/20 06:39 Ordered Pulse Oximetry [RC] PRN Care 12/31/20 06:38 Ordered RT Aerosol Therapy [RC] ASDIRECTED Care 12/31/20 06:41 Ordered Up ad Mariza [RC] ASDIRECTED Care 12/31/20 06:38 Ordered Vital Signs [RC] Q4H Care 12/31/20 06:38 Ordered Consistent Carbohydrate Diet [DIET] Diet 12/31/20 Breakfast Ordered B-TYPE NATRIURETIC PEPTIDE,BNP [CHEM] Routine Lab 12/31/20 06:41 Ordered BASIC METABOLIC PANEL,BMP [CHEM] Routine Lab 01/01/21 05:00 Ordered CBC WITH AUTO DIFF [HEME] Routine Lab 12/31/20 14:00 Ordered CBC WITH AUTO DIFF [HEME] Routine Lab 01/01/21 05:00 Ordered CULTURE BLOOD [BC] Stat Lab 12/30/20 22:47 Received CULTURE BLOOD [BC] Stat Lab 12/30/20 22:47 Received Acetaminophen [TylenoL] Med 12/31/20 06:38 Ordered 650 mg PO Q4H PRN Albuterol/Ipratropium [DuoNeb 3.0-0.5 MG/3 ML] Med 12/31/20 07:00 Ordered 3 ml NEB Q6HRRT Dextrose 50% in Water Med 12/31/20 06:42 Ordered 50 ml IVPUSH Q15M PRN Docusate Sodium/Sennosides [Senna Plus] Med 12/31/20 09:00 Ordered 2 tab PO BID Enoxaparin [Lovenox] Med 12/31/20 09:00 Ordered 40 mg SUBCUT DAILY Glucagon,Human Recombinant [GlucaGen] Med 12/31/20 06:42 Ordered 1 mg IM Q15M PRN Insulin Lispro [HumaLOG] Med 12/31/20 08:00 Ordered See Protocol SUBCUT WITHMEALSANDBED Ondansetron [Zofran] Med 12/31/20 06:38 Ordered 4 mg IVPUSH Q4H PRN Pharmacy to Dose - Vancomycin Med 12/31/20 06:45 Ordered 1 dose .XX ASDIRECTED Piperacillin/Tazobactam [Zosyn] 3.375 gm Med 12/31/20 06:45 Ordered Sodium Chloride 0.9% [Normal Saline] 100 ml IV Q6H Sodium Chloride 0.9% [Saline Flush] Med 12/31/20 06:38 Ordered 10 ml FLUSH ASDIRECTED PRN Blood Culture x2 Reflex Set [OM.PC] Stat Oth 12/30/20 22:33 Ordered Peripheral IV Insertion Adult [OM.PC] Routine Oth 12/31/20 06:38 Ordered Saline Lock Insert [OM.PC] Routine Oth 12/31/20 06:38 Ordered Resuscitation Status Routine Resus Stat 12/31/20 06:38 Ordered Medication Orders Acetaminophen (Acetaminophen 325 Mg Tab) 650 mg PO Q4H PRN PRN Reason: Pain (Mild 1-3)/fever Albuterol/Ipratropium (Albuterol/Ipratropium 3.0-0.5 Mg/3 Ml Neb Soln) 3 ml NEB Q6HRRT [facility] Dextrose/Water (50% Dextrose In Water 50 Ml Syringe) 50 ml IVPUSH Q15M PRN PRN Reason: Hypoglycemia Enoxaparin Sodium (Enoxaparin 40 Mg/0.4 Ml Syringe) 40 mg SUBCUT DAILY [facility] Glucagon (Glucagon,Human Recombinant 1 Mg Vial) 1 mg IM Q15M PRN PRN Reason: Hypoglycemia Piperacillin Sod/Tazobactam (Sod 3.375 gm/ Sodium Chloride) 100 mls @ 200 mls/hr IV Q6H [facility] Insulin Human Lispro (Insulin Lispro 100 Units/Ml 3 Ml Vial) 0 unit SUBCUT WITHMEALSANDBED [facility]; Protocol Ondansetron HCl (Ondansetron 4 Mg/2 Ml Sdv) 4 mg IVPUSH Q4H PRN PRN Reason: Nausea/Vomiting Senna/Docusate Sodium (Docusate Sodium/Sennosides 50-8.6 Mg Tab) 2 tab PO BID [facility] Sodium Chloride (Sodium Chloride 0.9% 10 Ml Syringe) 10 ml FLUSH ASDIRECTED PRN PRN Reason: Keep Vein Open Vancomycin HCl (Pharmacy To Dose - Vancomycin) 1 dose .XX ASDIRECTED [facility] Assessment/Plan Comment:: Surgical History: Left eye surgery x2, tubal ligation, back surgery x2, bilateral lower extremity varicose vein stripping, right knee surgery, right nephrectomy, gastric bypass, , appendectomy Family History: Cancer, diabetes, coronary artery disease, hypertension, hyperlipidemia Social History: Tobacco: Former smoker Alcohol: Denies Caffeine: Tea Drugs: Past marijuana use. Denies any other drug use past or present Allergies: No known drug allergies. The patient is allergic to latex, onions, spider bites Code Status: Full Assessment / Plan: Pneumonia. IV vancomycin to be dosed by pharmacy plus Zosyn 3.375 g IV every 6 hours plus DuoNeb every 6 hours Sinusitis. IV vancomycin to be dosed by pharmacy plus Zosyn 3.375 g IV every 6 hours History of left eye cancer, status post surgery x2, status post radiation therapy. Outpatient follow-up with hematology/oncology History of left neck sebaceous carcinoma. Outpatient follow-up with hematology/oncology Right S1 pedicle screw breakage in the right sided spinal fixation diandra is broken at the level of the L3 pedicle. The left spinal fixation diandra is broken at the L3-L4 level. Outpatient follow-up with orthopedic surgeryspine or neurosurgery Query pulmonary hypertension Chronic pain Depression Muscle spasm Rheumatoid arthritis Spinal stenosis Degenerative disc disease Neuropathy Diabetes. Will check fasting glucose before every meal and at bedtime and provide some sliding scale Hyperlipidemia Hypertension Obesity. Patient will be counseled regarding lifestyle modification Constipation. Senna plus: 2 tabs p.o. twice daily Obstructive sleep apnea. CPAP/BiPAP: Okay to use home device and/or pressure when sleeping if the patient uses CPAP/BiPAP at home Osteoarthritis Diverticulosis History of hepatitisnot otherwise specified History of leaving AGAINST MEDICAL ADVICE History of medical noncompliance as witnessed by patient leaving AGAINST MEDICAL ADVICE. The patient will be counseled regarding medical compliance DVT prophylaxis. Lovenox 40 mg subcutaneously daily Disposition: Anticipate discharge in 72 to 96 hours. At the time of admission, the patient home medications were not yet fully reconciled in the system. Once they are, they will be reviewed and reconciled. END OF DOCTOR EMAMIS HISTORY AND PHYSICAL / CONSULTATION NOTE
[2020-12-31] MEDS ORDERED: Morphine 15 MG Tab PO PRN (06:59)
[2020-12-31] MEDS ORDERED: Cyclobenzaprine 10 MG Tab PO PRN (06:59)
[2020-12-31] MEDS ORDERED: Polyvinyl Alcohol 1.4% Ophth Soln 15 ML Bottle EYELF PRN (06:59)
[2020-12-31] MEDS ORDERED: Piperacillin/Tazobactam 3.375 GM in Sodium Chloride 0.9% 100 ML IV SCH (07:00)
[2020-12-31] MEDS: Albuterol/Ipratropium 3.0-0.5 MG/3 ML Neb Soln NEB SCH ×3 (07:43→17:05)
[2020-12-31] MEDS: Gabapentin 300 MG Cap PO SCH ×3 (08:21→21:43)
[2020-12-31] MEDS: Bumetanide 1 MG Tab PO SCH (08:21)
[2020-12-31] MEDS: Acetaminophen 325 MG Tab PO PRN ×2 (08:22→23:05)
[2020-12-31] MEDS: Aspirin 81 MG Tab.EC PO SCH (08:22)
[2020-12-31] MEDS: Potassium Chloride 10 MEQ Tab.ER PO SCH (08:22)
[2020-12-31] MEDS: Sertraline 50 MG Tab PO SCH (08:22)
[2020-12-31] MEDS: Insulin Lispro 100 Units/ML 3 ML Vial SUBCUT SCH ×4 (08:24→21:44)
[2020-12-31] MEDS: Enoxaparin 40 MG/0.4 ML Syringe SUBCUT SCH (08:25)
[2020-12-31] MEDS: Piperacillin/Tazobactam 3.375 GM in Sodium Chloride 0.9% 100 ML IV SCH ×2 (12:05→18:26)
[2020-12-31] MEDS: Sodium Chloride 0.9% 10 ML Syringe FLUSH PRN (16:46)
[2020-12-31] MEDS ORDERED: atorvaSTATin 10 MG Tab PO SCH (21:00)
[2020-12-31] MEDS ORDERED: Insulin Glarg,Human.Rec.Analog 100 Unit/ML SUBCUT SCH (21:00)
[2021-01-01] MEDS: Albuterol/Ipratropium 3.0-0.5 MG/3 ML Neb Soln NEB SCH ×2 (00:08→07:33)
[2021-01-01] MEDS: Sodium Chloride 0.9% 10 ML Syringe FLUSH PRN ×2 (00:09→05:11)
[2021-01-01] MEDS: Piperacillin/Tazobactam 3.375 GM in Sodium Chloride 0.9% 100 ML IV SCH ×2 (00:09→05:11)
--- NOTE | 2021-01-01 07:06 | PCM.PN ---
- General Info Date of Service: 01/01/21 Subjective Update: Patient endorses no complaints at this time. She denies fever, rigors, nausea, vomiting, cough, wheeze, abdominal pain, chest pain, dyspnea, or any other constitutional complaints. I explained to the patient her current medical condition and plan of care and I have answered all of her questions - Review of Systems General: Reports: No Symptoms HEENT: Reports: No Symptoms Pulmonary: Reports: No Symptoms Cardiovascular: Reports: No Symptoms Gastrointestinal: Reports: No Symptoms Genitourinary: Reports: No Symptoms Musculoskeletal: Reports: No Symptoms Skin: Reports: No Symptoms Neurological: Reports: No Symptoms Psychiatric: Reports: No Symptoms - Patient Data Vitals - Most Recent: Last Vital Signs Temp 96.9 F 01/01/21 04:00 Pulse 88 01/01/21 04:00 Resp 18 01/01/21 04:00 BP 91/58 L 01/01/21 04:00 Pulse Ox 98 01/01/21 05:27 Weight - Most Recent: 219 lb I&O - Last 24 Hours: Intake & Output 12/31/20 01/01/21 01/01/21 22:59 06:59 14:59 Intake Total 920 440 Balance 920 440 Lab Results Last 24 Hours: Laboratory Results - last 24 hr 12/31/20 12/31/20 12/31/20 Range/Units 08:17 11:37 14:10 WBC (5.0-10.0) 10^3/uL RBC (4.2-5.4) 10^6/uL Hgb (12.0-16.0) g/dL Hct (37.0-47.0) % MCV (80-100) fL MCH (27.0-34.0) pg MCHC (33.0-35.0) g/dL Plt Count (150-450) 10^3/uL Neut % (Auto) (42.2-75.2) % Lymph % (Auto) (20.5-50.1) % [place] % (Auto) (2-8) % Eos % (Auto) (1.0-3.0) % Baso % (Auto) (0.0-1.0) % POC Glucose 94 122 H (70-99) mg/dL B-Natriuretic Peptide 82 (0-100) pg/ml 12/31/20 12/31/20 12/31/20 Range/Units 14:10 16:47 21:08 WBC 22.6 H (5.0-10.0) 10^3/uL RBC 3.63 L (4.2-5.4) 10^6/uL Hgb 11.0 L D (12.0-16.0) g/dL Hct 33.5 L (37.0-47.0) % MCV 92.3 (80-100) fL MCH 30.3 (27.0-34.0) pg MCHC 32.8 L (33.0-35.0) g/dL Plt Count 248 (150-450) 10^3/uL Neut % (Auto) 90.9 H (42.2-75.2) % Lymph % (Auto) 3.5 L (20.5-50.1) % [place] % (Auto) 5.6 (2-8) % Eos % (Auto) 0.0 L (1.0-3.0) % Baso % (Auto) 0.0 (0.0-1.0) % POC Glucose 151 H 128 H (70-99) mg/dL B-Natriuretic Peptide (0-100) pg/ml 01/01/21 Range/Units 06:56 WBC 15.9 H (5.0-10.0) 10^3/uL RBC 3.73 L (4.2-5.4) 10^6/uL Hgb 11.2 L (12.0-16.0) g/dL Hct 34.5 L (37.0-47.0) % MCV 92.5 (80-100) fL MCH 30.0 (27.0-34.0) pg MCHC 32.5 L (33.0-35.0) g/dL Plt Count 261 (150-450) 10^3/uL Neut % (Auto) 90.6 H (42.2-75.2) % Lymph % (Auto) 3.1 L (20.5-50.1) % [place] % (Auto) 5.5 (2-8) % Eos % (Auto) 0.7 L (1.0-3.0) % Baso % (Auto) 0.1 (0.0-1.0) % POC Glucose (70-99) mg/dL B-Natriuretic Peptide (0-100) pg/ml Brian Results Last 24 Hours: Microbiology 12/30/20 22:47 Aerobic Blood Culture - Preliminary Blood - Arm, Left NO GROWTH AFTER 1 DAY Anaerobic Blood Culture - Preliminary NO GROWTH AFTER 1 DAY 12/30/20 22:47 Aerobic Blood Culture - Preliminary Blood - Venous - Iv Start NO GROWTH AFTER 1 DAY Anaerobic Blood Culture - Preliminary NO GROWTH AFTER 1 DAY Med Orders - Current: Current Medications Acetaminophen (Acetaminophen 325 Mg Tab) 650 mg PO Q4H PRN PRN Reason: Pain (Mild 1-3)/fever Last Admin: 12/31/20 23:05 Dose: 650 mg Documented by: Albuterol/Ipratropium (Albuterol/Ipratropium 3.0-0.5 Mg/3 Ml Neb Soln) 3 ml NEB Q6HRRT [facility] Last Admin: 01/01/21 00:08 Dose: 3 ml Documented by: Artificial Tears (Polyvinyl Alcohol 1.4% Ophth Soln 15 Ml Bottle) 0 ml EYELF Q4H PRN PRN Reason: Dry Eyes Last Admin: 12/31/20 09:37 Dose: 2 drop Documented by: Aspirin (Aspirin 81 Mg Tab.Ec) 81 mg PO DAILY [facility] Last Admin: 12/31/20 08:22 Dose: 81 mg Documented by: Atorvastatin Calcium (Atorvastatin 10 Mg Tab) 10 mg PO BEDTIME [facility] Last Admin: 12/31/20 21:43 Dose: 10 mg Documented by: Bumetanide (Bumetanide 1 Mg Tab) 0.5 mg PO DAILY [facility] Last Admin: 12/31/20 08:21 Dose: 0.5 mg Documented by: Cyclobenzaprine HCl (Cyclobenzaprine 10 Mg Tab) 10 mg PO TID PRN PRN Reason: muscle spasms Dextrose/Water (50% Dextrose In Water 50 Ml Syringe) 50 ml IVPUSH Q15M PRN PRN Reason: Hypoglycemia Enoxaparin Sodium (Enoxaparin 40 Mg/0.4 Ml Syringe) 40 mg SUBCUT DAILY [facility] Last Admin: 12/31/20 08:25 Dose: 40 mg Documented by: Gabapentin (Gabapentin 300 Mg Cap) 300 mg PO TID [facility] Last Admin: 12/31/20 21:43 Dose: 300 mg Documented by: Glucagon (Glucagon,Human Recombinant 1 Mg Vial) 1 mg IM Q15M PRN PRN Reason: Hypoglycemia Vancomycin HCl 1.25 gm/ Sodium (Chloride) 250 mls @ 166.667 mls/hr IV Q8H [facility] Last Admin: 01/01/21 00:16 Dose: 166 mls/hr Documented by: Piperacillin Sod/Tazobactam (Sod 3.375 gm/ Sodium Chloride) 100 mls @ 200 mls/hr IV Q6HR [facility] Last Admin: 01/01/21 05:11 Dose: 200 mls/hr Documented by: Insulin Glargine (Insulin Glarg,Human.Rec.Analog 100 Unit/Ml) 42 unit SUBCUT BEDTIME [facility] Last Admin: 12/31/20 21:45 Dose: 42 units Documented by: Insulin Human Lispro (Insulin Lispro 100 Units/Ml 3 Ml Vial) 0 unit SUBCUT WITHMEALSANDBED [facility]; Protocol Last Admin: 12/31/20 21:44 Dose: Not Given Documented by: Morphine Sulfate (Morphine 15 Mg Tab) 15 mg PO TID PRN PRN Reason: Pain Ondansetron HCl (Ondansetron 4 Mg/2 Ml Sdv) 4 mg IVPUSH Q4H PRN PRN Reason: Nausea/Vomiting Potassium Chloride (Potassium Chloride 10 Meq Tab.Er) 10 meq PO DAILY [facility] Last Admin: 12/31/20 08:22 Dose: 10 meq Documented by: Senna/Docusate Sodium (Docusate Sodium/Sennosides 50-8.6 Mg Tab) 2 tab PO BID [facility] Last Admin: 12/31/20 21:43 Dose: 2 tab Documented by: Sertraline HCl (Sertraline 50 Mg Tab) 100 mg PO DAILY [facility] Last Admin: 12/31/20 08:22 Dose: 100 mg Documented by: Sodium Chloride (Sodium Chloride 0.9% 10 Ml Syringe) 10 ml FLUSH ASDIRECTED PRN PRN Reason: Keep Vein Open Last Admin: 01/01/21 05:11 Dose: 10 ml Documented by: Vancomycin HCl (Pharmacy To Dose - Vancomycin) 1 dose .XX ASDIRECTED [facility] Discontinued Medications Acetaminophen (Acetaminophen 325 Mg Tab) 650 mg PO NOW ONE Stop: 12/30/20 23:52 Last Admin: 12/30/20 23:56 Dose: 650 mg Documented by: Sodium Chloride (Normal Saline) 1,000 mls @ 999 mls/hr IV .BOLUS ONE Stop: 12/31/20 00:51 Last Admin: 12/30/20 23:59 Dose: 999 mls/hr Documented by: Ceftriaxone Sodium 1 gm/ (Sodium Chloride) 50 mls @ 100 mls/hr IV ONETIME ONE Stop: 12/31/20 00:24 Last Admin: 12/31/20 00:00 Dose: 100 mls/hr Documented by: Sodium Chloride (Normal Saline) 1,000 mls @ 999 mls/hr IV .BOLUS ONE Stop: 12/31/20 04:35 Last Admin: 12/31/20 03:39 Dose: 999 mls/hr Documented by: Piperacillin Sod/Tazobactam (Sod 3.375 gm/ Sodium Chloride) 100 mls @ 200 mls /hr IV Q6H [facility] Last Infusion: 12/31/20 08:25 Dose: Infused Documented by: Vancomycin HCl 1.25 gm/ Sodium (Chloride) 250 mls @ 166.667 mls/hr IV Q8H [facility] Last Admin: 12/31/20 11:52 Dose: Not Given Documented by: Iopamidol (Iopamidol 612 Mg/Ml 100 Ml Bottle) 100 ml IVPUSH ONETIME ONE Stop: 12/30/20 23:51 Last Admin: 12/31/20 00:05 Dose: 75 ml Documented by: - Exam General: Alert, Oriented HEENT: Pupils Equal, Pupils Reactive, EOMI, Mucous Membr. Moist/Festus Neck: Supple Lungs: Clear to Auscultation, Normal Respiratory Effort Cardiovascular: Regular Rate, Regular Rhythm GI/Abdominal Exam: Normal Bowel Sounds, Soft, Non-Tender, No Organomegaly, No Distention, No Abnormal Bruit, No Mass, Pelvis Stable Back Exam: Normal Inspection, Full Range of Motion Extremities: Normal Inspection, Normal Range of Motion, Non-Tender, No Pedal Edema, Normal Capillary Refill Peripheral Pulses: 2+: Carotid (L), Carotid (R), Brachial (L), Brachial (R), Radial (L), Radial (R), Femoral (L), Femoral (R), Popliteal (L), Popliteal (R), Posterior Tibial (L), Posterior Tibial (R), Dorsalis Pedis (L), Dorsalis Pedis (R) Skin: Warm, Dry, Intact Wound/Incisions: Healing Well Neurological: No New Focal Deficit Psy/Mental Status: Alert, Normal Affect, Normal Mood - Patient Data Lab Results Last 24 hrs: Laboratory Results - last 24 hr 12/31/20 12/31/20 12/31/20 Range/Units 08:17 11:37 14:10 WBC (5.0-10.0) 10^3/uL RBC (4.2-5.4) 10^6/uL Hgb (12.0-16.0) g/dL Hct (37.0-47.0) % MCV (80-100) fL MCH (27.0-34.0) pg MCHC (33.0-35.0) g/dL Plt Count (150-450) 10^3/uL Neut % (Auto) (42.2-75.2) % Lymph % (Auto) (20.5-50.1) % [place] % (Auto) (2-8) % Eos % (Auto) (1.0-3.0) % Baso % (Auto) (0.0-1.0) % POC Glucose 94 122 H (70-99) mg/dL B-Natriuretic Peptide 82 (0-100) pg/ml 12/31/20 12/31/20 12/31/20 Range/Units 14:10 16:47 21:08 WBC 22.6 H (5.0-10.0) 10^3/uL RBC 3.63 L (4.2-5.4) 10^6/uL Hgb 11.0 L D (12.0-16.0) g/dL Hct 33.5 L (37.0-47.0) % MCV 92.3 (80-100) fL MCH 30.3 (27.0-34.0) pg MCHC 32.8 L (33.0-35.0) g/dL Plt Count 248 (150-450) 10^3/uL Neut % (Auto) 90.9 H (42.2-75.2) % Lymph % (Auto) 3.5 L (20.5-50.1) % [place] % (Auto) 5.6 (2-8) % Eos % (Auto) 0.0 L (1.0-3.0) % Baso % (Auto) 0.0 (0.0-1.0) % POC Glucose 151 H 128 H (70-99) mg/dL B-Natriuretic Peptide (0-100) pg/ml 01/01/21 Range/Units 06:56 WBC 15.9 H (5.0-10.0) 10^3/uL RBC 3.73 L (4.2-5.4) 10^6/uL Hgb 11.2 L (12.0-16.0) g/dL Hct 34.5 L (37.0-47.0) % MCV 92.5 (80-100) fL MCH 30.0 (27.0-34.0) pg MCHC 32.5 L (33.0-35.0) g/dL Plt Count 261 (150-450) 10^3/uL Neut % (Auto) 90.6 H (42.2-75.2) % Lymph % (Auto) 3.1 L (20.5-50.1) % [place] % (Auto) 5.5 (2-8) % Eos % (Auto) 0.7 L (1.0-3.0) % Baso % (Auto) 0.1 (0.0-1.0) % POC Glucose (70-99) mg/dL B-Natriuretic Peptide (0-100) pg/ml Result Diagrams: 01/01/21 06:56 12/30/20 22:47 Brian Results Last 24 hrs: Microbiology 12/30/20 22:47 Aerobic Blood Culture - Preliminary Blood - Arm, Left NO GROWTH AFTER 1 DAY Anaerobic Blood Culture - Preliminary NO GROWTH AFTER 1 DAY 12/30/20 22:47 Aerobic Blood Culture - Preliminary Blood - Venous - Iv Start NO GROWTH AFTER 1 DAY Anaerobic Blood Culture - Preliminary NO GROWTH AFTER 1 DAY Sepsis Event Note - Evaluation Sepsis Screening Result: No Definite Risk - Focused Exam Vital Signs: Vital Signs Temp Pulse Resp BP BP Pulse Ox 01/01/21 05:27 98 01/01/21 04:00 96.9 F 88 18 91/58 L 98 01/01/21 00:30 92 12/31/20 23:44 98.6 F 89 20 106/71 97 12/31/20 20:23 98.8 F 92 20 107/65 100 - Problem List Review Problem List Initiated/Reviewed/Updated: Yes - My Orders Last 24 Hours: My Active Orders 12/31/20 06:38 Blood Glucose Check, Bedside [RC] WITHMEALSANDBED Oxygen Therapy [RC] PRN Pulse Oximetry [RC] PRN Up ad Mariza [RC] ASDIRECTED Vital Signs [RC] 08,12,16,20,00,04 Acetaminophen [TylenoL] 650 mg PO Q4H PRN Ondansetron [Zofran] 4 mg IVPUSH Q4H PRN Sodium Chloride 0.9% [Saline Flush] 10 ml FLUSH ASDIRECTED PRN Peripheral IV Insertion Adult [OM.PC] Routine Saline Lock Insert [OM.PC] Routine Resuscitation Status Routine 12/31/20 06:39 Peripheral IV Care [RC] 12/31/20 06:41 RT Aerosol Therapy [RC] 01,07,13,18 12/31/20 06:42 Dextrose 50% in Water 50 ml IVPUSH Q15M PRN Glucagon,Human Recombinant [GlucaGen] 1 mg IM Q15M PRN 12/31/20 06:43 CPAP Adult [RT BiPAP/CPAP] [RC] .PRN Communication Order [RC] 12/31/20 06:45 Pharmacy to Dose - Vancomycin 1 dose .XX ASDIRECTED 12/31/20 06:59 Cyclobenzaprine [Flexeril] 10 mg PO TID PRN Morphine 15 mg PO TID PRN Polyvinyl Alcohol [LiquiTears 1.4% Ophth Soln] 0 ml EYELF Q4H PRN 12/31/20 07:00 Albuterol/Ipratropium [DuoNeb 3.0-0.5 MG/3 ML] 3 ml NEB Q6HRRT 12/31/20 Breakfast Consistent Carbohydrate Diet [DIET] 12/31/20 08:00 Insulin Lispro [HumaLOG] See Protocol SUBCUT WITHMEALSANDBED 12/31/20 09:00 Aspirin [Halfprin] 81 mg PO DAILY Bumetanide [Bumex] 0.5 mg PO DAILY Docusate Sodium/Sennosides [Senna Plus] 2 tab PO BID Enoxaparin [Lovenox] 40 mg SUBCUT DAILY Gabapentin [Neurontin] 300 mg PO TID Potassium Chloride [Klor-Con 10] 10 meq PO DAILY Sertraline [Zoloft] 100 mg PO DAILY Vancomycin 1.25 gm Sodium Chloride 0.9% [Normal Saline (AdvBag)] 250 ml IV Q8H 12/31/20 12:00 Piperacillin/Tazobactam [Zosyn] 3.375 gm Sodium Chloride 0.9% [Normal Saline] 100 ml IV Q6HR 12/31/20 21:00 Insulin Glarg,Human.Rec.Analog [LantUS] 42 unit SUBCUT BEDTIME atorvaSTATin [Lipitor] 10 mg PO BEDTIME 01/01/21 06:56 BASIC METABOLIC PANEL,BMP [CHEM] Routine - Plan Plan:: Surgical History: Left eye surgery x2, tubal ligation, back surgery x2, bilateral lower extremity varicose vein stripping, right knee surgery, right nephrectomy, gastric bypass, , appendectomy Family History: Cancer, diabetes, coronary artery disease, hypertension, hyperlipidemia Social History: Tobacco: Former smoker Alcohol: Denies Caffeine: Tea Drugs: Past marijuana use. Denies any other drug use past or present Allergies: No known drug allergies. The patient is allergic to latex, onions, spider bites Code Status: Full Assessment / Plan: Pneumonia. IV vancomycin to be dosed by pharmacy plus Zosyn 3.375 g IV every 6 hours plus DuoNeb every 6 hours Sinusitis. IV vancomycin to be dosed by pharmacy plus Zosyn 3.375 g IV every 6 hours History of left eye cancer, status post surgery x2, status post radiation therapy. Outpatient follow-up with hematology/oncology History of left neck sebaceous carcinoma. Outpatient follow-up with hematology/oncology Right S1 pedicle screw breakage in the right sided spinal fixation diandra is broken at the level of the L3 pedicle. The left spinal fixation diandra is broken at the L3-L4 level. Outpatient follow-up with orthopedic surgeryspine or neurosurgery Query pulmonary hypertension Chronic pain Depression. Zoloft 100 mg p.o. daily Muscle spasm Rheumatoid arthritis Spinal stenosis Degenerative disc disease Neuropathy. Gabapentin 300 mg p.o. 3 times daily Diabetes. Will check fasting glucose before every meal and at bedtime and provide some sliding scale plus insulin detemir 42 units subcutaneously nightly Hyperlipidemia. Lipitor 10 mg p.o. nightly Hypertension. Bumex 0.5 mg p.o. daily plus K-Dur 10 M EQ p.o. daily Obesity. Patient will be counseled regarding lifestyle modification Constipation. Senna plus: 2 tabs p.o. twice daily Obstructive sleep apnea. CPAP/BiPAP: Okay to use home device and/or pressure when sleeping if the patient uses CPAP/BiPAP at home Osteoarthritis Diverticulosis History of hepatitisnot otherwise specified History of leaving AGAINST MEDICAL ADVICE History of medical noncompliance as witnessed by patient leaving AGAINST MEDICAL ADVICE. The patient will be counseled regarding medical compliance DVT prophylaxis. Lovenox 40 mg subcutaneously daily Disposition: The patient may potentially back be a candidate for discharge on this date January 01, 2021 pending review of her morning labs, otherwise I anticipate discharge within 24 to 48 hours END OF DOCTOR EMAMIS HISTORY AND PHYSICAL / CONSULTATION NOTE
[2021-01-01 07:17] LABS: ANION GAP 12.7 mEq/L (7-13); CHLORIDE,CL 107 mmol/L (98-107); SODIUM,NA 145 mmol/L (136-145)
[2021-01-01] MEDS: Enoxaparin 40 MG/0.4 ML Syringe SUBCUT SCH (08:42)
[2021-01-01] MEDS: Potassium Chloride 10 MEQ Tab.ER PO SCH (08:42)
[2021-01-01] MEDS: Aspirin 81 MG Tab.EC PO SCH (08:42)
[2021-01-01] MEDS: Bumetanide 1 MG Tab PO SCH (08:42)
[2021-01-01] MEDS: Gabapentin 300 MG Cap PO SCH (08:42)
[2021-01-01] MEDS: Sertraline 50 MG Tab PO SCH (08:42)
[2021-01-01] MEDS: Insulin Lispro 100 Units/ML 3 ML Vial SUBCUT SCH ×2 (08:43→12:02)
--- NOTE | 2021-01-01 08:53 | PCM.DCSUM1 ---
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 The left spinal fixation diandra is broken at the L3-L4 level Query pulmonary hypertension Chronic pain Depression Muscle spasm Rheumatoid arthritis Spinal stenosis Degenerative disc disease Neuropathy Diabetes Hyperlipidemia Hypertension Obesity Constipation Obstructive sleep apnea Osteoarthritis Diverticulosis History of hepatitisnot otherwise specified History of leaving gets medical advice History medical noncompliance as witnessed by patient leaving AGAINST MEDICAL ADVICE Consultations: None Condition on Discharge: Fair Disposition: The patient will be advised to follow-up with otolaryngology as directed for her history of left eye cancer and her history of left neck sebaceous carcinoma Patient is advised to follow-up with hematology/oncology as directed for her history of left eye cancer and her history of left neck sebaceous carcinoma The patient is advised to follow-up with ophthalmology as directed for her history of left eye cancer The patient is advised to follow-up with orthopedicspine for finding of right S1 pedicle screw breakage of the right sided spinal fixation diandra is broken at the level of the L3 pedicle and the left spinal fixation diandra is broken at the L3-L4 level Discharge Medications: Multivitamin 1 tab p.o. daily Zoloft 100 mg p.o. daily K-Dur 10 M EQ p.o. daily Morphine sulfate 15 mg p.o. 3 times daily as needed pain Levemir 42 units subcutaneously nightly Gabapentin 300 mg p.o. 3 times daily Senna plus: 2 tabs p.o. twice daily Flexeril 10 mg p.o. 3 times daily as needed muscle spasm Bumex 0.5 mg p.o. daily Lipitor 10 mg p.o. nightly Aspirin 81 mg p.o. daily Levaquin 500 mg p.o. daily. Quantity 5. 0 refills. This being prescribed for pneumonia and sinusitis END OF DOCTOR EMAMIS DISCHARGE SUMMARY - Discharge Data Discharge Date: 01/01/21 Discharge Disposition: Home, Self-Care 01 Condition: Fair - Referral to Home Health Primary Care Physician: PCP None - Patient Instructions Diet: Heart Healthy Diet, Low Sodium, Diabetic Diet Activity: As Tolerated - Discharge Plan Prescriptions/Med Rec: levoFLOXacin [Levaquin] 500 mg PO DAILY 5 Days #5 tab Docusate Sodium/Sennosides [Senna Plus] 2 tab PO BID 30 Days #120 tablet Home Medications: Home Meds Insulin Detemir [Levemir] 42 units SQ BEDTIME 06/01/13 [History] Aspirin [Halfprin] 81 mg PO DAILY 02/14/14 [History] Cyclobenzaprine [Flexeril] 10 mg PO TID PRN 09/04/15 [History] Carboxymethylcellulose Sodium [Refresh Tears 0.5%] 2 drop EYELF Q4H PRN 05/26/19 [History] Multivitamin [Multi-Day Vitamins] 1 each PO DAILY 09/03/19 [History] Sertraline [Zoloft] 100 mg PO DAILY 10/14/19 [History] atorvaSTATin [Lipitor] 10 mg PO BEDTIME 10/14/19 [History] Morphine Sulfate 15 mg PO TID PRN 10/31/19 [History] Bumetanide 0.5 mg PO DAILY 09/10/20 [History] Gabapentin [Neurontin] 300 mg PO TID 09/10/20 [History] Potassium Chloride 10 meq PO DAILY 09/10/20 [History] Docusate Sodium/Sennosides [Senna Plus] 2 tab PO BID 30 Days #120 tablet 01/01/21 [Rx] levoFLOXacin [Levaquin] 500 mg PO DAILY 5 Days #5 tab 01/01/21 [Rx] Forms: ED Department Discharge - Discharge Summary/Plan Comment DC Time >30 min.: Yes - General Info Date of Service: 01/01/21 - Review of Systems General: Reports: No Symptoms HEENT: Reports: No Symptoms Pulmonary: Reports: No Symptoms Cardiovascular: Reports: No Symptoms Gastrointestinal: Reports: No Symptoms Genitourinary: Reports: No Symptoms Musculoskeletal: Reports: No Symptoms Skin: Reports: No Symptoms Neurological: Reports: No Symptoms Psychiatric: Reports: No Symptoms - Patient Data Vitals - Most Recent: Last Vital Signs Temp 96.9 F 01/01/21 04:00 Pulse 88 01/01/21 04:00 Resp 18 01/01/21 04:00 BP 91/58 L 01/01/21 04:00 Pulse Ox 98 01/01/21 05:27 Weight - Most Recent: 219 lb I&O - Last 24 hours: Intake & Output 12/31/20 01/01/21 01/01/21 22:59 06:59 14:59 Intake Total 920 440 Balance 920 440 Lab Results - Last 24 hrs: Laboratory Results - last 24 hr 12/31/20 12/31/20 12/31/20 Range/Units 11:37 14:10 14:10 WBC 22.6 H (5.0-10.0) 10^3/uL RBC 3.63 L (4.2-5.4) 10^6/uL Hgb 11.0 L D (12.0-16.0) g/dL Hct 33.5 L (37.0-47.0) % MCV 92.3 (80-100) fL MCH 30.3 (27.0-34.0) pg MCHC 32.8 L (33.0-35.0) g/dL Plt Count 248 (150-450) 10^3/uL Neut % (Auto) 90.9 H (42.2-75.2) % Lymph % (Auto) 3.5 L (20.5-50.1) % [place] % (Auto) 5.6 (2-8) % Eos % (Auto) 0.0 L (1.0-3.0) % Baso % (Auto) 0.0 (0.0-1.0) % Sodium (136-145) mmol/L Potassium (3.5-5.1) mmol/L Chloride (98-107) mmol/L Carbon Dioxide (21-32) mmol/L Anion Gap (7-13) mEq/L BUN (7-18) mg/dL Creatinine (0.55-1.02) mg/dL Est Cr Clr Drug Dosing mL/min Estimated GFR (MDRD) Glucose (70-99) mg/dL POC Glucose 122 H (70-99) mg/dL Calcium (8.5-10.1) mg/dL B-Natriuretic Peptide 82 (0-100) pg/ml Vancomycin Trough (10.0-20.0) ug/mL 12/31/20 12/31/20 01/01/21 Range/Units 16:47 21:08 06:56 WBC 15.9 H (5.0-10.0) 10^3/uL RBC 3.73 L (4.2-5.4) 10^6/uL Hgb 11.2 L (12.0-16.0) g/dL Hct 34.5 L (37.0-47.0) % MCV 92.5 (80-100) fL MCH 30.0 (27.0-34.0) pg MCHC 32.5 L (33.0-35.0) g/dL Plt Count 261 (150-450) 10^3/uL Neut % (Auto) 90.6 H (42.2-75.2) % Lymph % (Auto) 3.1 L (20.5-50.1) % [place] % (Auto) 5.5 (2-8) % Eos % (Auto) 0.7 L (1.0-3.0) % Baso % (Auto) 0.1 (0.0-1.0) % Sodium (136-145) mmol/L Potassium (3.5-5.1) mmol/L Chloride (98-107) mmol/L Carbon Dioxide (21-32) mmol/L Anion Gap (7-13) mEq/L BUN (7-18) mg/dL Creatinine (0.55-1.02) mg/dL Est Cr Clr Drug Dosing mL/min Estimated GFR (MDRD) Glucose (70-99) mg/dL POC Glucose 151 H 128 H (70-99) mg/dL Calcium (8.5-10.1) mg/dL B-Natriuretic Peptide (0-100) pg/ml Vancomycin Trough (10.0-20.0) ug/mL 01/01/21 01/01/21 01/01/21 Range/Units 06:56 06:56 07:23 WBC (5.0-10.0) 10^3/uL RBC (4.2-5.4) 10^6/uL Hgb (12.0-16.0) g/dL Hct (37.0-47.0) % MCV (80-100) fL MCH (27.0-34.0) pg MCHC (33.0-35.0) g/dL Plt Count (150-450) 10^3/uL Neut % (Auto) (42.2-75.2) % Lymph % (Auto) (20.5-50.1) % [place] % (Auto) (2-8) % Eos % (Auto) (1.0-3.0) % Baso % (Auto) (0.0-1.0) % Sodium 145 (136-145) mmol/L Potassium 3.7 (3.5-5.1) mmol/L Chloride 107 (98-107) mmol/L Carbon Dioxide 29 (21-32) mmol/L Anion Gap 12.7 (7-13) mEq/L BUN 8 (7-18) mg/dL Creatinine 0.65 (0.55-1.02) mg/dL Est Cr Clr Drug Dosing 102.20 mL/min Estimated GFR (MDRD) > 60 Glucose 81 (70-99) mg/dL POC Glucose 70 (70-99) mg/dL Calcium 8.2 L (8.5-10.1) mg/dL B-Natriuretic Peptide (0-100) pg/ml Vancomycin Trough 21.4 H (10.0-20.0) ug/mL LARRY Results - Last 24 hrs: Microbiology 12/30/20 22:47 Aerobic Blood Culture - Preliminary Blood - Arm, Left NO GROWTH AFTER 1 DAY Anaerobic Blood Culture - Preliminary NO GROWTH AFTER 1 DAY 12/30/20 22:47 Aerobic Blood Culture - Preliminary Blood - Venous - Iv Start NO GROWTH AFTER 1 DAY Anaerobic Blood Culture - Preliminary NO GROWTH AFTER 1 DAY Med Orders - Current: Current Medications Acetaminophen (Acetaminophen 325 Mg Tab) 650 mg PO Q4H PRN PRN Reason: Pain (Mild 1-3)/fever Last Admin: 12/31/20 23:05 Dose: 650 mg Documented by: Albuterol/Ipratropium (Albuterol/Ipratropium 3.0-0.5 Mg/3 Ml Neb Soln) 3 ml NEB Q6HRRT ROCKY Last Admin: 01/01/21 07:33 Dose: 3 ml Documented by: Artificial Tears (Polyvinyl Alcohol 1.4% Ophth Soln 15 Ml Bottle) 0 ml EYELF Q4H PRN PRN Reason: Dry Eyes Last Admin: 12/31/20 09:37 Dose: 2 drop Documented by: Aspirin (Aspirin 81 Mg Tab.Ec) 81 mg PO DAILY [facility] Last Admin: 01/01/21 08:42 Dose: 81 mg Documented by: Atorvastatin Calcium (Atorvastatin 10 Mg Tab) 10 mg PO BEDTIME [facility] Last Admin: 12/31/20 21:43 Dose: 10 mg Documented by: Bumetanide (Bumetanide 1 Mg Tab) 0.5 mg PO DAILY [facility] Last Admin: 01/01/21 08:42 Dose: 0.5 mg Documented by: Cyclobenzaprine HCl (Cyclobenzaprine 10 Mg Tab) 10 mg PO TID PRN PRN Reason: muscle spasms Dextrose/Water (50% Dextrose In Water 50 Ml Syringe) 50 ml IVPUSH Q15M PRN PRN Reason: Hypoglycemia Enoxaparin Sodium (Enoxaparin 40 Mg/0.4 Ml Syringe) 40 mg SUBCUT DAILY [facility] Last Admin: 01/01/21 08:42 Dose: 40 mg Documented by: Gabapentin (Gabapentin 300 Mg Cap) 300 mg PO TID [facility] Last Admin: 01/01/21 08:42 Dose: 300 mg Documented by: Glucagon (Glucagon,Human Recombinant 1 Mg Vial) 1 mg IM Q15M PRN PRN Reason: Hypoglycemia Vancomycin HCl 1.25 gm/ Sodium (Chloride) 250 mls @ 166.667 mls/hr IV Q8H [facility] Last Admin: 01/01/21 00:16 Dose: 166 mls/hr Documented by: Piperacillin Sod/Tazobactam (Sod 3.375 gm/ Sodium Chloride) 100 mls @ 200 mls/hr IV Q6HR [facility] Last Admin: 01/01/21 05:11 Dose: 200 mls/hr Documented by: Insulin Glargine (Insulin Glarg,Human.Rec.Analog 100 Unit/Ml) 42 unit SUBCUT BEDTIME [facility] Last Admin: 12/31/20 21:45 Dose: 42 units Documented by: Insulin Human Lispro (Insulin Lispro 100 Units/Ml 3 Ml Vial) 0 unit SUBCUT WITHMEALSANDBED [facility]; Protocol Last Admin: 01/01/21 08:43 Dose: Not Given Documented by: Morphine Sulfate (Morphine 15 Mg Tab) 15 mg PO TID PRN PRN Reason: Pain Ondansetron HCl (Ondansetron 4 Mg/2 Ml Sdv) 4 mg IVPUSH Q4H PRN PRN Reason: Nausea/Vomiting Potassium Chloride (Potassium Chloride 10 Meq Tab.Er) 10 meq PO DAILY [facility] Last Admin: 01/01/21 08:42 Dose: 10 meq Documented by: Senna/Docusate Sodium (Docusate Sodium/Sennosides 50-8.6 Mg Tab) 2 tab PO BID [facility] Last Admin: 01/01/21 08:41 Dose: 2 tab Documented by: Sertraline HCl (Sertraline 50 Mg Tab) 100 mg PO DAILY [facility] Last Admin: 01/01/21 08:42 Dose: 100 mg Documented by: Sodium Chloride (Sodium Chloride 0.9% 10 Ml Syringe) 10 ml FLUSH ASDIRECTED PRN PRN Reason: Keep Vein Open Last Admin: 01/01/21 05:11 Dose: 10 ml Documented by: Vancomycin HCl (Pharmacy To Dose - Vancomycin) 1 dose .XX ASDIRECTED [facility] Discontinued Medications Acetaminophen (Acetaminophen 325 Mg Tab) 650 mg PO NOW ONE Stop: 12/30/20 23:52 Last Admin: 12/30/20 23:56 Dose: 650 mg Documented by: Sodium Chloride (Normal Saline) 1,000 mls @ 999 mls/hr IV .BOLUS ONE Stop: 12/31/20 00:51 Last Admin: 12/30/20 23:59 Dose: 999 mls/hr Documented by: Ceftriaxone Sodium 1 gm/ (Sodium Chloride) 50 mls @ 100 mls/hr IV ONETIME ONE Stop: 12/31/20 00:24 Last Admin: 12/31/20 00:00 Dose: 100 mls/hr Documented by: Sodium Chloride (Normal Saline) 1,000 mls @ 999 mls/hr IV .BOLUS ONE Stop: 12/31/20 04:35 Last Admin: 12/31/20 03:39 Dose: 999 mls/hr Documented by: Piperacillin Sod/Tazobactam (Sod 3.375 gm/ Sodium Chloride) 100 mls @ 200 mls/hr IV Q6H [facility] Last Infusion: 12/31/20 08:25 Dose: Infused Documented by: Vancomycin HCl 1.25 gm/ Sodium (Chloride) 250 mls @ 166.667 mls/hr IV Q8H [facility] Last Admin: 12/31/20 11:52 Dose: Not Given Documented by: Iopamidol (Iopamidol 612 Mg/Ml 100 Ml Bottle) 100 ml IVPUSH ONETIME ONE Stop: 12/30/20 23:51 Last Admin: 12/31/20 00:05 Dose: 75 ml Documented by: - Exam General: Reports: Alert, Oriented HEENT: Reports: Pupils Equal, Pupils Reactive, EOMI, Mucous Membr. Moist/[place] Neck: Reports: Supple Lungs: Reports: Clear to Auscultation, Normal Respiratory Effort Cardiovascular: Reports: Regular Rate, Regular Rhythm GI/Abdominal Exam: Normal Bowel Sounds, Soft, Non-Tender, No Organomegaly, No Distention, No Abnormal Bruit, No Mass, Pelvis Stable Back Exam: Reports: Normal Inspection, Full Range of Motion Extremities: Normal Inspection, Normal Range of Motion, Non-Tender, No Pedal Edema, Normal Capillary Refill Skin: Reports: Warm, Dry, Intact Wound/Incisions: Reports: Healing Well Neurological: Reports: No New Focal Deficit Psy/Mental Status: Reports: Alert, Normal Affect, Normal Mood
[2021-01-01 09:36] VITALS: BP 130/82; PULSE 85
[2021-01-01] MEDS ORDERED: Piperacillin/Tazobactam 3.375 GM in Sodium Chloride 0.9% 100 ML IV ONE (11:00)
== END 2021-01-01 12:07 | disposition home or self-care (01) | DRG 871 ==
LOC: DL.ED 21:12 → DL.MS 12-31 04:31
PROVIDERS: ADMIT Internal Medicine; ATTEND Internal Medicine
DX: A41.9 Sepsis, unspecified organism (principal); J18.9 Pneumonia, unspecified organism; J32.9 Chronic sinusitis, unspecified; M54.9 Dorsalgia, unspecified; E11.42 Type 2 diabetes mellitus with diabetic polyneuropathy; E66.9 Obesity, unspecified; G47.33 Obstructive sleep apnea (adult) (pediatric); M19.90 Unspecified osteoarthritis, unspecified site; Z92.3 Personal history of irradiation; K59.00 Constipation, unspecified; C69.92 Malignant neoplasm of unspecified site of left eye; H54.7 Unspecified visual loss; G89.29 Other chronic pain; Z20.822 Contact with and (suspected) exposure to COVID-19; M06.9 Rheumatoid arthritis, unspecified; M62.838 Other muscle spasm; K57.90 Diverticulosis of intestine, part unspecified, without perforation or abscess without bleeding; Z96.659 Presence of unspecified artificial knee joint; Z91.19 Patient's noncompliance with other medical treatment and regimen; Z90.49 Acquired absence of other specified parts of digestive tract; Z98.1 Arthrodesis status; Z98.84 Bariatric surgery status; Z98.51 Tubal ligation status; Z85.840 Personal history of malignant neoplasm of eye; Z85.828 Personal history of other malignant neoplasm of skin; M48.061 Spinal stenosis, lumbar region without neurogenic claudication; E11.40 Type 2 diabetes mellitus with diabetic neuropathy, unspecified; Z98.890 Other specified postprocedural states; Z91.038 Other insect allergy status; Z91.040 Latex allergy status; Z87.01 Personal history of pneumonia (recurrent); Z99.2 Dependence on renal dialysis; Z87.891 Personal history of nicotine dependence; Z68.32 Body mass index [BMI] 32.0-32.9, adult; Z91.018 Allergy to other foods; Z79.82 Long term (current) use of aspirin; Z79.4 Long term (current) use of insulin; Z79.899 Other long term (current) drug therapy
CPT/HCPCS: 0240U; 36415; 70490; 71045; 71250; 74177; 80048; 80053; 80202; 81003; 82150; 82947; 83605; 83690; 83880; 85025; 87040; 94640; 96365; 99223; 99239; 99284; 99285; A9270-GY; J0696; J1650; J1815-GY; J2543; J3370; J7030; J7050; J7620-GY; Q9967

== ENCOUNTER 2021-06-12 13:17 | Emergency (ER) | payer MEDICARE, OTHER ==
[2021-06-12 13:56] VITALS: BP 104/79; PULSE 120
--- NOTE | 2021-06-12 14:47 | EDM.PDOC ---
ED HPI GENERAL MEDICAL PROBLEM - General Chief Complaint: Back Pain or Injury Stated Complaint: FELL AND INJURED BACK Time Seen by Provider: 06/12/21 14:10 Source of Information: Reports: Patient History Limitations: Reports: No Limitations - History of Present Illness INITIAL COMMENTS - FREE TEXT/NARRATIVE: 55 y/o F c/o thoracic, lumbar and sacral pain after falling from a standing position in the bathroom. Pt had just finished toileting and got up to wash her hands when her legs gave out and she fell onto her tailbone. No LOC. Hc of lymphoma cancer and has extensive surgery on L neck and has had her L eye removed in Feb of last year. Pt normally needs assistance ambulating but wanted to try it herself today. Is not on blood thinners. Denies fever, cough, chills, drugs, etoh, cp, db, abd pn, ext pain. Lower Back Pain Score (Numeric/FACES): 6 - Related Data Allergies Allergy/AdvReac Type Severity Reaction Status Date / Time silver Allergy Rash Verified 06/12/21 13:53 [From Tegaderm AG Mesh] latex Allergy Rash Uncoded 06/12/21 13:53 onions Allergy Hives Uncoded 06/12/21 13:53 spider bites Allergy Numbness Uncoded 06/12/21 13:53 Home Meds: Home Meds Aspirin [Halfprin] 81 mg PO DAILY 02/14/14 [History] Cyclobenzaprine [Flexeril] 10 mg PO TID PRN 09/04/15 [History] Carboxymethylcellulose Sodium [Refresh Tears 0.5%] 2 drop EYELF Q4H PRN 05/26/19 [History] Multivitamin [Multi-Day Vitamins] 1 each PO DAILY 09/03/19 [History] Sertraline [Zoloft] 100 mg PO DAILY 10/14/19 [History] atorvaSTATin [Lipitor] 10 mg PO BEDTIME 10/14/19 [History] Morphine Sulfate 15 mg PO TID PRN 10/31/19 [History] Gabapentin [Neurontin] 300 mg PO TID 09/10/20 [History] Docusate Sodium/Sennosides [Senna Plus] 2 tab PO BID 30 Days #120 tablet 01/01/21 [Rx] Acetaminophen [Tylenol] 650 mg PO Q4H PRN tablet 05/02/21 [Rx] Carboxymethylcellulose Sodium [Refresh Celluvisc] 2 each EYELF Q4H PRN cont 05/02/21 [Rx] Dextrose 50% in Water [Dextrose 50%-Water] 50 ml IVPUSH Q15M PRN syringe 05/02/21 [Rx] Magnesium Chloride [Mag Delay] 128 mg PO DAILY #60 tablet. 05/02/21 [Rx] Ondansetron [Zofran] 8 mg IVPUSH Q6H PRN vial 05/02/21 [Rx] Potassium Chloride 20 meq PO DAILY 30 Days #30 05/02/21 [Rx] Past Medical History HEENT History: Reports: Impaired Vision Other HEENT History: wears glasses, droopy L) eye lid, had reconstrucion surg, left eye enucleation Cardiovascular History: Reports: Heart Murmur Respiratory History: Reports: Pneumonia, Recurrent Gastrointestinal History: Reports: None Genitourinary History: Reports: Dialysis, Other (See Below) Other Genitourinary History: Pt. reports she had sepsis in October, and her "kidneys shut down". She stated she received about 5 days of dialysis and got her kidneys started up again. COMPENSATION AND BENEFITS MANAGER History: Reports: , Other (See Below) Other COMPENSATION AND BENEFITS MANAGER History: 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 SEVERE L4-5 LUMBAR SPINAL STENOSIS. 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 T12-L1 THROUGH L5-S1 DEGENERATIVE DISC. 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 SEVERE L4-5 LUMBAR SPINAL STENOSIS. 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 T12-L1 THROUGH L5- S1 DEGENERATIVE DISC. 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 s/p enucleation. Had chemo and radiation last in October 2020 for lymph node involvement Dermatologic History: Reports: None - Infectious Disease History Infectious Disease History: Reports: Novel Coronavirus - Past Surgical History Head Surgeries/Procedures: Reports: Other (See Below) HEENT Surgical History: Reports: Eye Surgery, Other (See Below) Other HEENT Surgeries/Procedures: Left eye enucleation and bandage over the top Cardiovascular Surgical History: Reports: None GI Surgical History: Reports: Appendectomy, Bariatric Procedure, Colonoscopy, Other (See Below) Other GI Surgeries/Procedures: gastric bypass Female Surgical History: Reports: Section, Oophorectomy, Tubal Ligation Other Female Surgeries/Procedures: right salpingo-oopherectomy Endocrine Surgical History: Reports: None Neurological Surgical History: Reports: Other (See Below) Other Neurological Surgeries/Procedures: brace on spine Musculoskeletal Surgical History: Reports: Knee Replacement, Other (See Below) Other Musculoskeletal Surgeries/Procedures:: back surgery x2 Oncologic Surgical History: Reports: None Social & Family History - Family History Family Medical History: No Pertinent Family History Cardiac: Reports: [place] Endocrine/Metabolic: Reports: Diabetes, Type I Oncologic: Reports: Ovarian, Prostate - Tobacco Use Tobacco Use Status *Q: Unknown Ever Used Tobacco - Caffeine Use Caffeine Use: Reports: Tea - Recreational Drug Use Recreational Drug Use: No - Living Situation & Occupation Living situation: Reports: , with Family ED ROS GENERAL - Review of Systems Review Of Systems: Comprehensive ROS is negative, except as noted in HPI. ED EXAM,LOWER BACK PAIN/INJURY - Physical Exam Exam: See Below Exam Limited By: No Limitations General Appearance: Alert, No Apparent Distress Eye Exam: Bilateral Eye: PERRL Neck: Other (massive surgical resection of portions of the L upper lateral neck , L jaw and L eye) Respiratory/Chest: No Respiratory Distress, Lungs Clear, Normal Breath Sounds, No Accessory Muscle Use, Chest Non-Tender Cardiovascular: Normal Peripheral Pulses, Regular Rate, Rhythm, No Edema, No Gallop, No JVD, No Murmur, No Rub GI/Abdominal: Soft, Non-Tender (Female) Exam: Deferred Rectal (Female) Exam: Deferred Back Exam: Vertebral Tenderness (Tenderness from T4-s5 no creptius upon palpation.) Extremities: Normal Inspection, Normal Range of Motion, Non-Tender, No Pedal Edema, Normal Capillary Refill Neurological: Alert, Normal Mood/Affect Psychiatric: Normal Affect, Normal Mood Skin Exam: Warm, Dry, Intact Course - Vital Signs Last Recorded V/S: Last Vital Signs Temp 98.4 F 06/12/21 13:53 Pulse 120 H 06/12/21 13:53 Resp 18 06/12/21 13:53 BP 104/79 06/12/21 13:53 Pulse Ox 94 L 06/12/21 13:53 - Re-Assessments/Exams Free Text/Narrative Re-Assessment/Exam: 06/12/21 15:20 I discussed the exam and xray findings with the pt. I informed her of the chronic fracture of the L posterior fixation diandra and the fractured R S1 screw fracture that is also chronic. The pt is on heavy narcotics for her cancer pain and feels that she has adequate medicine at home to control her pain. I will discharge her home. Departure - Departure Time of Disposition: 15:22 Disposition: Home, Self-Care 01 Condition: Fair Clinical Impression: Lumbar spine pain, Thoracic spine pain, Sacral pain - Discharge Information *PRESCRIPTION DRUG MONITORING PROGRAM REVIEWED*: Not Applicable *COPY OF PRESCRIPTION DRUG MONITORING REPORT IN PATIENT BETITO: Not Applicable Forms: ED Department Discharge Additional Instructions: Ice and rest your back. Always use assistance to ambulate. Follow up with your primary care facility in 1 week if your symptoms do not improve. If any new symptoms or concerns develop contact your primary care facility or return to the ER. Sepsis Event Note (ED) - Evaluation Sepsis Screening Result: No Definite Risk - Focused Exam Vital Signs: Vital Signs Temp Pulse Resp BP Pulse Ox 06/12/21 13:53 98.4 F 120 H 18 104/79 94 L
--- NOTE | 2021-06-12 15:07 | CR ---
PROCEDURE INFORMATION: Exam: XR Pelvis Exam date and time: 06/12/2021 2:34 PM Age: 55 years old Clinical indication: Other: Fall TECHNIQUE: Imaging protocol: XR pelvis. Views: 1 or 2 view. COMPARISON: No relevant prior studies available. FINDINGS: Bones/joints: Mild bilateral hip osteoarthritis. Partially visualized lower lumbar spine fixation hardware without discrete complications. There is no evidence of acutely displaced fractures. There is no evidence of joint dislocation. No aggressive osseous lesions. Soft tissues: Surgical clips in the bilateral inguinal regions. There is no significant soft tissue swelling. IMPRESSION: No acute skeletal pathology.
--- NOTE | 2021-06-12 15:09 | CR ---
PROCEDURE INFORMATION: Exam: XR Thoracic Spine Exam date and time: 06/12/2021 2:36 PM Age: 55 years old Clinical indication: Other: Point tenderness t4 to sacrum; Prior surgery; Additional info: Fall TECHNIQUE: Imaging protocol: XR of the thoracic spine. Views: 2 views. COMPARISON: CR Lumbar Spine 2 or 3V 06/12/2021 2:35 PM FINDINGS: Bones/joints: Partially visualized lumbar spine fixation hardware without discrete complications. Chronic appearing superior endplate compression injury of T12 with approximately 10% loss in vertebral body height. No acute skeletal pathology. Moderate multilevel degenerative changes of the spine, as manifested by multilevel anterior osteophytes and multilevel decrease in intervertebral disc space. Pronounced thoracic kyphosis, most probably chronic in etiology. This is most pronounced at T11-T12. No aggressive osseous lesions. The spinal canal is patent. Soft tissues: There is no significant soft tissue swelling. Vasculature: A right infusion port is present. Other findings: No acutely displaced fractures. There is no evidence of joint dislocation. Visualized chest is unremarkable. IMPRESSION: Moderate multilevel degenerative changes without acute skeletal pathology noted. Note is made of a suspected chronic superior endplate compression fracture of T12 with approximately 10% loss in vertebral body height. There is associated pronounced kyphotic deformity at T11-T12.
--- NOTE | 2021-06-12 15:14 | CR ---
PROCEDURE INFORMATION: Exam: XR Lumbosacral Spine Exam date and time: 06/12/2021 2:35 PM Age: 55 years old Clinical indication: Other: Point tenderness t4 to sacrum; Prior surgery; Additional info: Fall TECHNIQUE: Imaging protocol: XR of the lumbosacral spine. Views: 2 or 3 views. COMPARISON: 1. CR Pelvis 1V or 2V 06/12/2021 2:34 PM 2. Report from CT of the abdomen and pelvis dated 12/30/2020. FINDINGS: Bones/joints: Posterior lumbar spine fixation extending from L1 through S1. The left posterior fixation diandra is fractured at the level of L3-L4, stable. There is a intervertebral disc spacer at L3-L4. The right S1 transpedicular screw is fractured, stable. Vertebral body heights appear well preserved. Vertebral alignment remains grossly well preserved. Mild multilevel decrease in intervertebral disc space. Tiny multilevel anterior osteophytes. No acutely displaced skeletal fractures are appreciated. No aggressive osseous lesions. Spinal canal appears patent. Soft tissues: There is no significant soft tissue swelling. Other findings: No other discrete or acute hardware complications are appreciated. No dislocation. IMPRESSION: 1. Left posterior lumbar fixation diandra is fractured at the level of L3-L4, chronic in etiology. 2. Right S1 transpedicular screw is fractured, chronic in etiology. 3. No acute hardware complications. 4. Moderate multilevel degenerative changes without acute skeletal pathology.
== END 2021-06-12 15:43 | disposition home or self-care (01) ==
LOC: DL.ED 13:17
DX: M54.50 Low back pain, unspecified (principal); M54.6 Pain in thoracic spine; M53.3 Sacrococcygeal disorders, not elsewhere classified; E11.40 Type 2 diabetes mellitus with diabetic neuropathy, unspecified; Z86.16 Personal history of COVID-19; Z91.048 Other nonmedicinal substance allergy status; Z91.040 Latex allergy status; Z91.018 Allergy to other foods; Z91.038 Other insect allergy status; Z79.82 Long term (current) use of aspirin
CPT/HCPCS: 72070; 72100; 72170; 99283-25

== ENCOUNTER 2021-06-28 20:05 | Emergency (ER) | payer MEDICARE, OTHER ==
[2021-06-28] MEDS ORDERED: Sodium Chloride 0.9% 1,000 ML IV ONE (20:18)
[2021-06-28] MEDS: Sodium Chloride 0.9% 10 ML Syringe FLUSH PRN (21:00)
[2021-06-28 21:28] LABS: ANION GAP 9.3 mEq/L (7-13); CHLORIDE,CL 91 mmol/L (98-107); SODIUM,NA 134 mmol/L (136-145)
[2021-06-28] MEDS ORDERED: Iopamidol 755 Mg/ML 100 ML Bottle IVPUSH ONE (22:00)
[2021-06-28 22:22] LABS: AMPHETAMINES,URINE NEGATIVE (NEGATIVE); BARBITURATES,URINE NEGATIVE (NEGATIVE); BENZODIAZEPINE,URINE NEGATIVE (NEGATIVE); MDMA (ECSTASY), URINE NEGATIVE (NEGATIVE); METHADONE,URINE NEGATIVE (NEGATIVE); METHAMPHETAMINES,URINE NEGATIVE (NEGATIVE); OPIATES,URINE POSITIVE (NEGATIVE); OXYCODONE,URINE POSITIVE (NEGATIVE); PHENCYCLIDINE,URINE NEGATIVE (NEGATIVE); TCA,URINE POSITIVE (NEGATIVE)
[2021-06-28 22:48] LABS: CORONAVIRUS COVID-19 NAA POSITIVE (NEGATIVE)
[2021-06-29] MEDS: Sodium Chloride 0.9% 10 ML Syringe FLUSH PRN
[2021-06-29 00:33] VITALS: BP 107/66; PULSE 94
[2021-06-29] MEDS ORDERED: Doxycycline Monohydrate 100 MG Cap PO ONE ×2 (00:53→00:57)
== END 2021-06-29 01:23 | disposition home or self-care (01) ==
LOC: DL.ED 20:05
DX: U07.1 COVID-19 (principal); J01.20 Acute ethmoidal sinusitis, unspecified; R55 Syncope and collapse; R22.1 Localized swelling, mass and lump, neck; E11.40 Type 2 diabetes mellitus with diabetic neuropathy, unspecified; R00.0 Tachycardia, unspecified; Z91.048 Other nonmedicinal substance allergy status; Z91.040 Latex allergy status; Z91.018 Allergy to other foods; Z79.82 Long term (current) use of aspirin; Z79.899 Other long term (current) drug therapy
CPT/HCPCS: 0240U; 36415; 70496; 70498; 71100-RT; 80053; 80305-QW; 80307; 81001; 82728; 83540; 83550; 83605; 83735; 84100; 84443; 85025; 85610; 86140; 93005; 93010; 99285; 99285-25; A9270-GY; J1642; J7030; Q9967

== ENCOUNTER 2021-07-06 18:10 | Emergency (ER) | payer MEDICARE, OTHER ==
[2021-07-06 18:37] VITALS: BP 113/91; PULSE 128
== END 2021-07-06 21:32 | disposition home or self-care (01) ==
LOC: DL.ED 18:10
DX: H92.02 Otalgia, left ear (principal); E11.40 Type 2 diabetes mellitus with diabetic neuropathy, unspecified; Z85.72 Personal history of non-Hodgkin lymphomas; Z85.89 Personal history of malignant neoplasm of other organs and systems; Z87.891 Personal history of nicotine dependence; Z91.048 Other nonmedicinal substance allergy status; Z91.040 Latex allergy status; Z91.018 Allergy to other foods; Z91.038 Other insect allergy status; Z79.82 Long term (current) use of aspirin; Z79.899 Other long term (current) drug therapy
CPT/HCPCS: 36415; 85025; 86140; 99283

== ENCOUNTER 2021-07-13 19:07 | Emergency (ER) | payer MEDICARE, OTHER ==
[2021-07-13 20:54] LABS: ANION GAP 13.9 mEq/L (7-13); CHLORIDE,CL 91 mmol/L (98-107)
[2021-07-13 21:00] LABS: SODIUM,NA 133 mmol/L (136-145)
[2021-07-13 21:01] LABS: PTT,PARTIAL THROMBOPLSTIN TIME 33.8 SEC (22.0-34.0)
[2021-07-13] MEDS ORDERED: Magnesium Sulfate/Water 2 GM in Premix Bag 1 BAG IV ONE (21:09)
[2021-07-13] MEDS ORDERED: Potassium Chloride 20 MEQ in Premix Bag 1 BAG IV ONE (21:10)
[2021-07-13] MEDS ORDERED: Sodium Chloride 0.9% 500 ML IV ONE (21:12)
[2021-07-13] MEDS ORDERED: HYDROmorphone 1 MG/ML Syringe IVPUSH ONE (22:59)
[2021-07-13 23:52] VITALS: PULSE 106
[2021-07-14 00:06] LABS: ANION GAP 12.3 mEq/L (7-13); CHLORIDE,CL 94 mmol/L (98-107); SODIUM,NA 134 mmol/L (136-145)
[2021-07-14 00:58] VITALS: BP 112/78
== END 2021-07-14 00:30 | disposition home or self-care (01) ==
LOC: DL.ED 19:07
DX: E86.0 Dehydration (principal); L89.152 Pressure ulcer of sacral region, stage 2; E87.6 Hypokalemia; E83.42 Hypomagnesemia; E11.40 Type 2 diabetes mellitus with diabetic neuropathy, unspecified; R00.0 Tachycardia, unspecified; Z91.048 Other nonmedicinal substance allergy status; Z91.040 Latex allergy status; Z91.018 Allergy to other foods; Z91.038 Other insect allergy status; Z79.82 Long term (current) use of aspirin; Z79.899 Other long term (current) drug therapy
CPT/HCPCS: 36415; 71045; 80048; 80053; 81001; 82150; 83605; 83690; 83735; 83880; 84484; 85025; 85379; 85610; 85730; 86140; 93005; 96365; 96366; 96368; 96375; 99285; J1170; J3475; J3480; J7030

== ENCOUNTER 2021-07-17 17:20 | Emergency (ER) | payer MEDICARE, OTHER ==
[2021-07-17] MEDS ORDERED: fentaNYL 100 MCG/2 ML SDV ONE (17:34)
[2021-07-17] MEDS ORDERED: Sodium Chloride 0.9% 10 ML Syringe FLUSH PRN (17:38)
[2021-07-17 17:56] VITALS: BP 114/91; PULSE 131
[2021-07-17] MEDS ORDERED: Aspirin 81 MG Tab.Chew ONE (18:03)
[2021-07-17 18:09] LABS: METHAMPHETAMINES,URINE NEGATIVE (NEGATIVE)
[2021-07-17 18:10] LABS: AMPHETAMINES,URINE NEGATIVE (NEGATIVE); BARBITURATES,URINE NEGATIVE (NEGATIVE); BENZODIAZEPINE,URINE NEGATIVE (NEGATIVE); MDMA (ECSTASY), URINE NEGATIVE (NEGATIVE); METHADONE,URINE NEGATIVE (NEGATIVE); OPIATES,URINE POSITIVE (NEGATIVE); OXYCODONE,URINE POSITIVE (NEGATIVE); PHENCYCLIDINE,URINE NEGATIVE (NEGATIVE); TCA,URINE POSITIVE (NEGATIVE)
[2021-07-17] MEDS ORDERED: Heparin Sodium 5,000 Units/ML Vial IVPUSH ONE (18:10)
[2021-07-17] MEDS ORDERED: Heparin Sodium 5,000 Units/ML Vial ONE (18:14)
[2021-07-17] MEDS ORDERED: Heparin Sodium/0.45% NaCl 25,000 UNITS/500 ML BAG IV SCH (18:15)
[2021-07-17] MEDS ORDERED: Heparin Sodium/0.45% NaCl 500 ML ONE (18:15)
[2021-07-17 18:21] LABS: ANION GAP 13.1 mEq/L (7-13); CHLORIDE,CL 92 mmol/L (98-107); SODIUM,NA 133 mmol/L (136-145)
[2021-07-17] MEDS ORDERED: Aspirin 81 MG Tab.Chew OGTUBE ONE (18:21)
[2021-07-17] MEDS ORDERED: fentaNYL 250 MCG in Sodium Chloride 0.9% 250 ML IV ONE (18:25)
[2021-07-17] MEDS ORDERED: fentaNYL 500 MCG in Sodium Chloride 0.9% 50 ML IV SCH (18:30)
[2021-07-17] MEDS ORDERED: Midazolam 50 MG in Sodium Chloride 0.9% 40 ML IV SCH (18:30)
[2021-07-17 18:35] LABS: BASE EXCESS ARTERIAL 4 mmol/L ((-2)-(+3)); BICARBONATE,ARTERIAL 27.5 mmol/L (22-26); O2 DELIVERY DEVICE RESUSCITATION BAG; O2 SATURATION ARTERIAL 101 % (95-100); PCO2 ARTERIAL 37 mmHg (35-45); PO2 ARTERIAL 633 mmHg (70-100)
[2021-07-17 18:36] LABS: ALLEN TEST pos; O2 FLOW RATE 0
[2021-07-18] MEDS ORDERED: Heparin Sodium 5,000 Units/ML Vial ONE (00:36)
[2021-07-18] MEDS ORDERED: Morphine 4 MG/ML Syringe IVPUSH ONE (02:33)
[2021-07-18] MEDS: Morphine 10 MG/ML Syringe IVPUSH ONE ×2 (02:49→03:44)
[2021-07-18] MEDS ORDERED: Morphine 10 MG/ML SDV IVPUSH ONE (03:42)
== END 2021-07-18 06:00 | disposition expired ==
LOC: DL.ED 17:20
DX: I46.9 Cardiac arrest, cause unspecified (principal); U07.1 COVID-19; I21.3 ST elevation (STEMI) myocardial infarction of unspecified site; I62.9 Nontraumatic intracranial hemorrhage, unspecified; E11.9 Type 2 diabetes mellitus without complications; Z91.040 Latex allergy status; Z91.018 Allergy to other foods; Z91.09 Other allergy status, other than to drugs and biological substances; Z79.82 Long term (current) use of aspirin; Z79.899 Other long term (current) drug therapy
CPT/HCPCS: 31500; 36415; 36600; 51702; 70450; 71045; 80053; 80305; 80307; 81001; 82150; 82803; 83605; 83735; 84443; 84484; 85025; 85610; 86140; 87040; 93005; 96365; 96366; 96375; 96376; 99285; A9270; J1644; J2250; J2270; J3010; U0002